=== PATIENT | male | born 1965 | race Caucasian/White ===

== ENCOUNTER 2016-09-08 16:28 | Emergency (ER) | payer MEDICARE, MEDICAID ==
[2016-09-08] MEDS ORDERED: Ondansetron INJ* 2 MG/ML VIAL IV ONE (17:05)
[2016-09-08] MEDS ORDERED: Ondansetron INJ* 2 MG/ML VIAL ONE (17:05)
[2016-09-08] MEDS ORDERED: NS 0.9% 1000 ML* 1,000 ML IV ONE (17:07)
[2016-09-08 17:33] LABS: Hematocrit 48 % (42-52); Mean Corpuscular HGB Conc 34 g/dl (31-36); Mean Corpuscular Hemoglobin 33 pg (27-31); Mean Corpuscular Volume 100 fL (80-94); Mean Platelet Volume 8 um3 (7.4-10.4); Red Cell Distribution Width 13 % (10.5-15); White Blood Count 9.5 10^3/ul (3.5-10.8)
[2016-09-08 17:44] LABS: Albumin 4.1 g/dL (3.2-5.2); BUN/Creatinine Ratio 10.3 (8-20); Calcium 9.6 mg/dL (8.6-10.3); EGFR African American 78.2 (>60); EGFR Non-African American 60.8 (>60); Globulin 3.6 g/dL (2-4); Potassium 3.9 mmol/L (3.5-5.0); Total Bilirubin 0.4 mg/dL (0.2-1.0); Total Protein 7.7 g/dL (6.4-8.9)
[2016-09-08 17:46] LABS: Troponin I 0.01 ng/mL (<0.04)
--- NOTE | 2016-09-08 17:46 | RAD ---
INDICATION: Headache 4 days after head trauma. COMPARISON: None. TECHNIQUE: Contiguous axial sections of the brain were obtained from the skull base to the vertex without contrast. FINDINGS: The ventricles, cisterns and sulci are within normal limits. The fenton-white matter differentiation is adequately maintained and there is no sulcal effacement. No significant focal abnormality or mass effect is present. There is no evidence for intracranial hemorrhage. Overlying the left frontal and parietal bones there is thickening and hyperattenuation of the subcutaneous tissue measuring 1.3 cm in thickness (image 15 of 40). No significant focal osseous abnormality is present. The visualized portion of the paranasal sinuses and mastoid air cells appear clear. IMPRESSION: Subacute appearing subcutaneous hematoma overlying the left frontal parietal bones as described above without CT evidence of underlying calvarial fracture or acute intracranial hemorrhage.
[2016-09-08] MEDS ORDERED: Metoclopramide IV* 5 MG/ML 2 ML VIAL IV ONE (17:48)
[2016-09-08] MEDS ORDERED: diPHENhydraMINE IV* 50 MG/ML 1 ml VIAL (BENADRYL) IV ONE (17:49)
[2016-09-08] MEDS ORDERED: LORazepam INJ* 2 MG/ML 1 ML VIAL IV PUSH ONE (17:49)
[2016-09-08 17:52] LABS: Urine Bilirubin Negative (Negative); Urine Glucose Negative (Negative); Urine Nitrite Negative (Negative)
--- NOTE | 2016-09-08 17:52 | RAD ---
INDICATION: Left shoulder pain for days after a fall COMPARISON: Chest x-ray dated October 31, 2014 TECHNIQUE: 3 views of the left shoulder were obtained. FINDINGS: The adequately corticated bones are in normal alignment. The left acromioclavicular joint appears slightly widened measuring up to 5 mm in width. The glenohumeral joint appears to be appropriately aligned. No fracture, dislocation or focal bony abnormality is seen. IMPRESSION: QUESTIONABLE WIDENING OF THE LEFT ACROMIOCLAVICULAR JOINT. IF THE PATIENT EXHIBITS FOCAL POINT TENDERNESS AT THE LEFT ACROMIOCLAVICULAR JOINT THIS COULD REPRESENT A TYPE I AC SEPARATION. IF CLINICALLY WARRANTED COMPARISON CAN BE MADE TO RIGHT SHOULDER RADIOGRAPH TO DETERMINE THE WIDTH OF THE CONTRALATERAL A CHROMIC CLAVICULAR JOINT.
[2016-09-08 18:05] LABS: TSH (Thyroid Stimulating Horm) 0.8 mcIU/mL (0.34-5.60)
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
[2016-09-08 22:38] VITALS: BP 106/71
== END 2016-09-08 22:31 | disposition home or self-care (01) ==
LOC: ED 16:28
DX: F10.129 Alcohol abuse with intoxication, unspecified (principal); S43.005A Unspecified dislocation of left shoulder joint, initial encounter; X58.XXXA Exposure to other specified factors, initial encounter; I10 Essential (primary) hypertension; J44.9 Chronic obstructive pulmonary disease, unspecified; R94.31 Abnormal electrocardiogram [ECG] [EKG]; I49.3 Ventricular premature depolarization; Z86.711 Personal history of pulmonary embolism; F17.210 Nicotine dependence, cigarettes, uncomplicated; Z88.0 Allergy status to penicillin; Z88.8 Allergy status to other drugs, medicaments and biological substances
CPT/HCPCS: 36415; 70450; 80053; 80320; 81003; 82140; 82550; 83605; 83735; 84443; 84484; 85025; 85610; 93005; 96361; 96374; 96375; 99284; G0480; J1200; J2060; J2405

== ENCOUNTER 2016-09-10 11:29 | Emergency (ER) | payer MEDICARE, MEDICAID ==
[2016-09-10] MEDS ORDERED: NS 0.9% 1000 ML* 2,000 ML IV ONE (11:46)
[2016-09-10] MEDS ORDERED: HYDROmorphone* 1 MG/ML 1 ML SYR IV ONE (11:46)
[2016-09-10] MEDS ORDERED: Diazepam SYRINGE* 5 MG/ML SYRINGE IV ONE (12:34)
[2016-09-10] MEDS ORDERED: Diazepam TAB(*) 5 MG PO ONE (12:38)
--- NOTE | 2016-09-10 13:18 | RAD ---
HISTORY: Head trauma COMPARISONS: None TECHNIQUE: Multiple contiguous axial CT scans were obtained of the head without intravenous contrast. FINDINGS: HEMORRHAGE/INFARCT: There is no hemorrhage or acute infarct. MASSES/SHIFT: There is no mass or shift. EXTRA-AXIAL SPACES: There are no extra-axial fluid collections. SULCI AND VENTRICLES: The sulci and ventricles are normal in size and position for the patient's stated age. CEREBRUM: There are no focal parenchymal abnormalities. BRAINSTEM: There are no focal parenchymal abnormalities. CEREBELLUM: There are no focal parenchymal abnormalities. VESSELS: The vessels are grossly normal. PARANASAL SINUSES: The paranasal sinuses are clear. ORBITS: The orbits are unremarkable. BONES AND SOFT TISSUE: There is soft tissue swelling of the left temporal scalp OTHER: None IMPRESSION: NO ACUTE INTRACRANIAL PATHOLOGY.
[2016-09-10] MEDS ORDERED: Acetaminophen TAB* 325 MG PO ONE (14:17)
[2016-09-10 15:58] VITALS: BP 140/100
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
== END 2016-09-10 15:58 | disposition home or self-care (01) ==
LOC: ED 11:29
DX: F07.81 Postconcussional syndrome (principal); G44.209 Tension-type headache, unspecified, not intractable
CPT/HCPCS: 70450; 96374; 99282; A9270-GY

== ENCOUNTER → 2016-10-03 09:24 | Emergency (ER) | payer MEDICARE, MEDICAID ==
[~2016-10-03 09:24] MED LIST: LORazepam INJ* 2 MG/ML 1 ML VIAL ONE; Metoclopramide IV* 5 MG/ML 2 ML VIAL IV ONE; diPHENhydraMINE IV* 50 MG in NS 0.9% 50 ML* 50 ML IVPB ONE; methylPREDNISolone 125 MG* 2 ML VIAL IV ONE
[2016-10-03] MEDS: Albuterol/Ipratropium NEB.SOL* Albuterol 2.5 MG/Ipratropium 0.5 MG 3 ML INH SCH (11:05)
--- NOTE | 2016-10-03 11:51 | RAD ---
HISTORY: Headache, anticoagulation COMPARISONS: September 12, 2016 TECHNIQUE: Multiple contiguous axial CT scans were obtained of the head without intravenous contrast. FINDINGS: HEMORRHAGE/INFARCT: There is no hemorrhage or acute infarct. MASSES/SHIFT: There is no mass or shift. EXTRA-AXIAL SPACES: There are no extra-axial fluid collections. SULCI AND VENTRICLES: The sulci and ventricles are normal in size and position for the patient's stated age. CEREBRUM: There are no focal parenchymal abnormalities. BRAINSTEM: There are no focal parenchymal abnormalities. CEREBELLUM: There are no focal parenchymal abnormalities. VESSELS: The vessels are grossly normal. PARANASAL SINUSES: There is mucosal thickening of the left maxillary sinus, with an air-fluid level. There is mucosal thickening of the ethmoid air cells. ORBITS: The orbits are unremarkable. BONES AND SOFT TISSUE: No bone or soft tissue abnormalities are noted. OTHER: None IMPRESSION: 1. NO ACUTE INTRACRANIAL PATHOLOGY. 2. SINUS MUCOSAL INFLAMMATORY DISEASE, WITH AN AIR-FLUID LEVEL IN THE LEFT MAXILLARY. IN THE CORRECT CLINICAL SETTING, THIS MAY REPRESENT ACUTE SINUSITIS
--- NOTE | 2016-10-03 11:52 | RAD ---
INDICATION: Chest pain. COMPARISON: Comparison is made with a prior chest x-ray study from October 31, 2014. TECHNIQUE: Dual-energy PA and lateral views of the chest were obtained. FINDINGS: The heart is within normal limits in size. Mediastinal and hilar contours appear within normal limits. The lungs are hyperinflated and clear. No pleural effusion or pneumothorax is seen. IMPRESSION: NO EVIDENCE FOR ACTIVE CARDIOPULMONARY DISEASE.
[2016-10-03 12:22] LABS: Hematocrit 50 % (42-52); Mean Corpuscular HGB Conc 34 g/dl (31-36); Mean Corpuscular Hemoglobin 34 pg (27-31); Mean Corpuscular Volume 100 fL (80-94); Mean Platelet Volume 8 um3 (7.4-10.4); Red Cell Distribution Width 14 % (10.5-15)
[2016-10-03 12:33] LABS: Albumin 3.9 g/dL (3.2-5.2); BUN/Creatinine Ratio 10.4 (8-20); Calcium 9.3 mg/dL (8.6-10.3); EGFR African American 95.5 (>60); EGFR Non-African American 74.3 (>60); Globulin 3.7 g/dL (2-4); Potassium 4.5 mmol/L (3.5-5.0); Total Bilirubin 0.8 mg/dL (0.2-1.0); Total Protein 7.6 g/dL (6.4-8.9)
[2016-10-03 13:32] VITALS: BP 120/72
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
== END | disposition home or self-care (01) ==
LOC: ED 09:24
DX: R51 Headache (principal); R06.2 Wheezing; R07.9 Chest pain, unspecified; J44.9 Chronic obstructive pulmonary disease, unspecified; Z86.718 Personal history of other venous thrombosis and embolism; Z79.01 Long term (current) use of anticoagulants; Z88.0 Allergy status to penicillin; Z88.6 Allergy status to analgesic agent; F32.9 Major depressive disorder, single episode, unspecified; F17.210 Nicotine dependence, cigarettes, uncomplicated; M54.2 Cervicalgia; G89.29 Other chronic pain
CPT/HCPCS: 36415; 70450; 71020; 80053; 82550; 82553; 83605; 84484; 85025; 93005; 94640; 96360; 96374; 96375; 99284; A9270-GY; J1200; J2060; J2930

== ENCOUNTER 2016-12-25 11:07 | Emergency (ER) | payer MEDICARE, MEDICAID ==
[2016-12-25] MEDS ORDERED: NS 0.9% 1000 ML* 1,000 ML IV ONE (11:50)
[2016-12-25 12:05] LABS: Hematocrit 40 % (42-52); Hemoglobin 13.9 g/dl (14.0-18.0); Mean Corpuscular HGB Conc 35 g/dl (31-36); Mean Corpuscular Hemoglobin 35 pg (27-31); Mean Corpuscular Volume 100 fL (80-94); Mean Platelet Volume 8 um3 (7.4-10.4); Red Blood Count 4.02 10^6/ul (4.0-5.4); Red Cell Distribution Width 13 % (10.5-15); White Blood Count 10.2 10^3/ul (3.5-10.8)
[2016-12-25 12:21] LABS: Albumin 3.8 g/dL (3.2-5.2); BUN/Creatinine Ratio 11.7 (8-20); EGFR African American 109.7 (>60); EGFR Non-African American 85.3 (>60); Globulin 3.2 g/dL (2-4); Magnesium 1.9 mg/dL (1.9-2.7); Potassium 3.9 mmol/L (3.5-5.0); Total Bilirubin 0.3 mg/dL (0.2-1.0)
[2016-12-25 12:24] LABS: Troponin I 0.04 ng/mL (<0.04)
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
[2016-12-25 13:25] LABS: Urine Bilirubin Negative (Negative); Urine Glucose Negative (Negative); Urine Nitrite Negative (Negative)
[2016-12-25 14:12] LABS: Benzodiazepine Urine Screen None Detected (None Detect)
[2016-12-25 14:50] VITALS: BP 161/99
== END 2016-12-25 14:35 | disposition home or self-care (01) ==
LOC: ED 11:07
DX: R53.83 Other fatigue (principal); R05 Cough; R11.2 Nausea with vomiting, unspecified; Z87.891 Personal history of nicotine dependence
CPT/HCPCS: 36415; 80053; 80307; 81003; 82550; 83735; 84484; 85025; 93005; 99282

== ENCOUNTER 2017-01-10 00:14 | Emergency (ER) | payer MEDICARE, MEDICAID ==
[2017-01-10] MEDS ORDERED: NS 0.9% 1000 ML* 1,000 ML IV ONE (01:08)
[2017-01-10] MEDS ORDERED: methylPREDNISolone 125 MG* 2 ML VIAL IV ONE (01:17)
[2017-01-10] MEDS ORDERED: Albuterol/Ipratropium NEB.SOL* Albuterol 2.5 MG/Ipratropium 0.5 MG 3 ML INH ONE (01:17)
[2017-01-10 01:38] LABS: Hematocrit 44 % (42-52); Hemoglobin 15.3 g/dl (14.0-18.0); Mean Corpuscular HGB Conc 35 g/dl (31-36); Mean Corpuscular Hemoglobin 34 pg (27-31); Mean Corpuscular Volume 98 fL (80-94); Mean Platelet Volume 8 um3 (7.4-10.4); Red Cell Distribution Width 12 % (10.5-15); White Blood Count 8.4 10^3/ul (3.5-10.8)
[2017-01-10 01:53] LABS: Albumin 3.8 g/dL (3.2-5.2); BUN/Creatinine Ratio 19.8 (8-20); Calcium 9.2 mg/dL (8.6-10.3); EGFR African American 113.9 (>60); EGFR Non-African American 88.6 (>60); Globulin 3.8 g/dL (2-4); Potassium 4.1 mmol/L (3.5-5.0); Total Bilirubin 0.7 mg/dL (0.2-1.0); Total Protein 7.6 g/dL (6.4-8.9)
[2017-01-10] MEDS ORDERED: Iohexol 300* (CONTRAST) 10 ML SDV IV ONE (02:14)
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
[2017-01-10 05:51] VITALS: BP 144/88
--- NOTE | 2017-01-10 08:08 | RAD ---
INDICATION: Chest pain COMPARISON: October 03, 2016 TECHNIQUE: PA and lateral dual-energy views were obtained. FINDINGS: Bones/Soft Tissues: There are no acute bony findings. Cardiomediastinal: The cardiomediastinal silhouette is normal. Lungs: There are no infiltrates. Pleura: There are no pleural effusions. Other: None IMPRESSION: NO ACTIVE DISEASE.
--- NOTE | 2017-01-10 08:13 | RAD ---
INDICATION: Abdominal pain. Diverticulitis. COMPARISON: CT September 22, 2014 TECHNIQUE: Axial source images were obtained from the hemidiaphragms to the symphysis pubis following administration of oral and intravenous contrast. 121 mL Omnipaque 300 was utilized. Coronal and sagittal reconstructed images were acquired. Lung bases: The lung bases are clear. Liver: The liver is normal in size. There are no masses. There is no ductal dilatation. Gallbladder: Cholecystectomy. Spleen: The spleen is normal in size. There are no masses. Pancreas: There is no focal pancreatic mass or ductal dilatation. Adrenal glands: There is no evidence of adrenal mass. Kidneys: The kidneys are normal in size and position. There is scarring of the mid and upper pole left kidney. There is a tiny renal calcification which could be renal parenchymal or reside within the collecting system. There are prompt nephrograms and there is prompt excretion bilaterally. There is a 3 cm left renal cyst. There is no evidence of nephrolithiasis. Adenopathy: There is no evidence of adenopathy by size criteria. Fluid collections: There are no free or localized fluid collections. Vessels:There are no significant atherosclerotic changes involving the aorta. There is no focal aneurysm. The iliac vessels are normal in caliber. The IVC appears normal. GI tract: There are no acute CT bowel findings. There is no obstruction. The stomach and small bowel appear normal. The lower GI tract is normal. The cecum, ileocecal valve, and terminal ileum appear normal. The appendix is visualized and appear normal. Pelvic organs: The prostate and seminal vesicles appear normal Bladder: There are no bladder masses. Abdominal and pelvic soft tissues: There is a fat-containing right inguinal hernia. Osseous structures: There are no acute osseous findings. Other: None IMPRESSION: NO ACUTE CT FINDINGS. NO MASS OR INFLAMMATORY CHANGES
== END 2017-01-10 04:30 | disposition home or self-care (01) ==
LOC: ED 00:14
DX: J45.901 Unspecified asthma with (acute) exacerbation (principal); R07.9 Chest pain, unspecified; R10.9 Unspecified abdominal pain
CPT/HCPCS: 36415; 71020; 74177; 80053; 83690; 84484; 85025; 85610; 85730; 94640; 99283; A9270-GY; J2930; Q9967

== ENCOUNTER 2017-01-18 15:24 | Emergency (ER) | payer MEDICARE, MEDICAID ==
--- NOTE | 2017-01-18 17:45 | RAD ---
INDICATION: Chest pain COMPARISON: January 10, 2017 TECHNIQUE: PA and lateral dual-energy views were obtained. FINDINGS: Bones/Soft Tissues: There are no acute bony findings. Cardiomediastinal: The cardiomediastinal silhouette is normal. Lungs: There are no infiltrates. Pleura: There are no pleural effusions. Other: None IMPRESSION: NO ACTIVE DISEASE.
[2017-01-18 18:12] LABS: Hematocrit 44 % (42-52); Hemoglobin 15.2 g/dl (14.0-18.0); Mean Corpuscular HGB Conc 34 g/dl (31-36); Mean Corpuscular Hemoglobin 34 pg (27-31); Mean Corpuscular Volume 98 fL (80-94); Mean Platelet Volume 7 um3 (7.4-10.4); Red Blood Count 4.53 10^6/ul (4.0-5.4); Red Cell Distribution Width 13 % (10.5-15)
[2017-01-18 18:27] VITALS: BP 132/77
[2017-01-18 18:31] LABS: BUN/Creatinine Ratio 11.9 (8-20); Calcium 9.7 mg/dL (8.6-10.3); EGFR African American 92.5 (>60); EGFR Non-African American 71.9 (>60); Globulin 3.9 g/dL (2-4); Potassium 3.9 mmol/L (3.5-5.0); Total Bilirubin 0.9 mg/dL (0.2-1.0); Total Protein 7.9 g/dL (6.4-8.9)
[2017-01-18 18:56] LABS: TSH (Thyroid Stimulating Horm) 0.58 mcIU/mL (0.34-5.60)
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
== END 2017-01-18 19:09 | disposition home or self-care (01) ==
LOC: ED 15:24
DX: R07.9 Chest pain, unspecified (principal); F17.210 Nicotine dependence, cigarettes, uncomplicated; Z79.01 Long term (current) use of anticoagulants
CPT/HCPCS: 36415; 71020; 80053; 82550; 83605; 84443; 84484; 85025; 85379; 93005; 99282

== ENCOUNTER 2017-08-13 16:42 | Emergency (ER) | payer MEDICARE, MEDICAID ==
--- NOTE | 2017-08-13 17:34 | RAD ---
Indication: LEFT chest pain. New alcohol cessation. History of cardiac disease, tobacco use, pulmonary embolism. Comparison: January 18, 2017 Technique: Upright AP 1722 hours Report: Clear lungs and pleural spaces. Negative for pneumothorax. The heart, pulmonary vasculature, and mediastinal contours are unremarkable. Unremarkable osseous structures and soft tissue contours. IMPRESSION: No evidence for acute intrathoracic disease.
[2017-08-13] MEDS ORDERED: Ketorolac INJ* 30 MG/ML 1 ML VIAL IV PUSH ONE (17:56)
[2017-08-13 18:01] LABS: ABS Basophils 0.1 10^3/ul (0-0.2); ABS Eosinophils 0.6 10^3/ul (0-0.6); ABS Monocytes 0.9 10^3/ul (0-0.8); ABS Neutrophils 5.9 10^3/ul (1.5-7.7); ABS Nucleated RBC 0 10^3/ul; Hematocrit 48 % (42-52); Hemoglobin 16.4 g/dl (14.0-18.0); Lymphocyte % 20.9 % (25-47); Mean Corpuscular HGB Conc 34 g/dl (31-36); Mean Corpuscular Hemoglobin 35 pg (27-31); Mean Corpuscular Volume 101 fL (80-94); Mean Platelet Volume 7.4 um3 (7.4-10.4); Nucleated Red Blood Cells % 0; Platelet Count 230 10^3/ul (150-450); Red Blood Count 4.76 10^6/ul (4.0-5.4); Red Cell Distribution Width 14 % (10.5-15); White Blood Count 9.4 10^3/ul (3.5-10.8)
[2017-08-13] MEDS ORDERED: NS 0.9% 1000 ML* 1,000 ML IV ONE (18:33)
[2017-08-13 18:51] LABS: Urine Appearance Clear; Urine Blood 2+ (Negative); Urine Color Yellow; Urine Ketones Negative (Negative); Urine Protein Negative (Negative); Urine Specific Gravity 1.015 (1.010-1.030); Urine Urobilinogen Negative (Negative)
[2017-08-13] MEDS ORDERED: oxyCODONE/Acetamin 5/325 MG* TAB PO ONE (19:32)
[2017-08-13 21:16] VITALS: BP 177/100
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
== END 2017-08-13 21:18 | disposition home or self-care (01) ==
LOC: ED 16:42
DX: R07.9 Chest pain, unspecified (principal); R42 Dizziness and giddiness; Z79.01 Long term (current) use of anticoagulants; F17.210 Nicotine dependence, cigarettes, uncomplicated; Z04.1 Encounter for examination and observation following transport accident
CPT/HCPCS: 36415; 71045; 80053; 81003; 81015; 82550; 82553; 83605; 83880; 84443; 84484; 85025; 85730; 93005; 96374; 99284; A9270-GY; J1885

== ENCOUNTER 2017-08-14 06:31 | Emergency (ER) | payer MEDICARE, MEDICAID ==
[2017-08-14] MEDS ORDERED: NS 0.9% 1000 ML* 1,000 ML IV ONE (07:19)
[2017-08-14] MEDS ORDERED: HYDROcodone/ACETAMIN 5-325 MG* 1 TAB PO ONE (07:51)
[2017-08-14 08:22] LABS: ABS Basophils 0.1 10^3/ul (0-0.2); ABS Eosinophils 0.7 10^3/ul (0-0.6); ABS Lymphocytes 1.5 10^3/ul (1.0-4.8); ABS Monocytes 0.8 10^3/ul (0-0.8); ABS Neutrophils 5.8 10^3/ul (1.5-7.7); ABS Nucleated RBC 0 10^3/ul; Eosinophil % 7.7 % (0-6); Hematocrit 52 % (42-52); Hemoglobin 18.3 g/dl (14.0-18.0); Lymphocyte % 17.1 % (25-47); Mean Corpuscular HGB Conc 35 g/dl (31-36); Mean Corpuscular Hemoglobin 35 pg (27-31); Mean Corpuscular Volume 99 fL (80-94); Mean Platelet Volume 7.5 um3 (7.4-10.4); Nucleated Red Blood Cells % 0.1; Platelet Count 258 10^3/ul (150-450); Red Blood Count 5.22 10^6/ul (4.0-5.4); Red Cell Distribution Width 14 % (10.5-15); Urine Appearance Clear; Urine Blood 2+ (Negative); Urine Color Amber; Urine Ketones Negative (Negative); Urine Protein 2+(100 mg/dL) (Negative); Urine Specific Gravity 1.027 (1.010-1.030); Urine Urobilinogen Negative (Negative); White Blood Count 8.9 10^3/ul (3.5-10.8)
[2017-08-14 08:41] LABS: EGFR Non-African American 77.3 (>60)
[2017-08-14] MEDS ORDERED: Iohexol 300* (CONTRAST) 10 ML SDV IV ONE (08:48)
--- NOTE | 2017-08-14 09:20 | RAD ---
HISTORY: Chest and abdominal pain, hematuria COMPARISONS: January 10, 2017 TECHNIQUE: Multiple contiguous axial CT scans were obtained of the chest, abdomen, and pelvis after the administration of intravenous contrast. Coronal and sagittal multiplanar reformations are submitted for review.. Oral contrast was administered. Delayed images were obtained through the abdomen and pelvis. FINDINGS: CHEST NECK AND THYROID: The lower neck and thyroid are unremarkable. CHEST WALL: There is no lower cervical, axillary, or supraclavicular lymphadenopathy by size criteria. HEART AND PERICARDIUM: The heart is unremarkable. AORTA AND PULMONARY VASCULATURE: The aorta and pulmonary vasculature are normal. MEDIASTINUM: There is no mediastinal lymphadenopathy by size criteria. SONU: There is no hilar lymphadenopathy by size criteria. AIRWAY AND ESOPHAGUS: The airway is unremarkable, without endobronchial filling defect. The esophagus is grossly normal. LUNG PARENCHYMA: There is a 0.5 cm nodular density along the fissure of the left lower lobe on axial image 45. There is a 0.3 cm nodular density along the fissure in the right middle lobe on axial image 48. PLEURA: No pleural abnormalities are noted. BONES AND SOFT TISSUES: Mild degenerative changes are noted. ABDOMEN/PELVIS: LIVER: The liver is diffusely low in attenuation compared to the spleen. There are no focal hepatic parenchymal masses. BILE DUCTS: There is no intrahepatic or extrahepatic biliary dilatation. GALLBLADDER: The gallbladder is not visualized. Surgical clips are noted in the gallbladder fossa. PANCREAS: The pancreas is normal, without mass or ductal dilatation. SPLEEN: Normal in size and appearance. UPPER GI TRACT: Evaluation of the gastrointestinal tract is limited by incomplete gastric distention. The upper GI tract is unremarkable. SMALL BOWEL & MESENTERY: The small bowel is normal in contour, course, and caliber. There is no obstruction or dilatation. COLON: The colon is normal in contour, course, caliber. There is no pericolonic inflammatory change. ADRENALS: Normal bilaterally. KIDNEYS: A simple renal cyst is noted on the left. There is persistent lobulation. Multiple renal cortical defects are noted similar to the previous examination. BLADDER: The bladder is smooth in contour. PELVIC ORGANS: The prostate gland is normal. The seminal vesicles are symmetric. AORTA: There is mild calcific atherosclerotic disease of the abdominal aorta and its branches, without aneurysmal dilatation IVC: Unremarkable LYMPH NODES: There is no lymphadenopathy by size criteria. ABDOMINAL WALL: There is a small fat-containing right inguinal hernia. BONES AND SOFT TISSUES: There are mild diffuse degenerative changes. The patient is status post internal fixation of the right femur. OTHER: None IMPRESSION: 1. SMALL PULMONARY PARENCHYMAL NODULES MEASURING UP TO 0.5 CM BILATERALLY. THE RECOMMENDATIONS FOR FOLLOWUP AND MANAGEMENT OF AN INCIDENTALLY DETECTED PULMONARY NODULE LESS THAN 6 MM IN SIZE, IN A PATIENT WITHOUT A HISTORY OF MALIGNANCY, INCLUDE NO FOLLOWUP FOR A LOW-RISK PATIENT OR OPTIONAL FOLLOWUP CT IN 12 MONTHS FOR A HIGH RISK PATIENT. 2. FATTY INFILTRATION OF LIVER. 3. STABLE LEFT RENAL CYST. THERE IS MULTIFOCAL RENAL CORTICAL PARENCHYMAL SCARRING SUGGESTIVE OF PREVIOUS INFECTION OR INJURY. 4. SMALL FAT-CONTAINING RIGHT HERNIA. 5. ATHEROSCLEROSIS NOTES: SIZE = AVERAGE LENGTH AND WIDTH; HIGH RISK IS DEFINED A HISTORY OF SMOKING OR OTHER KNOW RISK FACTORS FOR LUNG CANCER; LOW RISK IS DEFINED MINIMAL OR ABSENT HISTORY OF SMOKING OR OTHER KNOWN RISK FACTORS. Shira, H, HALIE Tovar, ANUJ Garcia, et al (2017) "Guidelines for Management of Incidental Pulmonary Nodules Detected on CT Images: From the Fleischner Society 2017." Radiology; 284(1): 228-243. doi:10.1148/[id number]
[2017-08-14 09:23] VITALS: BP 00/00
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
== END 2017-08-14 09:25 | disposition left against medical advice (07) ==
LOC: ED 06:31
DX: R07.89 Other chest pain (principal); R31.9 Hematuria, unspecified; R91.1 Solitary pulmonary nodule; N28.1 Cyst of kidney, acquired; K40.90 Unilateral inguinal hernia, without obstruction or gangrene, not specified as recurrent; I70.0 Atherosclerosis of aorta; I10 Essential (primary) hypertension; Z86.711 Personal history of pulmonary embolism; Z79.01 Long term (current) use of anticoagulants; J44.9 Chronic obstructive pulmonary disease, unspecified; F32.9 Major depressive disorder, single episode, unspecified; Z88.6 Allergy status to analgesic agent; Z88.0 Allergy status to penicillin; Z88.8 Allergy status to other drugs, medicaments and biological substances; F17.210 Nicotine dependence, cigarettes, uncomplicated
CPT/HCPCS: 36415; 71260; 74177; 80053; 80307; 81003; 82550; 84484; 85025; 87086; 93005; 96360; 99283; Q9967

== ENCOUNTER 2017-09-02 17:00 | Emergency (ER) | payer MEDICARE, MEDICAID ==
[2017-09-02 17:56] LABS: Urine Appearance Clear; Urine Blood 1+ (Negative); Urine Color Yellow; Urine Ketones Negative (Negative); Urine Protein Negative (Negative); Urine Specific Gravity 1.016 (1.010-1.030); Urine Urobilinogen Negative (Negative)
[2017-09-02 18:13] LABS: ABS Basophils 0.1 10^3/ul (0-0.2); ABS Eosinophils 0.9 10^3/ul (0-0.6); ABS Lymphocytes 2.6 10^3/ul (1.0-4.8); ABS Monocytes 0.7 10^3/ul (0-0.8); ABS Neutrophils 5.1 10^3/ul (1.5-7.7); ABS Nucleated RBC 0 10^3/ul; Eosinophil % 9.3 % (0-6); Hematocrit 48 % (42-52); Hemoglobin 16.4 g/dl (14.0-18.0); Lymphocyte % 27.8 % (25-47); Mean Corpuscular HGB Conc 35 g/dl (31-36); Mean Corpuscular Hemoglobin 35 pg (27-31); Mean Corpuscular Volume 101 fL (80-94); Mean Platelet Volume 7.6 um3 (7.4-10.4); Nucleated Red Blood Cells % 0.1; Platelet Count 329 10^3/ul (150-450); Red Blood Count 4.73 10^6/ul (4.0-5.4); Red Cell Distribution Width 13 % (10.5-15); White Blood Count 9.4 10^3/ul (3.5-10.8)
[2017-09-02 18:31] LABS: EGFR Non-African American 47.7 (>60)
[2017-09-02] MEDS ORDERED: Albuterol/Ipratropium NEB.SOL* Albuterol 2.5 MG/Ipratropium 0.5 MG 3 ML INH ONE (20:10)
[2017-09-02] MEDS ORDERED: methylPREDNISolone 125 MG* 2 ML VIAL IV ONE (20:11)
--- NOTE | 2017-09-02 20:31 | RAD ---
HISTORY: Dizziness COMPARISONS: October 03, 2016 TECHNIQUE: Multiple contiguous axial CT scans were obtained of the head without intravenous contrast. FINDINGS: HEMORRHAGE/INFARCT: There is no hemorrhage or acute infarct. MASSES/SHIFT: There is no mass or shift. EXTRA-AXIAL SPACES: There are no extra-axial fluid collections. SULCI AND VENTRICLES: The sulci and ventricles are normal in size and position for the patient's stated age. CEREBRUM: There are no focal parenchymal abnormalities. BRAINSTEM: There are no focal parenchymal abnormalities. CEREBELLUM: There are no focal parenchymal abnormalities. VESSELS: The vessels are grossly normal. PARANASAL SINUSES: The paranasal sinuses are clear. ORBITS: The orbits are unremarkable. BONES AND SOFT TISSUE: No bone or soft tissue abnormalities are noted. OTHER: None IMPRESSION: NO ACUTE INTRACRANIAL PATHOLOGY.
[2017-09-02] MEDS: NS 0.9% 1000 ML* 2,000 ML IV ONE (20:33)
--- NOTE | 2017-09-02 20:33 | RAD ---
HISTORY: Shortness of breath COMPARISONS: August 13, 2017 VIEWS: 1: frontal portable view of the chest at 8:20 PM FINDINGS: LINES AND TUBES: None. CARDIOMEDIASTINAL SILHOUETTE: The cardiomediastinal silhouette is normal for portable technique. PLEURA: The costophrenic angles are sharp. No pleural abnormalities are noted. LUNG PARENCHYMA: The lungs are clear. ABDOMEN: The upper abdomen is clear. There is no subphrenic gas. BONES AND SOFT TISSUES: No bone or soft tissue abnormalities are noted. IMPRESSION: NO ACTIVE CARDIOPULMONARY DISEASE.
[2017-09-02 23:49] VITALS: BP 118/72
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
== END 2017-09-02 23:48 | disposition home or self-care (01) ==
LOC: ED 17:00
DX: J44.9 Chronic obstructive pulmonary disease, unspecified (principal); J98.01 Acute bronchospasm; R42 Dizziness and giddiness; J45.901 Unspecified asthma with (acute) exacerbation; Z86.711 Personal history of pulmonary embolism; Z79.01 Long term (current) use of anticoagulants; F17.210 Nicotine dependence, cigarettes, uncomplicated; I10 Essential (primary) hypertension
CPT/HCPCS: 36415; 70450; 71045; 80053; 81003; 81015; 83605; 83735; 84443; 84484; 85025; 87086; 93005; 94640; 96360; 96374; 99284; A9270-GY; J2930

== ENCOUNTER 2018-02-07 18:57 | Emergency (ER) | payer MEDICARE, MEDICAID ==
--- OUTSIDE RECORDS SUMMARY | 2018-02-07 20:02 | XMS REPORT ---
:1965 External Reference #:[id number] Author Organization [facility] Address [address] [place] [address] Phone [phone] Care Team Providers Name Role Phone Herminia Tsai Care Team Information Power Plant Assistant Unavailable Gina Moses MD, PHD Primary Care Physician Unavailable Payers Type Date Identification Numbers Payment Provider Subscriber Medicare Primary Effective: Policy Number: Medicare Talha Fuentes 2001 [id number] Karen Group Name: Medicare [address] PayID: [id number] [place] [address] Medicaid Policy Number: [id number] Medicaid Talha Jones Group Name: 1 1 [address] PayID: [id number] [place] [address] Problems Date Description Provider Status Onset: 06/04/2012 Gallbladder calculus with acute Aguilar Calabrese Active cholecystitis and no obstruction M.D. Onset: 06/04/2012 H/O: coagulation defect Aguilar Calabrese Active M.D. Onset: 06/04/2012 Tobacco user Aguilar Calabrese Active M.D. Onset: 07/14/2012 Benign essential hypertension Bea Ely, ANP Active Onset: 07/14/2012 Precordial pain Bea Ely ANP Active Onset: 07/14/2012 Chronic obstructive lung disease Bea Ely, LUC Active Onset: 07/14/2012 Preoperative cardiovascular Heber Roe MD, PhD Active examination Onset: 07/14/2012 Coronary arteriosclerosis Heber Roe MD, PhD Active Onset: 05/25/2014 Attention deficit hyperactivity Kristen Benjamin M.D. Active disorder Onset: 05/25/2014 Dizziness and giddiness Kristen Benjamin M.D. Active Onset: 05/25/2014 Broken tooth without complication Kristen Benjamin M.D. Active Onset: 05/25/2014 Melena Kristen Benjamin M.D. Active Onset: 06/11/2014 Dyspnea Jamal Arreola MD Active Onset: 06/11/2014 Chest pain Jamal Arreola MD Active Onset: 06/11/2014 Disease of liver Jamal Arreola MD Active Onset: 06/11/2014 Obstructive sleep apnea syndrome Jamal Arreola MD Active Onset: 06/16/2014 Gastrointestinal hemorrhage Kristen Benjamin M.D. Active Onset: 06/16/2014 Liver function tests abnormal Kristen Benjamin M.D. Active Onset: 06/16/2014 Multiple joint pain Kristen Benjamin M.D. Active Onset: 08/24/2014 Low back pain Kristen Benjamin M.D. Active Onset: 08/24/2014 Disc Disorder Other & Unspec Kristen Benjamin M.D. Active Unspec Region Onset: 08/24/2014 Effusion Joint Other Spec Sites Kristen Benjamin M.D. Active Onset: 09/07/2014 Blood chemistry abnormal Kristen Benjamin M.D. Active Onset: 12/09/2017 Lumbosacral stenosis Gina Moses MD, PHD Active Onset: 12/09/2017 Spinal stenosis in cervical Gina Moses MD, PHD Active region Onset: 12/09/2017 C/O - a back symptom Gina Moses MD, PHD Active Onset: 11/12/2017 Chronic hepatitis C Gina Moses MD, PHD Active Onset: 10/29/2017 Other stimulant use, unspecified, Gina Moses MD, PHD Active uncomplicated Onset: 10/29/2017 Antisocial personality disorder Gina Moses MD, PHD Active Onset: 10/29/2017 Unspecified osteoarthritis, Gina Moses MD, PHD Active unspecified site Onset: 10/29/2017 Nondependent alcohol abuse in Gina Moses MD, PHD Active remission Onset: 10/01/2017 Moderate recurrent major Gina Moses MD, PHD Active depression Onset: 10/01/2017 Other seizures Gina Moses MD, PHD Active Onset: 10/01/2017 Attention-deficit hyperactivity Gina Moses MD, PHD Active disorder, other type Onset: 10/01/2017 Essential hypertension Gina Moses MD, PHD Active Onset: 11/23/2014 Syncope and collapse Kristen Benjamin M.D. Active Onset: 11/23/2014 Cementum caries Kristen Benjamin M.D. Active Onset: 11/23/2014 Cough Kristen Benjamin M.D. Active Onset: 11/23/2014 Acute exacerbation of chronic Kristen Benjamin M.D. Active obstructive airways disease Onset: 01/03/2015 Gastroesophageal reflux disease Alfredo Hebert MD Active Onset: 01/04/2008 Pulmonary embolism Alfredo Hebert MD Active Onset: 01/03/2015 Nausea and vomiting Alfredo Hebert MD Active Family History Date Family Member(s) Problem(s) Comments General Unknown Father Stabbed at age 42 First Daughter Gallstones Grandfather Heart Disease Maternal Grandfather Abdominal Aortic Aneurysm Maternal Grandfather Heart Attack Maternal Grandmother Unknown Social History Type Date Description Comments Lives With Diet Patient follows no dietary restrictions Occupation Disabled Work Status Disabled Cigarette Use Pack Years - 37 Cigarette Use Current Cigarette Smoker 1 Pack Daily ETOH Use Has consumed alcohol in the past Smoking Patient is a current smoker, smokes every day Recreational Drug Use Denies Drug Use Daily Caffeine Consumes on average 2 cups of regular coffee per day Allergies, Adverse Reactions, Alerts Date Description Reaction Status Severity Comments 06/04/2012 Penicillin throat swelling active 04/19/2014 Carbamazepine active 05/25/2014 Aspirin active 09/12/2017 Tegretol Anaphylaxis active Medications Medication Date Status Form Strength Qnty SIG Indications Ordering Provider Oxycodone HCL 01/02/20 Active Tablets 10mg 90tabs 1 tab by M54.5 Tresa oMses mouth Gina, three , PHD times a day as needed M19.90 Celecoxib 12/30/2017 Active Capsules 100mg 60caps 1 tab by Josué, mouth twice Gina, a day as , PHD needed Cyclobenzaprine HCL 12/09/2017 Active Tablets 10mg 30tabs 1 tab by M54. Josué, mouth at 5 Gina, bedtime as MD, PHD needed M48.07 M48.02 Nicotrol 10/29/2017 Active Inhaler 10mg 168units 1 inh every F17.210 Josué, 4 hours as Gina, needed for , PHD cravings Metoprolol 10/29/2017 Active Tablets ER 50mg 30tabs 1 tab by I10 Josué , Succinate ER 24HR mouth every Gina, day at MD, PHD bedtime Arnicare 10/01/2017 Active Gel 75g apply to M54.5 [place], affected Gina, area four MD, PHD times a day pain, swelling, bruising Nicotine Step 10/01/2017 Active Patches 21mg/2 30units 1 topically F17.210 Josué, 1 24HR 4HR every day MD Gina, PHD Nicotine 10/01/2017 Active Gum 4mg 110units 1 as needed F17.210 Josué Polacrilex MD Gina, PHD Xarelto 10/01/2017 Active Tablets 15mg 30tabs 1 tab by D68.8 Josué, mouth every Gina, day , PHD Adderall 10/01/2017 Active Tablets 20mg 30tabs 1 tab by F90.8 Josué, mouth every Gina, day , PHD F60.2 F15.90 Golden-3 CF 10/01/2017 Active Capsules 1000mg 60caps 1 cap by F33.1 mack Moses MD, twice a PHD day with meals B12 Fast 10/01/2017 Active Tablets 5000mcg 90tabs 1 tab by F33.1 Josué , Dissolve Dispers mouth MD Gina, every day PHD Nac 600 10/01/2017 Active Capsules 600mg 90caps 1 cap by F33.1 mack Moses MD, every day PHD Losartan 10/01/2017 Active Tablets 100mg 90tabs 1 tab by G25.0 Josué Potassium mouth MD Gina, every day PHD I10 D3-50 10/01/2017 Active Capsules [id number] 14caps 1 cap by M54.5 Gina Moses, mouth every , PHD week E55.9 Gabapentin 10/01/2017 Active Tablets 600mg 120tabs 3 tab by mouth G40.89 Josué, at bedtime and MD Gina, 1 tab in the PHD morning. F10.11 Escitalopram Active Tablets 20mg 30tabs 1 by F33.1 Josué, Oxalate mouth Gina, every day , PHD Xarelto Active Tablets 20mg 30tabs 1 by Josué mouth Gina, every day , PHD Clonidine HCL Active Tablets 0.1mg 60tabs take 1 I10 Josué, tablet by Gina oral , PHD route 2 times every day Levetiracetam Active Tablets 750mg 60tabs take 1 G40.89 Josué, tablet by mack Fuentes MD, PHD twice a day Vitamin B-1 Active Tablets 100mg Take 1 Unknown Tablet Oral Three Times A Day Oxycodone HCL ER 11/14/2017 - Hx Tab ER 12H 30mg 60tabs 1 tab by M48.07 Josué, 12/30/2017 Abuse-Det mouth Gina, twice a , PHD day after meals M48.02 M62.830 Metoprolol 10/29/2017 - Hx Tablets ER 25mg 30tabs 1 tab by I10 Josué, Succinate ER 10/29/2017 24HR mouth every MD Gina, evening PHD G25.0 D3 Maximum 10/01/2017 - Hx Capsules 5000Unit 90caps 1 cap by M5Milvia Msoes, Strength 10/01/2017 mouth MD Gina, every day PHD Oxycodone HCL 10/01/2017 - Hx Capsules 5mg 60caps 1 cap by M5Milvia Moses , 01/01/2018 mouth MD Gina, twice a PHD day as needed M19.90 Ipratropium 03/03/2015 - Hx Solution 0.5-2.5(3)mg/3ML 180ml 2 puffs Cassidy [place]/Albuterol 09/12/2017 four Kristen, Sulfate times a M.D. day Nicotine Step 1 11/23/2014 - Hx Patches 21mg/24HR 1MonthS one daily F Cassidy, 09/12/2017 24HR u patch as 1 Kristen, directed 7 M.D. . 2 0 0 Mucinex 11/23/2014 - Hx Tablets ER 600mg 20tabs one by J Cassidy, 09/12/2017 12HR mouth 4 Kristen, twice a 4 M.D. day. . generic 1 ok. Folic Acid-Vit 10/05/2014 - Hx Tablets 0.4-50-0.1mg 30tabs take one D Cassidy, B6-Vit B12 09/12/2017 tab by 5 Kristen, mouth 3 M.D. daily . 1 D52.0 Lasix 09/07/2014 - Hx Tablets 20mg 5tabs take one tab Mezu, 11/22/2014 by mouth Kristen, every day M.D. Klor-Con 10 09/07/2014 - Hx Tablets ER 10Meq 5tabs Take one tab Mezu, 11/22/2014 PO daily x 5 Kristen, days M.D. Losartan 09/07/2014 - Hx Tablets 50-12.5 30tabs take one I1 Cassidy, Potassium/Hydrochloro 09/12/2017 mg tablet by 0 Kristen, thiazide mouth every M.D. day Cyclobenzaprine HCL 08/24/2014 - Hx Tablets 10mg 30tabs 1 by mouth 40 Mezu, 11/22/2014 three times 1. Kristen, a day as 1 M.D. needed muscle spasms Lisinopril-Hydrochlor 08/24/2014 - Hx Tablets 20-12.5 30tabs 1 by mouth 40 Mezu, othiazide 09/07/2014 mg every day 1. Kristen, 1 M.D. Adderall 05/26/2014 - Hx Tablets 30mg 30tabs one tab by F9 Cassidy, 09/12/2017 mouth daily 0. Kristen, 1 M.D. Adderall 05/25/2014 - Hx Tablets 30mg Take one Tab 31 Mezu, 05/26/2014 po daily 4. Kristen, 01 M.D. Amlodipine Besylate 07/11/2012 - Hx Tablets 5mg 30tabs 1 po qd 40 Roe , 05/24/2014 1. Heber Soler, 1 , PhD Heparin Hx injections Unknown Advair Diskus - Hx Aerosol 2 puff bid Unknown 05/24/2014 Wellbutrin - Hx Tablets 100mg 1 po qd prn Unknown 05/24/2014 Spiriva Handihaler - Hx Capsules 18mcg 30caps 1 po qd Unknown 05/24/2014 Oxycodone HCL Hx Capsules 5mg 24caps 1 tab po bid Unknown prn Ventolin HFA - Hx Aerosol 108(90B prn Unknown 05/24/2014 ase) mcg/ac Coumadin - Hx Tablets 10mg 60tabs as directed Unknown 05/24/2014 by PCP Coreg - Hx Tablets 6.25mg 180tabs 1 po tid Unknown 07/11/2012 Pravastatin Sodium - Hx Tablets 40mg 30tabs 1 by mouth [facility] [place] , 09/12/2017 every day Mirna Peterson Fentanyl - Hx Patches 25mcg/H 5units 1 q72h Unknown 05/24/2014 72HR R Adderall - Hx Tablets 30mg 1 tab qd Unknown 05/25/2014 Lisinopril - Hx Tablets 10mg 30tabs 1 by mouth Unknown 08/24/2014 every day Omeprazole - Hx Capsules DR 20mg 30caps 1 by mouth [facility] [place], 10/01/2017 every day Mirna Peterson Tizanidine HCL Hx Capsules 4mg 60caps 1 by mouth Unknown three times a day as needed spasm Ventolin HFA - Hx Aerosol 108(90B 24gm 2 puff every [facility] [place], 09/12/2017 ase) 4 hours as miki Peterson/Act needed sob/ MMirlandeDMirlande wheezing as needed Flovent Diskus - Hx Aerosol 100mcg/ twice a day Unknown 09/12/2017 Blist as needed Tizanidine HCL - Hx Capsules 4mg 60caps 1 by mouth Unknown 11/22/2014 three times a day as needed spasm Oxycodone HCL - Hx Capsules 5mg 24caps 1 tab po bid Unknown 08/23/2014 prn Flovent HFA - Hx Aerosol 110mcg/ 1units 2 puff twice [facility] [place], 09/12/2017 Act a day Mirna Peterson Combivent - Hx Aerosol 1units 2 puffs four [facility] [place], 03/03/2015 times a day Mirna Peterson Lisinopril - Hx Tablets 5mg 90tabs 1 by mouth Unknown 08/24/2014 every day Oxycodone HCL - Hx Capsules 5mg 1 tab by Rach, 03/03/2015 mouth q6hr Romario as needed reference #: [id number] Ondansetron - Hx Tablets 4mg 1 by mouth Unknown 03/03/2015 Dispers every 4 hour as needed Morphine Sulfate ER - Hx Tablets ER 30mg 1 po tid a Unknown 03/03/2015 day Prednisone - Hx Tablets 20mg 1 po qday Unknown 03/03/2015 Levofloxacin - Hx Tablets 500mg 1 by mouth Unknown 03/03/2015 every day Methylprednisolone - Hx TBPK 4mg take as Unknown 10/01/2017 directed On Package Oxycodone-Acetaminoph - Hx Tablets 5-325mg Take 1 Unknown en 10/01/2017 Tablet Every 6 Hours as Needed For Moderate Pain Quetiapine Fumarate - Hx Tablets 50mg Take 1 Unknown 09/12/2017 Tablet By Oral Route 1 Tablet In Am And 2 Tablets In PM Hydroxyzine Pamoate - Hx Capsules 50mg Take 1 Unknown 10/01/2017 Capsule By Mouth Four Times A Day as Needed Vitamin B-1 - Hx Tablets 100mg Take 1 Unknown 09/12/2017 Tablet Oral Three Times A Day Pantoprazole Sodium - Hx Tablets DR 40mg Take 1 Unknown 09/12/2017 Tablet Oral Twice A Day Before Meals DO Not Crush Tablet Lorazepam - Hx Tablets 1mg Take 1 Unknown 10/01/2017 Tablet By Mouth Three Times A Day as Needed Losartan Potassium - Hx Tablets 50mg take 1 Josué, 10/01/2017 tablet by Gina, oral route , PHD every day Hydroxyzine HCL - Hx Tablets 50mg Take 1 Unknown 10/01/2017 Tablet By Mouth Four Times A Day Pantoprazole Sodium - Hx Tablets DR 40mg Take 1 Unknown 10/01/2017 Tablet Oral Twice A Day Before Meals DO Not Crush Tablet Percocet - Hx Tablets 5-325mg 1 by mouth Unknown 10/01/2017 every 6 hour as needed pain Seroquel - Hx Tablets 50mg take one Unknown 10/01/2017 tablet by mouth every morning and 2tabs at night Medications Administered in Office Medication Date Status Form Strength Qnty SIG Indications Ordering Provider Injection Administered Injection Josué, Ketorolac 018 Gina, Tromethamine 30 , PHD MG/mL (Toradol) Theraputic Or Administered Injection [place], Diagnostic 018 Gina, Injection , PHD Injection Administered Injection Josué, Ketorolac 018 Gina, Tromethamine 30 , PHD MG/mL (Toradol) Theraputic Or Administered Injection [place], Diagnostic 018 Gina, Injection , PHD Vital Signs Date Vital Result Comment 01/01/2018 BP Systolic 140 mmHg BP Diastolic 95 mmHg Body Temperature 98.3 F Heart Rate 113 /min Respiratory Rate 20 /min Height 68 inches 5'8" Weight 184.12 lb BMI (Body Mass Index) 28.0 kg/m2 BSA (Body Surface Area) 1.97 m2 [place] body weight in kilograms 70 O2 % BldC Oximetry 91 % 12/09/2017 BP Systolic 138 mmHg BP Diastolic 87 mmHg Body Temperature 98.0 F Heart Rate 113 /min Respiratory Rate 20 /min Height 68 inches 5'8" Weight 187.00 lb BMI (Body Mass Index) 28.4 kg/m2 BSA (Body Surface Area) 1.99 m2 [place] body weight in kilograms 70 O2 % BldC Oximetry 99 % 11/12/2017 BP Systolic 159 mmHg BP Diastolic 93 mmHg Body Temperature 100.4 F Heart Rate 76 /min Respiratory Rate 22 /min Height 68 inches 5'8" Weight 188.00 lb BMI (Body Mass Index) 28.6 kg/m2 BSA (Body Surface Area) 1.99 m2 [place] body weight in kilograms 70 O2 % BldC Oximetry 97 % 10/29/2017 BP Systolic 145 mmHg BP Diastolic 102 mmHg Body Temperature 98.0 F Heart Rate 83 /min Respiratory Rate 22 /min Height 68 inches 5'8" Weight 186.38 lb BMI (Body Mass Index) 28.3 kg/m2 BSA (Body Surface Area) 1.98 m2 [place] body weight in kilograms 70 O2 % BldC Oximetry 97 % 10/01/2017 BP Systolic 127 mmHg BP Diastolic 82 mmHg Body Temperature 98.4 F Heart Rate 75 /min Height 68 inches 5'8" Weight 192.25 lb BMI (Body Mass Index) 29.2 kg/m2 BSA (Body Surface Area) 2.01 m2 [place] body weight in kilograms 70 O2 % BldC Oximetry 95 % 09/12/2017 BP Systolic Sitting Left Arm 120 mmHg BP Diastolic Sitting Left Arm 82 mmHg Body Temperature 98.2 F Heart Rate 97 /min Respiratory Rate 17 /min Height 68 inches 5'8" Weight 197.00 lb BMI (Body Mass Index) 30.0 kg/m2 BSA (Body Surface Area) 2.03 m2 [place] body weight in kilograms 70 11/23/2014 BP Systolic 124 mmHg BP Diastolic 124 mmHg Heart Rate 64 /min Height 68 inches 5'8" Weight 236.00 lb BMI (Body Mass Index) 35.9 kg/m2 BSA (Body Surface Area) 2.19 m2 O2 % BldC Oximetry 96 % Ra 09/07/2014 Heart Rate 92 /min Weight 245.00 lb Pain Level 10 08/24/2014 Heart Rate 82 /min Height 68 inches 5'8" Weight 248.00 lb BMI (Body Mass Index) 37.7 kg/m2 BSA (Body Surface Area) 2.24 m2 06/16/2014 BP Systolic 138 mmHg BP Diastolic 90 mmHg 06/16/2014 BP Systolic Sitting Right Arm 138 mmHg BP Diastolic Sitting Right Arm 90 mmHg Heart Rate 93 /min Respiratory Rate 16 /min Height 68.5 inches 5'8.50" Weight 250.00 lb BMI (Body Mass Index) 37.5 kg/m2 BSA (Body Surface Area) 2.26 m2 O2 % BldC Oximetry 96 % 06/11/2014 BP Systolic 134 mmHg BP Diastolic 86 mmHg 06/11/2014 BP Systolic Sitting Right Arm 134 mmHg BP Diastolic Sitting Right Arm 86 mmHg Heart Rate 95 /min Respiratory Rate 18 /min Height 68.5 inches 5'8.50" Weight 243.00 lb BMI (Body Mass Index) 36.4 kg/m2 BSA (Body Surface Area) 2.23 m2 05/12/2014 BP Systolic 143 mmHg BP Diastolic 84 mmHg 05/12/2014 BP Systolic Sitting Right Arm 143 mmHg BP Diastolic Sitting Right Arm 84 mmHg Heart Rate 94 /min Respiratory Rate 18 /min Height 68.5 inches 5'8.50" Weight 245.00 lb BMI (Body Mass Index) 36.7 kg/m2 BSA (Body Surface Area) 2.24 m2 O2 % BldC Oximetry 94 % 04/19/2014 BP Systolic 128 mmHg BP Diastolic 82 mmHg Heart Rate 68 /min Height 68 inches 5'8" Weight 242.00 lb 08/20/2012 BP Systolic 140 mmHg BP Diastolic 92 mmHg 08/20/2012 BP Systolic Sitting Right Arm 140 mmHg BP Diastolic Sitting Right Arm 92 mmHg Heart Rate 80 /min Respiratory Rate 16 /min Height 68 inches 5'8" Weight 219.00 lb BMI (Body Mass Index) 33.3 kg/m2 07/11/2012 BP Systolic 184 mmHg BP Diastolic 94 mmHg 07/11/2012 BP Systolic Sitting Right Arm 184 mmHg BP Diastolic Sitting Right Arm 94 mmHg Heart Rate 80 /min Respiratory Rate 16 /min Height 68 inches 5'8" Weight 215.00 lb BMI (Body Mass Index) 32.7 kg/m2 06/12/2012 BP Systolic 140 mmHg BP Diastolic 82 mmHg 06/12/2012 BP Systolic Sitting Right Arm 140 mmHg BP Diastolic Sitting Right Arm 82 mmHg Heart Rate 81 /min Respiratory Rate 20 /min Height 68 inches 5'8" Weight 212.00 lb BMI (Body Mass Index) 32.2 kg/m2 06/04/2012 BP Systolic 119 mmHg BP Diastolic 61 mmHg 06/04/2012 BP Systolic Sitting Left Arm 119 mmHg BP Diastolic Sitting Left Arm 61 mmHg Heart Rate 81 /min Height 68 inches 5'8" Weight 154.00 lb BMI (Body Mass Index) 23.4 kg/m2 Results Test Date Test Result H/L Range Note Vitamin B12 And Folate 01/16/2018 Vitamin B12 277 pg/mL 193-986 1 Folic Acid 17.9 ng/mL High 3.1-17.5 1 Basic Metabolic Panel 01/16/2018 Glucose 100 mg/dL 74-106 1 BUN 11 mg/dL 7-18 1 Creatinine 1.0 mg/dL 0.6-1.3 1 Glom Filtration Rate, Estimate >60 mL/min >60 1 If >60 mL/min >60 1, 2 BUN/Creat 11.0 ratio 1 Sodium 142 mmol/L 136-145 1 Potassium 3.8 mmol/L 3.5-5.1 1 Chloride 107 mmol/L 98-107 1 Carbon Dioxide 29 mmol/L 21-32 1 Anion Gap 6 mEq/L Low 8-16 1 Calcium 8.6 mg/dL 8.5-10.1 1 Laboratory test finding 01/16/2018 Magnesium 1.9 mg/dL 1.8-2.4 1 CK 288 U/L 39-308 1 Laboratory test 01/15/2018 CK 291 U/L 39-308 1 finding Laboratory test 01/14/2018 CK 138 U/L 39-308 3 finding Laboratory test 01/14/2018 Levetiracetam (Keppra) 7.8 ug/mL Low 10.0-40.0 4, 5 finding Ua RFX Micro & Culture 01/13/2018 Urine Color YELLOW Yellow 6 II Urine Clarity CLEAR Clear 6 Urine Glucose - Dipstick NEGATIVE mg/dL Negative 6 Urine Bilirubin - Dipstick NEGATIVE Negative 6 Urine Ketone NEGATIVE mg/dL Negative 6 Urine Specific [place] 1.015 1.010-1.030 6 Urine Blood TRACE Negative 6 Urine PH 5.5 Low 6.5-7.5 6 Urine Protein - Dipstick NEGATIVE mg/dL Negative 6 Urine Urobilinogen - Dipstick 0.2 E.U./dL 0.2-1.0 6 Urine Nitrite - Dipstick NEGATIVE Negative 6 Urine Leuk Esterase NEGATIVE Negative 6 Source: URINE, CLEAN CAT <SEE NOTE> 6, 7 CBC W/Automated Diff 01/13/2018 White Blood Count 8.7 K/uL 3.4-10.5 6 Red Blood Count 4.38 M/uL 4.20-5.80 6 Hemoglobin 15.0 gm/dL 12.8-17.0 6 Hematocrit 43.3 % 38.0-48.0 6 Mean Cell Volume 98.9 fl High 80.0-96.0 6 Mean Corpuscular HGB 34.2 pg High 27.0-33.0 6 Mean Corpuscular HGB Conc 34.6 g/dL 31.7-36.0 6 Platelet Count 213 K/uL 155-360 6 Red Cell Distri Width SD 45.2 fl 36-51 6 Red Cell Distri Width %CV 12.7 % 11.6-15.8 6 Mean Platelet Volume 10.3 fL 6.6-10.6 6 Neut% 60.3 % 33.0-73.0 6 Lymph % 20.7 % 20.0-42.0 6 [place] % 10.2 % High 0.0-10.0 6 Eo% 8.3 % High 0.0-6.6 6 Bas% 0.5 % 0.0-1.1 6 Neut# 5.23 K/uL 1.8-7.0 6 Lymph # 1.79 K/uL 1.0-4.0 6 [place] # 0.88 K/uL High 0.0-0.8 6 Eos # 0.72 K/uL High 0.0-0.5 6 Baso # 0.04 K/uL 0.0-0.1 6 Comprehensive Metabolic Panel 01/13/2018 Glucose 92 mg/dL 74-106 6 BUN 16 mg/dL 7-18 6 Creatinine 1.4 mg/dL High 0.6-1.3 6 Glom Filtration Rate, Estimate 57 mL/min >60 6 If >60 mL/min >60 6, 8 BUN/Creat 11.4 ratio 6 Sodium 143 mmol/L 136-145 6 Potassium 4.0 mmol/L 3.5-5.1 6 Chloride 109 mmol/L High 98-107 6 Carbon Dioxide 28 mmol/L 21-32 6 Anion Gap 6 mEq/L Low 8-16 6 Calcium 8.6 mg/dL 8.5-10.1 6 Total Protein 7.9 g/dL 6.4-8.2 6 Albumin 3.7 g/dL 3.4-5.0 6 Globulin 4.2 g/dL 1.9-4.3 6 Alb/Glob 0.9 ratio 6 Bilirubin,Total 0.6 mg/dL 0.2-1.0 6 Sgot/Ast 24 U/L 15-37 6 SGPT/Alt 33 U/L 12-78 6 Alkaline Phosphatase 91 U/L 45-117 6 Laboratory test finding 01/13/2018 Magnesium 2.2 mg/dL 1.8-2.4 6 Troponin-I < 0.015 ng/mL 6, 9 Drugs Of Abuse-Urine Screen 7 01/13/2018 Amphetamines (Urine) Negative 6 Barbiturates (Urine) Negative 6 Benzodiazepines (Urine) Negative 6 Cannabinoids (Urine) Negative 6 Cocaine Metabolite (Urine) Negative 6 Methadone (Urine) Negative 6 Opiates (Urine) POSITIVE 6 Urine Cutoffs * 6, 10 Laboratory test finding 11/21/2017 Troponin-I < 0.015 ng/mL 11, 12 Comprehensive Metabolic Panel 11/21/2017 Glucose 86 mg/dL 74-106 11 BUN 11 mg/dL 7-18 11 Creatinine 1.2 mg/dL 0.6-1.3 11 Glom Filtration Rate, Estimate >60 mL/min >60 11 If >60 mL/min >60 11, 13 BUN/Creat 9.1 ratio 11 Sodium 140 mmol/L 136-145 11 Potassium 4.6 mmol/L 3.5-5.1 11 Chloride 108 mmol/L High 98-107 11 Carbon Dioxide 25 mmol/L 21-32 11 Anion Gap 7 mEq/L Low 8-16 11 Calcium 8.9 mg/dL 8.5-10.1 11 Total Protein 8.6 g/dL High 6.4-8.2 11 Albumin 3.4 g/dL 3.4-5.0 11 Globulin 5.2 g/dL High 1.9-4.3 11 Alb/Glob 0.7 ratio 11 Bilirubin,Total 0.2 mg/dL 0.2-1.0 11 Sgot/Ast 45 U/L High 15-37 11 SGPT/Alt 63 U/L 12-78 11 Alkaline Phosphatase 76 U/L 45-117 11 CBS W/Automated Diff 11/21/2017 White Blood Count 7.1 K/uL 3.4-10.5 11 Red Blood Count 4.34 M/uL 4.20-5.80 11 Hemoglobin 14.6 gm/dL 12.8-17.0 11 Hematocrit 43.3 % 38.0-48.0 11 Mean Cell Volume 99.8 fl High 80.0-96.0 11 Mean Corpuscular HGB 33.6 pg High 27.0-33.0 11 Mean Corpuscular HGB Conc 33.7 g/dL 31.7-36.0 11 Platelet Count 480 K/uL High 155-360 11 Red Cell Distri Width SD 44.7 fl 36-51 11 Red Cell Distri Width %CV 12.6 % 11.6-15.8 11 Mean Platelet Volume 9.4 fL 6.6-10.6 11 Neut% 66.1 % 33.0-73.0 11 Lymph % 20.8 % 20.0-42.0 11 [place] % 7.9 % 0.0-10.0 11 Eo% 4.8 % 0.0-6.6 11 Bas% 0.4 % 0.0-1.1 11 Neut# 4.68 K/uL 1.8-7.0 11 Lymph # 1.47 K/uL 1.0-4.0 11 [place] # 0.56 K/uL 0.0-0.8 11 Eos # 0.34 K/uL 0.0-0.5 11 Baso # 0.03 K/uL 0.0-0.1 11 Lactic Acid 11/13/2017 Lactic Acid 4.4 mmol/L High 0.4-1.9 14 Lab Reflex >2.0 for Sepsis? Y 14 Blood Culture 11/13/2017 Blood Culture Aerobic NO GROWTH: FINAL <SEE NOTE> 14, 15 Blood Culture Anaerobic NO GROWTH: FINAL <SEE NOTE> 14, 16 Ua RFX Micro & Culture II 11/13/2017 Urine Color YELLOW Yellow 14 Urine Clarity CLEAR Clear 14 Urine Glucose - Dipstick NEGATIVE mg/dL Negative 14 Urine Bilirubin - Dipstick NEGATIVE Negative 14 Urine Ketone NEGATIVE mg/dL Negative 14 Urine Specific [place] 1.020 1.010-1.030 14 Urine Blood SMALL Negative 14 Urine PH 6.0 Low 6.5-7.5 14 Urine Protein - Dipstick TRACE mg/dL Negative 14 Urine Urobilinogen - Dipstick 0.2 E.U./dL 0.2-1.0 14 Urine Nitrite - Dipstick NEGATIVE Negative 14 Urine Leuk Esterase NEGATIVE Negative 14 Urine RBC 0-2 rbc/hpf 0-2 14 Urine WBC 0-2 wbc/hpf 0-7 14 Urine Epithelial Cells VERY FEW /lpf None Seen 14 Urine Bacteria VERY FEW None Seen 14 Source: URINE, CLEAN CAT <SEE NOTE> 14, 17 Drugs Of Abuse-Urine Screen 7 11/13/2017 Amphetamines (Urine) Negative 14 Barbiturates (Urine) Negative 14 Benzodiazepines (Urine) Negative 14 Cannabinoids (Urine) Negative 14 Cocaine Metabolite (Urine) Negative 14 Methadone (Urine) Negative 14 Opiates (Urine) POSITIVE 14 Urine Cutoffs * 14, 18 CBC 11/13/2017 White Blood Count 14.9 K/uL High 3.4-10.5 14 Red Blood Count 3.96 M/uL Low 4.20-5.80 14 Hemoglobin 13.4 gm/dL 12.8-17.0 14 Hematocrit 38.8 % 38.0-48.0 14 Mean Cell Volume 98.0 fl High 80.0-96.0 14 Mean Corpuscular HGB 33.8 pg High 27.0-33.0 14 Mean Corpuscular HGB Conc 34.5 g/dL 31.7-36.0 14 Platelet Count 334 K/uL 155-360 14 Red Cell Distri Width %CV 12.5 % 11.6-15.8 14 Mean Platelet Volume 9.0 fL 6.6-10.6 14 Laboratory test finding 11/13/2017 Ethyl Alcohol 5.0 mg/dL 14 Comprehensive Metabolic Panel 11/13/2017 Glucose 99 mg/dL 74-106 14 BUN 10 mg/dL 7-18 14 Creatinine 1.0 mg/dL 0.6-1.3 14 Glom Filtration Rate, Estimate >60 mL/min >60 14 If >60 mL/min >60 14, 19 BUN/Creat 10.0 ratio 14 Sodium 141 mmol/L 136-145 14 Potassium 3.4 mmol/L Low 3.5-5.1 14 Chloride 105 mmol/L 98-107 14 Carbon Dioxide 29 mmol/L 21-32 14 Anion Gap 7 mEq/L Low 8-16 14 Calcium 8.6 mg/dL 8.5-10.1 14 Total Protein 7.5 g/dL 6.4-8.2 14 Albumin 3.0 g/dL Low 3.4-5.0 14 Globulin 4.5 g/dL High 1.9-4.3 14 Alb/Glob 0.7 ratio 14 Bilirubin,Total 0.6 mg/dL 0.2-1.0 14 Sgot/Ast 40 U/L High 15-37 14 SGPT/Alt 62 U/L 12-78 14 Alkaline Phosphatase 76 U/L 45-117 14 Laboratory test finding 11/13/2017 Lipase 171 U/L 56-289 14 Comprehensive Metabolic Panel 11/12/2017 Glucose 110 mg/dL High 74-106 20 BUN 11 mg/dL 7-18 20 Creatinine 1.0 mg/dL 0.6-1.3 20 Glom Filtration Rate, Estimate >60 mL/min >60 20 If >60 mL/min >60 20, 21 BUN/Creat 11.0 ratio 20 Sodium 145 mmol/L 136-145 20 Potassium 4.1 mmol/L 3.5-5.1 20 Chloride 107 mmol/L 98-107 20 Carbon Dioxide 34 mmol/L High 21-32 20 Anion Gap 4 mEq/L Low 8-16 20 Calcium 9.0 mg/dL 8.5-10.1 20 Total Protein 7.9 g/dL 6.4-8.2 20 Albumin 3.3 g/dL Low 3.4-5.0 20 Globulin 4.6 g/dL High 1.9-4.3 20 Alb/Glob 0.7 ratio 20 Bilirubin,Total 0.3 mg/dL 0.2-1.0 20 Sgot/Ast 45 U/L High 15-37 20 SGPT/Alt 74 U/L 12-78 20 Alkaline Phosphatase 100 U/L 45-117 20 Hepatitis C Virus Genotyping 11/12/2017 Hepatitis C Genotype 3 . 20 Test Comment (SEE NOTE) 20, 22 Hepatitis Evaluation 10/29/2017 Hepatitis A Antibody IgM Negative Negative 23 HBsAg Screen [Ref Lab] Negative Negative 23 Hepatitis B Core IgM Negative Negative 23 HCV Signal/Cutoff ratio > 11.0 s/corat High 0.0-0.9 23, 24 HCV Real-Time PCR Quant RFLX 10/29/2017 Hepatitis C Quantitation [id number] IU/ mL . 23 HCV Log 10 5.749 . 23, 25 Test Information (SEE NOTE) 23, 26 Ua RFX Micro & Culture II 10/29/2017 Urine Color YELLOW Yellow 23 Urine Clarity CLEAR Clear 23 Urine Glucose - Dipstick NEGATIVE mg/dL Negative 23 Urine Bilirubin - Dipstick NEGATIVE Negative 23 Urine Ketone NEGATIVE mg/dL Negative 23 Urine Specific [place] 1.025 1.010-1.030 23 Urine Blood SMALL Negative 23 Urine PH 5.5 Low 6.5-7.5 23 Urine Protein - Dipstick NEGATIVE mg/dL Negative 23 Urine Urobilinogen - Dipstick 0.2 E.U./dL 0.2-1.0 23 Urine Nitrite - Dipstick NEGATIVE Negative 23 Urine Leuk Esterase NEGATIVE Negative 23 Urine RBC 0-2 rbc/hpf 0-2 23 Urine WBC NONE SEEN wbc/hpf 0-7 23 Urine Epithelial Cells NONE SEEN /lpf None Seen 23 Urine Bacteria VERY FEW None Seen 23 Source: URINE, CLEAN CAT <SEE NOTE> 23, 27 Laboratory test 10/29/2017 Treponema Antibody Negative Negative 23, 28 finding [place] [facility] Abuse-Urine 10/29/2017 Amphetamines (Urine) Negative 23 Screen 7 Barbiturates (Urine) Negative 23 Benzodiazepines (Urine) Negative 23 Cannabinoids (Urine) Negative 23 Cocaine Metabolite (Urine) Negative 23 Methadone (Urine) Negative 23 Opiates (Urine) Negative 23 Urine Cutoffs * 23, 29 CBS W/Automated Diff 10/29/2017 White Blood Count 6.3 K/uL 3.4-10.5 23 Red Blood Count 4.83 M/uL 4.20-5.80 23 Hemoglobin 16.2 gm/dL 12.8-17.0 23 Hematocrit 47.9 % 38.0-48.0 23 Mean Cell Volume 99.2 fl High 80.0-96.0 23 Mean Corpuscular HGB 33.5 pg High 27.0-33.0 23 Mean Corpuscular HGB Conc 33.8 g/dL 31.7-36.0 23 Platelet Count 275 K/uL 155-360 23 Red Cell Distri Width SD 44.9 fl 36-51 23 Red Cell Distri Width %CV 12.6 % 11.6-15.8 23 Mean Platelet Volume 9.6 fL 6.6-10.6 23 Neut% 59.3 % 33.0-73.0 23 Lymph % 24.4 % 20.0-42.0 23 [place] % 7.3 % 0.0-10.0 23 Eo% 8.5 % High 0.0-6.6 23 Bas% 0.5 % 0.0-1.1 23 Neut# 3.76 K/uL 1.8-7.0 23 Lymph # 1.55 K/uL 1.0-4.0 23 [place] # 0.46 K/uL 0.0-0.8 23 Eos # 0.54 K/uL High 0.0-0.5 23 Baso # 0.03 K/uL 0.0-0.1 23 Comprehensive Metabolic Panel 10/29/2017 Glucose 93 mg/dL 74-106 23 BUN 14 mg/dL 7-18 23 Creatinine 1.0 mg/dL 0.6-1.3 23 Glom Filtration Rate, Estimate >60 mL/min >60 23 If >60 mL/min >60 23, 30 BUN/Creat 14.0 ratio 23 Sodium 144 mmol/L 136-145 23 Potassium 3.7 mmol/L 3.5-5.1 23 Chloride 107 mmol/L 98-107 23 Carbon Dioxide 27 mmol/L 21-32 23 Anion Gap 10 mEq/L 8-16 23 Calcium 9.2 mg/dL 8.5-10.1 23 Total Protein 8.9 g/dL High 6.4-8.2 23 Albumin 4.2 g/dL 3.4-5.0 23 Globulin 4.7 g/dL High 1.9-4.3 23 Alb/Glob 0.9 ratio 23 Bilirubin,Total 1.0 mg/dL 0.2-1.0 23 Sgot/Ast 113 U/L High 15-37 23 SGPT/Alt 215 U/L High 12-78 23 Alkaline Phosphatase 87 U/L 45-117 23 HCV Rna Janie Qual RFLX 10/29/2017 Hepatitis C Rna-PCR Positive Negative 23, 31 Quant Laboratory test finding 10/29/2017 Sedimentation Rate 6 mm/hr 0-20 23, 32 Hla-B27 Disease Association Negative . 23, 33 Laboratory test 10/29/2017 Vitamin D,25-Hydroxy 26.1 ng/mL Low 30.0-100.0 23, 34 finding Lyme Igm (Reflex 10/29/2017 Lyme Disease < 0.80 index 0.00-0.79 23, 35 Western Blot) Antibody,QT,Igm Basic Metabolic 03/15/2015 Glucose 96 mg/dL 74-106 Panel BUN 10 mg/dL 7-18 Creatinine 1.2 mg/dL 0.6-1.3 Glom Filtration Rate, Estimate >60 mL/min >60 If >60 mL/min >60 36 BUN/Creat 8.3 ratio Sodium 138 mmol/L 136-145 Potassium 2.6 mmol/L Low 3.5-5.1 Chloride 99 mmol/L 98-107 Carbon Dioxide 32 mmol/L 21-32 Anion Gap 7 mEq/L Low 8-16 Calcium 9.4 mg/dL 8.5-10.1 Laboratory test finding 03/15/2015 NT-proBNP 249.0 pg/mL High <125 37 Troponin-I < 0.015 ng/mL 38 CBC 03/10/2015 White Blood Count 10.4 K/uL 3.4-10.5 Red Blood Count 3.71 M/uL Low 4.20-5.80 Hemoglobin 12.6 gm/dL Low 12.8-17.0 Hematocrit 35.8 % Low 38.0-48.0 Mean Cell Volume 96.5 fl High 80.0-96.0 Mean Corpuscular HGB 34.0 pg High 27.0-33.0 Mean Corpuscular HGB Conc 35.2 g/dL 31.7-36.0 Platelet Count 332 K/uL 150-400 Red Cell Distri Width %CV 12.8 % 11.6-15.8 Mean Platelet Volume 9.7 fL 6.6-10.6 Comprehensive Metabolic Panel 03/10/2015 Glucose 104 mg/dL 74-106 BUN 41 mg/dL High 7-18 Creatinine 3.4 mg/dL High 0.6-1.3 Glom Filtration Rate, Estimate 21 mL/min >60 If 25 mL/min >60 39 BUN/Creat 12.0 ratio Sodium 136 mmol/L 136-145 Potassium 3.3 mmol/L Low 3.5-5.1 Chloride 101 mmol/L 98-107 Carbon Dioxide 25 mmol/L 21-32 Anion Gap 10 mEq/L 8-16 Calcium 8.5 mg/dL 8.5-10.1 Total Protein 6.3 g/dL Low 6.4-8.2 Albumin 3.3 g/dL Low 3.4-5.0 Globulin 3.0 g/dL 1.9-4.3 Alb/Glob 1.1 ratio Bilirubin,Total 0.7 mg/dL 0.2-1.0 Sgot/Ast 50 U/L High 15-37 SGPT/Alt 43 U/L 12-78 Alkaline Phosphatase 65 U/L 45-117 Laboratory test finding 03/10/2015 Magnesium 2.6 mg/dL High 1.8-2.4 Drugs Of Abuse-Urine Screen 03/10/2015 Amphetamines (Urine) POSITIVE High 7 Barbiturates (Urine) Negative Benzodiazepines (Urine) Negative Cannabinoids (Urine) Negative Cocaine Metabolite (Urine) Negative Methadone (Urine) Negative Opiates (Urine) POSITIVE High Urine Cutoffs * 40 Comprehensive Metabolic Panel 03/09/2015 Glucose 97 mg/dL 74-106 BUN 45 mg/dL High 7-18 Creatinine 4.4 mg/dL High 0.6-1.3 Glom Filtration Rate, Estimate 15 mL/min >60 If 19 mL/min >60 41 BUN/Creat 10.2 ratio Sodium 136 mmol/L 136-145 Potassium 3.7 mmol/L 3.5-5.1 Chloride 98 mmol/L 98-107 Carbon Dioxide 22 mmol/L 21-32 Anion Gap 16 mEq/L 8-16 Calcium 9.4 mg/dL 8.5-10.1 Total Protein 7.5 g/dL 6.4-8.2 Albumin 4.0 g/dL 3.4-5.0 Globulin 3.5 g/dL 1.9-4.3 Alb/Glob 1.1 ratio Bilirubin,Total 1.2 mg/dL High 0.2-1.0 Sgot/Ast 64 U/L High 15-37 SGPT/Alt 51 U/L 12-78 Alkaline Phosphatase 80 U/L 45-117 CBC 03/09/2015 White Blood Count 15.3 K/uL High 3.4-10.5 Red Blood Count 4.17 M/uL Low 4.20-5.80 Hemoglobin 13.6 gm/dL 12.8-17.0 Hematocrit 39.4 % 38.0-48.0 Mean Cell Volume 94.5 fl 80.0-96.0 Mean Corpuscular HGB 32.6 pg 27.0-33.0 Mean Corpuscular HGB Conc 34.5 g/dL 31.7-36.0 Platelet Count 359 K/uL 150-400 Red Cell Distri Width %CV 13.1 % 11.6-15.8 Mean Platelet Volume 10.1 fL 6.6-10.6 Laboratory test finding 03/09/2015 Ethyl Alcohol < 3.0 mg/dL Basic Metabolic Panel 01/24/2015 Glucose 84 mg/dL 74-106 BUN 14 mg/dL 7-18 Creatinine 1.2 mg/dL 0.6-1.3 Glom Filtration Rate, Estimate >60 mL/min >60 If >60 mL/min >60 42 BUN/Creat 11.6 ratio Sodium 144 mmol/L 136-145 Potassium 3.1 mmol/L Low 3.5-5.1 Chloride 108 mmol/L High 98-107 Carbon Dioxide 30 mmol/L 21-32 Anion Gap 6 mEq/L Low 8-16 Calcium 8.1 mg/dL Low 8.5-10.1 Laboratory test finding 01/24/2015 Troponin-I < 0.015 ng/mL 43 CBC W/Automated Diff 01/24/2015 White Blood Count 9.8 K/uL 3.4-10.5 Red Blood Count 3.77 M/uL Low 4.20-5.80 Hemoglobin 12.6 gm/dL Low 12.8-17.0 Hematocrit 36.3 % Low 38.0-48.0 Mean Cell Volume 96.3 fl High 80.0-96.0 Mean Corpuscular HGB 33.4 pg High 27.0-33.0 Mean Corpuscular HGB Conc 34.7 g/dL 31.7-36.0 Platelet Count 281 K/uL 150-400 Red Cell Distri Width SD 40.5 fl 36-51 Red Cell Distri Width %CV 12.0 % 11.6-15.8 Mean Platelet Volume 9.7 fL 6.6-10.6 Neut% 63.2 % 33.0-73.0 Lymph % 26.0 % 17.0-56.0 [place] % 10.2 % High 0.0-10.0 Eo% 0.5 % 0.0-5.0 Bas% 0.1 % 0.1-1.0 Neut# 6.20 K/uL 1.8-7.0 Lymph # 2.55 K/uL 1.8-7.0 [place] # 1.00 K/uL High 0.0-0.8 Eos # 0.05 K/uL 0.0-0.5 Baso # 0.01 K/uL Low 0.1-0.2 Basic Metabolic Panel 01/23/2015 Glucose 83 mg/dL 74-106 BUN 15 mg/dL 7-18 Creatinine 1.1 mg/dL 0.6-1.3 Glom Filtration Rate, Estimate >60 mL/min >60 If >60 mL/min >60 44 BUN/Creat 13.6 ratio Sodium 144 mmol/L 136-145 Potassium 3.6 mmol/L 3.5-5.1 Chloride 110 mmol/L High 98-107 Carbon Dioxide 29 mmol/L 21-32 Anion Gap 5 mEq/L Low 8-16 Calcium 8.1 mg/dL Low 8.5-10.1 Laboratory test finding 01/23/2015 Magnesium 1.8 mg/dL 1.8-2.4 CK 368 U/L High 39-308 Laboratory test finding 01/22/2015 CK 881 U/L High 39-308 Laboratory test finding 01/22/2015 Magnesium 1.7 mg/dL Low 1.8-2.4 Basic Metabolic Panel 01/22/2015 Glucose 139 mg/dL High 74-106 BUN 17 mg/dL 7-18 Creatinine 1.0 mg/dL 0.6-1.3 Glom Filtration Rate, Estimate >60 mL/min >60 If >60 mL/min >60 45 BUN/Creat 17.0 ratio Sodium 141 mmol/L 136-145 Potassium 3.9 mmol/L 3.5-5.1 Chloride 109 mmol/L High 98-107 Carbon Dioxide 26 mmol/L 21-32 Anion Gap 6 mEq/L Low 8-16 Calcium 8.2 mg/dL Low 8.5-10.1 Laboratory test finding 01/21/2015 Drugs Of Abuse-Urine Screen See Note 46 7 Urine Screen 01/21/2015 Urine Color YELLOW Yellow Urine Clarity CLEAR Clear Urine Glucose - Dipstick NEGATIVE mg/dL Negative Urine Bilirubin - Dipstick NEGATIVE Negative Urine Ketone TRACE mg/dL High Negative Urine Specific [place] 1.020 1.010-1.030 Urine Blood NEGATIVE Negative Urine PH 5.5 Low 6.5-7.5 Urine Protein - Dipstick NEGATIVE mg/dL Negative Urine Urobilinogen - Dipstick 0.2 E.U./dL 0.2-1.0 Urine Nitrite - Dipstick NEGATIVE Negative Urine Leuk Esterase NEGATIVE Negative Comprehensive Metabolic Panel 01/21/2015 Glucose 81 mg/dL 74-106 BUN 19 mg/dL High 7-18 Creatinine 1.2 mg/dL 0.6-1.3 Glom Filtration Rate, Estimate >60 mL/min >60 If >60 mL/min >60 47 BUN/Creat 15.8 ratio Sodium 140 mmol/L 136-145 Potassium 4.5 mmol/L 3.5-5.1 Chloride 108 mmol/L High 98-107 Carbon Dioxide 26 mmol/L 21-32 Anion Gap 6 mEq/L Low 8-16 Calcium 8.6 mg/dL 8.5-10.1 Total Protein 6.4 g/dL 6.4-8.2 Albumin 3.2 g/dL Low 3.4-5.0 Globulin 3.2 g/dL 1.9-4.3 Alb/Glob 1.0 ratio Bilirubin,Total 0.7 mg/dL 0.2-1.0 Sgot/Ast 49 U/L High 15-37 SGPT/Alt 45 U/L 12-78 Alkaline Phosphatase 76 U/L 45-117 Laboratory test finding 01/21/2015 CK 1083 U/L High 39-308 CBC W/Automated Diff 01/21/2015 White Blood Count 7.6 K/uL 3.4-10.5 Red Blood Count 4.05 M/uL Low 4.20-5.80 Hemoglobin 13.1 gm/dL 12.8-17.0 Hematocrit 39.4 % 38.0-48.0 Mean Cell Volume 97.3 fl High 80.0-96.0 Mean Corpuscular HGB 32.3 pg 27.0-33.0 Mean Corpuscular HGB Conc 33.2 g/dL 31.7-36.0 Platelet Count 266 K/uL 150-400 Red Cell Distri Width SD 43.0 fl 36-51 Red Cell Distri Width %CV 12.4 % 11.6-15.8 Mean Platelet Volume 10.1 fL 6.6-10.6 Neut% 80.0 % High 33.0-73.0 Lymph % 12.1 % Low 17.0-56.0 [place] % 6.1 % 0.0-10.0 Eo% 1.7 % 0.0-5.0 Bas% 0.1 % 0.1-1.0 Neut# 6.07 K/uL 1.8-7.0 Lymph # 0.92 K/uL Low 1.8-7.0 [place] # 0.46 K/uL 0.0-0.8 Eos # 0.13 K/uL 0.0-0.5 Baso # 0.01 K/uL Low 0.1-0.2 Blood Culture 01/20/2015 Blood Culture Aerobic See Note 48 Blood Culture Anaerobic See Note 49 Laboratory test finding 01/20/2015 Lactic Acid 0.9 mmol/L 0.4-2.0 Blood Culture 01/20/2015 Blood Culture Aerobic See Note 50 Blood Culture Anaerobic See Note 51 Comprehensive Metabolic Panel 01/20/2015 Glucose 75 mg/dL 74-106 BUN 22 mg/dL High 7-18 Creatinine 1.8 mg/dL High 0.6-1.3 Glom Filtration Rate, Estimate 43 mL/min >60 If 52 mL/min >60 52 BUN/Creat 12.2 ratio Sodium 141 mmol/L 136-145 Potassium 4.0 mmol/L 3.5-5.1 Chloride 104 mmol/L 98-107 Carbon Dioxide 32 mmol/L 21-32 Anion Gap 5 mEq/L Low 8-16 Calcium 10.1 mg/dL 8.5-10.1 Total Protein 7.7 g/dL 6.4-8.2 Albumin 4.1 g/dL 3.4-5.0 Globulin 3.6 g/dL 1.9-4.3 Alb/Glob 1.1 ratio Bilirubin,Total 1.1 mg/dL High 0.2-1.0 Sgot/Ast 51 U/L High 15-37 SGPT/Alt 59 U/L 12-78 Alkaline Phosphatase 95 U/L 45-117 Laboratory test finding 01/20/2015 CK 1178 U/L High 39-308 Troponin-I < 0.015 ng/mL 53 CBC 01/20/2015 White Blood Count 12.2 K/uL High 3.4-10.5 Red Blood Count 4.33 M/uL 4.20-5.80 Hemoglobin 14.4 gm/dL 12.8-17.0 Hematocrit 41.9 % 38.0-48.0 Mean Cell Volume 96.8 fl High 80.0-96.0 Mean Corpuscular HGB 33.3 pg High 27.0-33.0 Mean Corpuscular HGB Conc 34.4 g/dL 31.7-36.0 Platelet Count 304 K/uL 150-400 Red Cell Distri Width %CV 12.3 % 11.6-15.8 Mean Platelet Volume 9.8 fL 6.6-10.6 Laboratory test finding 01/20/2015 Drugs Of Abuse-Urine Screen See Note 54 7 Basic Metabolic Panel 11/22/2014 Glucose 105 mg/dL 74-106 BUN 13 mg/dL 7-18 Creatinine 1.2 mg/dL 0.6-1.3 Glom Filtration Rate, Estimate >60 mL/min >60 If >60 mL/min >60 55 BUN/Creat 10.8 ratio Sodium 142 mmol/L 136-145 Potassium 3.2 mmol/L Low 3.5-5.1 Chloride 105 mmol/L 98-107 Carbon Dioxide 29 mmol/L 21-32 Anion Gap 8 mEq/L 8-16 Calcium 8.8 mg/dL 8.5-10.1 CBC W/Automated Diff 11/22/2014 White Blood Count 10.9 K/uL High 3.4-10.5 Red Blood Count 3.93 M/uL Low 4.20-5.80 Hemoglobin 13.4 gm/dL 12.8-17.0 Hematocrit 40.3 % 38.0-48.0 Mean Cell Volume 102.5 fl High 80.0-96.0 Mean Corpuscular HGB 34.1 pg High 27.0-33.0 Mean Corpuscular HGB Conc 33.3 g/dL 31.7-36.0 Platelet Count 343 K/uL 150-400 Red Cell Distri Width SD 46.1 fl 36-51 Red Cell Distri Width %CV 12.5 % 11.6-15.8 Mean Platelet Volume 9.8 fL 6.6-10.6 Neut% 71.7 % 33.0-73.0 Lymph % 18.9 % 17.0-56.0 [place] % 8.1 % 0.0-10.0 Eo% 1.1 % 0.0-5.0 Bas% 0.2 % 0.1-1.0 Neut# 7.84 K/uL High 1.8-7.0 Lymph # 2.06 K/uL 1.8-7.0 [place] # 0.88 K/uL High 0.0-0.8 Eos # 0.12 K/uL 0.0-0.5 Baso # 0.02 K/uL Low 0.1-0.2 Laboratory test finding 11/21/2014 Troponin-I < 0.015 ng/mL 56 Basic Metabolic Panel 11/21/2014 Glucose 126 mg/dL High 74-106 BUN 16 mg/dL 7-18 Creatinine 1.2 mg/dL 0.6-1.3 Glom Filtration Rate, Estimate >60 mL/min >60 If >60 mL/min >60 57 BUN/Creat 13.3 ratio Sodium 143 mmol/L 136-145 Potassium 4.5 mmol/L 3.5-5.1 Chloride 107 mmol/L 98-107 Carbon Dioxide 30 mmol/L 21-32 Anion Gap 6 mEq/L Low 8-16 Calcium 9.2 mg/dL 8.5-10.1 Laboratory test finding 11/21/2014 Magnesium 1.9 mg/dL 1.8-2.4 CBC 11/21/2014 White Blood Count 8.4 K/uL 3.4-10.5 Red Blood Count 4.02 M/uL Low 4.20-5.80 Hemoglobin 13.8 gm/dL 12.8-17.0 Hematocrit 41.0 % 38.0-48.0 Mean Cell Volume 102.0 fl High 80.0-96.0 Mean Corpuscular HGB 34.3 pg High 27.0-33.0 Mean Corpuscular HGB Conc 33.7 g/dL 31.7-36.0 Platelet Count 337 K/uL 150-400 Red Cell Distri Width %CV 12.6 % 11.6-15.8 Mean Platelet Volume 10.3 fL 6.6-10.6 Laboratory test finding 11/20/2014 Troponin-I < 0.015 ng/mL 58 Comprehensive Metabolic Panel 11/20/2014 Glucose 106 mg/dL 74-106 BUN 15 mg/dL 7-18 Creatinine 1.3 mg/dL 0.6-1.3 Glom Filtration Rate, Estimate >60 mL/min >60 If >60 mL/min >60 59 BUN/Creat 11.5 ratio Sodium 146 mmol/L High 136-145 Potassium 3.2 mmol/L Low 3.5-5.1 Chloride 107 mmol/L 98-107 Carbon Dioxide 31 mmol/L 21-32 Anion Gap 8 mEq/L 8-16 Calcium 9.1 mg/dL 8.5-10.1 Total Protein 6.6 g/dL 6.4-8.2 Albumin 3.4 g/dL 3.4-5.0 Globulin 3.2 g/dL 1.9-4.3 Alb/Glob 1.1 ratio Bilirubin,Total 0.2 mg/dL 0.2-1.0 Sgot/Ast 31 U/L 15-37 SGPT/Alt 46 U/L 12-78 Alkaline Phosphatase 82 U/L 45-117 Laboratory test finding 11/20/2014 CK-MB (Mass) 6.3 ng/ml High 0.5-3.6 Relative % Index 1.6 % <5 60 Troponin-I < 0.015 ng/mL 61 CBC W/Automated Diff 11/20/2014 White Blood Count 7.0 K/uL 3.4-10.5 Red Blood Count 3.88 M/uL Low 4.20-5.80 Hemoglobin 13.2 gm/dL 12.8-17.0 Hematocrit 39.0 % 38.0-48.0 Mean Cell Volume 100.5 fl High 80.0-96.0 Mean Corpuscular HGB 34.0 pg High 27.0-33.0 Mean Corpuscular HGB Conc 33.8 g/dL 31.7-36.0 Platelet Count 323 K/uL 150-400 Red Cell Distri Width SD 45.5 fl 36-51 Red Cell Distri Width %CV 12.6 % 11.6-15.8 Mean Platelet Volume 9.7 fL 6.6-10.6 Neut% 58.2 % 33.0-73.0 Lymph % 29.1 % 17.0-56.0 [place] % 7.9 % 0.0-10.0 Eo% 4.7 % 0.0-5.0 Bas% 0.1 % 0.1-1.0 Neut# 4.05 K/uL 1.8-7.0 Lymph # 2.03 K/uL 1.8-7.0 [place] # 0.55 K/uL 0.0-0.8 Eos # 0.33 K/uL 0.0-0.5 Baso # 0.01 K/uL Low 0.1-0.2 Laboratory test finding 11/20/2014 D-Dimer, Quantitative 0.41 ug/mL 62 Comprehensive Metabolic Panel 09/06/2014 Glucose 103 mg/dL 74-106 BUN 16 mg/dL 7-18 Creatinine 1.3 mg/dL 0.6-1.3 Glom Filtration Rate, Estimate >60 mL/min >60 If >60 mL/min >60 63 BUN/Creat 12.3 ratio Sodium 141 mmol/L 136-145 Potassium 4.1 mmol/L 3.5-5.1 Chloride 111 mmol/L High 98-107 Carbon Dioxide 24 mmol/L 21-32 Anion Gap 6 mEq/L Low 8-16 Calcium 8.4 mg/dL Low 8.5-10.1 Total Protein 7.0 g/dL 6.4-8.2 Albumin 3.6 g/dL 3.4-5.0 Globulin 3.4 g/dL 1.9-4.3 Alb/Glob 1.1 ratio Bilirubin,Total 0.2 mg/dL 0.2-1.0 Sgot/Ast 26 U/L 15-37 SGPT/Alt 40 U/L 12-78 Alkaline Phosphatase 92 U/L 45-117 Laboratory test finding 09/06/2014 Troponin-I < 0.015 ng/mL 64 CBC 09/06/2014 White Blood Count 7.3 K/uL 3.4-10.5 Red Blood Count 4.42 M/uL 4.20-5.80 Hemoglobin 14.9 gm/dL 12.8-17.0 Hematocrit 43.6 % 38.0-48.0 Mean Cell Volume 98.6 fl High 80.0-96.0 Mean Corpuscular HGB 33.7 pg High 27.0-33.0 Mean Corpuscular HGB Conc 34.2 g/dL 31.7-36.0 Platelet Count 369 K/uL 150-400 Red Cell Distri Width %CV 12.6 % 11.6-15.8 Mean Platelet Volume 9.7 fL 6.6-10.6 Laboratory test finding 09/02/2014 Uric Acid 7.4 mg/dL High 3.5-7.2 Sedimentation Rate 4 mm/hr 0-15 Rheumatoid Factor Screen < 10.0 IU/mL 0.0-15.0 Urine Screen 08/29/2014 Urine Color YELLOW Yellow Urine Clarity CLEAR Clear Urine Glucose - Dipstick NEGATIVE mg/dL Negative Urine Bilirubin - Dipstick NEGATIVE Negative Urine Ketone NEGATIVE mg/dL Negative Urine Specific [place] 1.020 1.010-1.030 Urine Blood NEGATIVE Negative Urine PH 5.0 Low 6.5-7.5 Urine Protein - Dipstick TRACE mg/dL Negative Urine Urobilinogen - Dipstick 0.2 E.U./dL 0.2-1.0 Urine Nitrite - Dipstick NEGATIVE Negative Urine Leuk Esterase NEGATIVE Negative Drugs Of Abuse-Urine Screen 7 08/29/2014 Amphetamines (Urine) POSITIVE High Barbiturates (Urine) Negative Benzodiazepines (Urine) Negative Cannabinoids (Urine) Negative Cocaine Metabolite (Urine) Negative Methadone (Urine) Negative Opiates (Urine) POSITIVE High Urine Cutoffs * 65 Please Note # 66 Comprehensive Metabolic Panel 08/29/2014 Glucose 98 mg/dL 74-106 BUN 27 mg/dL High 7-18 Creatinine 3.2 mg/dL High 0.6-1.3 Glom Filtration Rate, Estimate 22 mL/min >60 If 27 mL/min >60 67 BUN/Creat 8.4 ratio Sodium 139 mmol/L 136-145 Potassium 4.0 mmol/L 3.5-5.1 Chloride 105 mmol/L 98-107 Carbon Dioxide 25 mmol/L 21-32 Anion Gap 9 mEq/L 8-16 Calcium 9.0 mg/dL 8.5-10.1 Total Protein 7.6 g/dL 6.4-8.2 Albumin 4.2 g/dL 3.4-5.0 Globulin 3.4 g/dL 1.9-4.3 Alb/Glob 1.2 ratio Bilirubin,Total 0.5 mg/dL 0.2-1.0 Sgot/Ast 36 U/L 15-37 SGPT/Alt 51 U/L 12-78 Alkaline Phosphatase 93 U/L 45-117 Laboratory test finding 08/29/2014 Lipase 159 U/L 73-393 68 CBS W/Automated Diff 08/29/2014 White Blood Count 12.1 K/uL High 3.4-10.5 Red Blood Count 4.63 M/uL 4.20-5.80 Hemoglobin 15.6 gm/dL 12.8-17.0 Hematocrit 46.4 % 38.0-48.0 Mean Cell Volume 100.2 fl High 80.0-96.0 Mean Corpuscular HGB 33.7 pg High 27.0-33.0 Mean Corpuscular HGB Conc 33.6 g/dL 31.7-36.0 Platelet Count 303 K/uL 150-400 Red Cell Distri Width SD 47.6 fl 36-51 Red Cell Distri Width %CV 13.2 % 11.6-15.8 Mean Platelet Volume 10.2 fL 6.6-10.6 Neut% 62.8 % 33.0-73.0 Lymph % 22.8 % 17.0-56.0 [place] % 11.1 % High 0.0-10.0 Eo% 3.1 % 0.0-5.0 Bas% 0.2 % 0.1-1.0 Neut# 7.61 K/uL High 1.8-7.0 Lymph # 2.76 K/uL 1.8-7.0 [place] # 1.34 K/uL High 0.0-0.8 Eos # 0.38 K/uL 0.0-0.5 Baso # 0.03 K/uL Low 0.1-0.2 Comprehensive Metabolic Panel 08/23/2014 Glucose 136 mg/dL High 74-106 BUN 12 mg/dL 7-18 Creatinine 1.2 mg/dL 0.6-1.3 Glom Filtration Rate, Estimate >60 mL/min >60 If >60 mL/min >60 69 BUN/Creat 10.0 ratio Sodium 142 mmol/L 136-145 Potassium 3.3 mmol/L Low 3.5-5.1 Chloride 107 mmol/L 98-107 Carbon Dioxide 23 mmol/L 21-32 Anion Gap 12 mEq/L 8-16 Calcium 8.6 mg/dL 8.5-10.1 Total Protein 6.7 g/dL 6.4-8.2 Albumin 3.8 g/dL 3.4-5.0 Globulin 2.9 g/dL 1.9-4.3 Alb/Glob 1.3 ratio Bilirubin,Total 0.3 mg/dL 0.2-1.0 Sgot/Ast 36 U/L 15-37 SGPT/Alt 54 U/L 12-78 Alkaline Phosphatase 83 U/L 45-117 Laboratory test finding 08/23/2014 CK-MB (Mass) 4.9 ng/ml High 0.5-3.6 Relative % Index 1.3 % <5 70 NT-proBNP 119.0 pg/mL <125 Troponin-I < 0.015 ng/mL 71 CBC W/Automated Diff 08/23/2014 White Blood Count 10.3 K/uL 3.4-10.5 Red Blood Count 4.20 M/uL 4.20-5.80 Hemoglobin 14.1 gm/dL 12.8-17.0 Hematocrit 41.1 % 38.0-48.0 Mean Cell Volume 97.9 fl High 80.0-96.0 Mean Corpuscular HGB 33.6 pg High 27.0-33.0 Mean Corpuscular HGB Conc 34.3 g/dL 31.7-36.0 Platelet Count 326 K/uL 150-400 Red Cell Distri Width SD 45.1 fl 36-51 Red Cell Distri Width %CV 12.8 % 11.6-15.8 Mean Platelet Volume 10.3 fL 6.6-10.6 Neut% 54.8 % 33.0-73.0 Lymph % 31.9 % 17.0-56.0 [place] % 10.0 % 0.0-10.0 Eo% 3.0 % 0.0-5.0 Bas% 0.3 % 0.1-1.0 Neut# 5.63 K/uL 1.8-7.0 Lymph # 3.28 K/uL 1.8-7.0 [place] # 1.03 K/uL High 0.0-0.8 Eos # 0.31 K/uL 0.0-0.5 Baso # 0.03 K/uL Low 0.1-0.2 Liver Function Tests 06/21/2014 Total Protein 7.7 g/dL 6.4-8.2 Albumin 3.9 g/dL 3.4-5.0 Globulin 3.8 g/dL 1.9-4.3 Alb/Glob 1.0 ratio Bilirubin,Total 0.4 mg/dL 0.2-1.0 Bilirubin,Direct < 0.1 mg/dL 0.0-0.2 Bilirubin,Indirect 0.3 mg/dL 0.0-0.9 Sgot/Ast 38 U/L High 15-37 SGPT/Alt 69 U/L 12-78 Alkaline Phosphatase 67 U/L 45-117 Basic Metabolic Panel 06/21/2014 Glucose 93 mg/dL 74-106 BUN 11 mg/dL 7-18 Creatinine 1.3 mg/dL 0.6-1.3 Glom Filtration Rate, Estimate >60 mL/min >60 If >60 mL/min >60 72 BUN/Creat 8.4 ratio Sodium 141 mmol/L 136-145 Potassium 3.5 mmol/L 3.5-5.1 Chloride 104 mmol/L 98-107 Carbon Dioxide 29 mmol/L 21-32 Anion Gap 12 mEq/L 8-16 Calcium 9.4 mg/dL 8.5-10.1 Laboratory test finding 11/17/2013 Gallbladder See Note 73 Protime 07/19/2012 Protime 16.0 seconds High 12.1-14.9 Inr 1.3 High 0.9-1.1 74 CBC 07/19/2012 White Blood Count 10.3 K/uL 3.4-10.5 Red Blood Count 4.64 M/uL 4.20-5.80 Hemoglobin 14.9 gm/dL 12.8-17.0 Hematocrit 44.5 % 38.0-48.0 Mean Cell Volume 95.9 fl 80.0-96.0 Mean Corpuscular HGB 32.1 pg 27.0-33.0 Mean Corpuscular HGB Conc 33.5 g/dL 31.7-36.0 Platelet Count 361 K/uL 150-400 Red Cell Distri Width %CV 12.3 % 11.6-15.8 Mean Platelet Volume 9.5 fL 6.6-10.6 Differential-WBC 07/19/2012 Total Cells Counted 100 #CELLS Metamyelocyte% 1 % High -0 Band% 2 % 0-8 Neutrophils% 60 % 33-73 Lymph% 26 % 17-56 Atypical Lymph% 2 % 0-7 Monocyte% 6 % 0-10 Eosinophil% 1 % 0-5 Basophil% 2 % 0-2 Platelet Estimate NORMAL RBC Morphology NORMAL Liver Function Tests 07/18/2012 Total Protein 6.7 g/dL 6.3-8.0 Albumin 3.5 g/dL 3.5-5.0 Globulin 3.2 g/dL 1.9-4.3 Alb/Glob 1.1 ratio Bilirubin,Total 0.4 mg/dL 0.2-1.2 Bilirubin,Direct 0.1 mg/dL 0.1-0.4 Bilirubin,Indirect 0.3 mg/dL 0.0-0.9 Sgot/Ast 85 U/L High 16-40 SGPT/Alt 107 U/L High 30-65 Alkaline Phosphatase 76 U/L 50-136 Basic Metabolic Panel 07/18/2012 Glucose 109 mg/dL 76-115 BUN 13 mg/dL 5-23 Creatinine 1.1 mg/dL 0.5-1.4 Glom Filtration Rate, Estimate >60 mL/min >60 If >60 mL/min >60 75 BUN/Creat 11.8 ratio Sodium 145 mmol/L 136-145 Potassium 3.7 mmol/L 3.5-5.1 Chloride 110 mmol/L High 98-107 Carbon Dioxide 26 mEq/L 18-29 Anion Gap 13 mEq/L 8-16 Calcium 8.7 mg/dL 8.5-10.1 Laboratory test finding 07/18/2012 Lipase 154 U/L 28-380 CBC W/Automated Diff 07/18/2012 White Blood Count 12.8 K/uL High 3.4-10.5 Red Blood Count 4.91 M/uL 4.20-5.80 Hemoglobin 15.9 gm/dL 12.8-17.0 Hematocrit 46.3 % 38.0-48.0 Mean Cell Volume 94.3 fl 80.0-96.0 Mean Corpuscular HGB 32.4 pg 27.0-33.0 Mean Corpuscular HGB Conc 34.3 g/dL 31.7-36.0 Platelet Count 403 K/uL High 150-400 Red Cell Distri Width SD 41.9 fl 36-51 Red Cell Distri Width %CV 12.3 % 11.6-15.8 Mean Platelet Volume 9.1 fL 6.6-10.6 Differential-WBC Confirm 07/18/2012 Total Cells Counted 100 #CELLS Band% 4 % 0-8 Neutrophils% 71 % 33-73 Lymph% 17 % 17-56 Atypical Lymph% 4 % 0-7 Monocyte% 2 % 0-10 Eosinophil% 1 % 0-5 Basophil% 1 % 0-2 Platelet Estimate SLIGHT INCREASE Anisocytosis 0-1+ Urinalysis With Microscopic 07/18/2012 Urine Color YELLOW Yellow Urine Clarity CLEAR Clear Urine Glucose - Dipstick NEGATIVE mg/dL Negative Urine Bilirubin - Dipstick NEGATIVE Negative Urine Ketone NEGATIVE mg/dL Negative Urine Specific [place] 1.020 1.010-1.030 Urine Blood SMALL High Negative Urine PH 6.0 Low 6.5-7.5 Urine Protein - Dipstick TRACE mg/dL Negative Urine Urobilinogen - Dipstick 0.2 E.U./dL 0.2-1.0 Urine Nitrite - Dipstick POSITIVE High Negative Urine Leuk Esterase TRACE High Negative Urine RBC 0-2 rbc/hpf 0-7 Urine WBC 10-20 wbc/hpf High 0-7 Urine Epithelial Cells FEW NONESEEN/lpf Urine Bacteria MANY NONESEEN High Urine Mucus SMALL NONESEEN Urine Amorph Sediment SMALL Negative Urine Yeast FEW NONESEEN Laboratory test finding 07/18/2012 Culture If Indicated Comment See Note 76 Urine Screen See Note 77 Urine Culture See Note 78 Laboratory test finding 06/05/2012 Act Partial Thrombo 31.6 seconds 23.9- 34.3 79 Time Protime 06/05/2012 Protime 12.7 seconds 12.1-14.9 Inr 0.9 0.9-1.1 80 CBC 06/05/2012 White Blood Count 10.7 K/uL High 3.4-10.5 Red Blood Count 5.18 M/uL 4.20-5.80 Hemoglobin 16.7 gm/dL 12.8-17.0 Hematocrit 49.9 % High 38.0-48.0 Mean Cell Volume 96.3 fl High 80.0-96.0 Mean Corpuscular HGB 32.2 pg 27.0-33.0 Mean Corpuscular HGB Conc 33.5 g/dL 31.7-36.0 Platelet Count 337 K/uL 150-400 Red Cell Distri Width %CV 12.8 % 11.6-15.8 Mean Platelet Volume 10.2 fL 6.6-10.6 Basic Metabolic Panel 06/05/2012 Glucose 74 mg/dL Low 76-115 BUN 23 mg/dL 5-23 Creatinine 1.2 mg/dL 0.5-1.4 Glom Filtration Rate, Estimate >60 mL/min >60 If >60 mL/min >60 81 BUN/Creat 19.1 ratio Sodium 140 mmol/L 136-145 Potassium 4.2 mmol/L 3.5-5.1 Chloride 105 mmol/L 98-107 Carbon Dioxide 28 mEq/L 18-29 Anion Gap 11 mEq/L 8-16 Calcium 9.7 mg/dL 8.5-10.1 Liver Function Tests 06/05/2012 Total Protein 7.8 g/dL 6.3-8.0 Albumin 4.2 g/dL 3.5-5.0 Globulin 3.6 g/dL 1.9-4.3 Alb/Glob 1.2 ratio Bilirubin,Total 0.6 mg/dL 0.2-1.2 Bilirubin,Direct < 0.1 mg/dL Low 0.1-0.4 Bilirubin,Indirect 0.5 mg/dL 0.0-0.9 Sgot/Ast 17 U/L 16-40 SGPT/Alt 54 U/L 30-65 Alkaline Phosphatase 74 U/L 50-136 Liver Function Tests 06/01/2012 Total Protein 6.6 g/dL 6.3-8.0 82 Albumin 3.6 g/dL 3.5-5.0 Globulin 3.0 g/dL 1.9-4.3 Alb/Glob 1.2 ratio Bilirubin,Total 0.3 mg/dL 0.2-1.2 Bilirubin,Direct < 0.1 mg/dL Low 0.1-0.4 Bilirubin,Indirect 0.2 mg/dL 0.0-0.9 Sgot/Ast 23 U/L 16-40 SGPT/Alt 68 U/L High 30-65 Alkaline Phosphatase 54 U/L 50-136 Basic Metabolic Panel 06/01/2012 Glucose 91 mg/dL 76-115 BUN 23 mg/dL 5-23 Creatinine 1.1 mg/dL 0.5-1.4 Glom Filtration Rate, Estimate >60 mL/min >60 If >60 mL/min >60 83 BUN/Creat 20.9 ratio Sodium 141 mmol/L 136-145 Potassium 4.0 mmol/L 3.5-5.1 Chloride 107 mmol/L 98-107 Carbon Dioxide 27 mEq/L 18-29 Anion Gap 11 mEq/L 8-16 Calcium 8.8 mg/dL 8.5-10.1 CBC 06/01/2012 White Blood Count 11.8 K/uL High 3.4-10.5 Red Blood Count 4.67 M/uL 4.20-5.80 Hemoglobin 15.3 gm/dL 12.8-17.0 Hematocrit 45.4 % 38.0-48.0 Mean Cell Volume 97.2 fl High 80.0-96.0 Mean Corpuscular HGB 32.8 pg 27.0-33.0 Mean Corpuscular HGB Conc 33.7 g/dL 31.7-36.0 Platelet Count 328 K/uL 150-400 Red Cell Distri Width %CV 13.2 % 11.6-15.8 Mean Platelet Volume 10.2 fL 6.6-10.6 Protime 06/01/2012 Protime 35.3 seconds High 12.1-14.9 Inr 3.5 High 0.9-1.1 84 CBC 05/31/2012 White Blood Count 14.7 K/uL High 3.4-10.5 Red Blood Count 4.92 M/uL 4.20-5.80 Hemoglobin 16.2 gm/dL 12.8-17.0 Hematocrit 47.9 % 38.0-48.0 Mean Cell Volume 97.4 fl High 80.0-96.0 Mean Corpuscular HGB 32.9 pg 27.0-33.0 Mean Corpuscular HGB Conc 33.8 g/dL 31.7-36.0 Platelet Count 351 K/uL 150-400 Red Cell Distri Width %CV 13.2 % 11.6-15.8 Mean Platelet Volume 9.9 fL 6.6-10.6 Laboratory test finding 05/31/2012 Act Partial Thrombo See Note 85 Time Protime 05/31/2012 Protime 40.9 seconds High 12.1-14.9 Inr 4.2 High 0.9-1.1 86 Laboratory test finding 05/31/2012 Act Partial 71.0 seconds High 23.9- 34.3 87 Thrombo Time Comprehensive Metabolic 05/31/2012 Glucose 116 mg/dL High 76-115 Panel BUN 26 mg/dL High 5-23 Creatinine 1.0 mg/dL 0.5-1.4 Glom Filtration Rate, Estimate >60 mL/min >60 If >60 mL/min >60 88 BUN/Creat 26.0 ratio Sodium 143 mmol/L 136-145 Potassium 4.1 mmol/L 3.5-5.1 Chloride 107 mmol/L 98-107 Carbon Dioxide 30 mEq/L High 18-29 Anion Gap 10 mEq/L 8-16 Calcium 9.3 mg/dL 8.5-10.1 Total Protein 7.3 g/dL 6.3-8.0 Albumin 3.8 g/dL 3.5-5.0 Globulin 3.5 g/dL 1.9-4.3 Alb/Glob 1.1 ratio Bilirubin,Total 0.3 mg/dL 0.2-1.2 Sgot/Ast 35 U/L 16-40 SGPT/Alt 77 U/L High 30-65 Alkaline Phosphatase 66 U/L 50-136 Laboratory test finding 05/31/2012 Lipase 165 U/L 28-380 CBC W/Automated Diff 05/31/2012 White Blood Count 13.7 K/uL High 3.4-10.5 Red Blood Count 5.00 M/uL 4.20-5.80 Hemoglobin 16.3 gm/dL 12.8-17.0 Hematocrit 48.3 % High 38.0-48.0 Mean Cell Volume 96.6 fl High 80.0-96.0 Mean Corpuscular HGB 32.6 pg 27.0-33.0 Mean Corpuscular HGB Conc 33.7 g/dL 31.7-36.0 Platelet Count 366 K/uL 150-400 Red Cell Distri Width SD 46.1 fl 36-51 Red Cell Distri Width %CV 13.1 % 11.6-15.8 Mean Platelet Volume 9.7 fL 6.6-10.6 Differential-WBC Confirm 05/31/2012 Total Cells Counted 100 #CELLS Band% 5 % 0-8 Neutrophils% 65 % 33-73 Lymph% 25 % 17-56 Monocyte% 3 % 0-10 Eosinophil% 2 % 0-5 Platelet Estimate NORMAL Anisocytosis 0-1+ Macrocytosis 0-1+ Laboratory test finding 05/31/2012 Culture If Indicated Comment See Note 89 Urine Screen See Note 90 Urinalysis With Microscopic 05/31/2012 Urine Color YELLOW Yellow Urine Clarity CLEAR Clear Urine Glucose - Dipstick NEGATIVE mg/dL Negative Urine Bilirubin - Dipstick NEGATIVE Negative Urine Ketone NEGATIVE mg/dL Negative Urine Specific [place] 1.020 1.010-1.030 Urine Blood LARGE High Negative Urine PH 5.5 Low 6.5-7.5 Urine Protein - Dipstick NEGATIVE mg/dL Negative Urine Urobilinogen - Dipstick 0.2 E.U./dL 0.2-1.0 Urine Nitrite - Dipstick POSITIVE High Negative Urine Leuk Esterase TRACE High Negative Urine RBC >50 rbc/hpf High 0-7 Urine WBC 20-30 wbc/hpf High 0-7 Urine Epithelial Cells FEW NONESEEN/lpf Urine Bacteria MODERATE NONESEEN High Laboratory test finding 05/31/2012 Urine Culture See Note 91 1 SEIZURE, ENCEPHALOPATHY 2 Note: Persistent reduction for 3 months or more in an eGFR <60 mL/min/1.73 m2 defines CKD. Patients with eGFR values >/=60 mL/min/1.73 m2 may also have CKD if evidence of persistent proteinuria is present. The original MDRD equation for estimated GFR is not valid for patients less than 18 years of age. Additional information may be found at [email or web address]. 3 SEIZURE,ENCEPHALOPATHY 4 SEIZURE, ENCEPHALOPATHY 5 Performed at: [facility] [id number] Director Non Profit: Scott Jimenez MD, Phone: [phone] SEIZURE 7 URINE, CLEAN CATCH 8 Note: Persistent reduction for 3 months or more in an eGFR <60 mL/min/1.73 m2 defines CKD. Patients with eGFR values >/=60 mL/min/1.73 m2 may also have CKD if evidence of persistent proteinuria is present. The original MDRD equation for estimated GFR is not valid for patients less than 18 years of age. Additional information may be found at [email or web address]. 9 0.0 - 0.045 ng/mL: Normal 0.046 - 0.5 ng/mL: Suggestive 0.6 - 1.5 ng/mL: Consistent 10 URINE SPECIMENS ARE SCREENED AT THE LISTED CUTOFFS DRUG CLASS INITIAL TEST LEVEL Amphetamines 1000 ng/mL Barbiturates 200 ng/mL Benzodiazepines 200 ng/mL Cannabinoids 50 ng/mL Cocaine Metabolite 300 ng/mL Methadone 300 ng/mL Opiates 300 ng/mL Any PRESUMPTIVE POSITIVE findings are UNCONFIRMED. Confirmatory testing is suggested if findings are unexpected. Please contact laboratory if confirmatory testing is desired. SPECIMENS ARE HELD FOR 72 HOURS. 11 SENT BY FOR THROWING UP 12 0.0 - 0.045 ng/mL: Normal 0.046 - 0.5 ng/mL: Suggestive 0.6 - 1.5 ng/mL: Consistent 13 Note: Persistent reduction for 3 months or more in an eGFR <60 mL/min/1.73 m2 defines CKD. Patients with eGFR values >/=60 mL/min/1.73 m2 may also have CKD if evidence of persistent proteinuria is present. The original MDRD equation for estimated GFR is not valid for patients less than 18 years of age. Additional information may be found at [email or web address]. 14 PAIN LOWER BACK, VOMITING, MISSED CT SCAN Y-DAY 15 NO GROWTH: FINAL REPORT 16 NO GROWTH: FINAL REPORT 17 URINE, CLEAN CATCH 18 URINE SPECIMENS ARE SCREENED AT THE LISTED CUTOFFS DRUG CLASS INITIAL TEST LEVEL Amphetamines 1000 ng/mL Barbiturates 200 ng/mL Benzodiazepines 200 ng/mL Cannabinoids 50 ng/mL Cocaine Metabolite 300 ng/mL Methadone 300 ng/mL Opiates 300 ng/mL Any PRESUMPTIVE POSITIVE findings are UNCONFIRMED. Confirmatory testing is suggested if findings are unexpected. Please contact laboratory if confirmatory testing is desired. SPECIMENS ARE HELD FOR 72 HOURS. 19 Note: Persistent reduction for 3 months or more in an eGFR <60 mL/min/1.73 m2 defines CKD. Patients with eGFR values >/=60 mL/min/1.73 m2 may also have CKD if evidence of persistent proteinuria is present. The original MDRD equation for estimated GFR is not valid for patients less than 18 years of age. Additional information may be found at [email or web address]. 20 R94.5,B18.2,F1O.11 21 Note: Persistent reduction for 3 months or more in an eGFR <60 mL/min/1.73 m2 defines CKD. Patients with eGFR values >/=60 mL/min/1.73 m2 may also have CKD if evidence of persistent proteinuria is present. The original MDRD equation for estimated GFR is not valid for patients less than 18 years of age. Additional information may be found at [email or web address]. 22 This test was developed and its performance characteristics determined by [facility]. It has not been cleared or approved by the U.S. Food and Drug Administration. The FDA has determined that such clearance or approval is not necessary. This test is used for clinical purposes. It should not be regarded as investigational or for research. Performed at: [address] [id number] Director Non Profit: Scott Jimenez MD, Phone: [phone] 23 R94.5, M54.5, M19.90, G40.89 24 INFCE Result Units: s/co ratio Negative: < 0.8 Indeterminate: 0.8 - 0.9 Positive: > 0.9 The CDC recommends that a positive HCV antibody result be followed up with a HCV Nucleic Acid Amplification test (223957). 25 INFCE Result Units: log10 IU/mL 26 The quantitative range of this assay is 15 IU/mL to 100 million IU/mL. Performed at: [address] [place] [id number] Director Non Profit: Riaz Perez PhD, Phone: [phone] Performed at: [address] [id number] Director Non Profit: Tierney Lewis MD, Phone: [phone] Performed at: [address] [id number] Director Non Profit: Scott Jimenez MD, Phone: [phone] 27 URINE, CLEAN CATCH 28 Performed at: [address] [id number] Director Non Profit: Tierney Lewis MD, Phone: [phone] Performed at: [facility] [id number] Director Non Profit: Scott Jimenez MD, Phone: [phone] 29 URINE SPECIMENS ARE SCREENED AT THE LISTED CUTOFFS DRUG CLASS INITIAL TEST LEVEL Amphetamines 1000 ng/mL Barbiturates 200 ng/mL Benzodiazepines 200 ng/mL Cannabinoids 50 ng/mL Cocaine Metabolite 300 ng/mL Methadone 300 ng/mL Opiates 300 ng/mL Any PRESUMPTIVE POSITIVE findings are UNCONFIRMED. Confirmatory testing is suggested if findings are unexpected. Please contact laboratory if confirmatory testing is desired. SPECIMENS ARE HELD FOR 72 HOURS. 30 Note: Persistent reduction for 3 months or more in an eGFR <60 mL/min/1.73 m2 defines CKD. Patients with eGFR values >/=60 mL/min/1.73 m2 may also have CKD if evidence of persistent proteinuria is present. The original MDRD equation for estimated GFR is not valid for patients less than 18 years of age. Additional information may be found at [email or web address]. 31 Positive: HCV RNA Detected 32 Method: Sediplast Modified Westergren 33 HLA-B*27 Negative B27 allele interpretation for all loci based on IMGT/HLA database version 3.27 This test was developed and its performance characteristics determined by [facility]. It has not been cleared or approved by the Food and Drug Administration. [facility] CLIA ID Number [id number] This test was performed using PCR (Polymerase Chain Reaction)/SSOP (Sequence Specific Oligonucleotide Probes) technique. SBT (Sequence Based Typing) and/or SSP (Sequence Specific Primers) may be used as supplemental methods when necessary. Please contact [facility] Customer Service at if you have any questions. Director of [facility] Dr Riaz Perez, PhD 34 Vitamin D deficiency has been defined by the [place] of [employer] and an Endocrine Society practice guideline as a level of serum 25-OH vitamin D less than 20 ng/mL (1,2). The Endocrine Society went on to further define vitamin D insufficiency as a level between 21 and 29 ng/mL (2). 1. IOM ([place] of [employer]). 2010. Dietary reference intakes for calcium and D. [place]: The National Academies Press. 2. Sultana MF, Nitish GONZÁLES, Lis CHAPA, et al. Evaluation, treatment, and prevention of vitamin D deficiency: an Endocrine Society clinical practice guideline. JCEM. 2010; 96(7):1911-30. Performed at: RN - [facility] [address] [id number] Director Non Profit: Tierney Lewis MD, Phone: [phone] 35 Negative <0.80 Equivocal 0.80 - 1.19 Positive >1.19 IgM levels may peak at 3-6 weeks post infection, then gradually decline. 36 Note: Persistent reduction for 3 months or more in an eGFR <60 mL/min/1.73 m2 defines CKD. Patients with eGFR values >/=60 mL/min/1.73 m2 may also have CKD if evidence of persistent proteinuria is present. The original MDRD equation for estimated GFR is not valid for patients less than 18 years of age. Additional information may be found at [email or web address]. 37 CHECKED + CALLED K TO DR MCKINNEY AT 5915 03/15/15 38 0.0 - 0.045 ng/mL: Normal 0.046 - 0.5 ng/mL: Suggestive 0.6 - 1.5 ng/mL: Consistent 39 Note: Persistent reduction for 3 months or more in an eGFR <60 mL/min/1.73 m2 defines CKD. Patients with eGFR values >/=60 mL/min/1.73 m2 may also have CKD if evidence of persistent proteinuria is present. The original MDRD equation for estimated GFR is not valid for patients less than 18 years of age. Additional information may be found at [email or web address]. 40 URINE SPECIMENS ARE SCREENED AT THE LISTED CUTOFFS DRUG CLASS INITIAL TEST LEVEL Amphetamines 1000 ng/mL Barbiturates 200 ng/mL Benzodiazepines 200 ng/mL Cannabinoids 50 ng/mL Cocaine Metabolite 300 ng/mL Methadone 300 ng/mL Opiates 300 ng/mL Any POSITIVE findings are UNCONFIRMED. Confirmatory testing is suggested if findings are unexpected. Please contact laboratory if confirmatory testing is desired. SPECIMENS ARE HELD FOR 72 HOURS. 41 Note: Persistent reduction for 3 months or more in an eGFR <60 mL/min/1.73 m2 defines CKD. Patients with eGFR values >/=60 mL/min/1.73 m2 may also have CKD if evidence of persistent proteinuria is present. The original MDRD equation for estimated GFR is not valid for patients less than 18 years of age. Additional information may be found at [email or web address]. 42 Note: Persistent reduction for 3 months or more in an eGFR <60 mL/min/1.73 m2 defines CKD. Patients with eGFR values >/=60 mL/min/1.73 m2 may also have CKD if evidence of persistent proteinuria is present. The original MDRD equation for estimated GFR is not valid for patients less than 18 years of age. Additional information may be found at [email or web address]. 43 0.0 - 0.045 ng/mL: Normal 0.046 - 0.5 ng/mL: Suggestive 0.6 - 1.5 ng/mL: Consistent 44 Note: Persistent reduction for 3 months or more in an eGFR <60 mL/min/1.73 m2 defines CKD. Patients with eGFR values >/=60 mL/min/1.73 m2 may also have CKD if evidence of persistent proteinuria is present. The original MDRD equation for estimated GFR is not valid for patients less than 18 years of age. Additional information may be found at [email or web address]. 45 Note: Persistent reduction for 3 months or more in an eGFR <60 mL/min/1.73 m2 defines CKD. Patients with eGFR values >/=60 mL/min/1.73 m2 may also have CKD if evidence of persistent proteinuria is present. The original MDRD equation for estimated GFR is not valid for patients less than 18 years of age. Additional information may be found at [email or web address]. 46 REPLACED BY -19;U12 FOR UA REPLACED BY 20;C33 FOR UDOA 47 Note: Persistent reduction for 3 months or more in an eGFR <60 mL/min/1.73 m2 defines CKD. Patients with eGFR values >/=60 mL/min/1.73 m2 may also have CKD if evidence of persistent proteinuria is present. The original MDRD equation for estimated GFR is not valid for patients less than 18 years of age. Additional information may be found at [email or web address]. 48 NO GROWTH: FINAL REPORT 49 NO GROWTH: FINAL REPORT 50 NO GROWTH: FINAL REPORT 51 NO GROWTH: FINAL REPORT 52 Note: Persistent reduction for 3 months or more in an eGFR <60 mL/min/1.73 m2 defines CKD. Patients with eGFR values >/=60 mL/min/1.73 m2 may also have CKD if evidence of persistent proteinuria is present. The original MDRD equation for estimated GFR is not valid for patients less than 18 years of age. Additional information may be found at [email or web address]. 53 0.0 - 0.045 ng/mL: Normal 0.046 - 0.5 ng/mL: Suggestive 0.6 - 1.5 ng/mL: Consistent 54 Duplicate order 55 Note: Persistent reduction for 3 months or more in an eGFR <60 mL/min/1.73 m2 defines CKD. Patients with eGFR values >/=60 mL/min/1.73 m2 may also have CKD if evidence of persistent proteinuria is present. The original MDRD equation for estimated GFR is not valid for patients less than 18 years of age. Additional information may be found at [email or web address]. 56 0.0 - 0.045 ng/mL: Normal 0.046 - 0.5 ng/mL: Suggestive 0.6 - 1.5 ng/mL: Consistent 57 Note: Persistent reduction for 3 months or more in an eGFR <60 mL/min/1.73 m2 defines CKD. Patients with eGFR values >/=60 mL/min/1.73 m2 may also have CKD if evidence of persistent proteinuria is present. The original MDRD equation for estimated GFR is not valid for patients less than 18 years of age. Additional information may be found at [email or web address]. 58 0.0 - 0.045 ng/mL: Normal 0.046 - 0.5 ng/mL: Suggestive 0.6 - 1.5 ng/mL: Consistent 59 Note: Persistent reduction for 3 months or more in an eGFR <60 mL/min/1.73 m2 defines CKD. Patients with eGFR values >/=60 mL/min/1.73 m2 may also have CKD if evidence of persistent proteinuria is present. The original MDRD equation for estimated GFR is not valid for patients less than 18 years of age. Additional information may be found at [email or web address]. 60 < 5%=non AMI 5 - 10%=borderline for AMI > 10%=positive for AMI FOR DIAGNOSTIC PURPOSES, THE CK-MB RESULT (MASS AND RELATIVE PERCENT INDEX) SHOULD BE USED IN CONJUNCTION WITH OTHER PERTINENT CLINICAL DATA. 61 0.0 - 0.045 ng/mL: Normal 0.046 - 0.5 ng/mL: Suggestive 0.6 - 1.5 ng/mL: Consistent 62 <=0.49 ug/mL - Low likelihood of DIC, DVT or Pulmonary Embolism >0.49 ug/mL - Additional testing should be done to rule out DIC, DVT, or Pulmonary embolism as clinically indicated. ([facility] has established a 97.89% negative predictive value for thrombotic disease when a cutoff value of 0.5 ug/mL is used.) 63 Note: Persistent reduction for 3 months or more in an eGFR <60 mL/min/1.73 m2 defines CKD. Patients with eGFR values >/=60 mL/min/1.73 m2 may also have CKD if evidence of persistent proteinuria is present. The original MDRD equation for estimated GFR is not valid for patients less than 18 years of age. Additional information may be found at [email or web address]. 64 0.0 - 0.045 ng/mL: Normal 0.046 - 0.5 ng/mL: Suggestive 0.6 - 1.5 ng/mL: Consistent 65 *THE SUBMITTED URINE SPECIMEN WAS SCREENED AT THE LISTED CUTOFFS DRUG CLASS INITIAL TEST LEVEL Amphetamines 1000 ng/mL Barbiturates 200 ng/mL Benzodiazepines 200 ng/mL Cannabinoids 50 ng/mL Cocaine Metabolite 300 ng/mL Methadone 300 ng/mL Opiates 300 ng/mL 66 #THIS URINE SPECIMEN SCREENED POSITIVE FOR ONE OF MORE DRUG CLASSES. POSITIVE FINDINGS ARE UNCONFIRMED. CONFIRMATORY TESTING IS SUGGESTED IF FINDINGS ARE UNEXPECTED. PLEASE CONTACT THE LABORATORY IF CONFIRMATORY TESTING IS DESIRED. 67 Note: Persistent reduction for 3 months or more in an eGFR <60 mL/min/1.73 m2 defines CKD. Patients with eGFR values >/=60 mL/min/1.73 m2 may also have CKD if evidence of persistent proteinuria is present. The original MDRD equation for estimated GFR is not valid for patients less than 18 years of age. Additional information may be found at [email or web address]. 68 CALLED BUN/CREAT TO ANNABELLE Renae AT 0832 08/29/14 by LAB.[facility] 69 Note: Persistent reduction for 3 months or more in an eGFR <60 mL/min/1.73 m2 defines CKD. Patients with eGFR values >/=60 mL/min/1.73 m2 may also have CKD if evidence of persistent proteinuria is present. The original MDRD equation for estimated GFR is not valid for patients less than 18 years of age. Additional information may be found at [email or web address]. 70 < 5%=non AMI 5 - 10%=borderline for AMI > 10%=positive for AMI FOR DIAGNOSTIC PURPOSES, THE CK-MB RESULT (MASS AND RELATIVE PERCENT INDEX) SHOULD BE USED IN CONJUNCTION WITH OTHER PERTINENT CLINICAL DATA. 71 0.0 - 0.045 ng/mL: Normal 0.046 - 0.5 ng/mL: Suggestive 0.6 - 1.5 ng/mL: Consistent 72 Note: Persistent reduction for 3 months or more in an eGFR <60 mL/min/1.73 m2 defines CKD. Patients with eGFR values >/=60 mL/min/1.73 m2 may also have CKD if evidence of persistent proteinuria is present. The original MDRD equation for estimated GFR is not valid for patients less than 18 years of age. Additional information may be found at [email or web address]. 73 OPERATION/PROCEDURE Lap. mariel. DIAGNOSIS: "GALLBLADDER, CHOLECYSTECTOMY": ACUTE SUPERIMPOSED UPON CHRONIC CHOLECYSTITIS, AND CHOLELITHIASIS. NO EVIDENCE OF DYSPLASIA NOR NEOPLASIA APPRECIATED. Gal GROSS The specimen is received in a single container additionally labeled "GALLBLADDER". This contains a grossly recognizable unopened gallbladder. This has a mccoy-purple shiny smooth surface and overall measures 8.0 x 5.0 x 3.0 cm. in overall dimensions. There is no visible wall defect. The wall has a uniform thickness of 0.9 cm. The mucosal surface is red, velvety smooth and unremarkable. Trabeculations are noted. No garcia reticular discoloration of cholesterolosis is noted. One stone is noted with a diameter up to 3.0 cm. it does not obstruct the neck. Lumber Stacker sections are submitted within a single cassette. MAURICE/elizabeth MICROSCOPIC Sections show denuded gallbladder mucosa. The submucosa has an intense and transmural infiltrate of neutrophils, lymphocytes and plasma cells. The muscular wall is partially necrotic and hypertrophied. PRE OPERATIVE DIAGNOSIS Chronic cholecystitis REVIEW CODE CODE: I Signed Electronically signed MAY LE MD 11/19/13 [id number] 74 THERAPEUTIC INR RANGE: 2.0 - 3.0 DVT, Pulmonary embolus, prophylaxis against venous thrombosis or systemic embolization in high risk patients. 2.5 - 3.5 Mechanical heart valves 75 Note: Persistent reduction for 3 months or more in an eGFR <60 mL/min/1.73 m2 defines CKD. Patients with eGFR values >/=60 mL/min/1.73 m2 may also have CKD if evidence of persistent proteinuria is present. The original MDRD equation for estimated GFR is not valid for patients less than 18 years of age. Additional information may be found at [email or web address]. 76 CULTURE TO FOLLOW 77 07/18/12 [email or web address] Deleted by [facility] [place] COLONY COUNT ! >100,000 CFU/ml Organism 1 ! ESCHERICHIA COLI QUANTITY ! MANY ESCHERICHIA COLI Target Route Dose M.I.C. RX AB COST ------ ----- -------- ------ -- ------ NITROFURANTOIN 32 S TRIMETHOPRIM/SULFAMETHOXAZOLE >=320 R AMPICILLIN >=32 R CEFAZOLIN >=64 R AMPICILLIN/SULBACTAM >=32 R CIPROFLOXACIN >=4 R CEFTAZIDIME <=1 S CEFTRIAXONE <=1 S CEFEPIME <=1 S LEVOFLOXACIN >=8 R IMIPENEM <=1 S GENTAMICIN <=1 S CEFOXITIN 16 I PIPERACILLIN >=128 R 79 Is patient on heparin protocol? N Is patient on anticoagulants? Unknown QUERY: Anticoagulant Therapy? QUERY: Date of Last Dose: QUERY: Time of Last Dose: 80 THERAPEUTIC INR RANGE: 2.0 - 3.0 DVT, Pulmonary embolus, prophylaxis against venous thrombosis or systemic embolization in high risk patients. 2.5 - 3.5 Mechanical heart valves 81 Note: Persistent reduction for 3 months or more in an eGFR <60 mL/min/1.73 m2 defines CKD. Patients with eGFR values >/=60 mL/min/1.73 m2 may also have CKD if evidence of persistent proteinuria is present. The original MDRD equation for estimated GFR is not valid for patients less than 18 years of age. Additional information may be found at www.kdoqi.org. 82 Result confirmed by repeat analysis. 83 Note: Persistent reduction for 3 months or more in an eGFR <60 mL/min/1.73 m2 defines CKD. Patients with eGFR values >/=60 mL/min/1.73 m2 may also have CKD if evidence of persistent proteinuria is present. The original MDRD equation for estimated GFR is not valid for patients less than 18 years of age. Additional information may be found at www.kdoqi.org. 84 THERAPEUTIC INR RANGE: 2.0 - 3.0 DVT, Pulmonary embolus, prophylaxis against venous thrombosis or systemic embolization in high risk patients. 2.5 - 3.5 Mechanical heart valves 85 05/31/12 LAB.DWM MERGED 86 THERAPEUTIC INR RANGE: 2.0 - 3.0 DVT, Pulmonary embolus, prophylaxis against venous thrombosis or systemic embolization in high risk patients. 2.5 - 3.5 Mechanical heart valves 87 Is patient on anticoagulants? Coumadin CHECKED + CALLED PRT TO ANNABELLE Zarate AT 203005/31/12 CHECKED + CALLED PTT TO MARIO S AT 233305/31/12 QUERY: Anticoagulant Therapy? QUERY: Date of Last Dose: QUERY: Time of Last Dose: 88 Note: Persistent reduction for 3 months or more in an eGFR <60 mL/min/1.73 m2 defines CKD. Patients with eGFR values >/=60 mL/min/1.73 m2 may also have CKD if evidence of persistent proteinuria is present. The original MDRD equation for estimated GFR is not valid for patients less than 18 years of age. Additional information may be found at www.kdoqi.org. 89 CULTURE TO FOLLOW 90 05/31/12 LAB.DWM Deleted by [facility] Group [facility] COLONY COUNT ! 80,000-100,000 CFU/ml Organism 1 ! ESCHERICHIA COLI QUANTITY ! MANY ESCHERICHIA COLI Target Route Dose M.I.C. RX AB COST ------ ----- -------- ------ -- ------ NITROFURANTOIN 64 I TRIMETHOPRIM/SULFAMETHOXAZOLE >=320 R AMPICILLIN >=32 R CEFAZOLIN >=64 R AMPICILLIN/SULBACTAM >=32 R CIPROFLOXACIN >=4 R CEFTAZIDIME <=1 S CEFTRIAXONE <=1 S CEFEPIME <=1 S LEVOFLOXACIN >=8 R IMIPENEM <=1 S GENTAMICIN <=1 S CEFOXITIN 16 I PIPERACILLIN >=128 R Procedures Date CPT Code Description Status 12/13/2017 01092 Theraputic Or Diagnostic Injection Completed 11/12/2017 20926 Theraputic Or Diagnostic Injection Completed 03/10/2015 62088 Psychiatric Diag Eval W/Medical Service Completed 06/21/2014 04721 ECHO Transthoracic Inc Performance Continuous Completed Electrocardio 06/21/2014 18659 Event Monitor Inter/Review Only Completed 06/11/2014 59224 EKG-Tracing And Report Completed 11/17/2013 99384 Laparoscopy; cholecystectomy Completed 11/17/2013 31435 Anesthesia, Upper Abdomen Surgery Not Otherwise Spec Completed 03/13/2013 16406 Echocardiogram Complete Completed 12/26/2012 61430 Echocardiogram Complete Completed 06/12/2012 16889 EKG-Tracing And Report Completed 04/23/2012 57005 Stress Test Interpre And Report Only Completed 04/23/2012 09247 Stress Test Physician Super Only Completed 04/23/2012 69409 Stress Test Physician Super Only Completed 04/23/2012 84614 Myocardial Imaging Tomographic Multiple Study AT Rest Completed Or Stress 02/21/1995 00995 EKG Interpretation And Report Only Completed Encounters Type Date Location Provider CPT E/M Dx Office Visit 01/01/2018 1:15[place], [address] M48.02 [facility] PHD M48.07 D68.8 M62.830 M19.90 I10 F10.11 B18.2 F17.210 F60.2 F33.1 Office Visit 12/13/2017 9:30[place], [address] M54.5 [facility] PHD M19.90 M62.830 M48.02 M48.07 D68.8 F10.11 I10 M54.5 Office Visit 12/09/2017 12:30[place], [address] M54.5 [facility] PHD M19.90 M62.830 M48.02 M48.07 D68.8 Office Visit 11/12/2017 9:30[place], [address] R94.5 [facility] PHD R94.5 B18.2 B18.2 F10.11 F17.210 I10 M54.5 Office Visit 10/29/2017 10:30[place], [address] R94.5 [facility] PHD I10 F10.11 F17.210 M54.5 M19.90 G40.89 F90.8 F60.2 F15.90 Office Visit 10/01/2017 10:30[place], [address] J44.1 Women's Health PHD M54.5 D68.8 G40.89 R94.5 F17.210 I10 F90.8 F33.1 Office Visit 09/12/2017 1:30p [place] [address] S93.402A Office Visit 03/10/2015 3:18p [facility] Javy Fallon, [address] T40.2x2A [facility] [place] Office Visit 01/20/2015 1:51p [facility] [place] [address] J44.1 Medical Center Office Visit 11/23/2014 11:15a Primary Care Office Kristen Benjamin M.D. 35839 401.1 491.21 305.1 786.2 521.08 780.2 Office Visit 09/07/2014 10:30a Primary Care Office Kristen Benjamin M.D. 05307 401.1 719.08 790.6 305.1 Office Visit 08/24/2014 9:45a Primary Care Office Kristen Benjamin M.D. 54688 722.90 724.2 401.1 305.1 719.08 Office Visit 06/18/2014 2:15p [place] [address] 786.50 Office Visit 06/16/2014 11:10a Primary Care Office Kristen Benjamin M.D. 88482 496 578.9 794.8 719.48 Office Visit 06/11/2014 11:00a [place] [address] 786.05 786.59 780.4 305.1 401.1 573.9 327.23 Office Visit 05/25/2014 10:05a Primary Care Office Kristen Benjamin M.D. 92909 496 401.1 314.01 780.4 305.1 873.63 578.1 Office Visit 05/16/2014 4:09p [facility] [place] [address] 386.10 [facility] 786.59 Office Visit 11/17/2013 8:49a Surgical Office Aguilar Calabrese 67532 575.0 Mirna Yung Office Visit 11/12/2013 2:02p [facility] Larisa Davison M.D. 48465 575.0 [facility] 496 305.1 Office Visit 11/10/2013 10:14a [facility] Larisa Davison M.D. 67286 575.0 [facility] Office Visit 10/18/2013 8:27a [facility] Oscar Buchanan M.D. 10302 780.4 [facility] 388.70 Office Visit 06/03/2013 3:13p [facility] Javy Fallon, 99882 491.21 [facility] Office Visit 03/13/2013 3:02p [facility] Larisa Davison M.D. 98280 780.2 [facility] 338.4 Office Visit 08/20/2012 11:00a [place] [address]87 401.1 786.05 780.2 Office Visit 07/18/2012 11:28a [place] [address] 574.00 Office Visit 07/11/2012 2:40p Cardiology [place] 85[address] 401.1 786.51 496 305.1 286.9 Office Visit 06/12/2012 10:00a [place] [address] V72.81 414.01 786.51 401.1 Office Visit 06/04/2012 9:45a Surgical Office Aguilar Calabrese 82135 574.00 Mirna Yung 286.9 305.1 Office Visit 05/31/2012 10:47a Surgical Office Aguilar Calabrese 11037 789.01 Mirna Yung 574.00 Office Visit 04/23/2012 4:14p [place]iology [place] [address] 786.50 Plan of Care Future Appointment(s):02/03/2018 9:00 am - Gina Moses MD, PHD at [facility]01/01/2018 - Gina Moses MD, PHDM48.02 Spinal stenosis, cervical wmihrbS24.07 Spinal stenosis, lumbosacral bhyebrU29.8 Other specified coagulation howdybtH24.830 Muscle spasm of backM19.90 Unspecified osteoarthritis, unspecified siteNew Medication:Oxycodone HCL 10 mgI10 Essential (primary) ilvdgepuwaprU60.11 Alcohol abuse, in ukanjkbklI39.2 Chronic viral hepatitis CF17.210 Nicotine dependence, cigarettes, lsiuptrcvekgdR33.2 Antisocial personality uiqzyeafB10.1 Major depressive disorder, recurrent, moderate
--- OUTSIDE RECORDS SUMMARY | 2018-02-07 20:04 | XMS REPORT ---
:1965 External Reference #:[id number] Author Organization Formerly [facility] Address [address], [address] [place] [address] Phone [phone] Care Team Providers Name Role Phone Herminia Tsai Care Team Information Boiling Off Winder Unavailable Gina Moses MD, PHD Primary Care Physician Unavailable Payers Type Date Identification Numbers Payment Provider Subscriber Medicare Primary Effective: Policy Number: Medicare Talha Fuentes 2003 [id number] Karen Group Name: Medicare [address] PayID: [id number] [place] [address] Medicaid Policy Number: [id number] Medicaid Talha Jones Group Name: 1 1 [address] PayID: [id number] [place] [address] Problems Date Description Provider Status Onset: 06/04/2012 [...] Active Onset: 06/11/2014 Obstructive sleep apnea syndrome Jamla Arreola MD Active Onset: 06/16/2014 Gastrointestinal hemorrhage [...] 10mg 90tabs 1 tab by M54.5 Tresa Moses mouth Gina, three , PHD times a [...] 10/01/2017 Active Gel 75g apply to M54.5 [place], affected Gina, area four MD, PHD times a day pain, swelling, bruising Nicotine Step 10/01/2017 Active Patches 21mg/2 30units 1 topically F17.210 Josué, 1 24HR 4HR every day MD iGna, PHD Nicotine 10/01/2017 Active Gum 4mg 110units 1 as needed F17.210 Josué Polacrilex MD Gina, PHD Xarelto 10/01/2017 Active Tablets 15mg 30tabs 1 tab by D68.8 Josué, mouth every Gina, day , PHD Adderall 10/01/2017 Active Tablets 20mg 30tabs 1 tab by F90.8 Josué, mouth every Gina, day , PHD F60.2 F15.90 Barnwell-3 CF 10/01/2017 Active Capsules 1000mg 60caps 1 [...] day PHD I10 D3-50 10/01/2017 Active Capsules 62911Eoqt 14caps 1 cap by M54.5 Gina Moses, [...] Capsules 5000Unit 90caps 1 cap by M5Milvia Moses, Strength 10/01/2017 mouth MD Gina, every day PHD Oxycodone HCL 10/01/2017 - Hx Capsules 5mg 60caps 1 cap by M5Milvia Moses , 01/01/2018 mouth MD Gina, twice a PHD day as needed M19.90 Ipratropium 03/03/2015 - Hx Solution 0.5-2.5(3)mg/3ML 180ml 2 puffs Cassidy Branscomb/Albuterol 09/12/2017 four Kristen, Sulfate times a M.D. [...] Hx Tablets 0.4-50-0.1mg 30tabs take one D Csasidy, B6-Vit B12 09/12/2017 tab by 5 Kristen, [...] Hx Tablets 40mg 30tabs 1 by mouth [facility] , 09/12/2017 every day Mirna Peterson Fentanyl - Hx Patches 25mcg/H 5units 1 q72h Unknown 05/24/2014 72HR R Adderall - Hx Tablets 30mg 1 tab qd Unknown 05/25/2014 Lisinopril - Hx Tablets 10mg 30tabs 1 by mouth Unknown 08/24/2014 every day Omeprazole - Hx Capsules DR 20mg 30caps 1 by mouth [facility], 10/01/2017 every day Mirna Peterson Tizanidine HCL Hx Capsules 4mg 60caps 1 by mouth Unknown three times a day as needed spasm Ventolin HFA - Hx Aerosol 108(90B 24gm 2 puff every [facility], 09/12/2017 ase) 4 hours as miki Peterson/Act [...] Hx Aerosol 110mcg/ 1units 2 puff twice [facility], 09/12/2017 Act a day Mirna Peterson Combivent - Hx Aerosol 1units 2 puffs four [facility], 03/03/2015 times a day Mrina Peterson Lisinopril - Hx Tablets 5mg 90tabs 1 by mouth Unknown 08/24/2014 every day Oxycodone HCL - Hx Capsules 5mg 1 tab by Rach, 03/03/2015 mouth q6hr Romario as needed reference #: [id number] Ondansetron - Hx Tablets 4mg 1 by [...] PHD MG/mL (Toradol) Theraputic Or Administered Injection [place], Diagnostic 018 Gina, Injection , PHD Injection Administered Injection Josué, Ketorolac 018 Gina, Tromethamine 30 , PHD MG/mL (Toradol) Theraputic Or Administered Injection [place], Diagnostic 018 Gina, Injection , PHD Vital [...] Ketone NEGATIVE mg/dL Negative 6 Urine Specific Wolverine 1.015 1.010-1.030 6 Urine Blood TRACE Negative [...] 6 Lymph % 20.7 % 20.0-42.0 6 Polk % 10.2 % High 0.0-10.0 6 Eo% 8.3 % High 0.0-6.6 6 Bas% 0.5 % 0.0-1.1 6 Neut# 5.23 K/uL 1.8-7.0 6 Lymph # 1.79 K/uL 1.0-4.0 6 Polk # 0.88 K/uL High 0.0-0.8 6 Eos [...] 11 Lymph % 20.8 % 20.0-42.0 11 Polk % 7.9 % 0.0-10.0 11 Eo% 4.8 % 0.0-6.6 11 Bas% 0.4 % 0.0-1.1 11 Neut# 4.68 K/uL 1.8-7.0 11 Lymph # 1.47 K/uL 1.0-4.0 11 Polk # 0.56 K/uL 0.0-0.8 11 Eos # [...] Ketone NEGATIVE mg/dL Negative 14 Urine Specific Wolverine 1.020 1.010-1.030 14 Urine Blood SMALL Negative [...] PCR Quant RFLX 10/29/2017 Hepatitis C Quantitation 264815 IU/ mL . 23 HCV Log 10 5.749 . 23, 25 Test Information (SEE NOTE) 23, 26 Ua RFX Micro & Culture II 10/29/2017 Urine Color YELLOW Yellow 23 Urine Clarity CLEAR Clear 23 Urine Glucose - Dipstick NEGATIVE mg/dL Negative 23 Urine Bilirubin - Dipstick NEGATIVE Negative 23 Urine Ketone NEGATIVE mg/dL Negative 23 Urine Specific Wolverine 1.025 1.010-1.030 23 Urine Blood SMALL Negative [...] Treponema Antibody Negative Negative 23, 28 finding [facility]-Urine 10/29/2017 Amphetamines (Urine) Negative [...] 23 Lymph % 24.4 % 20.0-42.0 23 Polk % 7.3 % 0.0-10.0 23 Eo% 8.5 % High 0.0-6.6 23 Bas% 0.5 % 0.0-1.1 23 Neut# 3.76 K/uL 1.8-7.0 23 Lymph # 1.55 K/uL 1.0-4.0 23 Polk # 0.46 K/uL 0.0-0.8 23 Eos # [...] % 33.0-73.0 Lymph % 26.0 % 17.0-56.0 Polk % 10.2 % High 0.0-10.0 Eo% 0.5 % 0.0-5.0 Bas% 0.1 % 0.1-1.0 Neut# 6.20 K/uL 1.8-7.0 Lymph # 2.55 K/uL 1.8-7.0 Polk # 1.00 K/uL High 0.0-0.8 Eos # [...] Ketone TRACE mg/dL High Negative Urine Specific Wolverine 1.020 1.010-1.030 Urine Blood NEGATIVE Negative Urine [...] 33.0-73.0 Lymph % 12.1 % Low 17.0-56.0 Polk % 6.1 % 0.0-10.0 Eo% 1.7 % 0.0-5.0 Bas% 0.1 % 0.1-1.0 Neut# 6.07 K/uL 1.8-7.0 Lymph # 0.92 K/uL Low 1.8-7.0 Polk # 0.46 K/uL 0.0-0.8 Eos # 0.13 [...] % 33.0-73.0 Lymph % 18.9 % 17.0-56.0 Polk % 8.1 % 0.0-10.0 Eo% 1.1 % 0.0-5.0 Bas% 0.2 % 0.1-1.0 Neut# 7.84 K/uL High 1.8-7.0 Lymph # 2.06 K/uL 1.8-7.0 Polk # 0.88 K/uL High 0.0-0.8 Eos # [...] % 33.0-73.0 Lymph % 29.1 % 17.0-56.0 Polk % 7.9 % 0.0-10.0 Eo% 4.7 % 0.0-5.0 Bas% 0.1 % 0.1-1.0 Neut# 4.05 K/uL 1.8-7.0 Lymph # 2.03 K/uL 1.8-7.0 Polk # 0.55 K/uL 0.0-0.8 Eos # 0.33 [...] Urine Ketone NEGATIVE mg/dL Negative Urine Specific Wolverine 1.020 1.010-1.030 Urine Blood NEGATIVE Negative Urine [...] % 33.0-73.0 Lymph % 22.8 % 17.0-56.0 Polk % 11.1 % High 0.0-10.0 Eo% 3.1 % 0.0-5.0 Bas% 0.2 % 0.1-1.0 Neut# 7.61 K/uL High 1.8-7.0 Lymph # 2.76 K/uL 1.8-7.0 Polk # 1.34 K/uL High 0.0-0.8 Eos # [...] % 33.0-73.0 Lymph % 31.9 % 17.0-56.0 Polk % 10.0 % 0.0-10.0 Eo% 3.0 % 0.0-5.0 Bas% 0.3 % 0.1-1.0 Neut# 5.63 K/uL 1.8-7.0 Lymph # 3.28 K/uL 1.8-7.0 Polk # 1.03 K/uL High 0.0-0.8 Eos # [...] Urine Ketone NEGATIVE mg/dL Negative Urine Specific Wolverine 1.020 1.010-1.030 Urine Blood SMALL High Negative [...] Urine Ketone NEGATIVE mg/dL Negative Urine Specific Wolverine 1.020 1.010-1.030 Urine Blood LARGE High Negative [...] SEIZURE,ENCEPHALOPATHY 4 SEIZURE, ENCEPHALOPATHY 5 Performed at: [facility] [id number] Miter Grinder Operator: Scott Jimenez MD, Phone: [phone] SEIZURE 7 URINE, CLEAN CATCH 8 [...] developed and its performance characteristics determined by [facility]. It has not been cleared or approved by the U.S. Food and Drug Administration. The FDA has determined that such clearance or approval is not necessary. This test is used for clinical purposes. It should not be regarded as investigational or for research. Performed at: [address] [id number] Miter Grinder Operator: Scott iJmenez MD, Phone: [phone] R94.5, M54.5, M19.90, G40.89 24 INFCE Result Units: s/co ratio Negative: < 0.8 Indeterminate: 0.8 - 0.9 Positive: > 0.9 The CDC recommends that a positive HCV antibody result be followed up with a HCV Nucleic Acid Amplification test (148772). 25 INFCE Result Units: log10 IU/mL 26 The quantitative range of this assay is 15 IU/mL to 100 million IU/mL. Performed at: [address] [place] [id number] Miter Grinder Operator: Riaz Perez PhD, Phone: [phone] Performed at: [address] [id number] Miter Grinder Operator: Tierney Lewis MD, Phone: [phone] Performed at: [address] [id number] Miter Grinder Operator: Scott Jimenez MD, Phone: [phone] URINE, CLEAN CATCH 28 Performed at: [address] [id number] Miter Grinder Operator: Tierney Lewis MD, Phone: [phone] Performed at: [facility] [address] [id number] Miter Grinder Operator: Scott Jimenez MD, Phone: [phone] 29 URINE SPECIMENS ARE SCREENED AT THE [...] developed and its performance characteristics determined by [facility]. It has not been cleared or approved by the Food and Drug Administration. [facility] CLIA ID Number [id number] This test was performed using PCR (Polymerase Chain Reaction)/SSOP (Sequence Specific Oligonucleotide Probes) technique. SBT (Sequence Based Typing) and/or SSP (Sequence Specific Primers) may be used as supplemental methods when necessary. Please contact [facility] Customer Service at if you have any questions. Director of [facility] Dr Riaz Perez, PhD 34 Vitamin D deficiency has been defined by the [place] [employer] and an Endocrine Society practice guideline as a level of serum 25-OH vitamin D less than 20 ng/mL (1,2). The Endocrine Society went on to further define vitamin D insufficiency as a level between 21 and 29 ng/mL (2). 1. IOM ([place] [employer]). 2010. Dietary reference intakes for calcium and D. [place]: The National Academies Press. 2. Sultana MF, Nitish GONZÁLES, Lis CHAPA, et al. Evaluation, treatment, and prevention of vitamin D deficiency: an Endocrine Society clinical practice guideline. JCEM. 2010; 96(7):1911-30. Performed at: RN - [facility] [address] [id number] Miter Grinder Operator: Tierney Lewis MD, Phone: [phone] Negative <0.80 Equivocal 0.80 - 1.19 [...] + CALLED K TO DR MCKINNEY AT 9803 03/15/15 38 0.0 - 0.045 ng/mL: Normal [...] DVT, or Pulmonary embolism as clinically indicated. ([facility] has established a 97.89% negative predictive value [...] cm. it does not obstruct the neck. Foundry Patternmaker sections are submitted within a single cassette. MAURICE/elizabeth MICROSCOPIC Sections show denuded gallbladder mucosa. The submucosa has an intense and transmural infiltrate of neutrophils, lymphocytes and plasma cells. The muscular wall is partially necrotic and hypertrophied. PRE OPERATIVE DIAGNOSIS Chronic cholecystitis REVIEW CODE CODE: I Signed Electronically signed MAY LE MD 11/19/13 7997 74 THERAPEUTIC INR RANGE: 2.0 - 3.0 [...] 77 07/18/12 LAB.EMM1 Deleted by [facility] 78 COLONY COUNT ! >100,000 CFU/ml Organism [...] 90 05/31/12 LAB.DWM Deleted by [facility] 91 COLONY COUNT ! 80,000-100,000 CFU/ml Organism [...] Procedures Date CPT Code Description Status 12/13/2017 13427 Theraputic Or Diagnostic Injection Completed 11/12/2017 45994 Theraputic Or Diagnostic Injection Completed 03/10/2015 97349 Psychiatric Diag Eval W/Medical Service Completed 06/21/2014 57569 ECHO [employer] Performance Continuous Completed Electrocardio 06/21/2014 02059 Event Monitor Inter/Review Only Completed 06/11/2014 58622 EKG-Tracing And Report Completed 11/17/2013 73323 Laparoscopy; cholecystectomy Completed 11/17/2013 11104 Anesthesia, Upper Abdomen Surgery Not Otherwise Spec Completed 03/13/2013 53806 Echocardiogram Complete Completed 12/26/2012 31697 Echocardiogram Complete Completed 06/12/2012 76030 EKG-Tracing And Report Completed 04/23/2012 98444 Stress Test Interpre And Report Only Completed 04/23/2012 14874 Stress Test Physician Super Only Completed 04/23/2012 94711 Stress Test Physician Super Only Completed 04/23/2012 91576 Myocardial Imaging Tomographic Multiple Study AT Rest Completed Or Stress 02/21/1995 25377 EKG Interpretation And Report Only Completed Encounters Type Date Location Provider CPT E/M Dx Office Visit 01/01/2018 1:15[place], [address] M48.02 [facility] PHD M48.07 D68.8 M62.830 M19.90 I10 F10.11 B18.2 F17.210 F60.2 F33.1 Office Visit 12/13/2017 9:30[place], [address] M54.5 Women's [facility] PHD M19.90 M62.830 M48.02 M48.07 D68.8 F10.11 I10 M54.5 Office Visit 12/09/2017 12:30[place], [address] M54.5 Women's Health PHD M19.90 M62.830 M48.02 M48.07 D68.8 Office Visit 11/12/2017 9:30[place], [address] R94.5 Women's Health PHD R94.5 B18.2 B18.2 F10.11 F17.210 I10 M54.5 Office Visit 10/29/2017 10:30[place], [address] R94.5 Women's Health PHD I10 F10.11 F17.210 M54.5 M19.90 G40.89 F90.8 F60.2 F15.90 Office Visit 10/01/2017 10:30[place], [address] J44.1 Women's Health PHD M54.5 D68.8 G40.89 R94.5 F17.210 I10 F90.8 F33.1 Office Visit 09/12/2017 1:30p [place] [address] S93.402A Office Visit 03/10/2015 3:18p [facility] Javy Fallon, 7[address] T40.2x2A Medical [place]oc Office Visit 01/20/2015 1:51p [facility] [place] [address] J44.1 Medical Center Office Visit 11/23/2014 11:15a Primary Care Office Kristen Benjamin M.D. 20467 401.1 491.21 305.1 786.2 521.08 780.2 Office Visit 09/07/2014 10:30a Primary Care Office Kristen Benjamin M.D. 54760 401.1 719.08 790.6 305.1 Office Visit 08/24/2014 9:45a Primary Care Office Kristen Benjamin M.D. 19821 722.90 724.2 401.1 305.1 719.08 Office Visit 06/18/2014 2:15p [place] [address] 786.50 Office Visit 06/16/2014 11:10a Primary Care Office Kristen Benjamin M.D. 32678 496 578.9 794.8 719.48 Office Visit 06/11/2014 11:00a [place] [address] 786.05 786.59 780.4 305.1 401.1 573.9 327.23 Office Visit 05/25/2014 10:05a Primary Care Office Kristen Benjamin M.D. 90813 496 401.1 314.01 780.4 305.1 873.63 578.1 Office Visit 05/16/2014 4:09p [facility] [place] [place] [address] 386.10 [facility] 786.59 Office Visit 11/17/2013 8:49a Surgical Office Aguilar Calabrese 22438 575.0 Mirna Yung Office Visit 11/12/2013 2:02p [facility] Larisa Davison M.D. 87037 575.0 [facility] 496 305.1 Office Visit 11/10/2013 10:14a [facility] Larisa Davison M.D. 59493 575.0 [facility] Office Visit 10/18/2013 8:27a [facility] Oscar Buchanan M.D. 25042 780.4 [facility] 388.70 Office Visit 06/03/2013 3:13p [facility] Javy Fallon, 41617 491.21 [facility] Office Visit 03/13/2013 3:02p [facility] Larisa Davison M.D. 99496 780.2 [facility] 338.4 Office Visit 08/20/2012 11:00a [place] [address] 401.1 786.05 780.2 Office Visit 07/18/2012 11:28a [place] [address] 574.00 Office Visit 07/11/2012 2:40p [place]iology [place] [address] 401.1 786.51 496 305.1 286.9 Office Visit 06/12/2012 10:00a Cardiology [place] [address] V72.81 414.01 786.51 401.1 Office Visit 06/04/2012 9:45a Surgical Office Aguilar Calabrese 38049 574.00 Mirna Yung 286.9 305.1 Office Visit 05/31/2012 10:47a Surgical Office Aguilar Calabrese 80315 789.01 Mirna Yung 574.00 Office Visit 04/23/2012 4:14p Cardiology [place] 7[address]93 786.50 Plan of Care Future Appointment(s):02/03/2018 9:00 am - Gina Moses MD, PHD at [facility]ydu9701/01/2018 - Gina Moses MD, PHDM48.02 Spinal stenosis, cervical ubummqN57.07 Spinal stenosis, lumbosacral kgjovhQ53.8 Other specified coagulation amdzzizP50.830 Muscle spasm of backM19.90 Unspecified osteoarthritis, unspecified siteNew Medication:Oxycodone HCL 10 mgI10 Essential (primary) ushxadhjtziyZ89.11 Alcohol abuse, in kzuewveirS14.2 Chronic viral hepatitis CF17.210 Nicotine dependence, cigarettes, efsoydcxnqzcxR46.2 Antisocial personality ktepybszN17.1 Major depressive disorder, recurrent, moderate
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
[2018-02-08] MEDS ORDERED: HYDROcodone/ACETAMIN 5-325 MG* 1 TAB PO ONE (00:40)
[2018-02-08 01:01] VITALS: BP 171/112
== END 2018-02-08 01:19 | disposition home or self-care (01) ==
LOC: ED 18:57
DX: M54.9 Dorsalgia, unspecified (principal); G89.29 Other chronic pain; R53.1 Weakness; Z79.01 Long term (current) use of anticoagulants; F17.210 Nicotine dependence, cigarettes, uncomplicated; Z88.0 Allergy status to penicillin
CPT/HCPCS: 99282

== ENCOUNTER 2018-03-22 19:05 | Emergency (ER) | payer MEDICARE, MEDICAID ==
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
[2018-03-22] MEDS ORDERED: Nicotine Inhaler* 10 MG AMP INH PRN (19:19)
[2018-03-22] MEDS ORDERED: LORazepam TAB(*) 1 MG PO PRN (19:19)
[2018-03-22 19:44] LABS: ABS Basophils 0 10^3/ul (0-0.2); ABS Eosinophils 0 10^3/ul (0-0.6); ABS Lymphocytes 1.2 10^3/ul (1.0-4.8); ABS Monocytes 0.8 10^3/ul (0-0.8); ABS Neutrophils 9.1 10^3/ul (1.5-7.7); ABS Nucleated RBC 0 10^3/ul; Eosinophil % 0.2 % (0-6); Hematocrit 43 % (42-52); Lymphocyte % 10.8 % (25-47); Mean Corpuscular HGB Conc 35 g/dl (31-36); Mean Corpuscular Hemoglobin 34 pg (27-31); Mean Corpuscular Volume 98 fL (80-94); Nucleated Red Blood Cells % 0; Platelet Count 346 10^3/ul (150-450); Red Blood Count 4.41 10^6/ul (4.00-5.40); Red Cell Distribution Width 13 % (10.5-15); White Blood Count 11.2 10^3/ul (3.5-10.8)
[2018-03-22] MEDS ORDERED: Mouth Piece, Nicotine* 1 EACH CARTRIDGE ONE (19:48)
[2018-03-22] MEDS ORDERED: Ibuprofen TAB* 400 MG PO ONE (22:13)
[2018-03-23 00:41] VITALS: BP 0/0
== END 2018-03-23 00:40 | disposition home or self-care (01) ==
LOC: ED 19:05
DX: R68.89 Other general symptoms and signs (principal); Z79.01 Long term (current) use of anticoagulants; I10 Essential (primary) hypertension; J44.9 Chronic obstructive pulmonary disease, unspecified; F32.9 Major depressive disorder, single episode, unspecified; F17.210 Nicotine dependence, cigarettes, uncomplicated; Z88.0 Allergy status to penicillin
CPT/HCPCS: 36415; 80053; 80307; 80320; 85025; 93005; 99282; A9270-GY; G0480

== ENCOUNTER 2018-03-23 16:26 | Emergency (ER) | payer MEDICARE, MEDICAID ==
[2018-03-23 17:05] LABS: ABS Basophils 0.1 10^3/ul (0-0.2); ABS Eosinophils 0.2 10^3/ul (0-0.6); ABS Lymphocytes 3.2 10^3/ul (1.0-4.8); ABS Monocytes 0.9 10^3/ul (0-0.8); ABS Neutrophils 6.1 10^3/ul (1.5-7.7); ABS Nucleated RBC 0 10^3/ul; Hematocrit 44 % (42-52); Hemoglobin 15.4 g/dl (14.0-18.0); Lymphocyte % 30.6 % (25-47); Mean Corpuscular HGB Conc 35 g/dl (31-36); Mean Corpuscular Hemoglobin 34 pg (27-31); Mean Corpuscular Volume 98 fL (80-94); Nucleated Red Blood Cells % 0.3; Platelet Count 339 10^3/ul (150-450); Red Cell Distribution Width 13 % (10.5-15); White Blood Count 10.5 10^3/ul (3.5-10.8)
[2018-03-23 17:18] LABS: INR 0.95 (0.77-1.02)
[2018-03-23 17:22] LABS: EGFR Non-African American 43.5 (>60)
[2018-03-23] MEDS ORDERED: predniSONE TAB* 20 MG PO ONE (18:51)
[2018-03-23 18:52] VITALS: BP 130/73
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
== END 2018-03-23 18:56 | disposition home or self-care (01) ==
LOC: ED 16:26
DX: J44.1 Chronic obstructive pulmonary disease with (acute) exacerbation (principal); Z79.01 Long term (current) use of anticoagulants; I10 Essential (primary) hypertension; Z86.711 Personal history of pulmonary embolism; F32.9 Major depressive disorder, single episode, unspecified; F17.210 Nicotine dependence, cigarettes, uncomplicated; Z82.49 Family history of ischemic heart disease and other diseases of the circulatory system; R00.0 Tachycardia, unspecified
CPT/HCPCS: 36415; 71046; 80053; 80307; 80320; 83605; 84484; 85025; 85610; 86140; 93005; 99282; G0480; J7512

== ENCOUNTER → 2018-05-07 16:37 | Emergency (ER) | payer MEDICARE, MEDICAID ==
--- OUTSIDE RECORDS SUMMARY | 2018-05-07 17:19 | XMS REPORT | Continuity of Care Document ---
:1965 External Reference #:[id number] Author Name Toma Zhao Care Team Providers Name Role Phone [facility] Primary Care Physician Unavailable Payers Type Date Identification Numbers Payment Provider Subscriber Effective: Policy Number: [id number] Medicare Talha Jones 2003 PayID: [id number] [address] [place] [address] Policy Number: [id number] Medicaid Talha Jones Group Name: [id number] [address] PayID: [id number] [place] [address] Expires: 2012 Policy Number: [id number] Medicaid Talha Jones Group Name: 1 1 [address] PayID: [id number] [place] [address] Advance Directives Description No Information Available Problems Date Description Provider Status Onset: 07/07/2014 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 Onset: 09/20/2014 Hyperlipidemia Filiberto Woodard M.D., [facility], Active [facility] Onset: 09/20/2014 Benign essential hypertension Filiberto Woodard M.D., [facility], Active [facility] Onset: 09/26/2016 H/O: pulmonary embolus Servando Colon M.D.,FACP Note: 2010 Onset: 09/26/2016 Chronic obstructive lung Magdi Butler M.D.,FACP Active disease Onset: 04/09/2018 Recurrent major depressive Best Ordaz MD Active episodes Onset: 04/09/2018 Alcohol abuse with Best Ordaz MD Active alcohol-induced mood disorder Onset: 04/09/2018 Neck pain Best Ordaz MD Active Onset: 04/09/2018 Tobacco user Best Ordaz MD Active Onset: 09/20/2014 Chest pain Filiberto Woodard M.D., [facility], Inactive [facility] Inactive: 09/26/2016 Onset: 03/25/2014 Syncope Stew Wells M.D. Resolved Resolved: 09/26/2016 Family History Date Family Member(s) Problem(s) Comments Father Stroke Father due to Unknown Causes () Father Cancer Father Seizure Disorder Father Hypertension Father Diabetes Father Heart Disease Mother due to Murdered () First Son 15 as of 12/09/2008 First Daughter 20 as of 12/09/2008 Second Daughter 17 as of 12/09/2008 Third Daughter 16 as of 12/09/2008 First Brother due to [place] () Social History Type Date Description Comments Sex Unknown Marital Status Lives With Spouse Occupation Unemployed Tobacco Use Reviewed: 09/26/16 currently smokes 1/2 Pack Daily Smoking Status Reviewed: 04/30/18 currently smokes 1/2 Pack Daily ETOH Use Occasionally consumes 1-2 drinks once a alcohol month or less Tobacco Use Start: Unknown Patient is a current smoker, smokes every day Recreational Drug Use 09/26/2016 Denies Drug Use Exercise Type/Frequency Does not exercise Allergies, Adverse Reactions, Alerts Date Description Reaction Status Severity Comments 12/08/2008 Penicillins Anaphylaxis Active Severe 12/08/2008 Asa/Caff/Butal/Cod GI irritation Active 09/26/2016 Tegretol Anaphylaxis Active Severe Medications Medication Date Status Form Strength Qnty SIG Indications Ordering Provider Xarelto 04/09 Active Tablets 15mg 1 by mouth Magdi every day Praveena Butler M.D.,FAC Medrol 04/09 Active Tablets 4mg 21tab take as Best zach Ordaz MD per dosepak instructio ns Levetiracetam Active Tablets 750mg 1 twice a Unknown /0000 day by mouth Clonidine HCL Active Tablets 0.1mg 1 by mouth Unknown / twice a day Metoprolol Active Tablets ER 50mg 1 by mouth Unknown Succinate ER /0000 24HR every day Escitalopram Active Tablets 20mg 1 by mouth Unknown Oxalate every day Vitamin B-12 Active Tablets Sub 5000mcg daily Unknown / Adderall Active Tablets 20mg 1 by mouth Unknown /0000 every day Vitamin B-1 0000 Active Tablets 50mg 1 by mouth Unknown /0000 every day Gabapentin 0000 Active Tablets 600mg 1 by mouth Unknown /0000 twice a day and 3 tabs by mouth at Doxycycline 10/03 Hx Capsules 100mg 20cap twice a [facility] s day by Praveena Butler, - mouth M.D.,[facility] 10/03 Cefuroxime Axetil 10/03 Hx Tablets 500mg 20tab 1 by mouth s twice a Praveena Butler, - day for 10 M.D.,[facility] Chantix Starting 10/03 Hx Tablets 0.5mg X 55tab as Magdi 11 & 1 mg s directed Praveena Butler, - X 42 M.D.,[facility] 04/08 Losartan 09/26 Hx Tablets 50mg 30tab 1 by mouth Magdi s every day Praveena Butler, - M.DMirlande,[facility] 04/09 Doxycycline 09/26 Hx Capsules 100mg 14cap twice a [facility] s day by Praveena Butler, - mouth M.D.,[facility] 10/03 Valium 09/20 Hx Tablets 5mg 2tabs take 1-2 tabs prior F - to mri Seina, 04/08 imaging test Medrol 16 Hx Tablets 4mg 21tab take as S43.52xA s directed F - per Senia, 09/26 dosehek instructio ns Percocet 16 Hx Tablets 5-325mg 30tab 1 tab by s mouth F - every 6 Senia, 09/26 hours as needed Medrol 16 Hx Tablets 4mg 21tab take as S43.52xA s directed F - per Senia, 09/26 doseleslie DIAZ instructio ns Percocet 16 Hx Tablets 5-325mg 60tab 1 tab by S43.52xA s mouth Pachikara - every 6 , M.D. 04/08 hours needed Pepto-Bismol 10 Hx Suspension 524mg/30M 3unit 1 table 565.0 L s spoon po c, - tid Radomir, 03/22 Percocet 01/11 Hx Tablets 5-325mg 120ta 1 po q 6 724.2 bs hours as c, - needed for Radomir, 03/22 pain Fentanyltransderm 12/08 Hx Patches 72 25mcg/HR 1unit 1 patch q s 3 days c, - Radomir, 03/22 Adderall 12/08 Hx Tablets 20mg 120ta 1 qd Magdi bs Praveena Butler - Patricia.Praveena,FACP 07/07 Code b Naproxen Sodium 12/08 Hx Tablets 550mg 180ta 1 po bid bs prn c, - Radomir, 03/22 Spiriva 12/08 Hx Capsules 18mcg 1mon [facility], - qam Radomir, 03/22 Advair Diskus 12/08 Hx Misc 250/50 2unit 1 puff bid s c, - Radomir, 03/22 Soma 12/08 Hx Tablets 250mg 90tab 1 po tid 493.00 s c, - Radomir, 03/22 Hydrocodone/Apap Hx Tablets 5-500mg 50tab 1 q 4 Unknown /0000 s hours prn - pain 03/22 Zofran Hx Tablets 4mg 60tab 1 every 6 Unknown /0000 s hours as - needed 03/24 nausea Escitalopram Hx Tablets 20mg 30tab 1 by mouth Unknown Oxalate /0000 s every day - 04/14 Pravachol Hx Tablets 40mg 90tab 1 tablet Unknown /0000 s by mouth - every 04/14 night at bedtime Lisinopril Hx Tablets 10mg 30tab 1 by mouth Unknown /0000 s every day - 09/[address] 40mg 1 by mouth Unknown /0000 every day - 04/09 Prochlorperazine Hx Tablets 5mg 20tab 1 by mouth Unknown Maleate /0000 s every 6 - hours as 03/24 nausea Combivent 00 Hx Aerosol 20-100mcg 1unit 1 puffs Unknown Respimat /0000 /Act s 4-6 times - daily as 03/24 Flovent HFA Hx Aerosol 110mcg/Ac 12gm 2 puffs Unknown /0000 t twice - daily 03/24 Xarelto Hx Tablets 20mg 90tab 1 by mouth Magdi /0000 s every day Libby Dhaliwal M.D.,FACP 04/09 Carbamazepine ER Hx Caps ER 100mg 45cap 1 by mouth Unknown /0000 12HR s two times - a day 03/24 Meclizine HCL Hx Tablets 25mg 60tab 1 po q 6 Unknown /0000 s hours as - needed for 03/24 dizziness. . Tizanidine HCL Hx Tablets 4mg 1 to 2 po Unknown /0000 q 6 hours - as needed 07/07 Horizant Hx Tablets ER 600mg 30tab 1 by mouth Unknown /0000 s bid - 07/07 Adderall Hx Tablets 30mg 1 tab by Unknown /0000 mouth once - a day 04/14 Flovent HFA Hx Aerosol 2 puffs Unknown /0000 twice - daily for 04/08 Oxycodone HCL Hx Tablets 5mg 1 by mouth Unknown /0000 six times - a day 04/14 Losartan Hx Tablets 50-12.5mg 1 by mouth Unknown Potassium/Hydroch /0000 every day lorothiazide - 04/14 Capsaicin Hx Cream 0.1% apply Unknown /0000 topically - as needed 09/26 Lidocaine Hx Patches 5% apply Unknown /0000 patch up - to 12 09/26 hours a day. Anaspaz 00 Hx Tablets 0.125mg Unknown /0000 Dispers - 09/26 Folic Acid Hx Tablets 1mg take one Unknown /0000 capsule/ta - blet daily 09/26 by mouth Combivent 00 Hx Aerosol 20-100mcg 4gm 1 puffs 4 Magdi Respimat /0000 /Act elidia Butler, - daily as Mirna,FACGene 04/08 Prednisone Hx Tablets 20mg 1 tab Unknown /0000 daily - 04/29 Medications Administered in Office Medication Date Status Form Strength Qnty SIG Indications Ordering Provider Depomedrol Administered Injection Taiwo F 40MG 017 MD Senia Immunizations Description No Information Available Vital Signs Date Vital Result Comment 04/30/2018 2:28pm Weight 192.00 lb Heart Rate 64 /min BP Systolic 154 mmHg BP Diastolic 98 mmHg Respiratory Rate 18 /min Body Temperature 98.8 F 04/09/2018 9:21am Weight 193.00 lb Heart Rate 84 /min BP Systolic 148 mmHg BP Diastolic 84 mmHg BP Systolic Sitting 148 mmHg BP Diastolic Sitting 86 mmHg Respiratory Rate 18 /min Body Temperature 98.4 F Pain Level 7 head, neck, back O2 % BldC Oximetry 98 % 10/03/2016 1:56pm Weight 185.38 lb Heart Rate 84 /min BP Systolic Sitting 138 mmHg BP Diastolic Sitting 76 mmHg Body Temperature 97.8 F O2 % BldC Oximetry 98 % 09/28/2016 9:37am Weight 186.00 lb Heart Rate 60 /min BP Systolic Sitting 142 mmHg BP Diastolic Sitting 110 mmHg Pain Level 10 neck 09/26/2016 1:41pm Height 67.25 inches 5'7.25" Weight 188.25 lb Heart Rate 75 /min BP Systolic Sitting 144 mmHg BP Diastolic Sitting 90 mmHg BP Systolic Recheck 148 mmHg BP Diastolic Recheck 88 mmHg Body Temperature 98.0 F O2 % BldC Oximetry 97 % BMI (Body Mass Index) 29.3 kg/m2 09/18/2016 12:55pm Height 68 inches 5'8" Weight 181.00 lb Respiratory Rate 18 /min Body Temperature 96.6 F Pain Level 10 BMI (Body Mass Index) 27.5 kg/m2 09/12/2016 1:04pm Height 68 inches 5'8" Weight 181.00 lb BP Systolic 147 mmHg BP Diastolic 89 mmHg Respiratory Rate 18 /min Body Temperature 97.5 F Pain Level 10 BMI (Body Mass Index) 27.5 kg/m2 09/20/2014 1:12pm Height 68 inches 5'8" Weight 246.00 lb Heart Rate 82 /min 84 BP Systolic 126 mmHg right arm, large cuff BP Diastolic 82 mmHg right arm, large cuff BP Systolic Sitting 130 mmHg left arm, large cuff BP Diastolic Sitting 88 mmHg left arm, large cuff BP Systolic Standing 128 mmHg left arm, large cuff BP Diastolic Standing 88 mmHg left arm, large cuff Respiratory Rate 20 /min BMI (Body Mass Index) 37.4 kg/m2 07/07/2014 10:54am Height 68 inches 5'8" Weight 250.00 lb Heart Rate 66 /min BP Systolic Sitting 126 mmHg BP Diastolic Sitting 84 mmHg BMI (Body Mass Index) 38.0 kg/m2 03/25/2014 9:11am Height 68 inches 5'8" Weight 243.00 lb Heart Rate 73 /min BP Systolic Sitting 130 mmHg BP Diastolic Sitting 78 mmHg BMI (Body Mass Index) 36.9 kg/m2 02/22/2009 11:26am Weight 192.00 lb Heart Rate 84 /min BP Systolic Sitting 142 mmHg BP Diastolic Sitting 80 mmHg 01/11/2009 1:01pm Height 69 inches 5'9" Weight 210.00 lb Heart Rate 70 /min BP Systolic Sitting 139 mmHg BP Diastolic Sitting 82 mmHg BMI (Body Mass Index) 31.0 kg/m2 12/08/2008 9:08am Height 69 inches 5'9" Weight 212.00 lb Heart Rate 80 /min BP Systolic Sitting 136 mmHg BP Diastolic Sitting 80 mmHg BMI (Body Mass Index) 31.3 kg/m2 Results Test Date Facility Test Result H/L Range Note Inr/Protime 01/10/2017 [facility] Inr 1.01 N 0.89-1.[address] [place] [address] [phone] Laboratory test 01/10/2017 [facility] Partial 38.5 seconds High 26.0-36.[address] [place] [address] PTT [phone] CBC Auto Diff 01/10/2017 [facility] White Blood 8.4 10^3/uL N 3.5-10.[address] [place] [address] [phone] Red Blood Count 4.50 10^6/uL N 4.0-5.4 Hemoglobin 15.3 g/dL N 14.0-18.0 Hematocrit 44 % N 42-52 Mean Corpuscular Volume 98 fL High 80-94 Mean Corpuscular Hemoglobin 34 pg High 27-31 Mean Corpuscular HGB Conc 35 g/dL N 31-36 Red Cell Distribution Width 12 % N 10.5-15 Platelet Count 240 10^3/uL N 150-450 Mean Platelet Volume 8 um3 N 7.4-10.4 Abs Neutrophils 5.5 10^3/uL N 1.5-7.7 Abs Lymphocytes 1.7 10^3/uL N 1.0-4.8 Abs Monocytes 0.9 10^3/uL High 0-0.8 Abs Eosinophils 0.2 10^3/uL N 0-0.6 Abs Basophils 0.1 10^3/uL N 0-0.2 Abs Nucleated RBC 0.01 10^3/uL N Granulocyte % 64.6 % N 38-83 Lymphocyte % 20.7 % Low 25-47 Monocyte % 11.2 % High 1-9 Eosinophil % 2.6 % N 0-6 Basophil % 0.9 % N 0-2 Nucleated Red Blood Cells % 0.1 N Comp Metabolic Panel 01/10/2017 [facility] Sodium 137 mmol/L N 133-145 [address] [place] [address] [phone] Potassium 4.1 mmol/L N 3.5-5.0 Chloride 107 mmol/L N 101-111 Co2 Carbon Dioxide 25 mmol/L N 22-32 Anion Gap 5 mmol/L N 2-11 Glucose 123 mg/dL High 70-100 Blood Urea Nitrogen 18 mg/dL N 6-24 Creatinine 0.91 mg/dL N 0.67-1.17 BUN/Creatinine Ratio 19.8 N 8-20 Calcium 9.2 mg/dL N 8.6-10.3 Total Protein 7.6 g/dL N 6.4-8.9 Albumin 3.8 g/dL N 3.2-5.2 Globulin 3.8 g/dL N 2-4 Albumin/Globulin Ratio 1.0 N 1-3 Total Bilirubin 0.70 mg/dL N 0.2-1.0 Alkaline Phosphatase 72 U/L N 34-104 Alt 155 U/L High 7-52 Ast 93 U/L High 13-39 Egfr Non- 88.6 N >60 Egfr 113.9 N >60 1 Laboratory test finding 01/10/2017 [facility] Lipase 11 U/L N 11.0-82.[address] [place] [address] [phone] Troponin-I (TnI) 0.00 ng/mL N <0.04 Urine Drug 12/25/2016 [facility] Amphetamine Ur None Detected N None Detect SCR ED & [address] [place] [address] [phone] Barbiturates Urine Screen Presumptive Posi <SEE NOTE> Abnormal None Detect 2 Benzodiazepine Urine Screen None Detected N None Detect Urine Cannabinoids Screen None Detected N None Detect Urine Cocaine Screen None Detected N None Detect Urine Opiates Screen None Detected N None Detect Urine Phencyclidine Screen None Detected N None Detect 3 Laboratory test 12/25/2016 [facility] Troponin-I 0.00 ng/mL N <0.04 [address] (TnI) [place] [address] [phone] CBC Auto Diff 10/03/2016 [facility] White Blood 7.3 N 3.5- 10.[address] Count 10^3/[place] [address] [phone] Red Blood Count 5.25 10^6/uL N 4.0-5.4 Hemoglobin 17.5 g/dL N 14.0-18.0 Hematocrit 52 % N 42-52 Mean Corpuscular Volume 100 fL High 80-94 Mean Corpuscular Hemoglobin 33 pg High 27-31 Mean Corpuscular HGB Conc 33 g/dL N 31-36 Red Cell Distribution Width 13 % N 10.5-15 Platelet Count 238 10^3/uL N 150-450 Mean Platelet Volume 8 um3 N 7.4-10.4 Abs Neutrophils 4.2 10^3/uL N 1.5-7.7 Abs Lymphocytes 2.2 10^3/uL N 1.0-4.8 Abs Monocytes 0.6 10^3/uL N 0-0.8 Abs Eosinophils 0.2 10^3/uL N 0-0.6 Abs Basophils 0.1 10^3/uL N 0-0.2 Abs Nucleated RBC 0.02 10^3/uL N Granulocyte % 57.2 % N 38-83 Lymphocyte % 30.7 % N 25-47 Monocyte % 8.6 % N 1-9 Eosinophil % 2.5 % N 0-6 Basophil % 1.0 % N 0-2 Nucleated Red Blood Cells % 0.3 N Basic Metabolic Panel 10/03/2016 [facility] Sodium 138 mmol/L N 133-145 [address] [place] [address] [phone] Potassium 4.7 mmol/L N 3.5-5.0 Chloride 104 mmol/L N 101-111 Co2 Carbon Dioxide 32 mmol/L N 22-32 Anion Gap 2 mmol/L N 2-11 Glucose 82 mg/dL N 70-100 Blood Urea Nitrogen 9 mg/dL N 6-24 Creatinine 1.13 mg/dL N 0.67-1.17 BUN/Creatinine Ratio 8.0 N 8-20 Calcium 9.6 mg/dL N 8.6-10.3 Egfr Non- 69.0 N >60 Egfr 88.7 N >60 5 CKMB 10/03/2016 [facility] CKMB ng/mL 2.8 ng/mL N 0.6-6.3 [address] [place] [address] [phone] Laboratory test 10/03/2016 [facility] Creatine 107 U/L N 10- 223 finding [facility] Kinase(CK) [place] [address] [phone] Troponin-I (TnI) 0.00 ng/mL N <0.04 6 Comp Metabolic Panel 10/03/2016 [facility] Sodium 138 mmol/L N 133-145 [address] [place] [address] [phone] Potassium 4.5 mmol/L N 3.5-5.0 Chloride 106 mmol/L N 101-111 Co2 Carbon Dioxide 28 mmol/L N 22-32 Anion Gap 4 mmol/L N 2-11 Glucose 84 mg/dL N 70-100 Blood Urea Nitrogen 11 mg/dL N 6-24 Creatinine 1.06 mg/dL N 0.67-1.17 BUN/Creatinine Ratio 10.4 N 8-20 Calcium 9.3 mg/dL N 8.6-10.3 Total Protein 7.6 g/dL N 6.4-8.9 Albumin 3.9 g/dL N 3.2-5.2 Globulin 3.7 g/dL N 2-4 Albumin/Globulin Ratio 1.1 N 1-3 Total Bilirubin 0.80 mg/dL N 0.2-1.0 Alkaline Phosphatase 63 U/L N 34-104 Alt 48 U/L N 7-52 Ast 36 U/L N 13-39 Egfr Non- 74.3 N >60 Egfr 95.5 N >60 7 Laboratory test 10/03/2016 [facility] Lactic Acid 1.2 mmol/L N 0.5-2.0 [address] [place] [address] [phone] CBC Auto Diff 10/03/2016 [facility] White Blood 8.0 10^3/uL N 3.5-10.[address] [place] [address] [phone] Red Blood Count 5.00 10^6/uL N 4.0-5.4 Hemoglobin 17.0 g/dL N 14.0-18.0 Hematocrit 50 % N 42-52 Mean Corpuscular Volume 100 fL High 80-94 Mean Corpuscular Hemoglobin 34 pg High 27-31 Mean Corpuscular HGB Conc 34 g/dL N 31-36 Red Cell Distribution Width 14 % N 10.5-15 Platelet Count 220 10^3/uL N 150-450 Mean Platelet Volume 8 um3 N 7.4-10.4 Abs Neutrophils 5.1 10^3/uL N 1.5-7.7 Abs Lymphocytes 1.8 10^3/uL N 1.0-4.8 Abs Monocytes 0.8 10^3/uL N 0-0.8 Abs Eosinophils 0.2 10^3/uL N 0-0.6 Abs Basophils 0.1 10^3/uL N 0-0.2 Abs Nucleated RBC 0.01 10^3/uL N Granulocyte % 64.1 % N 38-83 Lymphocyte % 23.1 % Low 25-47 Monocyte % 9.5 % High 1-9 Eosinophil % 2.2 % N 0-6 Basophil % 1.1 % N 0-2 Nucleated Red Blood Cells % 0.2 N 1 Because ethnic data is not always readily available, this report includes an eGFR for both -Americans and non- Americans. The National Kidney Disease Education Program (NKDEP) does not endorse the use of the MDRD equation for patients that are not between the ages of 18 and 70, are , have extremes of body size, muscle mass, or nutritional status, or are non- or non-. According to the National Kidney Foundation, irrespective of diagnosis, the stage of the disease is based on the level of kidney function: Stage Description GFR(mL/min/1.73 m(2)) 1 Kidney damage with normal or decreased GFR 90 2 Kidney damage with mild decrease in GFR 60-89 3 Moderate decrease in GFR 30-59 4 Severe decrease in GFR 15-29 5 Kidney failure <15 (or dialysis) 2 Presumptive Positive Presumptive positive results are unconfirmed. 3 The urine specimen was tested at the listed cutoffs: Drug class test level (ng/mL) Amphetamines 500 Barbiturates 200 Benzodiazepine metabolites 200 Cocaine metabolites 150 Cannabinoids 50 Opiates 300 Pcp 25 Specimen was received without chain of custody. Results should be used for medical purposes only. 4 Comment: please draw at 1400 5 Because ethnic data is not always readily available, this report includes an eGFR for both -Americans and non- Americans. The National Kidney Disease Education Program (NKDEP) does not endorse the use of the MDRD equation for patients that are not between the ages of 18 and 70, are , have extremes of body size, muscle mass, or nutritional status, or are non- or non-. According to the National Kidney Foundation, irrespective of diagnosis, the stage of the disease is based on the level of kidney function: Stage Description GFR(mL/min/1.73 m(2)) 1 Kidney damage with normal or decreased GFR 90 2 Kidney damage with mild decrease in GFR 60-89 3 Moderate decrease in GFR 30-59 4 Severe decrease in GFR 15-29 5 Kidney failure <15 (or dialysis) 6 99th percentile=0.04 ng/mL Troponin results at [facility] and [facility] are not interchangeable. 7 Because ethnic data is not always readily available, this report includes an eGFR for both -Americans and non- Americans. The National Kidney Disease Education Program (NKDEP) does not endorse the use of the MDRD equation for patients that are not between the ages of 18 and 70, are , have extremes of body size, muscle mass, or nutritional status, or are non- or non-. According to the National Kidney Foundation, irrespective of diagnosis, the stage of the disease is based on the level of kidney function: Stage Description GFR(mL/min/1.73 m(2)) 1 Kidney damage with normal or decreased GFR 90 2 Kidney damage with mild decrease in GFR 60-89 3 Moderate decrease in GFR 30-59 4 Severe decrease in GFR 15-29 5 Kidney failure <15 (or dialysis) 8 [facility] Severe Sepsis and Septic Shock Management Bundle Measure requires all lactic acids initially measuring >2.0 mmol/L be repeated. Procedures Date Code Description Status 04/30/2018 20393 EKG Tracing & Interpretation Completed 09/12/2016 32041 Inject/Drain Joint/Bursa Intermediate W/O US Completed 09/20/2014 69265 EKG Tracing & Interpretation Completed Encounters Type Date Location Provider Dx Diagnosis Office Visit 04/09/2018 [facility] Bset Ordaz MD F10.14 Alcohol abuse with 9:20a [facility] alcohol-induced mood disorder I10 Essential (primary) hypertension F17.210 Nicotine dependence, cigarettes, uncomplicated J44.9 Chronic obstructive pulmonary disease, unspecified M54.2 Cervicalgia Z86.711 Personal history of pulmonary embolism F33.9 Major depressive disorder, recurrent, unspecified Office Visit 03/22/2018 12:16p [facility] Best Ordaz, F10.239 Alcohol Assoc,pc dependence with Hospitalists withdrawal, unspecified W19.xxxD Unspecified fall, subsequent encounter F10.231 Alcohol dependence with withdrawal delirium Office Visit 03/21/2018 12:15p [facility] Alfredo Acevedo, F10.231 Alcohol DO dependence with withdrawal delirium G40.909 Epilepsy, unsp, not intractable, without status epilepticus I10 Essential (primary) hypertension F17.210 Nicotine dependence, cigarettes, uncomplicated J44.9 Chronic obstructive pulmonary disease, unspecified Office Visit 03/20/2018 12:15p [facility] Alfredo Acevedo, F10.231 Alcohol DO dependence with withdrawal delirium J69.0 Pneumonitis due to inhalation of food and vomit I10 Essential (primary) hypertension J44.9 Chronic obstructive pulmonary disease, unspecified F17.210 Nicotine dependence, cigarettes, uncomplicated Office Visit 03/19/2018 12:15p [facility] Alfredo Acevedo, F10.231 Alcohol DO dependence with withdrawal delirium J69.0 Pneumonitis due to inhalation of food and vomit I10 Essential (primary) hypertension Office Visit 03/18/2018 1:51p [facility] Kayley White, R41.82 Altered mental MD status, unspecified F10.231 Alcohol dependence with withdrawal delirium J44.9 Chronic obstructive pulmonary disease, unspecified E87.6 Hypokalemia J69.0 Pneumonitis due to inhalation of food and vomit F17.210 Nicotine dependence, cigarettes, uncomplicated Office Visit 03/17/2018 12:07p [facility] Kayley White, F10.239 Alcohol dependence MD with withdrawal, unspecified J18.9 Pneumonia, unspecified organism J96.90 Respiratory failure, unsp, unsp w hypoxia or hypercapnia R50.9 Fever, unspecified Office Visit 03/16/2018 12:06p [facility] Kayley White, F10.239 Alcohol dependence MD with withdrawal, unspecified J18.9 Pneumonia, unspecified organism J96.90 Respiratory failure, unsp, unsp w hypoxia or hypercapnia Office Visit 03/15/2018 12:04p [facility] Kayley White, F10.239 Alcohol dependence MD with withdrawal, unspecified J18.9 Pneumonia, unspecified organism J96.90 Respiratory failure, unsp, unsp w hypoxia or hypercapnia Office Visit 03/14/2018 12:14p [facility] Henry Diamond, F10.239 Alcohol dependence MD with withdrawal, unspecified J69.0 Pneumonitis due to inhalation of food and vomit J96.90 Respiratory failure, unsp, unsp w hypoxia or hypercapnia Office Visit 03/13/2018 [facility] Nithin Dorantes J69.0 Pneumonitis due 12:14p Assoc,leidy Winkler MD to inhalation of Hospitalists food and vomit J44.9 Chronic obstructive pulmonary disease, unspecified F10.10 Alcohol abuse, uncomplicated M54.5 Low back pain I10 Essential (primary) hypertension Z86.711 Personal history of pulmonary embolism Office Visit 03/12/2018 [facility] Lottie F10.10 Alcohol abuse, 12:14p Assoc,leidy Munguia NP uncomplicated Hospitalists G40.509 Epileptic seiz rel to extrn causes, not ntrct, w/o stat epi R51 Headache I10 Essential (primary) hypertension Z87.09 Personal history of other diseases of the respiratory system Office Visit 10/03/2016 [facility] Internal Magdi Grissom M47.22 Other spondylosis 2:20p Violet Butler M.D.,FAC with radiculopathy, [address] cervical region J01.00 Acute maxillary sinusitis, unspecified G89.4 Chronic pain syndrome F17.210 Nicotine dependence, cigarettes, uncomplicated Office Visit 09/28/2016 Neurosurgery Stew M47.22 Other spondylosis 10:00a [facility] Maru Odell M.D. with radiculopathy, cervical region Office Visit 09/26/2016 [facility] Internal Magdi Grissom M47.22 Other spondylosis 2:00p Violet Butler, with radiculopathy, Dioni Bradley,FACP cervical region I26.99 Other pulmonary embolism without acute cor pulmonale I10 Essential (primary) hypertension Office 09/18/2016 Orthopedic Taiwo Cunningham S43.52xA Sprain of left Visit 1:00p Services Of MD Senia acromioclavicular C.M.A. joint, initial encounter M54.2 Cervicalgia M47.22 Other spondylosis with radiculopathy, cervical region S43.52xD Sprain of left acromioclavicular joint, subsequent encounter Office 09/12/2016 Orthopedic Taiwo Cunningham S43.52xA Sprain of left Visit 1:15p Services Of MD Senia acromioclavicular C.M.A. 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 Cervical W/ Rock Myelopathy Office Visit 03/25/2014 9:00a Cody/Yordy Matthews 780.2 Syncope & Neurologic Serv Of Mirna Wells Collapse Sales Trainee Office Visit 02/22/2009 11:20a DO Not Use Sales Trainee AT [facility], 565.0 Anal Fissure Kuldip Jaramillo M.D. 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.0 Stenosis Spinal [facility] Mirna Fernández Cervical Region 721.0 Spondylosis Cervical W/O Myelopathy 723.1 Cervicalgia 782.0 Skin Sensation Disturbance Office Visit 01/11/2009 1:00p DO Not Use Sales Trainee AT Ella Buchanan 724.2 Lumbago Kuldip Bradley 723.9 Cervical Region Musculoskeletal Disorders & Symptoms Unspec Office Visit 12/08/2008 9:00a DO Not Use Sales Trainee [place], 493.00 Asthma Extrinsic AT Kuldip Jaramillo M.D. Unspecified 314.01 Attention Deficit Disorder W/ Hyperactivity 723.9 Cervical Region Musculoskeletal Disorders & Symptoms Unspec 724.2 Lumbago Plan of Treatment Future Appointment(s):07/01/2018 10:30 am - Stew Wells M.D. at [place] [facility]04/30/2018 - JULY Duran07.9 Chest pain, unspecifiedRecommendations:GO TO THE ER IF PAIN COMES BACKF10.14 Alcohol abuse with alcohol-induced mood disorderRecommendations:Call [phone] tomorrow to see if they have a detox hcnrvxkztqxhI34.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, unspecified pvbfbkgyF00.2 Chronic viral hepatitis CReferral:Talha Covarrubias MD, Infectious Diseases
--- OUTSIDE RECORDS SUMMARY | 2018-05-07 17:19 | XMS REPORT | Continuity of Care Document ---
:1965 External Reference #:[id number] Author Name Toma Zhao Care Team Providers Name Role Phone Care Connections Primary Care Physician Unavailable Payers Type Date Identification Numbers Payment Provider Subscriber Effective: Policy Number: [id number] Medicare Talha Jones 2003 PayID: [id number] [address] [place] [address] Policy Number: [id number] Medicaid Talha Jones Group Name: [id number] [address] PayID: [id number] [place] [address] Expires: 2012 Policy Number: [id number] Medicaid Talha Jones Group Name: 1 1 [address] PayID: [id number] [place] [address] Advance Directives Description No Information Available Problems Date Description Provider Status Onset: 07/07/2014 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 Onset: 09/20/2014 Hyperlipidemia Filiberto Woodard M.D., [facility], Active [facility] Onset: 09/20/2014 Benign essential hypertension Filiberto Woodard M.D., [facility], Active [facility] Onset: 09/26/2016 H/O: [...] Onset: 09/20/2014 Chest pain Filiberto Woodard M.D., [facility], Inactive [facility] Inactive: 09/26/2016 Onset: [...] as of 12/09/2008 First Brother due to [place] () Social History Type Date Description Comments Sex Unknown Marital Status Lives With Spouse Occupation Unemployed Tobacco Use Reviewed: 09/26/16 currently smokes 1/2 Pack Daily Smoking Status Reviewed: 05/02/18 currently smokes 1/2 Pack Daily ETOH Use [...] 10/03 Hx Capsules 100mg 20cap twice a [facility] s day by Praveena Butler, - mouth M.D.,[facility] 10/03 Cefuroxime Axetil 10/03 Hx Tablets 500mg 20tab 1 by mouth s twice a Praveena Butler, - day for 10 M.D.,[facility] Chantix Starting 10/03 Hx Tablets 0.5mg X 55tab as Magdi 11 & 1 mg s directed Praveena Butler, - X 42 M.D.,[facility] 04/08 Losartan 09/26 Hx Tablets 50mg 30tab 1 by mouth Magdi s every day Praveena Butler, - M.DMirlande,[facility] 04/09 Doxycycline 09/26 Hx Capsules 100mg 14cap twice a [facility] s day by Praveena Butler, - mouth M.D.,[facility] 10/03 Valium 09/20 Hx Tablets 5mg 2tabs take 1-2 tabs prior F - to mri Senia, 04/08 imaging test Medrol 16 Hx Tablets 4mg 21tab take as S43.52xA s directed F - per Senia, 09/26 doseehk instructio ns Percocet 16 Hx Tablets 5-325mg [...] 12/08 [facility]aps[facility] 1[facility] - qam Radomir, 03/22 Advair [...] Available Vital Signs Date Vital Result Comment 05/02/2018 11:45am Weight 194.00 lb Heart Rate 72 /min BP Systolic 156 mmHg BP Diastolic 90 mmHg Respiratory Rate 16 /min Body Temperature 98.8 F Pain Level 8 O2 % BldC Oximetry 97 % 04/30/2018 2:28pm Weight 192.00 lb Heart Rate [...] Date Facility Test Result H/L Range Note Xray 05/02/2018 [facility] VL Upper Ext <pending> [address] [place] [address] Left [phone] Inr/Protime 01/10/2017 [facility] Inr 1.01 N 0.89-1.[address] [place] [address] [phone] Laboratory test 01/10/2017 [facility] Partial 38.5 seconds High 26.0-36.[address] [place] [address] PTT [phone] CBC Auto Diff 01/10/2017 [facility] White Blood 8.4 10^3/uL N 3.5-10.[address] [place] [address] [phone] Red Blood Count 4.50 10^6/uL N 4.0-5.4 [...] % 0.1 N Comp Metabolic Panel 01/10/2017 [facility] Sodium 137 mmol/L N 133-[address] [place] [address] [phone] Potassium 4.1 mmol/L N 3.5-5.0 Chloride 107 [...] N >60 1 Laboratory test finding 01/10/2017 [facility] Lipase 11 U/L N 11.0-82.[address] [place] [address] [phone] Troponin-I (TnI) 0.00 ng/mL N <0.04 Urine Drug 12/25/2016 [facility] Amphetamine Ur None Detected N None Detect SCR ED & [address] [place] [address] [phone] Barbiturates Urine Screen Presumptive Posi <SEE NOTE> Abnormal None Detect 2 Benzodiazepine Urine Screen None Detected N None Detect Urine Cannabinoids Screen None Detected N None Detect Urine Cocaine Screen None Detected N None Detect Urine Opiates Screen None Detected N None Detect Urine Phencyclidine Screen None Detected N None Detect 3 Laboratory test 12/25/2016 [facility] Troponin-I 0.00 ng/mL N <0.04 [address] (TnI) [place] [address] [phone] CBC Auto Diff 10/03/2016 [facility] White Blood 7.3 N 3.5- 10.[address] Count 10^3/[place] [address] [phone] Red Blood Count 5.25 10^6/uL N 4.0-5.4 [...] % 0.3 N Basic Metabolic Panel 10/03/2016 [facility] Sodium 138 mmol/L N 133-145 [address] [place] [address] [phone] Potassium 4.7 mmol/L N 3.5-5.0 Chloride 104 mmol/L N 101-111 Co2 Carbon Dioxide 32 mmol/L N 22-32 Anion Gap 2 mmol/L N 2-11 Glucose 82 mg/dL N 70-100 Blood Urea Nitrogen 9 mg/dL N 6-24 Creatinine 1.13 mg/dL N 0.67-1.17 BUN/Creatinine Ratio 8.0 N 8-20 Calcium 9.6 mg/dL N 8.6-10.3 Egfr Non- 69.0 N >60 Egfr 88.7 N >60 5 CKMB 10/03/2016 [facility] CKMB ng/mL 2.8 ng/mL N 0.6-6.3 [address] [place] [address] [phone] Laboratory test 10/03/2016 [facility] Creatine 107 U/L N 10- 223 finding 101 [facility] Kinase(CK) [place] [address] [phone] Troponin-I (TnI) 0.00 ng/mL N <0.04 6 Comp Metabolic Panel 10/03/2016 [facility] Sodium 138 mmol/L N 133-145 [address] [place] [address] [phone] Potassium 4.5 mmol/L N 3.5-5.0 Chloride 106 [...] 95.5 N >60 7 Laboratory test 10/03/2016 [facility] Lactic Acid 1.2 mmol/L N 0.5-2.0 [address] [place] [address] [phone] CBC Auto Diff 10/03/2016 [facility] White Blood 8.0 10^3/uL N 3.5-10.[address] [place] [address] [phone] Red Blood Count 5.00 10^6/uL N 4.0-5.4 [...] 6 99th percentile=0.04 ng/mL Troponin results at [facility] and [facility] are not interchangeable. 7 Because ethnic data [...] 5 Kidney failure <15 (or dialysis) 8 [facility] Severe Sepsis and Septic Shock Management Bundle Measure requires all lactic acids initially measuring >2.0 mmol/L be repeated. Procedures Date Code Description Status 04/30/2018 98837 EKG Tracing & Interpretation Completed 09/12/201640853 Inject/Drain Joint/Bursa Intermediate W/O US Completed 09/20/2014 52508 EKG Tracing & Interpretation Completed Encounters Type Date Location Provider Dx Diagnosis Office Visit 04/09/2018 [facility] Best Ordaz MD F10.14 Alcohol abuse with 9:20a [facility] alcohol-induced mood disorder I10 Essential (primary) hypertension F17.210 Nicotine dependence, cigarettes, uncomplicated J44.9 Chronic obstructive pulmonary disease, unspecified M54.2 Cervicalgia Z86.711 Personal history of pulmonary embolism F33.9 Major depressive disorder, recurrent, unspecified Office Visit 03/22/2018 12:16p [facility] Best Ordaz, F10.239 Alcohol Assoc,pc dependence with [...] hypercapnia Office Visit 03/14/2018 12:14p Intens[facility]ists Henry Diamond F10.239 Alcohol dependence MD with withdrawal, unspecified J69.0 Pneumonitis due to inhalation of food and vomit J96.90 Respiratory failure, unsp, unsp w hypoxia or hypercapnia Office Visit 03/13/2018 [facility] Nithin Dorantes J69.0 Pneumonitis due 12:14p Assoc,leidy Winkler MD to inhalation of Hospitalists food and vomit J44.9 Chronic obstructive pulmonary disease, unspecified F10.10 Alcohol abuse, uncomplicated M54.5 Low back pain I10 Essential (primary) hypertension Z86.711 Personal history of pulmonary embolism Office Visit 03/12/2018 [place] Eyad Tafoya F10.10 Alcohol abuse, 12:14p Assoc,pc Nilda, 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 uncomplicated Hospitalists 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 with radiculopathy, cervical region Office Visit 09/26/2016 [facility] Internal Magdi Grissom M47.22 Other spondylosis 2:00p Violte Butler, with radiculopathy, Dioni Bradley,FACP cervical region [...] Hyperlipidemia Other Cardiology Of Mirna, FACC, Unspec Primer Inspector [place] [facility] 401.1 Hypertension Benign 786.50 Pain Chest Unspec Office Visit 07/07/2014 11:30a Neurosurgery tSew Odell, 721.1 Spondylosis [facility] AT Mirna Cervical W/ [place] Myelopathy Office Visit 03/25/2014 9:00a [place]/Aquillaveda Matthews 780.2 Syncope & Neurologic Serv Of Mirna Wells Collapse [facility] Office Visit 02/22/2009 11:20a DO Not Use Primer Inspector AT [place], 565.0 Anal Fissure Orlandojohan Jaramillo M.D. 558.9 Gastroenteritis & Colitis Noninfectious Other Office Visit 01/11/2009 9:30a [facility] 723.0 Stenosis [facility]inal [facility] Mirna Fernández Cervical Region 721.0 Spondylosis Cervical W/O Myelopathy 723.1 Cervicalgia 782.0 Skin Sensation Disturbance Office Visit 01/11/2009 1:00p DO Not Use Primer Inspector AT Ella Buchanan, 724.2 Lumbago Kuldip Bradley 723.9 Cervical Region Musculoskeletal Disorders & Symptoms Unspec Office Visit 12/08/2008 9:00a DO Not Use Primer Inspector [place], 493.00 Asthma Extrinsic AT Orlandojohan Jaramillo M.D. Unspecified 314.01 Attention Deficit Disorder W/ Hyperactivity 723.9 Cervical Region Musculoskeletal Disorders & Symptoms Unspec 724.2 Lumbago Plan of Treatment Future Appointment(s):06/02/2018 11:00 am - Norma Vasquez DO at [facility]05/16/2018 9:10 am - Talha Covarrubias M.D. at [facility] Zhpfzdmq52/26/2019 10:30 am - Stew Wells M.D. at [facility]05/02/2018 - Norma Vasquez DOB18.2 Chronic viral hepatitis CR22.32 Localized swelling, mass and lump, left upper limb
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
[2018-05-07 18:27] VITALS: BP 158/105
== END | disposition home or self-care (01) ==
LOC: ED 16:37
DX: M70.31 Other bursitis of elbow, right elbow (principal); Y93.E6 Activity, residential relocation; Z86.711 Personal history of pulmonary embolism; Z79.01 Long term (current) use of anticoagulants; F32.9 Major depressive disorder, single episode, unspecified; Z88.6 Allergy status to analgesic agent; Z88.0 Allergy status to penicillin; Z88.8 Allergy status to other drugs, medicaments and biological substances; F17.210 Nicotine dependence, cigarettes, uncomplicated
CPT/HCPCS: 99281

== ENCOUNTER 2018-05-21 19:47 | Emergency (ER) | payer MEDICARE, MEDICAID ==
--- OUTSIDE RECORDS SUMMARY | 2018-05-21 20:12 | XMS REPORT | Continuity of Care Document ---
:1965 External Reference #:[id number] Author Name Gwen Milton Care Team Providers Name Role Phone [facility] Primary Care Physician Unavailable Payers Type Date Identification Numbers Payment Provider Subscriber Effective: Policy Number: [id number] Medicare Talha Jones 2003 PayID: [id number] [address] [place] [address] Policy Number: [id number] Medicaid Talha Jones Group Name: [id number] [address] PayID: [id number] [place] [address] Expires: 2012 Policy Number: [id number] Medicaid Talha Jones Group Name: 1 1 [address] PayID: [id number] [place] [address] Advance Directives Description No Information Available Problems Date Description Provider Status Onset: 07/07/2014 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 Onset: 09/20/2014 Hyperlipidemia Filiberto Woodard M.D., [facility], Active [facility] Onset: 09/20/2014 Benign essential hypertension Filiberto Woodard M.D., [facility], Active [facility] Onset: 09/26/2016 H/O: pulmonary embolus [...] Onset: 09/20/2014 Chest pain Filiberto Woodard M.D., [facility], Inactive [facility] Inactive: 09/26/2016 Onset: 03/25/2014 Syncope [...] as of 12/09/2008 First Brother due to [place] () Social History Type Date Description Comments [...] B-12 Active Tablets Sub 5000mcg daily Unknown Adderall Active Tablets 20mg 1 by mouth Unknown every day Vitamin B-1 00 Active Tablets 50mg 1 by mouth Unknown /0000 every day Gabapentin 00 Active Tablets 600mg 1 by mouth Unknown /0000 twice a day and 3 tabs by mouth at Doxycycline 10/03 Hx Capsules 100mg 20cap twice a [facility] s day by Praveena Butler, - mouth M.D.,[facility] 10/03 Cefuroxime Axetil 10/03 Hx Tablets 500mg 20tab 1 by mouth Magdi s twice a Praveena Butler, - day for 10 M.D.,[facility] Chantix Starting 10/03 Hx Tablets 0.5mg X 55tab as Magdi 11 & 1 mg s directed Praveena Butler, - X 42 M.D.,[facility] 04/08 Losartan 09/26 Hx Tablets 50mg 30tab 1 [facility]ena Butler, - M.DMirlaned,[facility] 04/09 Doxycycline 09/26 Hx Capsules 100mg 14cap twice a [facility] s day by Praveena Butler, - mouth M.D.,[facility] 10/03 Valium 09/20 Hx Tablets 5mg 2tabs take 1-2 tabs prior F - to [facility], 04/08 imaging test Medrol 16 Hx Tablets 4mg 21tab take as S43.52xA s directed F - per [place], 09/26 dosehek instructio ns Percocet 09/18 Hx Tablets 5-325mg 30tab 1 tab by s mouth F - every 6 [place], 09/26 hours as needed Medrol 16 Hx Tablets 4mg 21tab take as S43.52xA s directed F - per [facility] 09/26 doseleslie DIAZ instructio ns Percocet 16 Hx Tablets 5-325mg 60tab 1 tab by S43.52xA s mouth Pachikara - every 6 , M.D. 04/08 hours needed Pepto-Bismol 02/22 Hx Suspension 524mg/30M 3unit 1 table 565.0 Stevanovi /2009 L s spoon po c, - tid Radomir, 03/22 Percocet 01/11 Hx Tablets 5-325mg 120ta 1 po q 6 724.2 bs hours as c, - needed for Radomir, 03/22 pain Fentanyltransderm 12/08 Hx Patches 72 25mcg/HR 1unit 1 patch q s 3 days c, - Radomir, 03/22 Adderall 12/08 Hx Tablets 20mg 120ta 1 qd Magdi bs Praveena Butler - Mirna,FACP 07/07 Code b Naproxen Sodium 12/08 Hx Tablets 550mg 180ta 1 po bid bs prn c, - Radomir, 03/22 Spiriva 12/08 Hx Capsules 18mcg 1mon 1 [facility], - qam Radomir, 03/22 [...] /0000 s every day - 04/14 Pravachol 00 Hx Tablets 40mg 90tab 1 tablet Unknown [...] 6 - hours as 03/24 nausea Combivent 00/ Hx Aerosol 20-100mcg 1unit 1 puffs Unknown Respimat /0000 /Act s 4-6 times - daily as 03/24 Flovent HFA Hx Aerosol 110mcg/Ac 12gm 2 puffs Unknown /0000 t twice - daily 03/24 Xarelto Hx Tablets 20mg 90tab 1 by mouth Magdi /0000 s every day [facility]hal[facility]wal [facility] 04/09 Carbamazepine ER Hx Caps ER 100mg [...] patch up - to 12 09/26 hours once a day. Anaspaz 00 Hx Tablets 0.125mg Unknown /0000 Dispers - 09/26 Folic Acid Hx Tablets 1mg take one Unknown /0000 capsule/ta - blet daily 09/26 by mouth Combivent Hx Aerosol 20-100mcg 4gm 1 puffs 4 Magdi Respimat /0000 /Act elidia Butler, - daily as Mirna,FACP 04/08 Prednisone Hx Tablets 20mg 1 tab [...] Date Facility Test Result H/L Range Note Laboratory test 05/14/2018 [facility] Troponin-I 0.00 ng/mL < 0.04 [address] (TnI) [place] [address] [phone] CBC Auto Diff 05/14/2018 [facility] White Blood 6.6 10^3/uL N 3.5-10.[address] [place] [address] [phone] Red Blood Count 4.83 10^6/uL N 4.00-5.40 Hemoglobin 16.8 g/dL N 14.0-18.0 Hematocrit 49 % N 42-52 Mean Corpuscular Volume 102 fL High 80-94 Mean Corpuscular Hemoglobin 35 pg High 27-31 Mean Corpuscular HGB Conc 34 g/dL N 31-36 Red Cell Distribution Width 14 % N 10.5-15 Platelet Count 229 10^3/uL N 150-450 Mean Platelet Volume 7.3 fL Low 7.4-10.4 Abs Neutrophils 4.2 10^3/uL N 1.5-7.7 Abs Lymphocytes 1.5 10^3/uL N 1.0-4.8 Abs Monocytes 0.7 10^3/uL N 0-0.8 Abs Eosinophils 0.2 10^3/uL N 0-0.6 Abs Basophils 0 10^3/uL N 0-0.2 Abs Nucleated RBC 0 10^3/uL Granulocyte % 62.6 % Lymphocyte % 23.3 % Monocyte % 9.9 % Eosinophil % 3.7 % Basophil % 0.5 % Nucleated Red Blood Cells % 0.1 Inr/Protime 05/14/2018 [facility] Inr 0.89 N 0.77-1.[address] [place] [address] [phone] Laboratory test 05/14/2018 [facility] B-Type 11 pg/mL <=[address] [place] [address] Peptide BNP [phone] Lactic Acid 1.2 mmol/L N 0.5-2.0 2 Comp Metabolic Panel 05/14/2018 [facility] Sodium 139 mmol/L N 135-145 [address] [place] [address] [phone] Potassium 4.2 mmol/L N 3.5-5.0 Chloride 108 mmol/L N 101-111 Co2 Carbon Dioxide 26 mmol/L N 22-32 Anion Gap 5 mmol/L N 2-11 Glucose 105 mg/dL High 70-100 Blood Urea Nitrogen 13 mg/dL N 6-24 Creatinine 0.99 mg/dL N 0.67-1.17 BUN/Creatinine Ratio 13.1 N 8-20 Calcium 9.2 mg/dL N 8.6-10.3 Total Protein 7.7 g/dL N 6.4-8.9 Albumin 3.9 g/dL N 3.2-5.2 Globulin 3.8 g/dL N 2-4 Albumin/Globulin Ratio 1.0 N 1-3 Total Bilirubin 0.40 mg/dL N 0.2-1.0 Alkaline Phosphatase 98 U/L N 34-104 Alt 99 U/L High 7-52 Ast 72 U/L High 13-39 Egfr Non- 80.0 >60 Egfr 96.8 >60 3 Laboratory test 05/14/2018 [facility] Troponin-I (TnI) 0.00 ng/ mL <0.04 4 finding [address] [place] [address] [phone] Alcohol < 10 mg/dL N <10 Amylase 35 U/L N 29-103 Lipase 24 U/L N 11.0-82.0 Hepatitis C Antibody 05/02/2018 [facility] HCV Index > 11.0 Index [address] [place] [address] [phone] Hepatitis C Antibody High Reactive Abnormal Nonreactive 5 Laboratory 05/02/2018 [facility] Hepatitis C [id number] Abnormal Undetected [address] [facility] Rna Quant IU/[place] [address] [phone] Hepatitis C Genotype 3 Abnormal Undetected 7 Liver Function 05/02/2018 [facility] Total Protein 7.2 g/dL N 6.4-8.9 Panel [address] [place] [address] [phone] Albumin 4.1 g/dL N 3.2-5.2 Globulin 3.1 g/dL N 2-4 Albumin/Globulin Ratio 1.3 N 1-3 Total Bilirubin 0.50 mg/dL N 0.2-1.0 Direct Bilirubin 0.10 mg/dL N 0.03-0.18 Indirect Bilirubin 0.4 mg/dL N 0.3-1.0 Alkaline Phosphatase 79 U/L N 34-104 Alt 101 U/L High 7-52 Ast 66 U/L High 13-39 Laboratory test finding 01/10/2017 [facility] Lipase 11 U/L N 11.0-82.0 [address] [place] [address] [phone] Troponin-I (TnI) 0.00 ng/mL N <0.04 Comp Metabolic Panel 01/10/2017 [facility] Sodium 137 mmol/L N 133-145 [address] [place] [address] [phone] Potassium 4.1 mmol/L N 3.5-5.0 Chloride 107 [...] 88.6 N >60 Egfr 113.9 N >60 8 CBC Auto Diff 01/10/2017 [facility] White Blood 8.4 10^3/uL N 3.5-10.[address] [place] [address] [phone] Red Blood Count 4.50 10^6/uL N 4.0-5.4 [...] Nucleated Red Blood Cells % 0.1 N Laboratory 01/10/2017 [facility] Partial 38.5 High 26.0-36.3 test finding [address] [address] PTT [phone] Inr/Protime 01/10/2017 [facility] Inr 1.01 N 0.89-1.[address] [place] [address] [phone] Urine Drug 12/25/2016 [facility] Amphetamine Ur None N None Detect S[facility] ED [facility] Pain [address] [place] [address] [phone] Barbiturates Urine Screen Presumptive Posi <SEE NOTE> Abnormal None Detect 9 Benzodiazepine Urine Screen None Detected N None Detect Urine Cannabinoids Screen None Detected N None Detect Urine Cocaine Screen None Detected N None Detect Urine Opiates Screen None Detected N None Detect Urine Phencyclidine Screen None Detected N None Detect 10 Laboratory test 12/25/2016 [facility] Troponin-I 0.00 ng/mL N <0.04 [address] (TnI) [place] [address] [phone] CBC Auto Diff 10/03/2016 [facility] White Blood 7.3 N 3.5- 10.[address] Count 10^3/[place] [address] [phone] Red Blood Count 5.25 10^6/uL N 4.0-5.4 [...] % 0.3 N Basic Metabolic Panel 10/03/2016 [facility] Sodium 138 mmol/L N 133-145 [address] [place] [address] [phone] Potassium 4.7 mmol/L N 3.5-5.0 Chloride 104 mmol/L N 101-111 Co2 Carbon Dioxide 32 mmol/L N 22-32 Anion Gap 2 mmol/L N 2-11 Glucose 82 mg/dL N 70-100 Blood Urea Nitrogen 9 mg/dL N 6-24 Creatinine 1.13 mg/dL N 0.67-1.17 BUN/Creatinine Ratio 8.0 N 8-20 Calcium 9.6 mg/dL N 8.6-10.3 Egfr Non- 69.0 N >60 Egfr 88.7 N >60 12 CKMB 10/03/2016 [facility] CKMB ng/mL 2.8 ng/mL N 0.6-6.3 [address] [place] [address] [phone] Laboratory test 10/03/2016 [facility] Creatine 107 U/L N 10- [address] [facility] Kinase(CK) [place] [address] [phone] Troponin-I (TnI) 0.00 ng/mL N <0.04 13 Comp Metabolic Panel 10/03/2016 [facility] Sodium 138 mmol/L N 133-145 [address] [place] [address] [phone] Potassium 4.5 mmol/L N 3.5-5.0 Chloride 106 [...] 74.3 N >60 Egfr 95.5 N >60 14 CBC Auto Diff 10/03/2016 [facility] White Blood 8.0 10^3/uL N 3.5-10.[address] [place] [address] [phone] Red Blood Count 5.00 10^6/uL N 4.0-5.4 [...] Nucleated Red Blood Cells % 0.2 N Laboratory test 10/03/2016 [facility] Lactic Acid 1.2 mmol/L N 0.5-2.0 15 finding [address] [place] [address] [phone] 1 Troponin-I testing on Plasma Separator Tubes (PST) has a known false positive rate of 0.20-0.40%. All positive troponins reflex immediate secondary confirmatory testing. 2 [facility] Severe Sepsis and Septic Shock Management Bundle Measure requires all lactic acids initially measuring >2.0 mmol/L be repeated. 3 Because ethnic data is not always readily [...] 15-29 5 Kidney failure <15 (or dialysis) 4 Troponin-I testing on Plasma Separator Tubes (PST) has a known false positive rate of 0.20-0.40%. All positive troponins reflex immediate secondary confirmatory testing. 5 High reactive sample are considered positive for Hepatitis C 6 Result in log IU/mL is 6.75. ADDITIONAL INFORMATION The quantification range of this assay is 15 to 100,000,000 IU/mL (1.18 log to 8.00 log IU/mL). Testing was performed using the le HCV test ([employer] with the le 6800 System. Test Performed by: [facility] [address] [place] [address] 7 ADDITIONAL INFORMATION This test was performed using the Rojas RealTime HCV Genotype II assay ([employer] [place], [place]). Test Performed by: [facility] [address] [facility], [place] [address] 8 Because ethnic data is not always readily [...] 15-29 5 Kidney failure <15 (or dialysis) 9 Presumptive Positive Presumptive positive results are unconfirmed. 10 The urine specimen was tested at the listed cutoffs: Drug class test level (ng/mL) Amphetamines 500 Barbiturates 200 Benzodiazepine metabolites 200 Cocaine metabolites 150 Cannabinoids 50 Opiates 300 Pcp 25 Specimen was received without chain of custody. Results should be used for medical purposes only. 11 Comment: please draw at 1400 12 Because ethnic data is not always readily [...] 15-29 5 Kidney failure <15 (or dialysis) 13 99th percentile=0.04 ng/mL Troponin results at [facility] and [facility] are not interchangeable. 14 Because ethnic data is not always readily [...] 15-29 5 Kidney failure <15 (or dialysis) 15 GAS Severe Sepsis and Septic Shock Management Bundle Measure requires all lactic acids initially measuring >2.0 mmol/L be repeated. Procedures Date Code Description Status 04/30/2018 53267 EKG Tracing & Interpretation Completed 03/18/2018 95758 EKG, Interpretation Only Completed 03/14/2018 29773 EEG Recording In Coma Or Sleep Only Completed 09/12/201649056 Inject/Drain Joint/Bursa Intermediate W/O US Completed 09/20/2014 98634 EKG Tracing & Interpretation Completed Encounters Type Date Location Provider Dx Diagnosis Office Visit 05/02/2018 [facility] Norma Vasquez, B18.2 Chronic viral 11:40a [facility] DO hepatitis C R22.32 Localized swelling, mass and lump, left upper limb Office Visit 04/09/2018 [facility] Best Ordaz, F10.14 Alcohol abuse with 9:20a [facility] DIAZ alcohol-induced mood disorder I10 Essential (primary) hypertension F17.210 Nicotine dependence, cigarettes, uncomplicated J44.9 Chronic obstructive pulmonary disease, unspecified M54.2 Cervicalgia Z86.711 Personal history of pulmonary embolism F33.9 Major depressive disorder, recurrent, unspecified Office Visit 03/22/2018 12:16p [facility] Best Ordaz, F10.239 Alcohol Assoc,pc dependence [...] unspecified Office Visit 03/16/2018 12:06p [facility] Kayley White F10.239 Alcohol dependence MD with withdrawal, unspecified [...] w hypoxia or hypercapnia Office Visit 03/13/2018 [facility] Nithin Dorantes J69.0 Pneumonitis due 12:14p Assoc,leidy Winkler MD to inhalation of Hospitalists food and vomit J44.9 Chronic obstructive pulmonary disease, unspecified F10.10 Alcohol abuse, uncomplicated M54.5 Low back pain I10 Essential (primary) hypertension Z86.711 Personal history of pulmonary embolism Office Visit 03/12/2018 [facility] Lottie F10.10 Alcohol abuse, 12:14p Assoc,leidy Munguia NP uncomplicated Hospitalists 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 Unspecified 314.01 Attention Deficit Disorder W/ Hyperactivity 723.9 Cervical Region Musculoskeletal Disorders & Symptoms Unspec 724.2 Lumbago Plan of Treatment Future Appointment(s):06/02/2018 11:00 am - Norma Vasquez DO at [facility]05/16/2018 9:10 am - Talha Covarrubias M.D. at [facility]xv[facility]flb71/26/2019 10:30 am - Stew Wells M.D. at [facility]04/30/2018 - Norma Vasquez, DOR07.9 Chest pain, unspecifiedRecommendations:GO TO THE ER IF PAIN COMES BACKF10.14 Alcohol abuse with alcohol-induced mood disorderRecommendations:Call tomorrow to see if they have a detox oxduduhyoudhV19.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, unspecified bcnbjgimM75.2 Chronic viral hepatitis CReferral:Talha Covarrubias MD, Infectious Diseases
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
[2018-05-21] MEDS ORDERED: Acetaminophen TAB* 325 MG PO ONE (21:11)
[2018-05-21] MEDS ORDERED: Diazepam TAB(*) 5 MG PO ONE (21:11)
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
[2018-05-21 21:21] LABS: Hematocrit 46 % (42-52); Hemoglobin 16.2 g/dl (14.0-18.0); Mean Corpuscular HGB Conc 35 g/dl (31-36); Mean Corpuscular Hemoglobin 36 pg (27-31); Mean Corpuscular Volume 101 fL (80-94); Mean Platelet Volume 7.3 fL (7.4-10.4); Platelet Count 254 10^3/ul (150-450); Red Blood Count 4.55 10^6/ul (4.00-5.40); Red Cell Distribution Width 14 % (10.5-15); White Blood Count 9.5 10^3/ul (3.5-10.8)
[2018-05-21 21:38] LABS: Albumin 3.8 g/dL (3.2-5.2); Albumin/Globulin Ratio 1.4 (1-3); Calcium 9.1 mg/dL (8.6-10.3); EGFR Non-African American 73.2 (>60); Globulin 2.8 g/dL (2-4); Total Bilirubin 0.3 mg/dL (0.2-1.0); Total Protein 6.6 g/dL (6.4-8.9)
[2018-05-21 21:46] LABS: Lymphocytes % 22 %; Metamyelocytes % 2 % (0-2); Monocytes % 10 %; Neutrophil % 57 %
[2018-05-21 21:47] LABS: Immature Granulocytes 6 % (0-9); Myelocytes % 2 % (0-1)
[2018-05-21 21:50] LABS: ABS Basophils 0.1 10^3/ul (0-0.2); ABS Eosinophils 0.3 10^3/ul (0-0.6); ABS Lymphocytes 2.3 10^3/ul (1.0-4.8); ABS Neutrophils 5.9 10^3/ul (1.5-7.7); ABS Nucleated RBC 0 10^3/ul; Nucleated Red Blood Cells % 0.1
[2018-05-21 21:57] LABS: Potassium 3.8 mmol/L (3.5-5.0)
[2018-05-21 23:00] VITALS: BP 0/0
== END 2018-05-21 22:59 | disposition home or self-care (01) ==
LOC: ED 19:47
DX: M79.662 Pain in left lower leg (principal); M79.661 Pain in right lower leg; Z88.0 Allergy status to penicillin; Z79.01 Long term (current) use of anticoagulants; F17.210 Nicotine dependence, cigarettes, uncomplicated; J44.9 Chronic obstructive pulmonary disease, unspecified
CPT/HCPCS: 36415; 80053; 83735; 85025; 99284; A9270-GY

== ENCOUNTER 2018-05-22 05:58 | Emergency (ER) | payer MEDICARE, MEDICAID ==
[2018-05-22] MEDS ORDERED: predniSONE TAB* 20 MG PO ONE (06:46)
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
[2018-05-22 07:15] VITALS: BP 165/83
[2018-05-22] MEDS ORDERED: Lidocaine PATCH 5%* 1 PATCH TRANSDERM SCH (09:00)
[2018-05-22] MEDS ORDERED: Lidocaine Patch REMOVE* 1 NOTE MISC PATCH OFF SCH (21:00)
== END 2018-05-22 07:16 | disposition home or self-care (01) ==
LOC: ED 05:58
DX: M25.562 Pain in left knee (principal); Z86.711 Personal history of pulmonary embolism; Z79.01 Long term (current) use of anticoagulants; F41.9 Anxiety disorder, unspecified; F32.9 Major depressive disorder, single episode, unspecified; Z88.6 Allergy status to analgesic agent; Z88.0 Allergy status to penicillin; Z88.8 Allergy status to other drugs, medicaments and biological substances; F17.210 Nicotine dependence, cigarettes, uncomplicated
CPT/HCPCS: 99282; A9270-GY; J7512

== ENCOUNTER 2018-07-13 12:43 | Emergency (ER) | payer MEDICARE, MEDICAID ==
[2018-07-13] MEDS ORDERED: NS 0.9% 1000 ML** 1,000 ML IV ONE (13:13)
[2018-07-13 13:32] LABS: Hematocrit 50 % (42-52); Hemoglobin 17.5 g/dl (14.0-18.0); Mean Corpuscular HGB Conc 35 g/dl (31-36); Mean Corpuscular Hemoglobin 35 pg (27-31); Mean Corpuscular Volume 101 fL (80-94); Red Blood Count 4.98 10^6/ul (4.00-5.40); Red Cell Distribution Width 14 % (10.5-15); White Blood Count 8.6 10^3/ul (3.5-10.8)
--- OUTSIDE RECORDS SUMMARY | 2018-07-13 13:44 | XMS REPORT | Continuity of Care Document ---
:1965 External Reference #:[id number] Author Name Justina Reddy Care Team Providers Name Role Phone [facility] Primary Care Physician Unavailable Payers Date Identification Numbers Payment Provider Subscriber Effective: 2003 Policy Number: [id number] Medicare Talha Jones PayID: [id number] [address] [place] [address] Policy Number: [id number] Medicaid Talha Jones Group Name: [id number] [address] PayID: [id number] [place] [address] Expires: 2012 Policy Number: [id number] Medicaid Talha Jones Group Name: 1 1 [address] PayID: [id number] [place] [address] Advance Directives Description No Information Available Problems Date Description Provider Status Onset: 07/07/2014 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 Onset: 09/20/2014 Hyperlipidemia Filiberto Woodard M.D., KANDICE, Active FSCAI Onset: 09/20/2014 Benign essential hypertension Filiberto Woodard M.D., KANDICE, Active [facility]SCAI Onset: 09/26/2016 H/O: pulmonary embolus Servando Colon M.D.,FACP Note: 2010 Onset: 09/26/2016 Chronic obstructive lung Magdi Butler M.D.,FACP Active disease Onset: 06/18/2018 Other idiopathic peripheral Best Ordaz MD Active autonomic neuropathy Onset: 05/22/2018 Chronic hepatitis C Best Ordaz MD Active Onset: 05/22/2018 Chronic pain syndrome Best Ordaz MD Active Onset: 05/22/2018 Chest pain Best Ordaz MD Active Onset: 04/09/2018 Recurrent major depressive Best Ordaz MD Active episodes Onset: 04/09/2018 Alcohol abuse with Best Ordaz MD Active alcohol-induced mood disorder Onset: 04/09/2018 Neck pain Best Ordaz MD Active Onset: 04/09/2018 Tobacco user Best Ordaz MD Active Onset: 09/20/2014 Chest pain Filiberto Woodard M.D., FACC, Inactive FSCAI Inactive: 09/26/2016 Onset: 03/25/2014 Syncope Stew Wells M.D. Resolved Resolved: 09/26/2016 Family History Date Family Member(s) Observation Comments Father Stroke Father due to Unknown Causes () Father Cancer Father Seizure Disorder Father Hypertension Father Diabetes Father Heart Disease Mother due to Murdered () First Son 25 First Daughter 30 Second Daughter 29 Third Daughter 17 First Brother due to MD () Social History Type Date Description Comments Sex Unknown Marital Status Marital Status Lives With lives with a friend Occupation Unemployed Tobacco Use Start: Unknown Current Cigarette Smoker 1 Pack Daily ETOH Use Occasionally consumes alcohol Tobacco Use Start: Unknown Patient is a current smoker, smokes every day Recreational Drug Use 09/26/2016 Denies Drug Use Tobacco Use Start: Unknown Heavy tobacco smoker (more than 10 cigarettes/day) Smoking Status Reviewed: 06/18/18 Heavy tobacco smoker (more than 10 cigarettes/day) Exercise Type/Frequency Does not exercise Allergies, Adverse Reactions, Alerts Date Description Reaction Status Severity Comments 12/08/2008 Penicillins Anaphylaxis Active Severe 12/08/2008 Asa/Caff/Butal/Cod GI irritation Active 09/26/2016 Tegretol Anaphylaxis Active Severe 05/23/2018 Ativan Active He states he blacks out Medications Medication Date Status Form Strength Qnty SIG Indications Ordering Provider Cyclobenzaprine 05/30 Active Tablets 5mg 90tab take 5mg M54.2 Best HCL /2018 s three OrdazMD martha times a day as needed. Oxycodone-Acetami 05/22 Active Tablets 5-325mg 90tab 1 by mouth G89.4 Best nophen /2018 s every MD Orlin three times a day as needed for pain Adderall 05/22 Active Tablets 20mg 30tab 1 by mouth Best /2018 s every day MD Orlin Amlodipine 05/22 Active Tablets 10mg 30tab take 1 tab I10 Best [facility] s each day. MD Orlin Xarelto 04/09 Active Tablets 15mg 1 by mouth Magdi every day Praveena Butler M.D.,[facility] Levetiracetam Active Tablets 750mg 1 twice a Unknown day by mouth Clonidine HCL Active Tablets 0.1mg 1 by mouth Unknown twice a day Metoprolol Active Tablets ER 50mg 1 by mouth Unknown Succinate ER / 24HR every day Escitalopram Active Tablets 20mg 1 by mouth Unknown Oxalate every day Gabapentin Active Tablets 600mg 180ta 600mg Best bs three MD Orlin times a day and 1800 mg at at bedtime Prednisone 05/30 Hx Tablets 20mg 14tab take 2 tab M54.2 s daily for MD Orlin - 7 days 06/18 Medrol 04/09 Hx Tablets 4mg 21tab take as s directed MD Orlin - per 06/18 dosepak instructio ns Doxycycline 10/03 Hx Capsules 100mg 20cap twice a [facility] s day by Praveena Butler, - mouth M.DMirlande,[facility] 10/03 Cefuroxime Axetil 10/03 Hx Tablets 500mg 20tab 1 by mouth Magdi s twice a Praveena Butler, - day for 10 M.D.,[facility] Chantix Starting 10/03 Hx Tablets 0.5mg X 55tab as Magdi 11 & 1 mg s directed Praveena uBtler, - X 42 M.DMirlande,[facility] 04/08 Losartan 09/26 Hx Tablets 50mg 30tab [address] [facility] s every day Libby Dhaliwal M.D.,[facility] 04/09 Doxycycline 09/26 Hx Capsules 100mg 14cap twice a [facility] s day by Praveena Butler, - mouth M.D.,[facility] 10/03 Valium 09/20 Hx Tablets 5mg 2tabs take 1-2 tabs prior F - to mri Senia, 04/08 imaging MD /2018 test Medrol 09/18 Hx Tablets 4mg 21tab take as S43.52xA s directed F - per Senia, 09/26 dosepak instructio ns Percocet 09/18 Hx Tablets 5-325mg 30tab 1 tab by s mouth F - every 6 Senia, 09/26 hours as needed Medrol 09/18 Hx Tablets 4mg 21tab take as S43.52xA s directed F - per Senia, 09/26 dosepak instructio ns Percocet 09/18 Hx Tablets 5-325mg 60tab 1 tab by Matteo3.52xA Kristopher s mouth Pachikara - every 6 , M.D. 04/08 hours needed Pepto-Bismol 02/22 Hx Suspension 524mg/30M 3unit 1 table 565.0 L s spoon po c, - tid Radomir, 03/22.D. Percocet 01/11 Hx Tablets 5-325mg 120ta 1 po q 6 724.2 bs hours as c, - needed for Radomir, 03/22 pain .D. Fentanyltransderm 12/08 Hx Patches 72 25mcg/HR 1unit 1 patch q s 3 days c, - Radomir, 03/22.D. Adderall 12/08 Hx Tablets 20mg 120ta 1 qd Magdi bs Praveena Butler, - M.Praveena,FACP 07/07 Code b /2014 Naproxen Sodium 12/08 Hx Tablets 550mg 180ta 1 po bid bs prn c, - Radomir, 03/22.D. Spiriva 12/08 Hx Capsules 18mcg 1mon 1 vivek Handihale inhalation c, - qam Radomir, 03/22.D. Advair Diskus 12/08 Hx Misc 250/50 2unit 1 puff bid s c, - Radomir, 03/22.D. /2013 Soma 12/08 Hx Tablets 250mg 90tab 1 po tid 493.00 Stevano /2008 s c, - Zevomir, 03/22 MNgoc Hydrocodone/Apap Hx Tablets 5-500mg 50tab 1 q [...] s every 6 - hours as 03/24 needed nausea Combivent Hx Aerosol 20-100mcg 1unit 1 puffs Unknown [...] Flovent HFA Hx Aerosol 2 puffs Unknown / twice - daily for 04/08 Oxycodone HCL Hx Tablets 5mg 1 by mouth Unknown /0000 six times - a day 04/14 Losartan Hx Tablets 50-12.5mg 1 by mouth Unknown Potassium/Hydroch /0000 every day lorothiazide - 04/14 Capsaicin Hx Cream 0.1% apply Unknown / topically - as needed 09/26 Lidocaine Hx Patches 5% apply Unknown / patch up - to 12 09/26 hours once a day. Anaspaz Hx Tablets 0.125mg Unknown / Dispers - 09/26 Folic Acid Hx Tablets 1mg take one Unknown / capsule/ta - blet daily 09/26 by mouth Combivent Hx Aerosol 20-100mcg 4gm 1 puffs 4 Magdi Respimat / / elidia Butler, - daily as Mirna,FACP 04/08 Vitamin B-12 Hx Tablets Sub 5000mcg daily Unknown /0000 - 05/21 Adderall Hx Tablets 20mg 1 by mouth Unknown / every day - 05/21 Vitamin B-1 Hx Tablets 50mg 1 by mouth Unknown / every day - 05/21 Prednisone Hx Tablets 20mg 1 tab Unknown / daily - 04/29 Medications Administered in Office Medication Date Status Form Strength Qnty SIG Indications Ordering Provider Depomedrol Administered Injection Taiwo F 40MG 017 MD Senia Immunizations Description No Information Available Vital Signs Date Vital Result Comment 06/18/2018 1:40pm Weight 201.00 lb Heart Rate 72 /min BP Systolic 138 mmHg BP Diastolic 90 mmHg Respiratory Rate 16 /min Pain Level 8 O2 % BldC Oximetry 95 % 06/16/2018 2:20pm Height 68 inches 5'8" Weight 201.00 lb BP Systolic Sitting 160 mmHg BP Diastolic Sitting 102 mmHg Pain Level 8 BMI (Body Mass Index) 30.6 kg/m2 05/30/2018 1:06pm Height 68 inches 5'8" Weight 201.00 lb Heart Rate 88 /min BP Systolic 134 mmHg BP Diastolic 90 mmHg Respiratory Rate 18 /min Pain Level 9 O2 % BldC Oximetry 96 % BMI (Body Mass Index) 30.6 kg/m2 05/22/2018 3:03pm Height 68 inches 5'8" Weight 214.50 lb Heart Rate 86 /min BP Systolic 190 mmHg BP Diastolic 120 mmHg BMI (Body Mass Index) 32.6 kg/m2 05/02/2018 11:45am Weight 194.00 lb Heart Rate [...] Date Facility Test Result H/L Range Note CBC Auto Diff 05/21/2018 [facility] White Blood 9.5 10^3/uL N 3.5-10.[address] [place] [address] [phone] Red Blood Count 4.55 10^6/uL N 4.00-5.40 Hemoglobin 16.2 g/dL N 14.0-18.0 Hematocrit 46 % N 42-52 Mean Corpuscular Volume 101 fL High 80-94 Mean Corpuscular Hemoglobin 36 pg High 27-31 Mean Corpuscular HGB Conc 35 g/dL N 31-36 Red Cell Distribution Width 14 % N 10.5-15 Platelet Count 254 10^3/uL N 150-450 Mean Platelet Volume 7.3 fL Low 7.4-10.4 Abs Neutrophils 5.9 10^3/uL N 1.5-7.7 Abs Lymphocytes 2.3 10^3/uL N 1.0-4.8 Abs Monocytes 1.0 10^3/uL High 0-0.8 Abs Eosinophils 0.3 10^3/uL N 0-0.6 Abs Basophils 0.1 10^3/uL N 0-0.2 Abs Nucleated RBC 0 10^3/uL Nucleated Red Blood Cells % 0.1 Manual Differential 05/21/2018 [facility] Immature 6 % N 0-[address] [place] [address] [phone] Neutrophil % 57 % Band % 2 % N 0-8 Lymphocytes % 22 % Monocytes % 10 % Eosinophils % 4 % Basophil % 1 % Metamyelocytes % 2 % N 0-2 Myelocytes % 2 % High 0-1 Macrocytosis 1+ Comp Metabolic Panel 05/21/2018 [facility] Sodium 141 mmol/L N 135-[address] [place] [address] [phone] Chloride 105 mmol/L N 101-111 Co2 Carbon Dioxide 29 mmol/L N 22-32 Glucose 118 mg/dL High 70-100 Blood Urea Nitrogen 16 mg/dL N 6-24 Creatinine 1.07 mg/dL N 0.67-1.17 BUN/Creatinine Ratio 15.0 N 8-20 Calcium 9.1 mg/dL N 8.6-10.3 Total Protein 6.6 g/dL N 6.4-8.9 Albumin 3.8 g/dL N 3.2-5.2 Globulin 2.8 g/dL N 2-4 Albumin/Globulin Ratio 1.4 N 1-3 Total Bilirubin 0.30 mg/dL N 0.2-1.0 Alkaline Phosphatase 98 U/L N 34-104 Alt 137 U/L High 7-52 Egfr Non- 73.2 >60 Egfr 88.5 >60 1 Potassium 3.8 mmol/L N 3.5-5.0 Anion Gap 7 mmol/L N 2-11 Ast 91 U/L High 13-39 Laboratory test 05/21/2018 [facility] Magnesium 2.0 mg/dL N 1.9-2.[address] [place] [address] [phone] Laboratory test 05/14/2018 [facility] Troponin-I 0.00 ng/mL < 0.04 [address] (TnI) [place] [address] [phone] CBC Auto Diff 05/14/2018 [facility] White Blood 6.6 N 3.5- 10.[address] Count 10^3/[place] [address] [phone] Red Blood Count 4.83 10^6/uL N 4.00-5.40 [...] Red Blood Cells % 0.1 Inr/Protime 05/14/2018 [facility] Inr 0.89 N 0.77-1.[address] [place] [address] [phone] Laboratory test 05/14/2018 [facility] B-Type 11 pg/mL <=[address] [place] [address] Peptide BNP [phone] Lactic Acid 1.2 mmol/L N 0.5-2.0 3 Comp Metabolic Panel 05/14/2018 [facility] Sodium 139 mmol/L N 135-[address] [place] [address] [phone] Potassium 4.2 mmol/L N 3.5-5.0 Chloride 108 [...] Egfr Non- 80.0 >60 Egfr 96.8 >60 4 Laboratory test 05/14/2018 [facility] Troponin-I (TnI) 0.00 ng/ mL <0.04 [address] [place] [address] [phone] Alcohol < 10 mg/dL N <10 Amylase 35 U/L N 29-103 Lipase 24 U/L N 11.0-82.0 Liver Function 05/02/2018 [facility] Total Protein 7.2 g/dL N 6.4-8.[address] [place] [address] [phone] Albumin 4.1 g/dL N 3.2-5.2 Globulin 3.1 g/dL N 2-4 Albumin/Globulin Ratio 1.3 N 1-3 Total Bilirubin 0.50 mg/dL N 0.2-1.0 Direct Bilirubin 0.10 mg/dL N 0.03-0.18 Indirect Bilirubin 0.4 mg/dL N 0.3-1.0 Alkaline Phosphatase 79 U/L N 34-104 Alt 101 U/L High 7-52 Ast 66 U/L High 13-39 Laboratory 05/02/2018 [facility] Hepatitis C [id number] Abnormal Undetected 6 test finding [address] Rna Quant IU/[place] [address] [phone] Hepatitis C Genotype 3 Abnormal Undetected 7 Hepatitis C Antibody 05/02/2018 [facility] HCV Index > 11.[address] [place] [address] [phone] Hepatitis C Antibody High Reactive Abnormal Nonreactive 8 Inr/Protime 01/10/2017 [facility] Inr 1.01 N 0.89-1.[address] [place] [address] [phone] Laboratory test 01/10/2017 [facility] Partial 38.5 High 26.0- 36.[address] [place] [address] Time PTT [phone] CBC Auto Diff 01/10/2017 [facility] White Blood 8.4 10^3/uL N 3.5-10.[address] [place] [address] [phone] Red Blood Count 4.50 10^6/uL N 4.0-5.4 [...] % 0.1 N Comp Metabolic Panel 01/10/2017 [facility] Sodium 137 mmol/L N 133-[address] [place] [address] [phone] Potassium 4.1 mmol/L N 3.5-5.0 Chloride 107 [...] 88.6 N >60 Egfr 113.9 N >60 9 Laboratory test finding 01/10/2017 [facility] Lipase 11 U/L N 11.0-82.[address] [place] [address] [phone] Troponin-I (TnI) 0.00 ng/mL N <0.04 Urine Drug 12/25/2016 [facility] Amphetamine Ur None Detected N None Detect SCR ED & [address] [place] [address] [phone] Barbiturates Urine Screen Presumptive Posi <SEE NOTE> Abnormal None Detect 10 Benzodiazepine Urine Screen None Detected N None Detect Urine Cannabinoids Screen None Detected N None Detect Urine Cocaine Screen None Detected N None Detect Urine Opiates Screen None Detected N None Detect Urine Phencyclidine Screen None Detected N None Detect 11 Laboratory test 12/25/2016 [facility] Troponin-I 0.00 ng/mL N <0.04 [address] (TnI) [place] [address] [phone] CBC Auto Diff 10/03/2016 [facility] White Blood 7.3 N 3.5- 10.[address] Count 10^3/[place] [address] [phone] Red Blood Count 5.25 10^6/uL N 4.0-5.4 [...] % 0.3 N Basic Metabolic Panel 10/03/2016 [facility] Sodium 138 mmol/L N 133-145 [address] [place] [address] [phone] Potassium 4.7 mmol/L N 3.5-5.0 Chloride 104 mmol/L N 101-111 Co2 Carbon Dioxide 32 mmol/L N 22-32 Anion Gap 2 mmol/L N 2-11 Glucose 82 mg/dL N 70-100 Blood Urea Nitrogen 9 mg/dL N 6-24 Creatinine 1.13 mg/dL N 0.67-1.17 BUN/Creatinine Ratio 8.0 N 8-20 Calcium 9.6 mg/dL N 8.6-10.3 Egfr Non- 69.0 N >60 Egfr 88.7 N >60 13 CKMB 10/03/2016 [facility] CKMB ng/mL 2.8 ng/mL N 0.6-6.3 [address] [place] [address] [phone] CBC Auto Diff 10/03/2016 [facility] White Blood 8.0 10^3/uL N 3.5-10.8 [address] [place] [address] [phone] Red Blood Count 5.00 10^6/uL N 4.0-5.4 [...] Cells % 0.2 N Laboratory test 10/03/2016 [facility] Lactic Acid 1.2 mmol/L N 0.5-2.0 14 finding [address] [place] [address] [phone] Laboratory test 10/03/2016 [facility] Creatine 107 U/L N 10- 223 finding 101 [facility] Kinase(CK) [place] [address] [phone] Troponin-I (TnI) 0.00 ng/mL N <0.04 15 Comp Metabolic Panel 10/03/2016 [facility] Sodium 138 mmol/L N 133-145 [address] [place] [address] [phone] Potassium 4.5 mmol/L N 3.5-5.0 Chloride 106 [...] 74.3 N >60 Egfr 95.5 N >60 16 1 Because ethnic data is not always [...] 5 Kidney failure <15 (or dialysis) 2 Troponin-I testing on Plasma Separator Tubes (PST) has a known false positive rate of 0.20-0.40%. All positive troponins reflex immediate secondary confirmatory testing. 3 [facility] Severe Sepsis and Septic Shock Management Bundle Measure requires all lactic acids initially measuring >2.0 mmol/L be repeated. 4 Because ethnic data is not always readily [...] 15-29 5 Kidney failure <15 (or dialysis) 5 Troponin-I testing on Plasma Separator Tubes (PST) has a known false positive rate of 0.20-0.40%. All positive troponins reflex immediate secondary confirmatory testing. 6 Result in log IU/mL is 6.75. ADDITIONAL INFORMATION The quantification range of this assay is 15 to 100,000,000 IU/mL (1.18 log to 8.00 log IU/mL). Testing was performed using the le HCV test ([employer] with the le meebee0 System. Test Performed by: [facility] [place] [address] 7 ADDITIONAL INFORMATION This test was performed using the Rojas RealTime HCV Genotype II assay ([employer] [place], [place]). Test Performed by: [place] [address] 8 High reactive sample are considered positive for Hepatitis C 9 Because ethnic data is not always readily [...] 15-29 5 Kidney failure <15 (or dialysis) 10 Presumptive Positive Presumptive positive results are unconfirmed. 11 The urine specimen was tested at the listed cutoffs: Drug class test level (ng/mL) Amphetamines 500 Barbiturates 200 Benzodiazepine metabolites 200 Cocaine metabolites 150 Cannabinoids 50 Opiates 300 Pcp 25 Specimen was received without chain of custody. Results should be used for medical purposes only. 12 Comment: please draw at 1400 13 Because ethnic data is not always readily [...] 15-29 5 Kidney failure <15 (or dialysis) 14 [facility] Severe Sepsis and Septic Shock Management Bundle Measure requires all lactic acids initially measuring >2.0 mmol/L be repeated. 15 99th percentile=0.04 ng/mL Troponin results at [facility] and [facility] are not interchangeable. 16 Because ethnic data is not always readily [...] 15-29 5 Kidney failure <15 (or dialysis) Procedures Date Code Description Status 05/18/2018 30613 EKG, Interpretation Only Completed 05/15/2018 72810 EEG Recording Awake & Asleep Completed 05/15/2018 55587 EKG, Interpretation Only Completed 05/15/2018 06449 Treadmill Interp/Report Only Completed 05/15/2018 26269 Stress Test Supervsn W/Out I/R Completed 05/14/2018 45474 EKG, Interpretation Only Completed 04/30/2018 67616 EKG, Interpretation Only Completed 03/18/2018 54278 EKG, Interpretation Only Completed 03/14/2018 51965 EEG Recording In Coma Or Sleep Only Completed 09/12/2016 77400 Inject/Drain Joint/Bursa Intermediate W/O US Completed 09/20/2014 78749 EKG Tracing & Interpretation Completed Encounters Type Date Location Provider Dx Diagnosis Office Visit 06/18/2018 [facility] Best Ordaz MD G90.09 Other idiopathic 1:40p [facility] peripheral autonomic neuropathy M54.2 Cervicalgia B18.2 Chronic viral hepatitis C I10 Essential (primary) hypertension Office Visit 06/16/2018 2:30p Neurosurgery Vassilios M54.2 [facility] MD M47.892 Other spondylosis, cervical region Office Visit 05/30/2018 1:00p [facility] Best Ordaz MD M54.2 Cervicalgia [facility] G89.4 Chronic pain syndrome B18.2 Chronic viral hepatitis C J44.9 Chronic obstructive pulmonary disease, unspecified I10 Essential (primary) hypertension Z86.711 Personal history of pulmonary embolism Office Visit 05/22/2018 2:40p [facility] Best Ordaz MD M54.2 [facility] G89.4 Chronic pain syndrome R07.9 Chest pain, unspecified B18.2 Chronic viral hepatitis C J44.9 Chronic obstructive pulmonary disease, unspecified I10 Essential (primary) hypertension Z86.711 Personal history of pulmonary embolism Office Visit 05/19/2018 10:14a [facility] R07.9 Chest pain, Assoc,pc Alexandre Justin, unspecified Hospitalists [employer] F10.239 Alcohol dependence with withdrawal, unspecified G40.909 Epilepsy, unsp, not intractable, without status epilepticus J44.9 Chronic obstructive pulmonary disease, unspecified Office Visit 05/18/2018 [facility] Magda Cormier, R07.9 Chest pain, 10:14a Assraji,leidy Bradley unspecified Hospitalists J44.9 Chronic obstructive pulmonary disease, unspecified E72.20 Disorder of urea cycle metabolism, unspecified R41.0 Disorientation, unspecified M54.5 Low back pain F10.10 Alcohol abuse, uncomplicated Z86.711 Personal history of pulmonary embolism Office Visit 05/17/2018 4:31p [facility] Feliz Matthews R07.89 Other [facility] Mayen, DO FACC pain Z72.0 Tobacco use F10.230 Alcohol dependence with withdrawal, uncomplicated Office Visit 05/17/2018 [facility] Magda Cormier, R07.9 Chest pain, 10:14a leidy Temple M.D. unspecified Hospitalists J44.9 Chronic obstructive pulmonary disease, unspecified E72.20 Disorder of urea cycle metabolism, unspecified R41.0 Disorientation, unspecified M54.5 Low back pain F10.10 Alcohol abuse, uncomplicated Z86.711 Personal history of pulmonary embolism Office Visit 05/16/2018 [facility] Norma R41.0 Disorientation, 10:14a Assoc,pc Pedro, DO unspecified Hospitalists R07.9 Chest pain, unspecified M54.5 Low back pain F10.10 Alcohol abuse, uncomplicated Z86.711 Personal history of pulmonary embolism Office Visit 05/15/2018 10:13a [facility] Norma R07.9 Chest pain, Assoc,pc Matiasner, DO unspecified Hospitalists M54.5 Low back pain F10.10 Alcohol abuse, uncomplicated Z86.711 Personal history of pulmonary embolism Office Visit 05/14/2018 10:13a [facility] Norma R07.9 Chest pain, Assoc,pc Senner, DO unspecified Hospitalists F10.239 Alcohol dependence with withdrawal, unspecified J44.9 Chronic obstructive pulmonary disease, unspecified G89.4 Chronic pain syndrome B18.2 Chronic viral hepatitis C Office Visit 05/02/2018 11:40a [facility] Norma B18.2 Chronic viral [facility] Pedro, DO hepatitis C R22.32 Localized swelling, mass and lump, left upper limb Office Visit 04/30/2018 1:40p [facility] Norma R07.9 Chest pain, [facility] Pedro, DO unspecified F10.14 Alcohol abuse with alcohol-induced mood disorder M50.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, unsp cervical region B18.2 Chronic viral hepatitis C Office Visit 04/09/2018 [facility] Best Ordaz, F10.14 Alcohol abuse with 9:20a [facility] alcohol-induced mood disorder I10 Essential (primary) hypertension F17.210 Nicotine dependence, cigarettes, uncomplicated J44.9 Chronic obstructive pulmonary disease, unspecified M54.2 Cervicalgia Z86.711 Personal history of pulmonary embolism F33.9 Major depressive disorder, recurrent, unspecified Office Visit 03/22/2018 12:16p [facility] Best Ordaz, F10.239 Alcohol Assoc,pc MD dependence with Hospitalists withdrawal, unspecified W19.xxxD Unspecified [...] 12:14p Intensivists Henry Diamond F10.239 Alcohol dependence with withdrawal, unspecified J69.0 Pneumonitis due to inhalation of food and vomit J96.90 Respiratory failure, unsp, unsp w hypoxia or hypercapnia Office Visit 03/13/2018 [facility] Nithin Dorantes J69.0 Pneumonitis due 12:14p Assoc,pc MD Cathi to inhalation of Hospitalists food and vomit J44.9 Chronic obstructive pulmonary disease, unspecified F10.10 Alcohol abuse, uncomplicated M54.5 Low back pain I10 Essential (primary) hypertension Z86.711 Personal history of pulmonary embolism Office Visit 03/12/2018 [facility] Lottie F10.10 Alcohol abuse, 12:14p Assoc,pc Nilda, [employer] uncomplicated Hospitalists G40.509 Epileptic seiz rel to extrn causes, not ntrct, w/o stat epi R51 Headache I10 Essential (primary) hypertension Z87.09 Personal history of other diseases of the respiratory system Office Visit 10/03/2016 [facility] Internal Magdi Grissom M47.22 Other spondylosis 2:20p Violet Butler M.D.,FACP with radiculopathy, [address] cervical region J01.00 Acute maxillary sinusitis, unspecified G89.4 Chronic pain syndrome F17.210 Nicotine dependence, cigarettes, uncomplicated Office Visit 09/28/2016 Neurosurgery Stew M47.22 Other spondylosis 10:00a [facility] Odell M.D. with radiculopathy, cervical region Office Visit 09/26/2016 [facility] Internal Magdi Grissom M47.22 Other spondylosis 2:00p Medicine - [place], with radiculopathy, Dioni Bradley,FACP cervical region I26.99 Other pulmonary embolism without acute cor pulmonale I10 Essential (primary) hypertension Office 09/18/2016 Orthopedic Taiwo Cunningham S43.52xA Sprain of left Visit 1:00p Services Of MD Senai acromioclavicular C.M.A. joint, initial encounter M54.2 Cervicalgia M47.22 Other spondylosis with radiculopathy, cervical region S43.52xD Sprain of left acromioclavicular joint, subsequent encounter Office 09/12/2016 Orthopedic Taiwo Cunningham S43.52xA Sprain of left Visit 1:15p Services Of MD Senia acromioclavicular C.M.A. joint, initial encounter M54.2 Cervicalgia Office Visit 09/20/2014 1:40p Karolina Fisherfek, 272.4 Hyperlipidemia Other Cardiology Of Mir[place], FACC, Unspec Oncology Consultant AT [facility] FSCAI 401.1 Hypertension Benign 786.50 Pain Chest Unspec Office Visit 07/07/2014 11:30a Neurosurgery Stew Odell, 721.1 Spondylosis Services Of Maru AT [place]na Cervical W/ Cody Myelopathy Office Visit 03/25/2014 9:00a Cody/Yordy Matthews 780.2 Syncope & Neurologic Serv Of Mirna Wells Collapse Oncology Consultant Office Visit 02/22/2009 11:20a DO Not Use Oncology Consultant AT [place], 565.0 Anal Fissure [place] Jaramillo M.D. 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 Cervical Region 721.0 Spondylosis Cervical W/O Myelopathy 723.1 Cervicalgia 782.0 Skin Sensation Disturbance Office Visit 01/11/2009 1:00p DO Not Use Oncology Consultant AT Ella Buchanan, 724.2 Lumbago Kuldip Bradley 723.9 Cervical Region Musculoskeletal Disorders & Symptoms Unspec Office Visit 12/08/2008 9:00a DO Not Use Oncology Consultant [place], 493.00 Asthma Extrinsic AT Kuldip Jaramillo M.D. Unspecified 314.01 Attention Deficit Disorder W/ Hyperactivity 723.9 Cervical Region Musculoskeletal Disorders & Symptoms Unspec 724.2 Lumbago Plan of Treatment Future Appointment(s):10/22/2018 3:00 pm - Stew Wells M.D. at [place] [facility]07/16/2018 1:00 pm - Best Ordaz MD at [facility]06/16/2018 - Zeinab Hathaway, MDM54.2 CervicalgiaFollow up:RV prnM47.892 Other spondylosis, cervical region
--- OUTSIDE RECORDS SUMMARY | 2018-07-13 13:44 | XMS REPORT | Continuity of Care Document ---
:1965 External Reference #:[id number] Author Name Justina Reddy Care Team Providers Name Role Phone [facility] Connections Primary Care Physician Unavailable Payers Date Identification Numbers Payment Provider Subscriber Effective: 2003 Policy Number: [id number] Medicare Talha Jones PayID: [id number] [address] [place] [address] Policy Number: [id number] Medicaid Talha Jones Group Name: [id number] [address] PayID: [id number] [place] [address] Expires: 2012 Policy Number: [id number] Medicaid Talha Jones Group Name: 1 1 [address] PayID: [id number] [place] [address] Advance Directives Description No Information Available Problems [...] Third Daughter 17 First Brother due to [place] () Social History Type Date Description Comments [...] 10mg 30tab take 1 tab I10 [facility] s each day. MD Orlin Xarelto 04/09 Active Tablets 15mg 1 by mouth Magdi every day Praveena Butler M.D.,[facility] Levetiracetam Active Tablets 750mg 1 twice [...] 10/03 Hx Capsules 100mg 20cap twice a [facility] s day by Praveena Butler, - mouth M.DMirlande,[facility] 10/03 Cefuroxime Axetil 10/03 Hx Tablets 500mg 20tab 1 by mouth Magdi s twice a Praveena Butler, - day for 10 M.D.,[facility] Chantix Starting 10/03 Hx Tablets 0.5mg X 55tab as Magdi 11 & 1 mg s directed Praveena Butler, - X 42 M.DMirlande,[facility] 04/08 Losartan 09/26 Hx Tablets 50mg 30tab 1 by mouth [facility] s every day Libby Dhaliwal M.D.,[facility] 04/09 Doxycycline 09/26 Hx Capsules 100mg 14cap twice a [facility] s day by Praveena Butler, - mouth M.D.,[facility] 10/03 Valium 09/20 Hx Tablets 5mg [...] H/L Range Note CBC Auto Diff 05/21/2018 [facility] White Blood 9.5 10^3/uL N 3.5-10.[address] [place] [address] [phone] Red Blood Count 4.55 10^6/uL N 4.00-5.40 [...] Blood Cells % 0.1 Manual Differential 05/21/2018 [facility] Immature 6 % N 0-[address] [place] [address] [phone] Neutrophil % 57 % Band % 2 % N 0-8 Lymphocytes % 22 % Monocytes % 10 % Eosinophils % 4 % Basophil % 1 % Metamyelocytes % 2 % N 0-2 Myelocytes % 2 % High 0-1 Macrocytosis 1+ Comp Metabolic Panel 05/21/2018 [facility] Sodium 141 mmol/L N 135-[address] [place] [address] [phone] Chloride 105 mmol/L N 101-111 Co2 Carbon [...] 91 U/L High 13-39 Laboratory test 05/21/2018 [facility] Magnesium 2.0 mg/dL N 1.9-2.[address] [place] [address] [phone] Laboratory test 05/14/2018 [facility] Troponin-I 0.00 ng/mL < 0.04 [address] (TnI) [place] [address] [phone] CBC Auto Diff 05/14/2018 [facility] White Blood 6.6 N 3.5- 10.[address] Count 10^3/[place] [address] [phone] Red Blood Count 4.83 10^6/uL N 4.00-5.40 [...] Red Blood Cells % 0.1 Inr/Protime 05/14/2018 [facility] Inr 0.89 N 0.77-1.[address] [place] [address] [phone] Laboratory test 05/14/2018 [facility] B-Type 11 pg/mL <=[address] [place] [address] Peptide BNP [phone] Lactic Acid 1.2 mmol/L N 0.5-2.0 3 Comp Metabolic Panel 05/14/2018 [facility] Sodium 139 mmol/L N 135-[address] [place] [address] [phone] Potassium 4.2 mmol/L N 3.5-5.0 Chloride 108 [...] Egfr 96.8 >60 4 Laboratory test 05/14/2018 [facility] Troponin-I (TnI) 0.00 ng/ mL <0.04 [address] [place] [address] [phone] Alcohol < 10 mg/dL N <10 Amylase 35 U/L N 29-103 Lipase 24 U/L N 11.0-82.0 Liver Function 05/02/2018 [facility] Total Protein 7.2 g/dL N 6.4-8.[address] [place] [address] [phone] Albumin 4.1 g/dL N 3.2-5.2 Globulin 3.1 g/dL N 2-4 Albumin/Globulin Ratio 1.3 N 1-3 Total Bilirubin 0.50 mg/dL N 0.2-1.0 Direct Bilirubin 0.10 mg/dL N 0.03-0.18 Indirect Bilirubin 0.4 mg/dL N 0.3-1.0 Alkaline Phosphatase 79 U/L N 34-104 Alt 101 U/L High 7-52 Ast 66 U/L High 13-39 Laboratory 05/02/2018 [facility] Hepatitis C [id number] Abnormal Undetected 6 test finding [address] Rna Quant IU/[place] [address] [phone] Hepatitis C Genotype 3 Abnormal Undetected 7 Hepatitis C Antibody 05/02/2018 [facility] HCV Index > 11.[address] [place] [address] [phone] Hepatitis C Antibody High Reactive Abnormal Nonreactive 8 Inr/Protime 01/10/2017 [facility] Inr 1.01 N 0.89-1.[address] [place] [address] [phone] Laboratory test 01/10/2017 [facility] Partial 38.5 High 26.0- 36.[address] [place] [address] Time PTT [phone] CBC Auto Diff 01/10/2017 [facility] White Blood 8.4 10^3/uL N 3.5-10.[address] [place] [address] [phone] Red Blood Count 4.50 10^6/uL N 4.0-5.4 [...] % 0.1 N Comp Metabolic Panel 01/10/2017 [facility] Sodium 137 mmol/L N 133-[address] [place] [address] [phone] Potassium 4.1 mmol/L N 3.5-5.0 Chloride 107 [...] N >60 9 Laboratory test finding 01/10/2017 [facility] Lipase 11 U/L N 11.0-82.[address] [place] [address] [phone] Troponin-I (TnI) 0.00 ng/mL N <0.04 Urine Drug 12/25/2016 [facility] Amphetamine Ur None Detected N None Detect SCR ED & [address] [place] [address] [phone] Barbiturates Urine Screen Presumptive Posi <SEE NOTE> Abnormal None Detect 10 Benzodiazepine Urine Screen None Detected N None Detect Urine Cannabinoids Screen None Detected N None Detect Urine Cocaine Screen None Detected N None Detect Urine Opiates Screen None Detected N None Detect Urine Phencyclidine Screen None Detected N None Detect 11 Laboratory test 12/25/2016 [facility] Troponin-I 0.00 ng/mL N <0.04 [address] (TnI) [place] [address] [phone] CBC Auto Diff 10/03/2016 [facility] White Blood 7.3 N 3.5- 10.[address] Count 10^3/[place] [address] [phone] Red Blood Count 5.25 10^6/uL N 4.0-5.4 [...] % 0.3 N Basic Metabolic Panel 10/03/2016 [facility] Sodium 138 mmol/L N 133-145 [address] [place] [address] [phone] Potassium 4.7 mmol/L N 3.5-5.0 Chloride 104 mmol/L N 101-111 Co2 Carbon Dioxide 32 mmol/L N 22-32 Anion Gap 2 mmol/L N 2-11 Glucose 82 mg/dL N 70-100 Blood Urea Nitrogen 9 mg/dL N 6-24 Creatinine 1.13 mg/dL N 0.67-1.17 BUN/Creatinine Ratio 8.0 N 8-20 Calcium 9.6 mg/dL N 8.6-10.3 Egfr Non- 69.0 N >60 Egfr 88.7 N >60 13 CKMB 10/03/2016 [facility] CKMB ng/mL 2.8 ng/mL N 0.6-6.3 [address] [place] [address] [phone] CBC Auto Diff 10/03/2016 [facility] White Blood 8.0 10^3/uL N 3.5-10.8 [address] [place] [address] [phone] Red Blood Count 5.00 10^6/uL N 4.0-5.4 [...] Cells % 0.2 N Laboratory test 10/03/2016 [facility] Lactic Acid 1.2 mmol/L N 0.5-2.0 14 finding [address] [place] [address] [phone] Laboratory test 10/03/2016 [facility] Creatine 107 U/L N 10- 223 finding 101 [facility] Kinase(CK) [place] [address] [phone] Troponin-I (TnI) 0.00 ng/mL N <0.04 15 Comp Metabolic Panel 10/03/2016 [facility] Sodium 138 mmol/L N 133-145 [address] [place] [address] [phone] Potassium 4.5 mmol/L N 3.5-5.0 Chloride 106 [...] troponins reflex immediate secondary confirmatory testing. 3 [facility] Severe Sepsis and Septic Shock [...] was performed using the le HCV test ([employer] with the le MusicXray0 System. Test Performed by: [facility] [place] [address] 7 ADDITIONAL INFORMATION This test was performed using the Rojas RealTime HCV Genotype II assay ([employer] [place], [place]). Test Performed [place] [address] 8 High reactive sample are considered positive [...] 5 Kidney failure <15 (or dialysis) 14 [facility] Severe Sepsis and Septic Shock Management Bundle Measure requires all lactic acids initially measuring >2.0 mmol/L be repeated. 15 99th percentile=0.04 ng/mL Troponin results at [facility] and [facility] are not interchangeable. 16 Because ethnic data [...] dialysis) Procedures Date Code Description Status 05/18/2018 85325 EKG, Interpretation Only Completed 05/15/2018 37485 EEG Recording Awake & Asleep Completed 05/15/2018 98919 EKG, Interpretation Only Completed 05/15/2018 88639 Treadmill Interp/Report Only Completed 05/15/2018 43340 Stress Test Supervsn W/Out I/R Completed 05/14/2018 79981 EKG, Interpretation Only Completed 04/30/2018 27341 EKG, Interpretation Only Completed 03/18/2018 13394 EKG, Interpretation Only Completed 03/14/2018 70147 EEG Recording In Coma Or Sleep Only Completed 09/12/2016 75562 Inject/Drain Joint/Bursa Intermediate W/O US Completed 09/20/2014 64783 EKG Tracing & Interpretation Completed Encounters Type Date Location Provider Dx Diagnosis Office Visit 06/18/2018 [facility] Best Ordaz MD G90.09 Other idiopathic 1:40p [facility] peripheral autonomic neuropathy M54.2 Cervicalgia B18.2 Chronic viral hepatitis C I10 Essential (primary) hypertension Office Visit 06/16/2018 2:30p Neurosurgery Vassilios M54.2 Cervicalgia Services Of Maru Hathaway MD M47.892 Other spondylosis, cervical region Office Visit 05/30/2018 1:00p [facility] Best Ordaz MD M54.2 Cervicalgia [facility] G89.4 Chronic pain syndrome B18.2 Chronic viral hepatitis C J44.9 Chronic obstructive pulmonary disease, unspecified I10 Essential (primary) hypertension Z86.711 Personal history of pulmonary embolism Office Visit 05/22/2018 2:40p [facility] Best Ordaz MD M54.2 Cervicalgia [facility] G89.4 Chronic pain syndrome R07.9 Chest pain, unspecified B18.2 Chronic viral hepatitis C J44.9 Chronic obstructive pulmonary disease, unspecified I10 Essential (primary) hypertension Z86.711 Personal history of pulmonary embolism Office Visit 05/19/2018 10:14a [facility] R07.9 Chest pain, Assoc,pc Alexandre Justin, unspecified Hospitalists [employer] F10.239 Alcohol dependence with withdrawal, unspecified G40.909 Epilepsy, unsp, not intractable, without status epilepticus J44.9 Chronic obstructive pulmonary disease, unspecified Office Visit 05/18/2018 [facility] Magda Cormier, R07.9 Chest pain, 10:14a Assraji,leidy Bradley unspecified Hospitalists J44.9 Chronic obstructive pulmonary disease, unspecified E72.20 Disorder of urea cycle metabolism, unspecified R41.0 Disorientation, unspecified M54.5 Low back pain F10.10 Alcohol abuse, uncomplicated Z86.711 Personal history of pulmonary embolism Office Visit 05/17/2018 4:31p [facility] Feliz Matthews R07.89 Other chest [facility] Mayen, DO FACC pain Z72.0 Tobacco use F10.230 Alcohol dependence with withdrawal, uncomplicated Office Visit 05/17/2018 [facility] Magda Cormier, R07.9 Chest pain, 10:14a leidy Temple M.D. unspecified Hospitalists J44.9 Chronic obstructive pulmonary disease, unspecified E72.20 Disorder of urea cycle metabolism, unspecified R41.0 Disorientation, unspecified M54.5 Low back pain F10.10 Alcohol abuse, uncomplicated Z86.711 Personal history of pulmonary embolism Office Visit 05/16/2018 [facility] Norma R41.0 Disorientation, 10:14a Assoc,pc Pedro, DO unspecified Hospitalists R07.9 Chest pain, unspecified M54.5 Low back pain F10.10 Alcohol abuse, uncomplicated Z86.711 Personal history of pulmonary embolism Office Visit 05/15/2018 10:13a [facility] Norma R07.9 Chest pain, Assoc,pc Matiasner, DO unspecified Hospitalists M54.5 Low back pain F10.10 Alcohol abuse, uncomplicated Z86.711 Personal history of pulmonary embolism Office Visit 05/14/2018 10:13a [facility] Norma R07.9 Chest pain, Assoc,pc Senner, DO unspecified Hospitalists F10.239 Alcohol dependence with withdrawal, unspecified J44.9 Chronic obstructive pulmonary disease, unspecified G89.4 Chronic pain syndrome B18.2 Chronic viral hepatitis C Office Visit 05/02/2018 11:40a [facility] Norma B18.2 Chronic viral [facility] Pedro, DO hepatitis C R22.32 Localized swelling, mass and lump, left upper limb Office Visit 04/30/2018 1:40p [facility] Norma R07.9 Chest pain, [facility] Pedro, DO unspecified F10.14 Alcohol abuse with alcohol-induced mood disorder M50.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, unsp cervical region B18.2 Chronic viral hepatitis C Office Visit 04/09/2018 [facility] Best Ordaz, F10.14 Alcohol abuse with 9:20a [facility] alcohol-induced mood disorder I10 Essential (primary) hypertension F17.210 Nicotine dependence, cigarettes, uncomplicated J44.9 Chronic obstructive pulmonary disease, unspecified M54.2 Cervicalgia Z86.711 Personal history of pulmonary embolism F33.9 Major depressive disorder, recurrent, unspecified Office Visit 03/22/2018 12:16p [facility] Best Ordaz, F10.239 Alcohol Assoc,pc MD dependence with Hospitalists withdrawal, unspecified W19.xxxD Unspecified fall, subsequent encounter F10.231 Alcohol dependence with withdrawal delirium Office Visit 03/21/2018 12:15p Intensivists Alfredo Aceveod, F10.231 Alcohol DO dependence with withdrawal delirium [...] w hypoxia or hypercapnia Office Visit 03/13/2018 [facility] Nithni Dorantes J69.0 Pneumonitis due 12:14p Assoc,pc MD Cathi to inhalation of Hospitalists food and vomit J44.9 Chronic obstructive pulmonary disease, unspecified F10.10 Alcohol abuse, uncomplicated M54.5 Low back pain I10 Essential (primary) hypertension Z86.711 Personal history of pulmonary embolism Office Visit 03/12/2018 [facility] Lottie F10.10 Alcohol abuse, 12:14p Assoc,pc Nilda, [employer] uncomplicated Hospitalists G40.509 Epileptic seiz rel to extrn causes, not ntrct, w/o stat epi R51 Headache I10 Essential (primary) hypertension Z87.09 Personal history of other diseases of the respiratory system Office Visit 10/03/2016 [facility] Magdi Grissom M47.22 Other spondylosis 2:20p Violet Butler M.D.,FACP with radiculopathy, [address] cervical region J01.00 Acute maxillary sinusitis, unspecified G89.4 Chronic pain syndrome F17.210 Nicotine dependence, cigarettes, uncomplicated Office Visit 09/28/2016 Neurosurgery Stew M47.22 Other spondylosis 10:00a Services Of Maru Odell M.D. with radiculopathy, cervical region Office Visit 09/26/2016 [facility] Magdi Grissom M47.22 Other spondylosis 2:00p Medicine - [place], with radiculopathy, Dioni Bradley,FACP cervical region I26.99 [...] Hyperlipidemia Other Cardiology Of Mirna, FACC, Unspec Beverage Steward AT [facility] FSCAI 401.1 Hypertension Benign 786.50 Pain Chest Unspec Office Visit 07/07/2014 11:30a Neurosurgery Stew Odell, 721.1 Spondylosis Services Of Maru AT [place] Cervical W/ Cody Myelopathy Office Visit 03/25/2014 9:00a Cody/Yordy Matthews 780.2 Syncope & Neurologic Serv Of Mirna Wells Collapse Beverage Steward Office Visit 02/22/2009 11:20a DO Not Use Beverage Steward AT [place], 565.0 Anal Fissure [place]aver[place]ohan Jaramillo M.D. 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 Cervical Region 721.0 Spondylosis Cervical W/O Myelopathy 723.1 Cervicalgia 782.0 Skin Sensation Disturbance Office Visit 01/11/2009 1:00p DO Not Use Beverage Steward AT Ella Buchanan, 724.2 Lumbago Kuldip Bradley 723.9 Cervical Region Musculoskeletal Disorders & Symptoms Unspec Office Visit 12/08/2008 9:00a DO Not Use Beverage Steward [place], 493.00 Asthma Extrinsic AT Kuldip Jaramillo M.D. Unspecified 314.01 Attention Deficit Disorder W/ Hyperactivity 723.9 Cervical Region Musculoskeletal Disorders & Symptoms Unspec 724.2 Lumbago Plan of Treatment Future Appointment(s):10/22/2018 3:00 pm - Stew Wells M.D. at [place] [facility]07/16/2018 1:00 pm - Best Ordaz MD at [facility]06/16/2018 - Zeinab Hathaway, MDM54.2 CervicalgiaFollow up:RV prnM47.892 Other spondylosis, cervical region
--- OUTSIDE RECORDS SUMMARY | 2018-07-13 13:44 | XMS REPORT | Continuity of Care Document ---
:1965 External Reference #:[id number] Author Name Una Philip Care Team Providers Name Role Phone [facility] Primary Care Physician Unavailable Payers Date Identification Numbers Payment Provider Subscriber Effective: 2003 Policy Number: [id number] Medicare Talha Jones PayID: [id number] [address] [place] [address] Policy Number: [id number] Medicaid Talha Jones Group Name: [id number] [address] PayID: [id number] [place] [address] Expires: 2012 Policy Number: [id number] Medicaid Talha Jones Group Name: 1 1 [address] PayID: [id number] [place] [address] Advance Directives Description No Information Available Problems [...] Third Daughter 17 First Brother due to [place] () Social History Type Date Description Comments [...] (more than 10 cigarettes/day) Smoking Status Reviewed: 07/10/18 Heavy tobacco smoker (more than 10 cigarettes/day) [...] 10mg 30tab take 1 tab I10 [facility] s each day. MD Orlin Xarelto 04/09 Active Tablets 15mg 1 by mouth Magdi every day Praveena Butler M.D.,[facility] Levetiracetam Active Tablets 750mg 1 twice a [...] 10/03 Hx Capsules 100mg 20cap twice a [facility] s day by Praveena Butler, - mouth M.DMirlande,[facility] 10/03 Cefuroxime Axetil 10/03 Hx Tablets 500mg 20tab 1 by mouth Magdi s twice a Praveena Butler, - day for 10 M.D.,[facility] Chantix Starting 10/03 Hx Tablets 0.5mg X 55tab as Magdi 11 & 1 mg s directed Praveena Butler, - X 42 M.DMirlande,[facility] 04/08 Losartan 09/26 Hx Tablets 50mg 30tab 1 by mouth [facility] s every day Libby Dhaliwal M.D.,[facility] 04/09 Doxycycline 09/26 Hx Capsules 100mg 14cap twice a [facility] s day by Praveena Butler, - mouth M.D.,[facility] 10/03 Valium 09/20 Hx Tablets 5mg 2tabs [...] Available Vital Signs Date Vital Result Comment 07/10/2018 4:28pm Height 68 inches 5'8" Weight 214.12 lb Heart Rate 74 /min BP Systolic Sitting 144 mmHg BP Diastolic Sitting 98 mmHg Respiratory Rate 14 /min Body Temperature 98.1 F BMI (Body Mass Index) 32.6 kg/m2 06/18/2018 1:40pm Weight 201.00 lb Heart Rate [...] H/L Range Note CBC Auto Diff 05/21/2018 [facility] White Blood 9.5 10^3/uL N 3.5-10.[address] [place] [address] [phone] Red Blood Count 4.55 10^6/uL N 4.00-5.40 [...] Blood Cells % 0.1 Manual Differential 05/21/2018 [facility] Immature 6 % N 0-[address] [place] [address] [phone] Neutrophil % 57 % Band % 2 % N 0-8 Lymphocytes % 22 % Monocytes % 10 % Eosinophils % 4 % Basophil % 1 % Metamyelocytes % 2 % N 0-2 Myelocytes % 2 % High 0-1 Macrocytosis 1+ Comp Metabolic Panel 05/21/2018 [facility] Sodium 141 mmol/L N 135-[address] [place] [address] [phone] Chloride 105 mmol/L N 101-111 Co2 Carbon [...] 91 U/L High 13-39 Laboratory test 05/21/2018 [facility] Magnesium 2.0 mg/dL N 1.9-2.[address] [place] [address] [phone] Laboratory test 05/14/2018 [facility] Troponin-I 0.00 ng/mL < 0.[address] (TnI) [place] [address] [phone] Alcohol < 10 mg/dL N <10 Amylase 35 U/L N 29-103 Lipase 24 U/L N 11.0-82.0 Laboratory test 05/14/2018 [facility] Troponin-I 0.00 ng/mL < 0.[address] (TnI) [place] [address] [phone] CBC Auto Diff 05/14/2018 [facility] White Blood 6.6 N 3.5- 10.[address] Count 10^3/[place] [address] [phone] Red Blood Count 4.83 10^6/uL N 4.00-5.40 [...] Red Blood Cells % 0.1 Inr/Protime 05/14/2018 [facility] Inr 0.89 N 0.77-1.[address] [place] [address] [phone] Laboratory test 05/14/2018 [facility] B-Type 11 pg/mL <=[address] [place] [address] Peptide BNP [phone] Lactic Acid 1.2 mmol/L N 0.5-2.0 4 Comp Metabolic Panel 05/14/2018 [facility] Sodium 139 mmol/L N 135-[address] [place] [address] [phone] Potassium 4.2 mmol/L N 3.5-5.0 Chloride 108 [...] Egfr Non- 80.0 >60 Egfr 96.8 >60 5 Liver Function 05/02/2018 [facility] Total Protein 7.2 g/dL N 6.4-8.[address] [place] [address] [phone] Albumin 4.1 g/dL N 3.2-5.2 Globulin 3.1 g/dL N 2-4 Albumin/Globulin Ratio 1.3 N 1-3 Total Bilirubin 0.50 mg/dL N 0.2-1.0 Direct Bilirubin 0.10 mg/dL N 0.03-0.18 Indirect Bilirubin 0.4 mg/dL N 0.3-1.0 Alkaline Phosphatase 79 U/L N 34-104 Alt 101 U/L High 7-52 Ast 66 U/L High 13-39 Laboratory 05/02/2018 [facility] Hepatitis C [id number] Abnormal Undetected 6 test finding [address] Rna Quant IU/[place] [address] [phone] Hepatitis C Genotype 3 Abnormal Undetected 7 Hepatitis C Antibody 05/02/2018 [facility] HCV Index > 11.[address] [place] [address] [phone] Hepatitis C Antibody High Reactive Abnormal Nonreactive 8 Inr/Protime 01/10/2017 [facility] Inr 1.01 N 0.89-1.[address] [place] [address] [phone] Laboratory test 01/10/2017 [facility] Partial 38.5 High 26.0- 36.[address] [place] [address] Time PTT [phone] CBC Auto Diff 01/10/2017 [facility] White Blood 8.4 10^3/uL N 3.5-10.[address] [place] [address] [phone] Red Blood Count 4.50 10^6/uL N 4.0-5.4 [...] % 0.1 N Comp Metabolic Panel 01/10/2017 [facility] Sodium 137 mmol/L N 133-[address] [place] [address] [phone] Potassium 4.1 mmol/L N 3.5-5.0 Chloride 107 [...] N >60 9 Laboratory test finding 01/10/2017 [facility] Lipase 11 U/L N 11.0-82.[address] [place] [address] [phone] Troponin-I (TnI) 0.00 ng/mL N <0.04 Urine Drug 12/25/2016 [facility] Amphetamine Ur None Detected N None Detect SCR ED [address] [place] [address] [phone] Barbiturates Urine Screen Presumptive Posi <SEE NOTE> Abnormal None Detect 10 Benzodiazepine Urine Screen None Detected N None Detect Urine Cannabinoids Screen None Detected N None Detect Urine Cocaine Screen None Detected N None Detect Urine Opiates Screen None Detected N None Detect Urine Phencyclidine Screen None Detected N None Detect 11 Laboratory test 12/25/2016 [facility] Troponin-I 0.00 ng/mL N <0.04 12 finding (TnI) [place] [address] [phone] CBC Auto Diff 10/03/2016 [facility] White Blood 7.3 N 3.5- 10.[address] Count 10^3/[place] [address] [phone] Red Blood Count 5.25 10^6/uL N 4.0-5.4 [...] Nucleated Red Blood Cells % 0.3 N CBC Auto Diff 10/03/2016 [facility] White Blood 8.0 10^3/uL N 3.5-10.[address] [place] [address] [phone] Red Blood Count 5.00 10^6/uL N 4.0-5.4 [...] Cells % 0.2 N Laboratory test 10/03/2016 [facility] Lactic Acid 1.2 mmol/L N 0.5-2.0 13 finding [address] [place] [address] [phone] Basic Metabolic 10/03/2016 [facility] Sodium 138 mmol/L N 133- 145 Panel [address] [place] [address] [phone] Potassium 4.7 mmol/L N 3.5-5.0 Chloride 104 mmol/L N 101-111 Co2 Carbon Dioxide 32 mmol/L N 22-32 Anion Gap 2 mmol/L N 2-11 Glucose 82 mg/dL N 70-100 Blood Urea Nitrogen 9 mg/dL N 6-24 Creatinine 1.13 mg/dL N 0.67-1.17 BUN/Creatinine Ratio 8.0 N 8-20 Calcium 9.6 mg/dL N 8.6-10.3 Egfr Non- 69.0 N >60 Egfr 88.7 N >60 14 CKMB 10/03/2016 [facility] CKMB ng/mL 2.8 ng/mL N 0.6-6.3 [address] [place] [address] [phone] Laboratory test 10/03/2016 [facility] Creatine 107 U/L N 10- [address] [facility] Kinase(CK) [place] [address] [phone] Troponin-I (TnI) 0.00 ng/mL N <0.04 15 Comp Metabolic Panel 10/03/2016 [facility] Sodium 138 mmol/L N 133-145 [address] [place] [address] [phone] Potassium 4.5 mmol/L N 3.5-5.0 Chloride 106 [...] troponins reflex immediate secondary confirmatory testing. 3 Troponin-I testing on Plasma Separator Tubes (PST) has a known false positive rate of 0.20-0.40%. All positive troponins reflex immediate secondary confirmatory testing. 4 [facility] Severe Sepsis and Septic Shock Management Bundle Measure requires all lactic acids initially measuring >2.0 mmol/L be repeated. 5 Because ethnic data is not always [...] 5 Kidney failure <15 (or dialysis) 6 Result in log IU/mL is 6.75. ADDITIONAL INFORMATION The quantification range of this assay is 15 to 100,000,000 IU/mL (1.18 log to 8.00 log IU/mL). Testing was performed using the le HCV test ([employer] with the le 6800 System. Test Performed by: [facility] [place] [address] 7 ADDITIONAL INFORMATION This test was performed using the Rojas RealTime HCV Genotype II assay ([employer] [place], [place]). Test Performed by: [place] [address] 8 High reactive sample are considered positive [...] 12 Comment: please draw at [address] [facility] Severe Sepsis and Septic Shock Management Bundle Measure requires all lactic acids initially measuring >2.0 mmol/L be repeated. 14 Because ethnic data is not always [...] 5 Kidney failure <15 (or dialysis) 15 99th percentile=0.04 ng/mL Troponin results at [facility] and [facility] are not interchangeable. 16 Because [...] dialysis) Procedures Date Code Description Status 05/18/2018 68565 EKG, Interpretation Only Completed 05/15/2018 29299 EEG Recording Awake & Asleep Completed 05/15/2018 36825 EKG, Interpretation Only Completed 05/15/2018 12975 Treadmill Interp/Report Only Completed 05/15/2018 84460 Stress Test Supervsn W/Out I/R Completed 05/14/2018 28381 EKG, Interpretation Only Completed 04/30/2018 70681 EKG, Interpretation Only Completed 03/18/2018 46600 EKG, Interpretation Only Completed 03/14/2018 76353 EEG Recording In Coma Or Sleep Only Completed 09/12/2016 82673 Inject/Drain Joint/Bursa Intermediate W/O US Completed 09/20/2014 52336 EKG Tracing & Interpretation Completed Encounters Type Date Location Provider Dx Diagnosis Office Visit 06/18/2018 [facility] Best Ordaz MD G90.09 Other idiopathic 1:40p [facility] peripheral autonomic neuropathy M54.2 Cervicalgia B18.2 Chronic viral hepatitis C I10 Essential (primary) hypertension Office Visit 06/16/2018 2:30p Neurosurgery Vassilios M54.2 [facility] MD Mag M47.892 Other spondylosis, cervical region Office Visit 05/30/2018 1:00p [facility] Best Ordaz MD M54.2 [facility] G89.4 Chronic pain syndrome B18.2 Chronic viral hepatitis C J44.9 Chronic obstructive pulmonary disease, unspecified I10 Essential (primary) hypertension Z86.711 Personal history of pulmonary embolism Office Visit 05/22/2018 2:40p [facility] Best Ordaz MD M54.2 [facility] G89.4 Chronic pain syndrome R07.9 Chest pain, unspecified B18.2 Chronic viral hepatitis C J44.9 Chronic obstructive pulmonary disease, unspecified I10 Essential (primary) hypertension Z86.711 Personal history of pulmonary embolism Office Visit 05/19/2018 10:14a [facility] Anne R07.9 Chest pain, Assoc,leidy Justin, unspecified Hospitalists [employer] F10.239 Alcohol dependence with withdrawal, unspecified G40.909 Epilepsy, unsp, not intractable, without status epilepticus J44.9 Chronic obstructive pulmonary disease, unspecified Office Visit 05/18/2018 [facility] Magda Cormier, R07.9 Chest pain, 10:14a leidy Temple M.D. unspecified Hospitalists J44.9 Chronic obstructive pulmonary disease, unspecified E72.20 Disorder of urea cycle metabolism, unspecified R41.0 Disorientation, unspecified M54.5 Low back pain F10.10 Alcohol abuse, uncomplicated Z86.711 Personal history of pulmonary embolism Office Visit 05/17/2018 4:31p [facility] Feliz S. R07.89 Other [facility] Mayen, DO FACC pain Z72.0 Tobacco use F10.230 Alcohol dependence with withdrawal, uncomplicated Office Visit 05/17/2018 [facility] Magda Cormier, R07.9 Chest pain, 10:14a leidy Temple M.D. unspecified Hospitalists J44.9 Chronic obstructive pulmonary disease, unspecified E72.20 Disorder of urea cycle metabolism, unspecified R41.0 Disorientation, unspecified M54.5 Low back pain F10.10 Alcohol abuse, uncomplicated Z86.711 Personal history of pulmonary embolism Office Visit 05/16/2018 [facility] Norma R41.0 Disorientation, 10:14a Assoc,pc Pedro, DO unspecified Hospitalists R07.9 Chest pain, unspecified M54.5 Low back pain F10.10 Alcohol abuse, uncomplicated Z86.711 Personal history of pulmonary embolism Office Visit 05/15/2018 10:13a [facility] Norma R07.9 Chest pain, Assoc,pc Pedro, DO unspecified Hospitalists M54.5 Low back pain F10.10 Alcohol abuse, uncomplicated Z86.711 Personal history of pulmonary embolism Office Visit 05/14/2018 10:13a [facility] R07.9 Chest pain, Assoc,pc Matiasner, DO unspecified Hospitalists F10.239 Alcohol dependence with withdrawal, unspecified J44.9 Chronic obstructive pulmonary disease, unspecified G89.4 Chronic pain syndrome B18.2 Chronic viral hepatitis C Office Visit 05/02/2018 11:40a [facility] Norma B18.2 Chronic viral [facility] hepatitis C R22.32 Localized swelling, mass and lump, left upper limb Office Visit 04/30/2018 1:40p [facility] Norma R07.9 Chest pain, [facility] Pedro, DO unspecified F10.14 Alcohol abuse with alcohol-induced mood disorder M50.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, unsp cervical region B18.2 Chronic viral hepatitis C Office Visit 04/09/2018 [facility] Best Ordaz, F10.14 Alcohol abuse with 9:20a [facility] alcohol-induced mood disorder I10 Essential (primary) hypertension F17.210 Nicotine dependence, cigarettes, uncomplicated J44.9 Chronic obstructive pulmonary disease, unspecified M54.2 Cervicalgia Z86.711 Personal history of pulmonary embolism F33.9 Major depressive disorder, recurrent, unspecified Office Visit 03/22/2018 12:16p [facility] Best Ordaz, F10.239 Alcohol Assoc, dependence with Hospitalists withdrawal, unspecified W19.xxxD Unspecified [...] w hypoxia or hypercapnia Office Visit 03/13/2018 [facility] Nithin Dorantes J69.0 Pneumonitis due 12:14p Assoc,leidy Winkler MD to inhalation of Hospitalists food and vomit J44.9 Chronic obstructive pulmonary disease, unspecified F10.10 Alcohol abuse, uncomplicated M54.5 Low back pain I10 Essential (primary) hypertension Z86.711 Personal history of pulmonary embolism Office Visit 03/12/2018 [facility] Lottie F10.10 Alcohol abuse, 12:14p Assoc,pc Nilda, AMRLY uncomplicated Hospitalists G40.509 Epileptic seiz rel to extrn causes, not ntrct, w/o stat epi R51 Headache I10 Essential (primary) hypertension Z87.09 Personal history of other diseases of the respiratory system Office Visit 10/03/2016 [facility] Magdi Grissom M47.22 Other spondylosis 2:20p Violet Butler M.D.,FAC with radiculopathy, [address] cervical region J01.00 Acute maxillary sinusitis, unspecified G89.4 Chronic pain syndrome F17.210 Nicotine dependence, cigarettes, uncomplicated Office Visit 09/28/2016 Neurosurgery Stew M47.22 Other spondylosis 10:00a [facility] M.D. with radiculopathy, cervical region Office Visit 09/26/2016 [facility] Magdi Grissom M47.22 Other spondylosis 2:00p [...] Hyperlipidemia Other [facility], FACC, Unspec Living Advisor AT [facility] FSCAI 401.1 Hypertension Benign 786.50 Pain Chest Unspec Office Visit 07/07/2014 11:30a Neurosurgery Stew Odell, 721.1 Spondylosis [facility] MERCHANT M.D. Cervical W/ [place] Myelopathy Office Visit 03/25/2014 9:00a Cody/Yordy Matthews 780.2 Syncope & Neurologic [facility] Wells Collapse Living Advisor Office Visit 02/22/2009 11:20a DO Not Use Living Advisor AT [facility], 565.0 Anal Fissure Kuldip Jaramillo M.D. 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 Unspecified 314.01 Attention Deficit Disorder W/ Hyperactivity 723.9 Cervical Region Musculoskeletal Disorders & Symptoms Unspec 724.2 Lumbago Plan of Treatment Future Appointment(s):08/07/2018 4:20 pm - Talha Covarrubias M.D. at [facility]/19/2019 3:00 pm - Stew Wells M.D. at [facility]07/16/2018 1:00 pm - Best Ordaz MD at [facility]07/10/2018 - Talha Covarrubias M.D.B18.2 Chronic viral hepatitis CNew Labs:Fibro Test-Actitest, Serum, Ordered: Hepatitis B Surface Ag, Ordered: 07/10/18HIV 1/2 Ag/AB Screen,W/Reflex,Plasma , Ordered: 07/10/18Follow up:1 pxbwjB84.0 Hepatic fibrosis
--- OUTSIDE RECORDS SUMMARY | 2018-07-13 13:45 | XMS REPORT | Continuity of Care Document ---
:1965 External Reference #:[id number] Author Name Toma Zhao Care Team Providers Name Role Phone Care Connections Primary Care Physician Unavailable Payers Date Identification Numbers Payment Provider Subscriber Effective: 2003 Policy Number: [id number] Medicare Talha Jones PayID: [id number] [address] [place] [address] Policy Number: [id number] Medicaid Talha Jones Group Name: [id number] [address] PayID: [id number] [place] [address] Expires: 2012 Policy Number: [id number] Medicaid Talha Jones Group Name: 1 1 [address] PayID: [id number] [place] [address] Advance Directives Description No Information Available Problems Date Description Provider Status Onset: 07/07/2014 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 Onset: 09/20/2014 Hyperlipidemia Filiberto Woodard M.D., [facility], Active [facility] Onset: 09/20/2014 Benign essential hypertension Filiberto Woodard M.D., [facility], Active [facility] Onset: 09/26/2016 H/O: pulmonary embolus [...] Third Daughter 17 First Brother due to [place] () Social History Type Date Description Comments [...] Tablets 10mg 30tab take 1 tab I[facility]. MD Orlin Xarelto 04/09 Active Tablets 15mg 1 by mouth Magdi every day Praveena Butler M.D.,[facility] Levetiracetam Active Tablets 750mg 1 twice a [...] 10/03 Hx Capsules 100mg 20cap twice a [facility] s day by Praveena Butler, - mouth M.DMirlande,[facility] 10/03 Cefuroxime Axetil 10/03 Hx Tablets 500mg 20tab 1 by mouth Magdi s twice a Praveena Butler, - day for 10 M.D.,[facility] Chantix Starting 10/03 Hx Tablets 0.5mg X 55tab as Magdi 11 & 1 mg s directed Praveena Butler, - X 42 M.DMirlande,[facility] 04/08 Losartan 09/26 Hx Tablets 50mg 30tab 1 by mouth [facility] s every day Libby Dhaliwal M.D.,[facility] 04/09 Doxycycline 09/26 Hx Capsules 100mg 14cap twice a [facility] s day by Praveena Butler, - mouth M.D.,[facility] 10/03 Valium 09/20 Hx Tablets 5mg 2tabs [...] c, - needed for Radomir, 03/22 pain M.D. Fentanyltransderm 12/08 Hx Patches 72 25mcg/HR 1unit 1 patch q s 3 days c, - Radomir, 03/22.D. Adderall 12/08 Hx Tablets 20mg 120ta 1 qd Magdi bs Praveena Butler - Patricia.Praveena,FACP 07/07 Code b /2014 Naproxen Sodium 12/08 [...] tid 493.00 Stevano /2008 s c, - Radomir, 03/22 MNgoc Hydrocodone/Apap Hx Tablets 5-500mg 50tab [...] Magdi /0000 s every day Lib[facility] M.[facility].,[facility] 04/09 Carbamazepine ER Hx Caps ER 100mg [...] Hx Tablets 5mg 1 by mouth Unknown / six times - a day 04/14 Losartan [...] H/L Range Note CBC Auto Diff 05/21/2018 [facility] White Blood 9.5 10^3/uL N 3.5-10.[address] [place] [address] [phone] Red Blood Count 4.55 10^6/uL N 4.00-5.40 [...] Blood Cells % 0.1 Manual Differential 05/21/2018 [facility] Immature 6 % N 0-[address] [place] [address] [phone] Neutrophil % 57 % Band % 2 % N 0-8 Lymphocytes % 22 % Monocytes % 10 % Eosinophils % 4 % Basophil % 1 % Metamyelocytes % 2 % N 0-2 Myelocytes % 2 % High 0-1 Macrocytosis 1+ Comp Metabolic Panel 05/21/2018 [facility] Sodium 141 mmol/L N 135-[address] [place] [address] [phone] Chloride 105 mmol/L N 101-111 Co2 Carbon [...] 91 U/L High 13-39 Laboratory test 05/21/2018 [facility] Magnesium 2.0 mg/dL N 1.9-2.[address] [place] [address] [phone] Laboratory test 05/14/2018 [facility] Troponin-I 0.00 ng/mL < 0.04 [address] (TnI) [place] [address] [phone] CBC Auto Diff 05/14/2018 [facility] White Blood 6.6 N 3.5- 10.[address] Count 10^3/[place] [address] [phone] Red Blood Count 4.83 10^6/uL N 4.00-5.40 [...] Red Blood Cells % 0.1 Inr/Protime 05/14/2018 [facility] Inr 0.89 N 0.77-1.[address] [place] [address] [phone] Laboratory test 05/14/2018 [facility] B-Type 11 pg/mL <=[address] [place] [address] Peptide BNP [phone] Lactic Acid 1.2 mmol/L N 0.5-2.0 3 Comp Metabolic Panel 05/14/2018 [facility] Sodium 139 mmol/L N 135-[address] [place] [address] [phone] Potassium 4.2 mmol/L N 3.5-5.0 Chloride 108 [...] Egfr 96.8 >60 4 Laboratory test 05/14/2018 [facility] Troponin-I (TnI) 0.00 ng/ mL <0.04 [address] [place] [address] [phone] Alcohol < 10 mg/dL N <10 Amylase 35 U/L N 29-103 Lipase 24 U/L N 11.0-82.0 Liver Function 05/02/2018 [facility] Total Protein 7.2 g/dL N 6.4-8.[address] [place] [address] [phone] Albumin 4.1 g/dL N 3.2-5.2 Globulin 3.1 g/dL N 2-4 Albumin/Globulin Ratio 1.3 N 1-3 Total Bilirubin 0.50 mg/dL N 0.2-1.0 Direct Bilirubin 0.10 mg/dL N 0.03-0.18 Indirect Bilirubin 0.4 mg/dL N 0.3-1.0 Alkaline Phosphatase 79 U/L N 34-104 Alt 101 U/L High 7-52 Ast 66 U/L High 13-39 Laboratory 05/02/2018 [facility] Hepatitis C [id number] Abnormal Undetected 6 test finding [address] Rna Quant IU/[place] [address] [phone] Hepatitis C Genotype 3 Abnormal Undetected 7 Hepatitis C Antibody 05/02/2018 [facility] HCV Index > 11.[address] [place] [address] [phone] Hepatitis C Antibody High Reactive Abnormal Nonreactive 8 Inr/Protime 01/10/2017 [facility] Inr 1.01 N 0.89-1.[address] [place] [address] [phone] Laboratory test 01/10/2017 [facility] Partial 38.5 High 26.0- 36.[address] [place] [address] Time PTT [phone] CBC Auto Diff 01/10/2017 [facility] White Blood 8.4 10^3/uL N 3.5-10.[address] [place] [address] [phone] Red Blood Count 4.50 10^6/uL N 4.0-5.4 [...] % 0.1 N Comp Metabolic Panel 01/10/2017 [facility] Sodium 137 mmol/L N 133-[address] [place] [address] [phone] Potassium 4.1 mmol/L N 3.5-5.0 Chloride 107 [...] N >60 9 Laboratory test finding 01/10/2017 [facility] Lipase 11 U/L N 11.0-82.[address] [place] [address] [phone] Troponin-I (TnI) 0.00 ng/mL N <0.04 Urine Drug 12/25/2016 [facility] Amphetamine Ur None Detected N None Detect SCR ED & [address] [place] [address] [phone] Barbiturates Urine Screen Presumptive Posi <SEE NOTE> Abnormal None Detect 10 Benzodiazepine Urine Screen None Detected N None Detect Urine Cannabinoids Screen None Detected N None Detect Urine Cocaine Screen None Detected N None Detect Urine Opiates Screen None Detected N None Detect Urine Phencyclidine Screen None Detected N None Detect 11 Laboratory test 12/25/2016 [facility] Troponin-I 0.00 ng/mL N <0.04 [address] (TnI) [place] [address] [phone] CBC Auto Diff 10/03/2016 [facility] White Blood 7.3 N 3.5- 10.[address] Count 10^3/[place] [address] [phone] Red Blood Count 5.25 10^6/uL N 4.0-5.4 [...] % 0.3 N Basic Metabolic Panel 10/03/2016 [facility] Sodium 138 mmol/L N 133-[address] [place] [address] [phone] Potassium 4.7 mmol/L N 3.5-5.0 Chloride 104 mmol/L N 101-111 Co2 Carbon Dioxide 32 mmol/L N 22-32 Anion Gap 2 mmol/L N 2-11 Glucose 82 mg/dL N 70-100 Blood Urea Nitrogen 9 mg/dL N 6-24 Creatinine 1.13 mg/dL N 0.67-1.17 BUN/Creatinine Ratio 8.0 N 8-20 Calcium 9.6 mg/dL N 8.6-10.3 Egfr Non- 69.0 N >60 Egfr 88.7 N >60 13 CKMB 10/03/2016 [facility] CKMB ng/mL 2.8 ng/mL N 0.6-6.[address] [place] [address] [phone] CBC Auto Diff 10/03/2016 [facility] White Blood 8.0 10^3/uL N 3.5-10.[address] [place] [address] [phone] Red Blood Count 5.00 10^6/uL N 4.0-5.4 [...] Cells % 0.2 N Laboratory test 10/03/2016 [facility] Lactic Acid 1.2 mmol/L N 0.5-2.0 14 finding [address] [place] [address] [phone] Laboratory test 10/03/2016 [facility] Creatine 107 U/L N 10- 223 finding [address] [facility] Kinase(CK) [place] [address] [phone] Troponin-I (TnI) 0.00 ng/mL N <0.04 15 Comp Metabolic Panel 10/03/2016 [facility] Sodium 138 mmol/L N 133-145 [address] [place] [address] [phone] Potassium 4.5 mmol/L N 3.5-5.0 Chloride 106 [...] troponins reflex immediate secondary confirmatory testing. 3 [facility] Severe Sepsis and Septic Shock Management [...] was performed using the le HCV test ([employer] with the le [employer]0 System. Test Performed by: [facility] [place] [address] 7 ADDITIONAL INFORMATION This test was performed using the Rojas RealTime HCV Genotype II assay ([employer] [place], [place]). Test Performed by: [place] [address] 8 High reactive sample are considered positive [...] 5 Kidney failure <15 (or dialysis) 14 [facility] Severe Sepsis and Septic Shock Management Bundle Measure requires all lactic acids initially measuring >2.0 mmol/L be repeated. 15 99th percentile=0.04 ng/mL Troponin results at [facility] and [facility] are not interchangeable. 16 Because ethnic data [...] (or dialysis) Procedures Date Code Description Status 05/15/2018 10930 Treadmill Interp/Report Only Completed 05/15/2018 67809 Stress Test Supervsn W/Out I/R Completed 04/30/2018 34271 EKG, Interpretation Only Completed 03/18/2018 24429 EKG, Interpretation Only Completed 03/14/2018 81889 EEG Recording In Coma Or Sleep Only Completed 09/12/2016 32510 Inject/Drain Joint/Bursa Intermediate W/O US Completed 09/20/2014 95811 EKG Tracing & Interpretation Completed Encounters Type Date Location Provider Dx Diagnosis Office Visit 05/30/2018 1:00p [facility] Best Ordaz MD M54.2 Cervicalgia Of It Systems Administrator G89.4 Chronic pain syndrome B18.2 Chronic viral hepatitis C J44.9 Chronic obstructive pulmonary disease, unspecified I10 Essential (primary) hypertension Z86.711 Personal history of pulmonary embolism Office Visit 05/19/2018 10:14a [facility] Anne R07.9 Chest pain, Assoc,pc Alexandre Justin, unspecified Hospitalists [employer] F10.239 Alcohol dependence with withdrawal, unspecified G40.909 Epilepsy, unsp, not intractable, without status epilepticus J44.9 Chronic obstructive pulmonary disease, unspecified Office Visit 05/18/2018 [facility] Magda Cormier, R07.9 Chest pain, 10:14a Assocleidy M.D. unspecified Hospitalists J44.9 Chronic obstructive pulmonary disease, unspecified E72.20 Disorder of urea cycle metabolism, unspecified R41.0 Disorientation, unspecified M54.5 Low back pain F10.10 Alcohol abuse, uncomplicated Z86.711 Personal history of pulmonary embolism Office Visit 05/17/2018 4:31p [facility] Feliz Matthews R07.89 Other chest Of It Systems Administrator Mayen, DO FACC pain Z72.0 Tobacco use F10.230 Alcohol dependence with withdrawal, uncomplicated Office Visit 05/17/2018 [facility] Magda Cormier, R07.9 Chest pain, 10:14a Assocleidy M.D. unspecified Hospitalists J44.9 Chronic obstructive pulmonary disease, unspecified E72.20 Disorder of urea cycle metabolism, unspecified R41.0 Disorientation, unspecified M54.5 Low back pain F10.10 Alcohol abuse, uncomplicated Z86.711 Personal history of pulmonary embolism Office Visit 05/16/2018 [facility] Norma R41.0 Disorientation, 10:14a Assoc,leidy Vasquez, DO unspecified Hospitalists R07.9 Chest pain, unspecified M54.5 Low back pain F10.10 Alcohol abuse, uncomplicated Z86.711 Personal history of pulmonary embolism Office Visit 05/15/2018 10:13a [facility] Norma R07.9 Chest pain, Assoc,pc Pedro, DO unspecified Hospitalists M54.5 Low back pain F10.10 Alcohol abuse, uncomplicated Z86.711 Personal history of pulmonary embolism Office Visit 05/14/2018 10:13a [facility] Norma R07.9 Chest pain, Assoc,leidy Vasquez, DO unspecified Hospitalists F10.239 Alcohol dependence with withdrawal, unspecified J44.9 Chronic obstructive pulmonary disease, unspecified G89.4 Chronic pain syndrome B18.2 Chronic viral hepatitis C Office Visit 05/02/2018 11:40a [facility] B18.2 Chronic viral [facility] Pedro, DO hepatitis C R22.32 Localized swelling, mass and lump, left upper limb Office Visit 04/30/2018 1:40p [facility] [place] R07.9 Chest pain, [facility] Pedro, DO unspecified F10.14 Alcohol abuse with alcohol-induced mood disorder M50.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, unsp cervical region B18.2 Chronic viral hepatitis C Office Visit 04/09/2018 Care Tory Ordaz, F10.14 Alcohol abuse with 9:20a [facility] alcohol-induced mood disorder I10 Essential (primary) hypertension F17.210 Nicotine dependence, cigarettes, uncomplicated J44.9 Chronic obstructive pulmonary disease, unspecified M54.2 Cervicalgia Z86.711 Personal history of pulmonary embolism F33.9 Major depressive disorder, recurrent, unspecified Office Visit 03/22/2018 12:16p [facility] Best Ordaz, F10.239 Alcohol Assoc,pc MD [...] hypercapnia Office Visit 03/15/2018 12:04p Intensivists Kayley White F10.239 Alcohol dependence MD with withdrawal, unspecified J18.9 Pneumonia, unspecified organism J96.90 Respiratory failure, unsp, unsp w hypoxia or hypercapnia Office Visit 03/14/2018 12:14p [facility]ens[facility] Henry Diamond, F10.239 Alcohol dependence MD with withdrawal, unspecified J69.0 Pneumonitis due to inhalation of food and vomit J96.90 Respiratory failure, unsp, unsp w hypoxia or hypercapnia Office Visit 03/13/2018 [facility] Nithin Jose E J69.0 Pneumonitis due 12:14p Assoc,leidy Winkler MD to inhalation of Hospitalists food and vomit J44.9 Chronic obstructive pulmonary disease, unspecified F10.10 Alcohol abuse, uncomplicated M54.5 Low back pain I10 Essential (primary) hypertension Z86.711 Personal history of pulmonary embolism Office Visit 03/12/2018 [facility] Lottie F10.10 Alcohol abuse, 12:14p Assoc,leidy Munguia NP uncomplicated Hospitalists G40.509 Epileptic seiz rel to extrn causes, not ntrct, w/o stat epi R51 Headache I10 Essential (primary) hypertension Z87.09 Personal history of other diseases of the respiratory system Office Visit 10/03/2016 [facility] Internal Magdi Grissom M47.22 Other spondylosis 2:20p Violet Butler M.D.,FACP with radiculopathy, [address] cervical region J01.00 Acute maxillary sinusitis, unspecified G89.4 Chronic pain syndrome F17.210 Nicotine dependence, cigarettes, uncomplicated Office Visit 09/28/2016 Neurosurgery Stew M47.22 Other spondylosis 10:00a Services Of Maru Odell M.D. with radiculopathy, cervical region Office Visit 09/26/2016 [facility] Internal Magdi Grissom M47.22 Other spondylosis [...] joint, subsequent encounter Office 09/12/2016 Orthopedic Taiwo F S43.52xA Sprain of left Visit 1:15p Services Of MD Senia acromioclavicular C.M.A. joint, initial encounter M54.2 Cervicalgia Office Visit 09/20/2014 1:40p Karolina Woodard, 272.4 Hyperlipidemia Other Cardiology Of Mirna, FACC, Unspec It Systems Administrator AT [facility]SC[facility] 401.1 Hypertension Benign 786.50 Pain Chest Unspec Office Visit 07/07/2014 11:30a Neurosurgery Stew Odell 721.1 Spondylosis [facility] AT Mirna Cervical W/ [place] Myelopathy Office Visit 03/25/2014 9:00a [place] Stew Matthews 780.2 Syncope & Neurologic Serv Of [place] Wells Collapse [facility] Office Visit 02/22/2009 11:20a DO Not Use It Systems Administrator AT [place], 565.0 Anal Fissure Kuldip Jaramillo M.D. 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 Unspecified 314.01 Attention Deficit Disorder W/ Hyperactivity 723.9 Cervical Region Musculoskeletal Disorders & Symptoms Unspec 724.2 Lumbago Plan of Treatment Future Appointment(s):07/16/2018 1:00 pm - Best Ordaz MD at [facility]07/01/2018 10:30 am - Stew Wells M.D. at [place] [facility]06/18/2018 - Best Ordaz MDG90.09 Other idiopathic peripheral autonomic npvjiqlrpwO45.2 IaynfalmvkoM42.2 Chronic viral hepatitis CReferral: Talha Covarrubias MD, Infectious NtaidurbS02 Essential (primary) hypertension
[2018-07-13 13:50] LABS: ALT 96 U/L (7-52); Albumin 4.4 g/dL (3.2-5.2); Albumin/Globulin Ratio 1.2 (1-3); Alkaline Phosphatase 110 U/L (34-104); BUN/Creatinine Ratio 13.3 (8-20); Blood Urea Nitrogen 13 mg/dL (6-24); CO2 Carbon Dioxide 23 mmol/L (22-32); Calcium 9.5 mg/dL (8.6-10.3); Chloride 105 mmol/L (101-111); Creatine Kinase 237 U/L (10-223); EGFR African American 97.6 (>60); EGFR Non-African American 80.6 (>60); Globulin 3.7 g/dL (2-4); Glucose 105 mg/dL (70-100); Magnesium 1.9 mg/dL (1.9-2.7); Sodium 136 mmol/L (135-145); Total Protein 8.1 g/dL (6.4-8.9)
[2018-07-13 13:54] LABS: CKMB ng/mL 5.4 ng/mL (0.6-6.3)
[2018-07-13 13:57] LABS: ABS Basophils 0.1 10^3/ul (0-0.2); ABS Eosinophils 0.2 10^3/ul (0-0.6); ABS Lymphocytes 1.7 10^3/ul (1.0-4.8); ABS Monocytes 0.7 10^3/ul (0-0.8); ABS Neutrophils 5.9 10^3/ul (1.5-7.7); ABS Nucleated RBC 0 10^3/ul; Eosinophil % 2.2 %; Lymphocyte % 20.2 %; Mean Platelet Volume 7.7 fL (7.4-10.4); Nucleated Red Blood Cells % 0.2; Platelet Count 265 10^3/ul (150-450)
[2018-07-13 14:35] LABS: TSH (Thyroid Stimulating Horm) 1.14 mcIU/mL (0.34-5.60)
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
[2018-07-13] MEDS ORDERED: Ondansetron INJ* 2 MG/ML VIAL IV ONE (14:42)
[2018-07-13] MEDS ORDERED: Nitroglycerin TAB 0.4 MG* 0.4 MG TAB SL ONE (14:42)
[2018-07-13 14:52] LABS: Anion Gap 8 mmol/L (2-11)
[2018-07-13 16:06] LABS: Urine Appearance Clear; Urine Bacteria Absent (Absent); Urine Bilirubin Negative (Negative); Urine Blood 2+ (Negative); Urine Color Yellow; Urine Glucose Negative (Negative); Urine Ketones Negative (Negative); Urine Nitrite Negative (Negative); Urine Protein Negative (Negative); Urine Red Blood Cell Trace(0-2/hpf) (Absent); Urine Specific Gravity 1.014 (1.010-1.030); Urine Urobilinogen Negative (Negative); Urine White Blood Cell Trace(0-5/hpf) (Absent)
[2018-07-13 16:35] LABS: Alcohol < 10 mg/dL (<10)
[2018-07-13] MEDS ORDERED: Ketorolac INJ* 30 MG/ML 1 ML VIAL ONE (16:38)
[2018-07-13] MEDS ORDERED: Ketorolac INJ* 30 MG/ML 1 ML VIAL IV PUSH ONE (16:39)
[2018-07-13 17:07] LABS: Potassium Redraw 4.2 mmol/L (3.5-5.0)
[2018-07-13 17:12] VITALS: BP 149/90
== END 2018-07-13 17:13 | disposition home or self-care (01) ==
LOC: ED 12:43
DX: R07.89 Other chest pain (principal); R11.0 Nausea; I20.9 Angina pectoris, unspecified; I10 Essential (primary) hypertension; Z86.711 Personal history of pulmonary embolism; Z79.01 Long term (current) use of anticoagulants; F41.9 Anxiety disorder, unspecified; F32.9 Major depressive disorder, single episode, unspecified; Z88.0 Allergy status to penicillin; Z88.8 Allergy status to other drugs, medicaments and biological substances; Z88.6 Allergy status to analgesic agent; Z91.030 Bee allergy status; F17.210 Nicotine dependence, cigarettes, uncomplicated
CPT/HCPCS: 36415; 71045; 80053; 80320; 81003; 81015; 82550; 82553; 83605; 83735; 83880; 84443; 84484; 85025; 87086; 93005; 96361; 96374; 96375; 99283; A9270-GY; G0480; J1885; J2405

== ENCOUNTER 2018-07-21 19:57 | Emergency (ER) | payer MEDICARE, MEDICAID ==
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
[2018-07-21] MEDS ORDERED: Morphine 10 MG/ML VIAL (1 ml) IM ONE (22:24)
[2018-07-22] MEDS ORDERED: HYDROmorphone INJ* 0.5 MG/0.5 ML SYRINGE IM ONE (00:25)
[2018-07-22 02:13] VITALS: BP 164/114
== END 2018-07-22 02:11 | disposition home or self-care (01) ==
LOC: ED 19:57
DX: S42.142A Displaced fracture of glenoid cavity of scapula, left shoulder, initial encounter for closed fracture (principal); W19.XXXA Unspecified fall, initial encounter; M19.90 Unspecified osteoarthritis, unspecified site; Y92.9 Unspecified place or not applicable; Z88.0 Allergy status to penicillin; Z88.6 Allergy status to analgesic agent; Z79.01 Long term (current) use of anticoagulants; I10 Essential (primary) hypertension; J44.9 Chronic obstructive pulmonary disease, unspecified; R51 Headache; F17.210 Nicotine dependence, cigarettes, uncomplicated
CPT/HCPCS: 96372; 99283; J1170; J2270

== ENCOUNTER → 2018-07-24 19:57 | Emergency (ER) | payer MEDICARE, MEDICAID ==
[~2018-07-24 19:57] MED LIST changes: -LORazepam INJ* 2 MG/ML 1 ML VIAL ONE; -Metoclopramide IV* 5 MG/ML 2 ML VIAL IV ONE; +Morphine 10 MG/ML VIAL (1 ml) IM ONE; -diPHENhydraMINE IV* 50 MG in NS 0.9% 50 ML* 50 ML IVPB ONE; -methylPREDNISolone 125 MG* 2 ML VIAL IV ONE
--- OUTSIDE RECORDS SUMMARY | 2018-07-24 20:45 | XMS REPORT | Continuity of Care Document ---
:1965 External Reference #:[id number] Author Name Cortney Mo Care Team Providers Name Role Phone [facility] Primary Care Physician Unavailable Payers Date Identification Numbers Payment Provider Subscriber Effective: 2003 Policy Number: [id number] Medicare Adriano Jones PayID: [id number] [address] [place] [address] Policy Number: [id number] Medicaid Adriano Jones Group Name: [id number] [address] PayID: [id number] [place] [address] Expires: 2012 Policy Number: [id number] Medicaid Adriano Jones Group Name: 1 1 [address] PayID: [id number] [place] [address] Advance Directives Description No Information Available Problems Date Description Provider Status Onset: 07/07/2014 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 Onset: 09/20/2014 Hyperlipidemia Filiberto Woodard M.D., [facility], Active [facility] Onset: 09/20/2014 Benign essential hypertension Filiberto Woodard M.D., [facility], Active [facility] Onset: 09/26/2016 H/O: pulmonary embolus Servando Colon M.D.,[facility] Note: 2010 Onset: 09/26/2016 Chronic obstructive lung [...] Onset: 09/20/2014 Chest pain Filiberto Woodard M.D., [facility], Inactive [facility] Inactive: 09/26/2016 Onset: 03/25/2014 Syncope Stew Wells M.D. Resolved Resolved: 09/26/2016 Family History Date Family Member(s) Observation Comments General Heart Disease General Hypertension General Cancer General Rheumatoid Arthritis Father Stroke Father due to Unknown Causes () Father Cancer Father Seizure Disorder Father Hypertension Father Diabetes Father Heart Disease Mother due to Murdered () First Son 25 First Daughter 30 Second Daughter 29 Third Daughter 17 First Brother due to [place] () Social History Type Date Description Comments Sex Unknown Marital Status Marital Status Lives With lives with a friend Occupation Unemployed Tobacco Use Start: Unknown Current Cigarette Smoker 1 Pack Daily ETOH Use Denies alcohol use Tobacco Use Start: Unknown Patient is a current smoker, smokes every day Recreational Drug Use 09/26/2016 Denies Drug Use Tobacco Use Start: Unknown Heavy tobacco smoker (more than 10 cigarettes/day) Smoking Status Reviewed: 07/24/18 Heavy tobacco smoker (more than 10 cigarettes/day) Exercise Type/Frequency Does not exercise Allergies, Adverse Reactions, Alerts Date Description Reaction Status Severity Comments 12/08/2008 Penicillins Anaphylaxis Active Severe 12/08/2008 Asa/Caff/Butal/Cod GI irritation Active 09/26/2016 Tegretol Anaphylaxis Active Severe 05/23/2018 Ativan Active He states he blacks out Medications Medication Date Status Form Strength Qnty SIG Indications Ordering Provider Oxycodone HCL 07/22 Active Tablets 5mg 30tab 1 tabs by Zaneb /2018 s mouth Yaseen, every 4-6 MD hours as needed Cyclobenzaprine 05/30 Active Tablets 5mg 90tab take 5mg M54.2 Best HCL /2018 s three Ordaz, MD times a day as needed. Oxycodone-Acetami 05/22 Active Tablets 5-325mg 90tab 1 by mouth G89.4 Best nophen s every MD Orlin three times a day as needed for pain Adderall 05/22 Active Tablets 20mg 30tab 1 by mouth s every day MD Orlin Amlodipine 05/22 Active Tablets 10mg 30tab take 1 tab I10 Best s each day. MD Orlin Xarelto 04/09 Active Tablets 15mg 1 by mouth every day Praveena Butler M.D.,[facility] Levetiracetam Active Tablets 750mg 1 twice a Unknown day by mouth Clonidine HCL Active Tablets 0.1mg 1 by mouth Unknown 0000 twice a day Metoprolol Active Tablets ER 50mg 1 by mouth Unknown Succinate ER 24HR every day Escitalopram Active Tablets 20mg 1 by mouth Unknown Oxalate every day Gabapentin Active Tablets 600mg 180ta 600mg Best bs three MD Orlin times a day and 1800 mg at at bedtime Morphine Sulfate Active Tablets ER 15mg Unknown ER Prednisone 05/30 Hx Tablets 20mg 14tab take 2 tab M54.2 s daily for MD Orlin - 7 days 06/18 Medrol 04/09 Hx Tablets 4mg 21tab take as s directed MD Orlin - per 06/18 dosepa instructio ns Doxycycline 10/03 Hx Capsules 100mg 20cap twice a [facility] s day by Praveena Butler, - mouth M.DMirlande,[facility] 10/03 Cefuroxime Axetil 10/03 Hx Tablets 500mg 20tab 1 by mouth s twice a Praveena Butler, - day for 10 M.DMirlande,[facility] Chantix Starting 10/03 Hx Tablets 0.5mg X 55tab as 11 & 1 mg s directed Praveena Butler, - X 42 M.D.,[facility] 04/08 Losartan 09/26 Hx Tablets 50mg 30tab 1 by mouth Magdi s every day Praveena Butler - Mirna,[facility] 04/09 Doxycycline 09/26 Hx Capsules 100mg 14cap twice a [facility] s day by D. [place], - mouth M.D.,FACP 10/03 Valium 09/20 Hx Tablets 5mg 2tabs take 1-2 tabs prior F - to mri Senia, 04/08 imaging MD test Medrol /16 Hx Tablets 4mg 21tab take as S43.52xA [...] Tablets 5-325mg 60tab 1 tab by S43.52xA [place] s mouth Pachikara - every 6 , [...] 1 qd Magdi bs Praveena Butler, - Mirna,[facility] 07/07 Code b /2014 Naproxen Sodium 12/08 Hx Tablets 550mg 180ta 1 po bid bs prn c, - Radomir, 03/22.D. Spiriva 12/08 Hx Capsules 18mcg 1mon 1 Johnnie Handdexalesancho inhalation c, - qam Radomir, 03/22 M.D. Advair Diskus 12/08 Hx Misc 250/50 2unit 1 puff bid s c, - Zevomir, 03/22.. /2013 Soma 12/08 Hx Tablets 250mg 90tab 1 po tid 493.00 s c, - Radomir, 03/22. Hydrocodone/Apap Hx Tablets 5-500mg 50tab 1 q [...] by mouth - every 04/14 night at /2016 bedtime Lisinopril Hx Tablets 10mg 30tab 1 [...] /0000 /Act elidia Butler, - daily as Mirna,[facility] 04/08 Vitamin B-12 Hx Tablets Sub 5000mcg daily Unknown /0000 - 05/21 Adderall Hx Tablets 20mg 1 by mouth Unknown /0000 every day - 05/21 Vitamin B-1 Hx Tablets 50mg 1 by mouth Unknown /0000 every day - 05/21 Prednisone Hx Tablets 20mg 1 tab Unknown /0000 daily - 04/29 Medications Administered in Office Medication Date Status Form Strength Qnty SIG Indications Ordering Provider Depomedrol Administered Injection Taiwo F 40MG 017 MD Senia Immunizations Description No Information Available Vital Signs Date Vital Result Comment 07/24/2018 8:26am Height 68 inches 5'8" Weight 214.00 lb BP Systolic 122 mmHg BP Diastolic 78 mmHg Pain Level 10 BMI (Body Mass Index) 32.5 kg/m2 07/22/2018 2:28pm Height 68 inches 5'8" Weight 214.00 lb Heart Rate 80 /min BP Systolic 130 mmHg BP Diastolic 84 mmHg Respiratory Rate 18 /min Pain Level 10 BMI (Body Mass Index) 32.5 kg/m2 07/10/2018 4:28pm Height 68 inches 5'8" Weight [...] Date Facility Test Result H/L Range Note Fibro 07/14/2018 [facility] FibroTest Score 0.58 Test-Actitest, [address] [place] [address] [place] [address] [phone] FibroTest Stage F3 FibroTest Interpretation advanced fibrosi <SEE NOTE> 1 ActiTest Score 0.66 ActiTest Grade A3 ActiTest Interpretation severe activity 2 FibroTest-ActiTest Comment See Comment 3 [employer] Serial Number [id number] Apolipoprotein A1, S 168 mg/dL >=120 Horfc-6-Nlxwkxrngmccc, S 235 mg/dL 100 - 280 Haptoglobin, S 118 mg/dL 30 - 200 Alanine Aminotransferase (Alt) 99 U/L Abnormal 7-55 Gamma Glutamyltransferase GGT 284 U/L Abnormal 8 - 61 Bilirubin, Total, S 0.9 mg/dL <=1.2 4 Laboratory 07/14/2018 [facility] Hepatitis B Nonreactive Nonreactive test finding [address] [place] [address] [place] [address] [phone] HIV 1/2 Ag/AB 07/14/2018 [facility] Hiv1/2 Ag/Ab Negative Negative 5 Screen,W/Refle [address] [place] [address] Screen,w/Refl [place] [address] ex,P [phone] Laboratory 07/13/2018 [facility] Potassium 4.2 mmol/L N 3.5- 5.0 test finding [address] [place] [address] [place] [address] [phone] Ast Redraw 60 U/L High 13-39 Laboratory test 07/13/2018 [facility] Troponin-I (TnI) 0.00 ng/ mL <0.04 [address] [place] [address] [phone] Potassium Redraw TNP mmol/L 3.5-5.0 Ast Redraw TNP U/L 13-39 CBC Auto Diff 07/13/2018 [facility] White Blood 8.6 10^3/uL N 3.5-10.[address] [place] [address] [place] [address] [phone] Red Blood Count 4.98 10^6/uL N 4.00-5.40 Hemoglobin 17.5 g/dL N 14.0-18.0 Hematocrit 50 % N 42-52 Mean Corpuscular Volume 101 fL High 80-94 Mean Corpuscular Hemoglobin 35 pg High 27-31 Mean Corpuscular HGB Conc 35 g/dL N 31-36 Red Cell Distribution Width 14 % N 10.5-15 Platelet Count 265 10^3/uL N 150-450 Mean Platelet Volume 7.7 fL N 7.4-10.4 Abs Neutrophils 5.9 10^3/uL N 1.5-7.7 Abs Lymphocytes 1.7 10^3/uL N 1.0-4.8 Abs Monocytes 0.7 10^3/uL N 0-0.8 Abs Eosinophils 0.2 10^3/uL N 0-0.6 Abs Basophils 0.1 10^3/uL N 0-0.2 Abs Nucleated RBC 0 10^3/uL Granulocyte % 68.9 % Lymphocyte % 20.2 % Monocyte % 8.0 % Eosinophil % 2.2 % Basophil % 0.7 % Nucleated Red Blood Cells % 0.2 Laboratory test 07/13/2018 [facility] Lactic Acid 1.8 mmol/L N 0.5-2.0 7 finding [address] [place] [address] [phone] B-Type Natriuretic Peptide BNP 22 pg/mL <=100 Comp Metabolic Panel 07/13/2018 [facility] Sodium 136 mmol/L N 135-145 [address] [place] [address] [phone] Chloride 105 mmol/L N 101-111 Co2 Carbon Dioxide 23 mmol/L N 22-32 Glucose 105 mg/dL High 70-100 Blood Urea Nitrogen 13 mg/dL N 6-24 Creatinine 0.98 mg/dL N 0.67-1.17 BUN/Creatinine Ratio 13.3 N 8-20 Calcium 9.5 mg/dL N 8.6-10.3 Total Protein 8.1 g/dL N 6.4-8.9 Albumin 4.4 g/dL N 3.2-5.2 Globulin 3.7 g/dL N 2-4 Albumin/Globulin Ratio 1.2 N 1-3 Total Bilirubin 0.60 mg/dL N 0.2-1.0 Alkaline Phosphatase 110 U/L High 34-104 Alt 96 U/L High 7-52 Egfr Non- 80.6 >60 Egfr 97.6 >60 8 Potassium TNP mmol/L 3.5-5.0 9 Anion Gap 8 mmol/L N 2-11 Ast TNP U/L 13-39 Laboratory test 07/13/2018 [facility] Magnesium 1.9 mg/dL N 1.9-2.[address] [place], [place] [address] [phone] Creatine Kinase(CK) 237 U/L High 10-223 Troponin-I (TnI) 0.00 ng/mL <0.04 10 CKMB 07/13/2018 [facility] CKMB ng/mL 5.4 ng/mL N 0.6-6.[address] [place] [address] [phone] Laboratory test 07/13/2018 [facility] TSH 1.14 mcIU/mL N 0.34- 5.[address] ([place] [address] Stim Horm) [phone] Urinalysis 07/13/2018 [facility] Urine Color Yellow Profile [address] [place] [address] [phone] Urine Appearance Clear Urine Specific [place] 1.014 N 1.010-1.030 Urine pH 5.0 N 5-9 Urine Urobilinogen Negative Negative Urine Ketones Negative Negative Urine Protein Negative Negative Urine Leukocytes Negative Negative Urine Blood 2+ Abnormal Negative Urine Nitrite Negative Negative Urine Bilirubin Negative Negative Urine Glucose Negative Negative Urine White Blood Cell Trace(0-5/hpf) Absent Urine Red Blood Cell Trace(0-2/hpf) Absent Urine Bacteria Absent Absent Urine Hyaline Casts Present Abnormal Absent Laboratory test 07/13/2018 [facility] Alcohol < 10 mg/dL N < [address] [place] [address] [phone] Urine Culture And 07/13/2018 [facility] Urine Culture SEE RESULT [address] [place] [address] [phone] Manual 05/21/2018 [facility] Immature 6 % N 0-[address] [place] [address] [phone] Neutrophil % 57 % Band % 2 % N 0-8 Lymphocytes % 22 % Monocytes % 10 % Eosinophils % 4 % Basophil % 1 % Metamyelocytes % 2 % N 0-2 Myelocytes % 2 % High 0-1 Macrocytosis 1+ Comp Metabolic Panel 05/21/2018 [facility] Sodium 141 mmol/L N 135-[address] [place] [address] [phone] Chloride 105 mmol/L N 101-111 Co2 Carbon [...] Egfr Non- 73.2 >60 Egfr 88.5 >60 12 Potassium 3.8 mmol/L N 3.5-5.0 Anion Gap 7 mmol/L N 2-11 Ast 91 U/L High 13-39 Laboratory test 05/21/2018 [facility] Magnesium 2.0 mg/dL N 1.9-2.[address] [place] [address] [phone] CBC Auto Diff 05/21/2018 [facility] White Blood 9.5 N 3.5- 10.[address] Count 10^3/[place] [address] [phone] Red Blood Count 4.55 10^6/uL N 4.00-5.40 [...] 10^3/uL Nucleated Red Blood Cells % 0.1 Laboratory test 05/14/2018 [facility] Troponin-I 0.00 ng/mL < 0.04 [address] (TnI) [place] [address] [phone] CBC Auto Diff 05/14/2018 [facility] White Blood 6.6 N 3.5- 10.[address] Count 10^3/[place] [address] [phone] Red Blood Count 4.83 10^6/uL N 4.00-5.40 [...] Red Blood Cells % 0.1 Inr/Protime 05/14/2018 [facility] Inr 0.89 N 0.77-1.[address] [place], [place] [address] [phone] Laboratory test 05/14/2018 [facility] B-Type 11 pg/mL <=[address] [place] [address] Peptide BNP [phone] Lactic Acid 1.2 mmol/L N 0.5-2.0 14 Comp Metabolic Panel 05/14/2018 [facility] Sodium 139 mmol/L N 135-[address] [place] [address] [phone] Potassium 4.2 mmol/L N 3.5-5.0 Chloride 108 [...] Egfr Non- 80.0 >60 Egfr 96.8 >60 15 Laboratory test 05/14/2018 [facility] Troponin-I (TnI) 0.00 ng/ mL <0.[address] [place] [address] [phone] Alcohol < 10 mg/dL N <10 Amylase 35 U/L N 29-103 Lipase 24 U/L N 11.0-82.0 Hepatitis C Antibody 05/02/2018 [facility] HCV Index > 11.[address] [place] [address] [phone] Hepatitis C Antibody High Reactive Abnormal Nonreactive 17 Laboratory 05/02/2018 [facility] Hepatitis C [id number] Abnormal Undetected [address] Rna Quant IU/[place] [address] [phone] Hepatitis C Genotype 3 Abnormal Undetected 19 Liver Function 05/02/2018 [facility] Total Protein 7.2 g/dL N 6.4-8.[address] [place] [address] [phone] Albumin 4.1 g/dL N 3.2-5.2 Globulin 3.1 g/dL N 2-4 Albumin/Globulin Ratio 1.3 N 1-3 Total Bilirubin 0.50 mg/dL N 0.2-1.0 Direct Bilirubin 0.10 mg/dL N 0.03-0.18 Indirect Bilirubin 0.4 mg/dL N 0.3-1.0 Alkaline Phosphatase 79 U/L N 34-104 Alt 101 U/L High 7-52 Ast 66 U/L High 13-39 Laboratory test finding 01/10/2017 [facility] Lipase 11 U/L N 11.0-82.[address] [place] [address] [phone] Troponin-I (TnI) 0.00 ng/mL N <0.04 CBC Auto Diff 01/10/2017 [facility] White Blood 8.4 10^3/uL N 3.5-10.[address] [place] [address] [phone] Red Blood Count 4.50 10^6/uL N 4.0-5.4 [...] % 0.1 N Comp Metabolic Panel 01/10/2017 [facility] Sodium 137 mmol/L N 133-[address] [place] [address] [phone] Potassium 4.1 mmol/L N 3.5-5.0 Chloride 107 [...] 88.6 N >60 Egfr 113.9 N >60 20 Laboratory 01/10/2017 [facility] Partial 38.5 High 26.0-36.3 test finding [address] [place] [address] PTT [phone] Inr/Protime 01/10/2017 [facility] Inr 1.01 N 0.89-1.[address] [place] [address] [phone] Urine Drug 12/25/2016 [facility] Amphetamine Ur None N None Detect SCR ED & Pain [address] [place] [address] [phone] Barbiturates Urine Screen Presumptive Posi <SEE NOTE> Abnormal None Detect 21 Benzodiazepine Urine Screen None Detected N None Detect Urine Cannabinoids Screen None Detected N None Detect Urine Cocaine Screen None Detected N None Detect Urine Opiates Screen None Detected N None Detect Urine Phencyclidine Screen None Detected N None Detect 22 Laboratory test 12/25/2016 [facility] Troponin-I 0.00 ng/mL N <0.04 [address] (TnI) [place] [address] [phone] CBC Auto Diff 10/03/2016 [facility] White Blood 7.3 N 3.5- 10.[address] Count 10^3/[place] [address] [phone] Red Blood Count 5.25 10^6/uL N 4.0-5.4 [...] % 0.3 N Basic Metabolic Panel 10/03/2016 [facility] Sodium 138 mmol/L N 133-[address] [place] [address] [phone] Potassium 4.7 mmol/L N 3.5-5.0 Chloride 104 mmol/L N 101-111 Co2 Carbon Dioxide 32 mmol/L N 22-32 Anion Gap 2 mmol/L N 2-11 Glucose 82 mg/dL N 70-100 Blood Urea Nitrogen 9 mg/dL N 6-24 Creatinine 1.13 mg/dL N 0.67-1.17 BUN/Creatinine Ratio 8.0 N 8-20 Calcium 9.6 mg/dL N 8.6-10.3 Egfr Non- 69.0 N >60 Egfr 88.7 N >60 24 CKMB 10/03/2016 [facility] CKMB ng/mL 2.8 ng/mL N 0.6-6.[address] [place] [address] [phone] Laboratory test 10/03/2016 [facility] Creatine 107 U/L N 10- [address] Kinase(CK) [place] [address] [phone] Troponin-I (TnI) 0.00 ng/mL N <0.04 25 Comp Metabolic Panel 10/03/2016 [facility] Sodium 138 mmol/L N 133-[address] [place] [address] [phone] Potassium 4.5 mmol/L N 3.5-5.0 Chloride 106 [...] 74.3 N >60 Egfr 95.5 N >60 26 Laboratory test 10/03/2016 [facility] Lactic Acid 1.2 mmol/L N 0.5-2.0 [address] [place] [address] [phone] CBC Auto Diff 10/03/2016 [facility] White Blood 8.0 10^3/uL N 3.5-10.[address] [place] [address] [phone] Red Blood Count 5.00 10^6/uL N 4.0-5.4 [...] Red Blood Cells % 0.2 N 1 advanced fibrosis FibroTest estimates liver fibrosis FibroTest Score Stage Interpretation 0.00-0.21 F0 no fibrosis 0.21-0.27 F0-F1 no fibrosis 0.27-0.31 F1 minimal fibrosis 0.31-0.48 F1-F2 minimal fibrosis 0.48-0.58 F2 moderate fibrosis 0.58-0.72 F3 advanced fibrosis 0.72-0.74 F3-F4 advanced fibrosis 0.74-1.00 F4 severe fibrosis (Cirrhosis) 2 ActiTest estimates necroinflammatory activity ActiTest Score Grade Interpretation 0.00-0.17 A0 no activity 0.17-0.29 A0-A1 no activity 0.29-0.36 A1 minimal activity 0.36-0.52 A1-A2 minimal activity 0.52-0.60 A2 significant activity 0.60-0.62 A2-A3 significant activity 0.62-1.00 A3 severe activity 3 The reliability of results is dependent on compliance with the preanalytical and analytical conditions recommended by [employer]. The tests have to be deferred for: acute hemolysis, acute hepatitis, acute inflammation, extra hepatic cholestasis. The advice of a specialist should be sought for interpretation in chronic hemolysis and Gilbert's syndrome. The test interpretation is not validated in liver transplant patients. Isolated extreme values of one of the components should lead to caution in interpreting the results. In case of discordance between a biopsy result and a test, it is recommended to seek advice of a specialist. The causes of these discordances could be due to a flaw of the test or to a flaw in the biopsy: i.e. a liver biopsy has a 33% variability rate for one fibrosis stage. FibroTest is interpretable for chronic hepatitis B and C, alcoholic and non alcoholic steatosis. ActiTest is interpretable for chronic hepatitis B and C. ADDITIONAL INFORMATION This test was developed and its performance characteristics determined by [facility] in a manner consistent with CLIA requirements. This test has not been cleared or approved by the U.S. Food and Drug Administration. 4 Test Performed by: [facility] - [facility] [address] [id number] 5 Negative result does not rule out HIV infection. If exposure to HIV infection occurred <14 days ago, contact the laboratory to request addition of HIV-1 RNA detection / quantification test (HIVQN). Test Performed by: [facility] - [facility] [address] [place] [address] 6 Troponin-I testing on Plasma Separator Tubes (PST) has a known false positive rate of 0.20-0.40%. All positive troponins reflex immediate secondary confirmatory testing. 7 [facility] Severe Sepsis and Septic Shock Management Bundle Measure requires all lactic acids initially measuring >2.0 mmol/L be repeated. 8 Because ethnic data is not always [...] 5 Kidney failure <15 (or dialysis) 9 Specimen Hemolyzed. Result may not be valid. Unable to report test result due to hemolysis. 10 Troponin-I testing on Plasma Separator Tubes (PST) has a known false positive rate of 0.20-0.40%. All positive troponins reflex immediate secondary confirmatory testing. 11 SEE RESULT BELOW Name: ADRIANO JONES : [address]: Saw Figueredo MD Acct: [id number] Unit: [id number] AGE: 53 Location: ED Re07/13/18 SEX: M Status: DEP ER SPEC: [id number] JANEL: [address]: Saw Figueredo MD REQ: [id number] RECD: 07/13/18 STATUS: [place] [facility] DR: Norma Vasquez DO _ SOURCE: URINE [facility]: ORDERED: Urine Culture Procedure Result Reported Site Urine Culture Final 07/14/18- 1602 ML No Growth (<1,000 CFU/mL) * ML - Main Lab . END OF REPORT DEPARTMENT OF PATHOLOGY, [address] [place] [address] Romario Meier M.D. Director [facility] # [id number] 12 Because ethnic data is not always [...] 5 Kidney failure <15 (or dialysis) 13 Troponin-I testing on Plasma Separator Tubes (PST) has a known false positive rate of 0.20-0.40%. All positive troponins reflex immediate secondary confirmatory testing. 14 [facility] Severe Sepsis and Septic Shock Management Bundle Measure requires all lactic acids initially measuring >2.0 mmol/L be repeated. 15 Because ethnic data is not always readily [...] 15-29 5 Kidney failure <15 (or dialysis) 16 Troponin-I testing on Plasma Separator Tubes (PST) has a known false positive rate of 0.20-0.40%. All positive troponins reflex immediate secondary confirmatory testing. 17 High reactive sample are considered positive for Hepatitis C 18 Result in log IU/mL is 6.75. ADDITIONAL INFORMATION The quantification range of this assay is 15 to 100,000,000 IU/mL (1.18 log to 8.00 log IU/mL). Testing was performed using the le HCV test ([employer] with the le 6800 System. Test Performed by: [facility] - [address] [address] 19 ADDITIONAL INFORMATION This test was performed using the Rojas RealTime HCV Genotype II assay ([employer] [place], [place]). Test Performed by: [facility] - [address] [address] 20 Because ethnic data is not always readily [...] 15-29 5 Kidney failure <15 (or dialysis) 21 Presumptive Positive Presumptive positive results are unconfirmed. 22 The urine specimen was tested at the listed cutoffs: Drug class test level (ng/mL) Amphetamines 500 Barbiturates 200 Benzodiazepine metabolites 200 Cocaine metabolites 150 Cannabinoids 50 Opiates 300 Pcp 25 Specimen was received without chain of custody. Results should be used for medical purposes only. 23 Comment: please draw at 1400 24 Because ethnic data is not always readily [...] 15-29 5 Kidney failure <15 (or dialysis) 25 99th percentile=0.04 ng/mL Troponin results at [facility] and [facility] are not interchangeable. 26 Because ethnic data is not always readily [...] 15-29 5 Kidney failure <15 (or dialysis) 27 [facility] Severe Sepsis and Septic Shock Management Bundle Measure requires all lactic acids initially measuring >2.0 mmol/L be repeated. Procedures Date Code Description Status 05/18/2018 24907 EKG, Interpretation Only Completed 05/15/2018 06733 EEG Recording Awake & Asleep Completed 05/15/2018 97591 Treadmill Interp/Report Only Completed 05/15/2018 53238 Stress Test Supervsn W/Out I/R Completed 05/15/2018 71796 EKG, Interpretation Only Completed 05/14/2018 80643 EKG, Interpretation Only Completed 04/30/2018 92090 EKG, Interpretation Only Completed 03/18/2018 57879 EKG, Interpretation Only Completed 03/14/2018 02697 EEG Recording In Coma Or Sleep Only Completed 09/12/2016 58261 Inject/Drain Joint/Bursa Intermediate W/O US Completed 09/20/2014 42263 EKG Tracing & Interpretation Completed Encounters Type Date Location Provider Dx Diagnosis Office Visit 07/10/2018 [facility] Adriano Grissom B18.2 Chronic viral 4:20p Infectious Diseases Mirna Covarrubias hepatitis C K74.0 Hepatic fibrosis Office Visit 06/18/2018 1:40p [facility] Ordaz, G90.09 Other idiopathic [facility] peripheral autonomic neuropathy M54.2 Cervicalgia B18.2 Chronic viral hepatitis C I10 Essential (primary) hypertension Office Visit 06/16/2018 2:30p Neurosurgery Vassilios M54.2 Cervicalgia [facility] MD Mag M47.892 Other spondylosis, cervical region Office Visit 05/30/2018 1:00p [facility] Best Ordaz MD M54.2 Cervicalgia [facility]89.4 Chronic pain syndrome B18.2 Chronic viral hepatitis C J44.9 Chronic obstructive pulmonary disease, unspecified I10 Essential (primary) hypertension Z86.711 Personal history of pulmonary embolism Office Visit 05/22/2018 2:40p [facility] Best Ordaz MD M54.2 Cervicalgia [facility] G89.4 Chronic pain syndrome R07.9 Chest pain, unspecified B18.2 Chronic viral hepatitis C J44.9 Chronic obstructive pulmonary disease, unspecified I10 Essential (primary) hypertension Z86.711 Personal history of pulmonary embolism Office Visit 05/19/2018 10:14a [facility] Anne R07.9 Chest pain, Assoc,pc Alexandre Justin, unspecified Hospitalists PLASTER TENDER F10.239 Alcohol dependence with withdrawal, unspecified G40.909 Epilepsy, unsp, not intractable, without status epilepticus J44.9 Chronic obstructive pulmonary disease, unspecified Office Visit 05/18/2018 [facility] Magdayu Cormier, R07.9 Chest pain, 10:14a Assoc,pc Mirna unspecified Hospitalists J44.9 Chronic obstructive pulmonary disease, unspecified E72.20 Disorder of urea cycle metabolism, unspecified R41.0 Disorientation, unspecified M54.5 Low back pain F10.10 Alcohol abuse, uncomplicated Z86.711 Personal history of pulmonary embolism Office Visit 05/17/2018 4:31p [facility] Feliz S. R07.89 Other chest [facility] Mayen, DO FACC pain Z72.0 Tobacco use F10.230 Alcohol dependence with withdrawal, uncomplicated Office Visit 05/17/2018 [facility] Magda Cormier, R07.9 Chest pain, 10:14a Assoc,leidy Bradley unspecified Hospitalists J44.9 Chronic obstructive pulmonary disease, unspecified E72.20 Disorder of urea cycle metabolism, unspecified R41.0 Disorientation, unspecified M54.5 Low back pain F10.10 Alcohol abuse, uncomplicated Z86.711 Personal history of pulmonary embolism Office Visit 05/16/2018 [facility] R41.0 Disorientation, 10:14a Assoc,pc Senner, DO unspecified Hospitalists R07.9 Chest pain, unspecified M54.5 Low back pain F10.10 Alcohol abuse, uncomplicated Z86.711 Personal history of pulmonary embolism Office Visit 05/15/2018 10:13a [facility] Norma R07.9 Chest pain, Assoc,pc Senner, DO unspecified Hospitalists M54.5 Low back pain F10.10 Alcohol abuse, uncomplicated Z86.711 Personal history of pulmonary embolism Office Visit 05/14/2018 10:13a [facility] R07.9 Chest pain, Assoc,pc Senner, DO unspecified Hospitalists F10.239 Alcohol dependence with withdrawal, unspecified J44.9 Chronic obstructive pulmonary disease, unspecified G89.4 Chronic pain syndrome B18.2 Chronic viral hepatitis C Office Visit 05/02/2018 11:40a Care Tory Green B18.2 Chronic viral [facility] Pedro, DO hepatitis C R22.32 Localized swelling, mass and lump, left upper limb Office Visit 04/30/2018 1:40p Care Tory Green R07.9 Chest pain, [facility] Pedro DO unspecified F10.14 Alcohol abuse with alcohol-induced mood disorder M50.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, unsp cervical region B18.2 Chronic viral hepatitis C Office Visit 04/09/2018 Care Tory Ordaz, F10.14 Alcohol abuse with 9:20a [facility] alcohol-induced mood disorder I10 Essential (primary) hypertension F17.210 Nicotine dependence, cigarettes, uncomplicated J44.9 Chronic obstructive pulmonary disease, unspecified M54.2 Cervicalgia Z86.711 Personal history of pulmonary embolism F33.9 Major depressive disorder, recurrent, unspecified [facility] F10.239 Alcohol Assoc,pc MD dependence with [...] cigarettes, uncomplicated Office Visit 03/17/2018 12:07p Intensivists Kaylye White, F10.239 Alcohol dependence MD with withdrawal, [...] 12:14p [facility]ens[facility] Henry Diamond, F10.239 Alcohol dependence with withdrawal, unspecified J69.0 Pneumonitis due to inhalation of food and vomit J96.90 Respiratory failure, unsp, unsp w hypoxia or hypercapnia Office Visit 03/13/2018 [facility] Nithin Dorantes J69.0 Pneumonitis due 12:14p Assoc,leidy Winkler MD to inhalation of Hospitalists food and vomit J44.9 Chronic obstructive pulmonary disease, unspecified F10.10 Alcohol abuse, uncomplicated M54.5 Low back pain I10 Essential (primary) hypertension Z86.711 Personal history of pulmonary embolism Office Visit 03/12/2018 [facility] Lottie F10.10 Alcohol abuse, 12:14p Assoc,leidy Munguia NP uncomplicated Hospitalists 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 with radiculopathy, cervical region Office Visit 09/26/2016 [facility] Magdi Grissom M47.22 Other spondylosis [...] encounter M54.2 Cervicalgia Office Visit 09/20/2014 1:40p [facility] Filiberto Woodard, 272.4 Hyperlipidemia Other Cardiology [facility], FACC, Unspec Electrical Engineering Drafting Officer AT [facility] FSCAI 401.1 Hypertension Benign 786.50 Pain Chest Unspec Office Visit 07/07/2014 11:30a Neurosurgery Stew Odell 721.1 Spondylosis [facility] AT Mirna Cervical W/ Cody Myelopathy Office Visit 03/25/2014 9:00a [place]/Yordy Matthews 780.2 Syncope & Neurologic Serv [facility] Wells Collapse [facility] Office Visit 02/22/2009 11:20a DO Not Use Electrical Engineering Drafting Officer AT [place] 565.0 Anal Fissure Kuldip Jaramillo M.D. 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 Unspecified 314.01 Attention Deficit Disorder W/ Hyperactivity 723.9 Cervical Region Musculoskeletal Disorders & Symptoms Unspec 724.2 Lumbago Plan of Treatment Future Appointment(s):07/30/2018 2:00 pm - Taiwo Conn MD at [facility]08/07/2018 4:20 pm - Adriano Covarrubias M.D. at [facility]32/19/2019 3:00 pm - Stew Wells M.D. at [facility]
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
[2018-07-24 22:20] VITALS: BP 135/99
== END | disposition home or self-care (01) ==
LOC: ED 19:57
DX: S42.92XA Fracture of left shoulder girdle, part unspecified, initial encounter for closed fracture (principal); M25.512 Pain in left shoulder; W01.0XXA Fall on same level from slipping, tripping and stumbling without subsequent striking against object, initial encounter; Y92.9 Unspecified place or not applicable; Z88.0 Allergy status to penicillin; Z88.6 Allergy status to analgesic agent; Z79.01 Long term (current) use of anticoagulants; F17.210 Nicotine dependence, cigarettes, uncomplicated
CPT/HCPCS: 96372; 99282; J2270

== ENCOUNTER 2018-08-09 20:19 | Emergency (ER) | payer MEDICARE, MEDICAID ==
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
[2018-08-09 22:40] VITALS: BP 152/100
== END 2018-08-09 22:00 | disposition home or self-care (01) ==
LOC: ED 20:19
DX: M25.512 Pain in left shoulder (principal); S42.14 Fracture of glenoid cavity of scapula; X58.XXXD Exposure to other specified factors, subsequent encounter; G89.29 Other chronic pain; I20.9 Angina pectoris, unspecified; I10 Essential (primary) hypertension; J44.9 Chronic obstructive pulmonary disease, unspecified; Z86.711 Personal history of pulmonary embolism; Z79.01 Long term (current) use of anticoagulants; F41.9 Anxiety disorder, unspecified; F32.9 Major depressive disorder, single episode, unspecified; Z88.0 Allergy status to penicillin; Z88.8 Allergy status to other drugs, medicaments and biological substances; Z88.6 Allergy status to analgesic agent; Z91.030 Bee allergy status; F17.210 Nicotine dependence, cigarettes, uncomplicated
CPT/HCPCS: 99281

== ENCOUNTER 2018-10-01 17:39 | Emergency (ER) | payer MEDICARE, MEDICAID ==
--- OUTSIDE RECORDS SUMMARY | 2018-10-01 18:05 | XMS REPORT | Continuity of Care Document ---
:1965 External Reference #:[id number] Author Name Toma Zhao Care Team Providers Name Role Phone [facility] Primary Care Physician Unavailable Payers Date Identification Numbers Payment Provider Subscriber Effective: 2003 Policy Number: [id number] Medicare Adriano Jones PayID: [id number] [address] [place] [address] Policy Number: [id number] Medicaid Adriano Jones Group Name: [id number] [address] PayID: [id number] [place] [address] Expires: 2012 Policy Number: [id number] Medicaid Adriano Jones Group Name: 1 [address] PayID: [id number] [place] [address] Problems Active Problems Provider Date Cervical spondylosis with myelopathy Stew Odell M.D. Onset: 07/07/2014 Hyperlipidemia Filiberto Woodard M.D., [facility] Onset: 09/20/2014 Benign essential hypertension Filiberto Woodard M.D., [facility] Onset: 2014 H/O: pulmonary embolus Magdi Butler M.D.,[facility] Onset: 09/26/2016 Note: 2010 Chronic obstructive lung disease Magdi Butler M.D.,[facility] Onset: 2016 Tobacco user Best Ordaz MD Onset: 04/09/2018 Neck pain Best Ordaz MD Onset: 04/09/2018 Alcohol abuse with alcohol-induced Best Ordaz MD Onset: 04/09/2018 mood disorder Recurrent major depressive episodes Best Ordaz MD Onset: 04/09/2018 Chest pain Best Ordaz MD Onset: 05/22/2018 Chronic pain syndrome Best Ordaz MD Onset: 05/22/2018 Chronic hepatitis C Best Ordaz MD Onset: 05/22/2018 Other idiopathic peripheral autonomic Best Ordaz MD Onset: 06/18/2018 neuropathy Shoulder joint pain Best Ordaz MD Onset: 07/28/2018 Displaced fracture of glenoid cavity Best Ordaz MD Onset: 07/28/2018 of scapula, left shoulder, subsequent encounter for fracture with routine healing Preoperative cardiovascular Best Ordaz MD Onset: 07/28/2018 examination Inactive Problems Chest pain Filiberto Woodard M.D., [facility] Onset: 09/20/2014 Inactive: 09/26/2016 Resolved Problems Syncope Stew Wells M.D. Onset: 03/25/2014 Resolved: 09/26/2016 Family History Date Family Member(s) Observation Comments General Heart Disease General Hypertension General Cancer General Rheumatoid Arthritis Father Stroke Father due to Unknown Causes () Father Cancer Father Seizure Disorder Father Hypertension Father Diabetes Father Heart Disease Mother due to Murdered () First Son 25 First Daughter 30 Second Daughter 29 Third Daughter 17 First Brother due to [place] () Social History Type Date Description Comments [...] (more than 10 cigarettes/day) Smoking Status Reviewed: 09/25/18 Heavy tobacco smoker (more than 10 cigarettes/day) Exercise Type/Frequency Does not exercise Allergies, Adverse Reactions, Alerts Active Allergies Reaction Severity Comments Date Penicillins Anaphylaxis Severe 12/08/2008 Asa/Caff/Butal/Cod GI irritation 12/08/2008 Tegretol Anaphylaxis Severe 09/26/2016 Ativan He states he blacks out 05/23/2018 Medications Active Medications SIG Qnty Indications Ordering Date Provider Disulfiram take 2 tabs at 60tabs F10.14 Norma Vasquez, 09/25/2018 250mg Tablets night for two DO weeks, and then 2 tab at night Oxycodone HCL 1 tab every 6 20tabs S42.142D Norma Vasquez, 09/25/2018 5mg Tablets hours as needed DO Oxycodone HCL 1 tabs by mouth 60tabs Best Ordaz MD 07/22/2018 5mg Tablets every 4-6 hours as needed Cyclobenzaprine HCL take 5mg three 90tabs M54.2 Normaharish Vasquez, 05/30/2018 5mg times a day as DO Tablets needed. Adderall 1 by mouth 30tabs Norma Vasquez, 05/22/2018 20mg Tablets every day DO Amlodipine Besylate take 1 tab each 30tabs I10 Norma Vasquez, 05/22/2018 10mg day. DO Tablets Xarelto 1 by mouth 30tabs Norma Vasquez, 04/09/2018 15mg Tablets every day DO Levetiracetam 1 twice a day 60tabs Norma Vasquez, 750mg Tablets by mouth DO Clonidine HCL 1 by mouth 60tabs Norma Vasquez, 0.1mg Tablets twice a day DO Metoprolol Succinate ER 1 by mouth 30tabs Norma Vasquez, every day DO 50mg Tablets ER 24HR Escitalopram Oxalate 1 by mouth 30tabs Norma Vasquez, 20mg every day DO Tablets Gabapentin 600mg three 180tabs Norma [facility], 600mg Tablets times a day and DO 1800 mg at at bedtime History Medications Prednisone take 2 tab daily 14tabs M54.2 Best Ordaz MD 05/30/2018 - 20mg Tablets for 7 days 06/18/2018 Oxycodone-Acetaminophen 1 by mouth every 90tabs G89.4 Norma 05/22/2018 - three times a day SennerDO 09/25/2018 5-325mg Tablets as needed for pain Medrol take as directed 21tabs Best Ordaz MD 04/09/2018 - 4mg Tablets per dosepak 06/18/2018 instructions Chantix Starting Month as directed 55tabs Magdi Grissom 10/03/2016 - Maximiliano Carrie, 04/08/2018 0.5mg X 11 & 1 mg X 42 M.D.,FACP Tablets Cefuroxime Axetil 1 by mouth twice 20tabs Magdi Grissom 10/03/2016 - 500mg a day for 10 days [place], 10/13/2016 Tablets Mirna,FACP Doxycycline Hyclate twice a day by 20caps Magdi Grissom 10/03/2016 - 100mg mouth [place], 10/03/2016 Capsules Mirna,FACP Losartan Potassium 1 by mouth every 30tabs Magdi Grissom 09/26/2016 - 50mg day [place], 04/09/2018 Tablets Mirna,FACP Doxycycline Hyclate twice a day by 14caps Magdi Grissom 09/26/2016 - 100mg mouth [place], 10/03/2016 Capsules Mirna,FACP Valium take 1-2 tabs 2tabs Taiwo Cunningham 09/20/2016 - 5mg Tablets prior to mri MD Senia 04/08/2018 imaging test Medrol take as directed 21tabs S43.52xA Taiwo Cunningham 09/18/2016 - 4mg Tablets per shefali Conn MD 09/26/2016 instructions Percocet 1 tab by mouth 30tabs Taiwo Cunningham 09/18/2016 - 5-325mg Tablets every 6 hours as MD Senia 09/26/2016 needed Medrol take as directed 21tabs S43.52xA Taiwo 09/18/2016 - 4mg Tablets per shefali Conn MD 09/26/2016 instructions Percocet 1 tab by mouth 60tabs S43.52xA Kristopher 09/18/2016 - 5-325mg Tablets every 6 hours as Kymberly 04/08/2018 needed Mirna Pepto-Bismol 1 table spoon po 3units 565.0 Dewayne, 02/22/2009 - 524mg/30ML tid Mirna Jaramillo 03/22/2014 Suspension Percocet 1 po q 6 hours as 120tabs 724.2 Dewayne, 01/11/2009 - 5-325mg Tablets needed for pain Mirna Jaramillo 03/22/2014 Soma 1 po tid 90tabs 493.00 Dewayne, 12/08/2008 - 250mg Tablets Mirna Jaramillo 03/22/2014 Advair Diskus 1 puff bid 2units Dewayne, 12/08/2008 - 250/50 Misc Mirna Jaramillo 03/22/2014 Spiriva Handihaler 1 inhalation qam 1mon Dewayne, 12/08/2008 - 18mcg Mirna Jaramillo 03/22/2014 Capsules Naproxen Sodium 1 po bid prn 180tabs Dewayne, 12/08/2008 - 550mg Tablets Mirna Jaramillo 03/22/2014 Adderall 1 qd 120tabs Magdi Grissom 12/08/2008 - 20mg Tablets Carrie, 07/07/2014 Code b Mirna,FACP Fentanyltransdermal 1 patch q 3 days 1unignacia Dewayne, 12/08/2008 - 25mcg/HR Mirna Jaramillo 03/22/2014 Patches 72 Adderall 1 tab by mouth Unknown - 30mg Tablets once a day 04/14/2017 Flovent HFA 2 puffs twice Unknown - Aerosol daily for 10 days 04/08/2018 Oxycodone HCL 1 by mouth six Unknown - 5mg Tablets times a day 04/14/2017 Losartan 1 by mouth every Unknown - Potassium/Hydrochlorothi day 04/14/2017 azide 50-12.5mg Tablets Capsaicin apply topically Unknown - 0.1% Cream as needed pain 09/26/2016 Lidocaine apply patch up to Unknown - 5% Patches 12 hours once a 09/26/2016 day. Anaspaz Unknown - 0.125mg Tablets 09/26/2016 Dispers Folic Acid take one Unknown - 1mg Tablets capsule/tablet 09/26/2016 daily by mouth Combivent Respimat 1 puffs 4 times 4gm Magdi Grissom - daily as needed Carrie, 04/08/2018 20-100mcg/Act Aerosol MNgoc,FACP Vitamin B-12 daily Unknown - 5000mcg Tablets 05/21/2018 Sub Adderall 1 by mouth every Unknown - 20mg Tablets day 05/21/2018 Vitamin B-1 1 by mouth every Unknown - 50mg Tablets day 05/21/2018 Prednisone 1 tab daily Unknown - 20mg Tablets 04/29/2018 Morphine Sulfate ER Unknown - 15mg 07/25/2018 Tablets ER Horizant 1 by mouth bid 30tabs Unknown - 600mg Tablets ER 07/07/2014 Tizanidine HCL 1 to 2 po q 6 Unknown - 4mg Tablets hours as needed 07/07/2014 Meclizine HCL 1 po q 6 hours as 60tabs Unknown - 25mg Tablets needed for 03/24/2014 dizziness.. Carbamazepine ER 1 by mouth two 45caps Unknown - 100mg Caps times a day 03/24/2014 ER 12HR Xarelto 1 by mouth every 90tabs Magdi Grissom - 20mg Tablets day [place], 04/09/2018 Mirna,SILVANA Flovent HFA 2 puffs twice 12gm Unknown - 110mcg/Act daily 03/24/2014 Aerosol Combivent Respimat 1 puffs 4-6 times 1units Unknown - daily as needed 03/24/2014 20-100mcg/Act Aerosol Prochlorperazine Maleate 1 by mouth every 20tabs Unknown - 5mg 6 hours as needed 03/24/2014 Tablets nausea Omeprazole 1 by mouth every Unknown - 40mg Capsules DR day 04/09/2018 Lisinopril 1 by mouth every 30tabs Unknown - 10mg Tablets day 09/19/2014 Pravachol 1 tablet by mouth 90tabs Unknown - 40mg Tablets every night at 04/14/2017 bedtime Escitalopram Oxalate 1 by mouth every 30tabs Unknown - 20mg day 04/14/2017 Tablets Zofran 1 every 6 hours 60tabs Unknown - 4mg Tablets as needed nausea 03/24/2014 Hydrocodone/Apap 1 q 4 hours prn 50tabs Unknown - 5-500mg pain 03/22/2014 Tablets Medications Administered in Office Medication SIG Qnty Indications Ordering Provider Date Depomedrol 40MG Taiwo Conn MD 09/12/2016 Injection Vital Signs Date Vital Result Comment 09/25/2018 3:28pm Weight 208.00 lb Heart Rate 80 /min BP Systolic 130 mmHg BP Diastolic 88 mmHg Respiratory Rate 18 /min Body Temperature 98.5 F Pain Level 8 O2 % BldC Oximetry 98 % 07/28/2018 10:27am Weight 212.00 lb Heart Rate 80 /min BP Systolic 154 mmHg BP Diastolic 90 mmHg Respiratory Rate 18 /min Body Temperature 98.4 F Pain Level 10 07/24/2018 8:26am Height 68 inches 5'8" Weight [...] Date Facility Test Result H/L Range Note Drug Abuse 07/28/2018 [facility] Urine Amphetamine Negative ng/ mL 1 [address] [place] [address] [phone] Urine Barbiturates Negative ng/mL 2 Urine Benzodiazepines Negative ng/mL 3 Urine Cocaine Negative ng/mL 4 Urine Phencyclidine Negative ng/mL Cutoff: 25 Urine Tetrahydrocannabinol Negative ng/mL Cutoff: 50 5 Creatinine, Urine 133.2 mg/dL Specific [place] 1.015 pH 6.0 Oxidants Negative 6 Adulterants Comment Normal Codeine, Ur Not Detected ng/mL Cutoff: 25 7 Ljoqclc-5-tyna-glucuronide, Ur Not Detected ng/mL 8 Morphine, Ur Not Detected ng/mL Cutoff: 25 9 Gvtxggty-3-pnge-glucuronide, U Not Detected ng/mL 10 6-monoacetylmorphine, Ur Not Detected ng/mL Cutoff: 25 11 Hydrocodone, Ur Not Detected ng/mL Cutoff: 25 12 Norhydrocodone, Ur Not Detected ng/mL Cutoff: 25 13 Dihydrocodeine, Ur Not Detected ng/mL Cutoff: 25 14 Hydromorphone, Ur Not Detected ng/mL Cutoff: 25 15 Bymozjmvzvbfn1pbparffgpleqezn Not Detected ng/mL 16 Oxycodone, Ur Not Detected ng/mL Cutoff: 25 17 Noroxycodone, Ur Present ng/mL Abnormal Cutoff: 25 18 Oxymorphone, Ur Not Detected ng/mL Cutoff: 25 19 Nqygldnegfz-6-mcqk-glucuronide Not Detected ng/mL 20 Noroxymorphone, Ur Not Detected ng/mL Cutoff: 25 21 Fentanyl, Ur Not Detected ng/mL Cutoff: 2 22 Norfentanyl, Ur Not Detected ng/mL Cutoff: 2 23 Meperidine, Ur Not Detected ng/mL Cutoff: 25 24 Normeperidine, Ur Not Detected ng/mL Cutoff: 25 25 Naloxone, Ur Not Detected ng/mL Cutoff: 25 26 Ktpdwspd-4-wtkv-glucuronide, U Not Detected ng/mL 27 Methadone, Ur Not Detected ng/mL Cutoff: 25 28 Eddp, Ur Not Detected ng/mL Cutoff: 25 29 Propoxyphene, Ur Not Detected ng/mL Cutoff: 25 30 Norpropoxyphene, Ur Not Detected ng/mL Cutoff: 25 31 Tramadol, Ur Not Detected ng/mL Cutoff: 25 32 O-desmethyltramadol, Ur Not Detected ng/mL Cutoff: 25 33 Tapentadol, Ur Not Detected ng/mL Cutoff: 25 34 N-desmethyltapentadol, Ur Not Detected ng/mL Cutoff: 50 35 Sbppsiyazi-kxfh-kwxodixsdcv, U Not Detected ng/mL 36 Buprenorphine, Ur Not Detected ng/mL Cutoff: 5 37 Norbuprenorphine, Ur Not Detected ng/mL Cutoff: 5 38 Norbuprenorphine glucuronide Not Detected ng/mL Cutoff: 20 39 Opioid Interpretation See Comment 40 Laboratory 07/14/2018 [facility] Hepatitis B Nonreactive Nonreactive test finding [address] [place] [address] [phone] HIV 1/2 Ag/AB 07/14/2018 [facility] Hiv1/2 Ag/Ab Negative Negative 41 Screen,W/Refle [address] Screen,w/Ref x,[place] [address] dara,P [phone] Fibro 07/14/2018 [facility] FibroTest 0.58 Test-Actitest, [address] [place] [address] [phone] FibroTest Stage F3 FibroTest Interpretation advanced fibrosi <SEE NOTE> 42 ActiTest Score 0.66 ActiTest Grade A3 ActiTest Interpretation severe activity 43 FibroTest-ActiTest Comment See Comment 44 [employer] Serial Number [id number] Apolipoprotein A1, S 168 mg/dL >=120 Noxha-2-Btvmoohtlxbww, S 235 mg/dL 100 - 280 Haptoglobin, S 118 mg/dL 30 - 200 Alanine Aminotransferase (Alt) 99 U/L Abnormal 7-55 Gamma Glutamyltransferase GGT 284 U/L Abnormal 8 - 61 Bilirubin, Total, S 0.9 mg/dL <=1.2 45 Laboratory test 07/13/2018 [facility] Potassium 4.2 mmol/L N 3.5-5.[address] [place] [address] [phone] Ast Redraw 60 U/L High 13-39 Laboratory test 07/13/2018 [facility] Troponin-I (TnI) 0.00 ng/ mL <0.04 [address] [place] [address] [phone] Potassium Redraw TNP mmol/L 3.5-5.0 Ast Redraw TNP U/L 13-39 CBC Auto Diff 07/13/2018 [facility] White Blood 8.6 10^3/uL N 3.5-10.[address] [place] [address] [phone] Red Blood Count 4.98 10^6/uL N 4.00-5.40 [...] Blood Cells % 0.2 Laboratory test 07/13/2018 [facility] Lactic Acid 1.8 mmol/L N 0.5-2.[address] [place] [address] [phone] B-Type Natriuretic Peptide BNP 22 pg/mL <=100 Comp Metabolic Panel 07/13/2018 [facility] Sodium 136 mmol/L N 135-[address] [place] [address] [phone] Chloride 105 mmol/L N 101-111 Co2 Carbon [...] Egfr Non- 80.6 >60 Egfr 97.6 >60 48 Potassium TNP mmol/L 3.5-5.0 49 Anion Gap 8 mmol/L N 2-11 Ast TNP U/L 13-39 Laboratory test 07/13/2018 [facility] Magnesium 1.9 mg/dL N 1.9-2.[address] [place] [address] [phone] Creatine Kinase(CK) 237 U/L High 10-223 Troponin-I (TnI) 0.00 ng/mL <0.04 50 CKMB 07/13/2018 [facility] CKMB ng/mL 5.4 ng/mL N 0.6-6.[address] [place] [address] [phone] Laboratory test 07/13/2018 [facility] TSH 1.14 mcIU/mL N 0.34- 5.[address] ([place] [address] Stim Mprh) [phone] Urinalysis 07/13/2018 [facility] Urine Color Yellow Profile [address] [place] [address] [phone] Urine Appearance Clear Urine Specific [place] 1.014 N 1.010-1.030 Urine pH 5.0 N [...] Casts Present Abnormal Absent Laboratory test 07/13/2018 [facility] Alcohol < 10 mg/dL N < 10 finding [address] [place] [address] [phone] Urine Culture And 07/13/2018 [facility] Urine Culture SEE RESULT [address] [place] [address] [phone] Laboratory test 05/21/2018 [facility] Magnesium 2.0 mg/dL N 1.9-2.7 finding [address] [place] [address] [phone] Comp Metabolic 05/21/2018 [facility] Sodium 141 mmol/L N 135- 145 Panel [address] [place] [address] [phone] Chloride 105 mmol/L N 101-111 Co2 Carbon [...] Egfr Non- 73.2 >60 Egfr 88.5 >60 52 Potassium 3.8 mmol/L N 3.5-5.0 Anion Gap 7 mmol/L N 2-11 Ast 91 U/L High 13-39 Manual Differential 05/21/2018 [facility] Immature 6 % N 0-[address] [place] [address] [phone] Neutrophil % 57 % Band % 2 % N 0-8 Lymphocytes % 22 % Monocytes % 10 % Eosinophils % 4 % Basophil % 1 % Metamyelocytes % 2 % N 0-2 Myelocytes % 2 % High 0-1 Macrocytosis 1+ CBC Auto Diff 05/21/2018 [facility] White Blood 9.5 10^3/uL N 3.5-10.[address] [place] [address] [phone] Red Blood Count 4.55 10^6/uL N 4.00-5.40 [...] Blood Cells % 0.1 Laboratory test 05/14/2018 [facility] Troponin-I 0.00 ng/mL < 0.04 [address] (TnI) [place] [address] [phone] CBC Auto Diff 05/14/2018 [facility] White Blood 6.6 N 3.5- 10.[address] Count 10^3/[place] [address] [phone] Red Blood Count 4.83 10^6/uL N 4.00-5.40 [...] Red Blood Cells % 0.1 Inr/Protime 05/14/2018 [facility] Inr 0.89 N 0.77-1.02 [address] [place] [address] [phone] Laboratory test 05/14/2018 [facility] B-Type 11 pg/mL <=[address] [address] Peptide BNP [phone] Lactic Acid 1.2 mmol/L N 0.5-2.0 54 Comp Metabolic Panel 05/14/2018 [facility] Sodium 139 mmol/L N 135-145 [address] [place] [address] [phone] Potassium 4.2 mmol/L N 3.5-5.0 Chloride 108 [...] Egfr Non- 80.0 >60 Egfr 96.8 >60 55 Laboratory test 05/14/2018 [facility] Troponin-I (TnI) 0.00 ng/ mL <0.04 [address] [place] [address] [phone] Alcohol < 10 mg/dL N <10 Amylase 35 U/L N 29-103 Lipase 24 U/L N 11.0-82.0 Hepatitis C Antibody 05/02/2018 [facility] HCV Index > 11.[address] [place] [address] [phone] Hepatitis C Antibody High Reactive Abnormal Nonreactive 57 Laboratory 05/02/2018 [facility] Hepatitis C [id number] Abnormal Undetected 58 test finding [address] [facility] Rna Quant IU/[place] [address] [phone] Hepatitis C Genotype 3 Abnormal Undetected 59 Liver Function 05/02/2018 [facility] Total Protein 7.2 g/dL N 6.4-8.[address] [place] [address] [phone] Albumin 4.1 g/dL N 3.2-5.2 Globulin 3.1 g/dL N 2-4 Albumin/Globulin Ratio 1.3 N 1-3 Total Bilirubin 0.50 mg/dL N 0.2-1.0 Direct Bilirubin 0.10 mg/dL N 0.03-0.18 Indirect Bilirubin 0.4 mg/dL N 0.3-1.0 Alkaline Phosphatase 79 U/L N 34-104 Alt 101 U/L High 7-52 Ast 66 U/L High 13-39 Inr/Protime 01/10/2017 [facility] Inr 1.01 N 0.89-1.[address] [place] [address] [phone] Laboratory test 01/10/2017 [facility] Partial 38.5 High 26.0- 36.[address] [place] [address] Time PTT [phone] CBC Auto Diff 01/10/2017 [facility] White Blood 8.4 10^3/uL N 3.5-10.[address] [place] [address] [phone] Red Blood Count 4.50 10^6/uL N 4.0-5.4 [...] % 0.1 N Comp Metabolic Panel 01/10/2017 [facility] Sodium 137 mmol/L N 133-[address] [place], [place] [address] [phone] Potassium 4.1 mmol/L N 3.5-5.0 Chloride 107 [...] 88.6 N >60 Egfr 113.9 N >60 60 Laboratory test finding 01/10/2017 [facility] Lipase 11 U/L N 11.0-82.[address] [place] [address] [phone] Troponin-I (TnI) 0.00 ng/mL N <0.04 Urine Drug 12/25/2016 [facility] Amphetamine Ur None Detected N None Detect SCR ED & [address] [place] [address] [phone] Barbiturates Urine Screen Presumptive Posi <SEE NOTE> Abnormal None Detect 61 Benzodiazepine Urine Screen None Detected N None Detect Urine Cannabinoids Screen None Detected N None Detect Urine Cocaine Screen None Detected N None Detect Urine Opiates Screen None Detected N None Detect Urine Phencyclidine Screen None Detected N None Detect 62 Laboratory test 12/25/2016 [facility] Troponin-I 0.00 ng/mL N <0.04 [address] (TnI) [place] [address] [phone] Basic Metabolic 10/03/2016 [facility] Sodium 138 mmol/L N 133- [address] [place] [address] [phone] Potassium 4.7 mmol/L N 3.5-5.0 Chloride 104 mmol/L N 101-111 Co2 Carbon Dioxide 32 mmol/L N 22-32 Anion Gap 2 mmol/L N 2-11 Glucose 82 mg/dL N 70-100 Blood Urea Nitrogen 9 mg/dL N 6-24 Creatinine 1.13 mg/dL N 0.67-1.17 BUN/Creatinine Ratio 8.0 N 8-20 Calcium 9.6 mg/dL N 8.6-10.3 Egfr Non- 69.0 N >60 Egfr 88.7 N >60 64 CBC Auto Diff 10/03/2016 [facility] White Blood 7.3 10^3/uL N 3.5-10.[address] [place] [address] [phone] Red Blood Count 5.25 10^6/uL N 4.0-5.4 [...] % 0.3 N CBC Auto Diff 10/03/2016 [facility] White Blood 8.0 10^3/uL N 3.5-10.[address] [place] [address] [phone] Red Blood Count 5.00 10^6/uL N 4.0-5.4 [...] Cells % 0.2 N Laboratory test 10/03/2016 [facility] Lactic Acid 1.2 mmol/L N 0.5-2.0 65 finding [address] [place] [address] [phone] CKMB 10/03/2016 [facility] CKMB ng/mL 2.8 ng/mL N 0.6-6.3 [address] [place] [address] [phone] Laboratory test 10/03/2016 [facility] Creatine 107 U/L N 10- [address] Kinase(CK) [place] [address] [phone] Troponin-I (TnI) 0.00 ng/mL N <0.04 66 Comp Metabolic Panel 10/03/2016 [facility] Sodium 138 mmol/L N 133-145 [address] [place] [address] [phone] Potassium 4.5 mmol/L N 3.5-5.0 Chloride 106 [...] 74.3 N >60 Egfr 95.5 N >60 67 1 REFERENCE VALUE Cutoff: 500 2 REFERENCE VALUE Cutoff: 200 3 REFERENCE VALUE Cutoff: 100 4 REFERENCE VALUE Cutoff: 150 5 ADDITIONAL INFORMATION This report is intended for use in clinical monitoring or management of patients. It is not intended for use in employment-related testing. 6 REFERENCE VALUE Cutoff: 200 mg/L 7 Tylenol 3 8 Metabolite of codeine REFERENCE VALUE Cutoff: 100 9 Jennifer Ley, Contin; Also a minor metabolite (10%) of codeine and can be seen in low concentrations (<2,000 ng/mL) with poppy seed ingestion. 10 Metabolite of morphine REFERENCE VALUE Cutoff: 100 11 Metabolite of heroin 12 Lortab, [place], Vicodin; Also a very minor metabolite of codeine and impurity (<1%) of oxycodone. 13 Metabolite of hydrocodone 14 Metabolite of hydrocodone 15 Dilaudid, Exalgo; Also a metabolite of hydrocodone and a minor (<5%) metabolite of morphine. 16 Metabolite of hydromorphone REFERENCE VALUE Cutoff: 100 17 Endocet, Percocet, Oxycontin 18 Metabolite of oxycodone 19 Numorphan, Opana; Also a metabolite of oxycodone. 20 Metabolite of oxymorphone REFERENCE VALUE Cutoff: 100 21 Metabolite of oxymorphone 22 Actiq, Duragesic, [place] 23 Metabolite of fentanyl 24 Demerol 25 Metabolite of meperidine 26 Narcan 27 Metabolite of naloxone REFERENCE VALUE Cutoff: 100 28 Dolophine 29 Metabolite of methadone 30 Darvon, Darvocet 31 Metabolite of propoxyphene 32 Tradol, Ultram, Ultracet 33 Metabolite of tramadol 34 Nucynta 35 Metabolite of tapentadol 36 Metabolite of tapentadol REFERENCE VALUE Cutoff: 100 37 Buprenex, Suboxone 38 Metabolite of buprenorphine 39 Metabolite of buprenorphine 40 Test detected the presence of noroxycodone (metabolite of oxycodone) only. Suspect use of oxycodone within the past three days. ADDITIONAL INFORMATION This test was developed and its performance characteristics determined by [facility] in a manner consistent with CLIA requirements. This test has not been cleared or approved by the U.S. Food and Drug Administration. Test Performed by: [facility] [place] [address] 41 Negative result does not rule out HIV infection. If exposure to HIV infection occurred <14 days ago, contact the laboratory to request addition of HIV-1 RNA detection / quantification test (HIVQN). Test Performed by: [facility] [place] [address] 42 advanced fibrosis FibroTest estimates liver fibrosis FibroTest Score Stage Interpretation 0.00-0.21 F0 no fibrosis 0.21-0.27 F0-F1 no fibrosis 0.27-0.31 F1 minimal fibrosis 0.31-0.48 F1-F2 minimal fibrosis 0.48-0.58 F2 moderate fibrosis 0.58-0.72 F3 advanced fibrosis 0.72-0.74 F3-F4 advanced fibrosis 0.74-1.00 F4 severe fibrosis (Cirrhosis) 43 ActiTest estimates necroinflammatory activity ActiTest Score Grade Interpretation 0.00-0.17 A0 no activity 0.17-0.29 A0-A1 no activity 0.29-0.36 A1 minimal activity 0.36-0.52 A1-A2 minimal activity 0.52-0.60 A2 significant activity 0.60-0.62 A2-A3 significant activity 0.62-1.00 A3 severe activity 44 The reliability of results is dependent on [...] developed and its performance characteristics determined by [facility] in a manner consistent with CLIA requirements. This test has not been cleared or approved by the U.S. Food and Drug Administration. 45 Test Performed by: [place] [address] 46 Troponin-I testing on Plasma Separator Tubes (PST) has a known false positive rate of 0.20-0.40%. All positive troponins reflex immediate secondary confirmatory testing. [address] [facility] Severe Sepsis and Septic Shock Management Bundle Measure requires all lactic acids initially measuring >2.0 mmol/L be repeated. 48 Because ethnic data is not always readily [...] 15-29 5 Kidney failure <15 (or dialysis) 49 Specimen Hemolyzed. Result may not be valid. Unable to report test result due to hemolysis. 50 Troponin-I testing on Plasma Separator Tubes (PST) has a known false positive rate of 0.20-0.40%. All positive troponins reflex immediate secondary confirmatory testing. 51 SEE RESULT BELOW Name: WILEYADRIANO Alfredo : [address]: Saw Figueredo MD Acct: [id number] Unit: [id number] AGE: 53 Location: ED Re07/13/18 SEX: M Status: DEP ER SPEC: [id number] JANEL: 07/13/18 [facility] [address]: Saw Figueredo MD REQ: [id number] RECD: 07/13/18 STATUS: [facility] DR: Norma Vasquez DO _ SOURCE: URINE SPDESC: ORDERED: Urine Culture Procedure Result Reported Site Urine Culture Final 07/14/18- 1602 ML No Growth (<1,000 CFU/mL) * ML - Main Lab . END OF REPORT DEPARTMENT OF PATHOLOGY, [address] [place] [address] Romario Meier M.D. Director [facility] # [id number] 52 Because ethnic data is not always readily [...] 15-29 5 Kidney failure <15 (or dialysis) 53 Troponin-I testing on Plasma Separator Tubes (PST) has a known false positive rate of 0.20-0.40%. All positive troponins reflex immediate secondary confirmatory testing. 54 [facility] Severe Sepsis and Septic Shock Management Bundle Measure requires all lactic acids initially measuring >2.0 mmol/L be repeated. 55 Because ethnic data is not always readily [...] 15-29 5 Kidney failure <15 (or dialysis) 56 Troponin-I testing on Plasma Separator Tubes (PST) has a known false positive rate of 0.20-0.40%. All positive troponins reflex immediate secondary confirmatory testing. 57 High reactive sample are considered positive for Hepatitis C 58 Result in log IU/mL is 6.75. ADDITIONAL INFORMATION The quantification range of this assay is 15 to 100,000,000 IU/mL (1.18 log to 8.00 log IU/mL). Testing was performed using the le HCV test ([employer] with the le 6800 System. Test Performed by: [facility] - [address] [address] 59 ADDITIONAL INFORMATION This test was performed using the Rojas RealTime HCV Genotype II assay ([employer] [place], [place]). Test Performed by: [address] [address] 60 Because ethnic data is not always readily [...] 15-29 5 Kidney failure <15 (or dialysis) 61 Presumptive Positive Presumptive positive results are unconfirmed. 62 The urine specimen was tested at the listed cutoffs: Drug class test level (ng/mL) Amphetamines 500 Barbiturates 200 Benzodiazepine metabolites 200 Cocaine metabolites 150 Cannabinoids 50 Opiates 300 Pcp 25 Specimen was received without chain of custody. Results should be used for medical purposes only. 63 Comment: please draw at 1400 64 Because ethnic data is not always readily [...] 15-29 5 Kidney failure <15 (or dialysis) 65 [facility] Severe Sepsis and Septic Shock Management Bundle Measure requires all lactic acids initially measuring >2.0 mmol/L be repeated. 66 99th percentile=0.04 ng/mL Troponin results at [facility] are not interchangeable. 67 Because ethnic data is not always readily [...] (or dialysis) Procedures Date Code Description Status 07/28/2018 62396 EKG, Interpretation Only Completed 07/28/2018 72587 EKG Tracing & Interpretation Completed 05/18/2018 16059 EKG, Interpretation Only Completed 05/15/2018 19160 EEG Recording Awake & Asleep Completed 05/15/2018 41064 Treadmill Interp/Report Only Completed 05/15/2018 29061 Stress Test Supervsn W/Out I/R Completed 05/15/2018 20623 EKG, Interpretation Only Completed 05/14/2018 75902 EKG, Interpretation Only Completed 04/30/2018 82860 EKG, Interpretation Only Completed 03/18/2018 46055 EKG, Interpretation Only Completed 03/14/2018 14385 EEG Recording In Coma Or Sleep Only Completed 09/12/2016 19772 Inject/Drain Joint/Bursa Intermediate W/O US Completed 09/20/2014 24519 EKG Tracing & Interpretation Completed Encounters Type Date Location Provider Dx Diagnosis Office Visit 09/25/2018 [facility] Norma Vasquez, S42.142D Disp fx of 3:00p [facility] DO glenoid cav of scapula, l melissar, 7thD F10.14 Alcohol abuse with alcohol-induced mood disorder Office Visit 07/24/2018 9:30a Orthopedic Taiwo Cunningham S42.142D Disp fx of Services Of MD Senia glenoid cav of C.M.A. scapula, l shldr, 7thD Office Visit 07/22/2018 2:45p Orthopedic Jhony Cowart, M25.512 Pain in left Services Of shoulder C.M.A. S42.142A Disp fx of glenoid cavity of scapula, left shoulder, init Office Visit 07/10/2018 4:20p [facility] For Ardiano Grissom B18.2 Chronic viral Infectious Mirna Covarrubias hepatitis C Diseases K74.0 Hepatic fibrosis Office Visit 06/18/2018 1:40p [facility] Best Ordaz, G90.09 Other idiopathic [facility] peripheral autonomic neuropathy M54.2 Cervicalgia B18.2 Chronic viral hepatitis C I10 Essential (primary) hypertension Office Visit 06/16/2018 2:30p Neurosurgery Vassilios M54.2 Cervicalgia [facility] MD Mag M47.892 Other spondylosis, cervical region Office Visit 05/30/2018 1:00p [facility] Best Odraz MD M54.2 Cervicalgia [facility]89.4 Chronic pain syndrome B18.2 Chronic viral hepatitis C J44.9 Chronic obstructive pulmonary disease, unspecified I10 Essential (primary) hypertension Z86.711 Personal history of pulmonary embolism Office Visit 05/22/2018 2:40p [facility] Best Ordaz MD M54.2 Cervicalgia [facility]89.4 Chronic pain syndrome R07.9 Chest pain, unspecified B18.2 Chronic viral hepatitis C J44.9 Chronic obstructive pulmonary disease, unspecified I10 Essential (primary) hypertension Z86.711 Personal history of pulmonary embolism Office Visit 05/19/2018 10:14a [facility] Anne R07.9 Chest pain, Assoc,leidy Justin, unspecified 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 unspecified Hospitalists J44.9 Chronic obstructive pulmonary disease, unspecified E72.20 Disorder of urea cycle metabolism, unspecified R41.0 Disorientation, unspecified M54.5 Low back pain F10.10 Alcohol abuse, uncomplicated Z86.711 Personal history of pulmonary embolism Office Visit 05/17/2018 [facility] Magda Cormier, R07.9 Chest pain, 10:14a Assocleidy M.D. unspecified Hospitalists J44.9 Chronic obstructive pulmonary disease, unspecified E72.20 Disorder of urea cycle metabolism, unspecified R41.0 Disorientation, unspecified M54.5 Low back pain F10.10 Alcohol abuse, uncomplicated Z86.711 Personal history of pulmonary embolism Office Visit 05/17/2018 4:31p [facility] Feliz S. R07.89 Other [facility] Of [facility] Mayen, DO FACC pain Z72.0 Tobacco use F10.230 Alcohol dependence with withdrawal, uncomplicated Office Visit 05/16/2018 [facility] Norma R41.0 Disorientation, 10:14a Assoc,pc Senner, DO unspecified Hospitalists R07.9 Chest pain, unspecified M54.5 Low back pain F10.10 Alcohol abuse, uncomplicated Z86.711 Personal history of pulmonary embolism Office Visit 05/15/2018 10:13a [facility] Norma R07.9 Chest pain, Assoc,pc Senner, DO unspecified Hospitalists M54.5 Low back pain F10.10 Alcohol abuse, uncomplicated Z86.711 Personal history of pulmonary embolism Office Visit 05/14/2018 [facility] R07.9 Chest pain, Assoc,pc Senner, DO unspecified Hospitalists F10.239 Alcohol dependence with withdrawal, unspecified J44.9 Chronic obstructive pulmonary disease, unspecified G89.4 Chronic pain syndrome B18.2 Chronic viral hepatitis C Office Visit 05/02/2018 11:40a Care Tory [place] B18.2 Chronic viral [facility] Pedro, DO hepatitis C R22.32 Localized swelling, mass and lump, left upper limb Office Visit 04/30/2018 1:40p [facility] R07.9 Chest pain, [facility] Pedro, DO unspecified F10.14 Alcohol abuse with alcohol-induced mood disorder M50.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, unsp cervical region B18.2 Chronic viral hepatitis C Office Visit 04/09/2018 [facility] Best Ordaz, F10.14 Alcohol abuse with 9:20a [facility] alcohol-induced mood disorder I10 Essential (primary) hypertension F17.210 Nicotine dependence, cigarettes, uncomplicated J44.9 Chronic obstructive pulmonary disease, unspecified M54.2 Cervicalgia Z86.711 Personal history of pulmonary embolism F33.9 Major depressive disorder, recurrent, unspecified [facility]2018 [facility] F10.239 Alcohol Assoc,pc MD dependence with Hospitalists [...] w hypoxia or hypercapnia Office Visit 03/13/2018 [facility] Nithin Dorantes J69.0 Pneumonitis due 12:14p Assoc,pc MD Cathi to inhalation of Hospitalists food and vomit J44.9 Chronic obstructive pulmonary disease, unspecified F10.10 Alcohol abuse, uncomplicated M54.5 Low back pain I10 Essential (primary) hypertension Z86.711 Personal history of pulmonary embolism Office Visit 03/12/2018 [facility] Lottie F10.10 Alcohol abuse, 12:14p Assoc,leidy Munguia NP uncomplicated Hospitalists G40.509 Epileptic seiz rel to extrn causes, not ntrct, w/o stat epi R51 Headache I10 Essential (primary) hypertension Z87.09 Personal history of other diseases of the respiratory system Office Visit 10/03/2016 [facility] Internal Magdi Grissom M47.22 Other spondylosis 2:20p Violet Butler M.D.,FACP with radiculopathy, [address] cervical region J01.00 Acute maxillary sinusitis, unspecified G89.4 Chronic pain syndrome F17.210 Nicotine dependence, cigarettes, uncomplicated Office Visit 09/28/2016 Neurosurgery Stew M47.22 Other spondylosis 10:00a Services Of Maru Odell M.D. with radiculopathy, cervical region Office Visit 09/26/2016 [facility] Internal Magdi Grissom M47.22 Other spondylosis 2:00p [...] encounter M54.2 Cervicalgia Office Visit 09/20/2014 1:40p [facility] Filiberto Woodard, 272.4 Hyperlipidemia Other Cardiology Of Mirna, FACC, Unspec Architectural Engineering Teacher AT [facility] 401.1 Hypertension Benign 786.50 Pain Chest Unspec Office Visit 07/07/2014 11:30a Neurosurgery Stew Odell 721.1 Spondylosis [facility] AT Mirna Cervical W/ [place] Myelopathy Office Visit 03/25/2014 9:00a [place]/Yordy Matthews 780.2 Syncope & Neurologic Serv Of Mirna Wells Collapse [facility] Office Visit 02/22/2009 11:20a DO Not Use 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 Unspecified 314.01 Attention Deficit Disorder W/ Hyperactivity 723.9 Cervical Region Musculoskeletal Disorders & Symptoms Unspec 724.2 Lumbago Plan of Treatment Future Appointment(s):10/13/2018 9:20 am - Best Ordaz MD at [facility]10/22/2018 3:00 pm - Stew Wells M.D. at [place] [facility]09/25/2018 - Norma Vasquez, DOS42.142D Displaced fracture of glenoid cavity of scapula, left shouldNew Medication:Oxycodone HCL 5 mg - 1 tab every 6 hours as neededRecommendations:CALL [facility] ([phone]) See if they will consider [id number] Alcohol abuse with alcohol-induced mood disorderNew Medication:Disulfiram 250 mg - take 2 tabs at night for two weeks, and then 2 tab at nightRecommendations:suboxone is a good idea--think about it!
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
[2018-10-01] MEDS ORDERED: Albuterol/Ipratropium NEB.SOL* Albuterol 2.5 MG/Ipratropium 0.5 MG 3 ML INH ONE (19:56)
[2018-10-01] MEDS ORDERED: predniSONE TAB* 20 MG PO ONE (19:56)
[2018-10-01 21:19] LABS: Albumin 3.7 g/dL (3.2-5.2); CO2 Carbon Dioxide 21 mmol/L (22-32); Calcium 9.3 mg/dL (8.6-10.3); Sodium 140 mmol/L (135-145)
[2018-10-01 21:25] LABS: ALT 73 U/L (7-52); Albumin/Globulin Ratio 1.1 (1-3); Alkaline Phosphatase 58 U/L (34-104); BUN/Creatinine Ratio 8.6 (8-20); Blood Urea Nitrogen 8 mg/dL (6-24); C Reactive Protein 6.01 mg/L (<8.01); EGFR African American 103.6 (>60); EGFR Non-African American 85.7 (>60); Globulin 3.5 g/dL (2-4); Glucose 102 mg/dL (70-100); Total Protein 7.2 g/dL (6.4-8.9)
[2018-10-01 21:39] LABS: Anion Gap 7 mmol/L (2-11); Chloride 112 mmol/L (101-111)
[2018-10-01] MEDS ORDERED: Azithromycin TAB* 250 MG PO ONE (21:53)
--- NOTE | 2018-10-01 22:10 | ED ---
Progress - Progress Note Progress Note: RECEIVING SIGN OUT FROM DR. MCNAMARA AT SHIFT CHANGE PENDING LABS AND DISPO. Pt is a 53 y/o M presenting to the ED with a chief respiratory complaint due to cold. Course/Dx - Course Course Of Treatment: RECEIVING SIGN OUT FROM DR. MCNAMARA AT SHIFT CHANGE PENDING LABS AND DISPO. Pt is a 53 y/o M presenting to the ED with a chief respiratory complaint. - Diagnoses Provider Diagnoses: Bronchitis, Asthma exacerbation Discharge - Sign-Out/Discharge Documenting (check all that apply): Patient Departure - D/C, Receiving Sign-Out Receiving patient FROM: Tez Mcnamara - pending labs and dispo Patient Received Moderate/Deep Sedation with Procedure: No - Discharge Plan Condition: Stable Disposition: HOME Prescriptions: Albuterol HFA INHALER* [Ventolin HFA Inhaler*] 2 puff INH Q6H PRN #1 mdi MDD 4 PRN Reason: Sob/Wheezing Azithromycin TAB* [Zithromax TAB (Z-NANCY) 250 mg #6 tabs] 2 tab PO .TODAY, THEN 1 DAILY #1 nancy predniSONE TAB* [Deltasone TAB*] 50 mg PO ONCE #4 tab Patient Education Materials: Acute Bronchitis (ED) Referrals: Best Ordaz MD [Primary Care Provider] - Additional Instructions: Please follow up with your primary care physician within the next 2-3 days. Return to the emergency department with any new or worsening symptoms. - Billing Disposition and Condition Condition: STABLE Disposition: Home - Attestation Statements Document Initiated by Scribe: Yes Documenting Scribe: Milly Norton Provider For Whom Mistyibe is Documenting (Include Credential): Dr. Raffi Del Toro MD Scribe Attestation: Milly Otero, scribed for Dr. Raffi Del Toro MD on 10/02/18 at 0308. Scribe Documentation Reviewed: Yes Provider Attestation: The documentation as recorded by the Milly alves accurately reflects the service I personally performed and the decisions made by me, Dr. Raffi Del Toro MD Status of Scribe Document: Viewed
[2018-10-01 22:20] LABS: Troponin I 0.01 ng/mL (<0.04)
[2018-10-01 23:18] VITALS: BP 127/83
== END 2018-10-01 23:26 | disposition home or self-care (01) ==
LOC: ED 17:39
DX: J40 Bronchitis, not specified as acute or chronic (principal); J45.901 Unspecified asthma with (acute) exacerbation; Z88.0 Allergy status to penicillin; Z88.6 Allergy status to analgesic agent; Z79.01 Long term (current) use of anticoagulants; F17.210 Nicotine dependence, cigarettes, uncomplicated
CPT/HCPCS: 36415; 71046; 80053; 84484; 86140; 99284; A9270-GY; J7512

== ENCOUNTER 2018-12-03 19:11 | Emergency (ER) | payer MEDICARE, MEDICAID ==
[2018-12-03] MEDS ORDERED: Metoclopramide IV* 5 MG/ML 2 ML VIAL IV SLOW PU ONE (19:39)
[2018-12-03] MEDS ORDERED: Morphine 4 MG/ML VIAL (1 ml) 4 MG/ML VIAL IV ONE (19:39)
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
[2018-12-03] MEDS ORDERED: Acetaminophen TAB* 325 MG PO ONE (22:31)
[2018-12-03 22:54] VITALS: BP 0/0
--- OUTSIDE RECORDS SUMMARY | 2018-12-04 01:30 | XMS REPORT | Continuity of Care Document ---
:1965 External Reference #:[id number] Author Name Toma Zhao Care Team Providers Name Role Phone [facility] Primary Care Physician Unavailable Payers Date Identification Numbers Payment Provider Subscriber Effective: 2003 Policy Number: [id number] Medicare Adriano Jones PayID: [id number] [address] [place] [address] Policy Number: [id number] Medicaid Adriano Jones Group Name: [id number] [address] PayID: [id number] [place] [address] Expires: 2012 Policy Number: [id number] Medicaid Adriano Jones Group Name: 1 1 [address] PayID: [id number] [place] [address] Problems Active Problems Provider Date Cervical spondylosis with myelopathy Stew Odell M.D. Onset: 07/07/2014 Hyperlipidemia Filiberto Woodard M.D., [facility] Onset: 09/20/2014 Benign essential hypertension Filiberto Woodard M.D., [facility] Onset: 2014 H/O: pulmonary embolus Magdi Butler M.D.,[facility] Onset: 09/26/2016 Note: 2010 Chronic obstructive lung disease [facility] Onset: 2016 Tobacco user Best Ordaz MD [...] cardiovascular Best Ordaz MD Onset: 07/28/2018 examination Epilepsy Best Ordaz MD Onset: 10/30/2018 Inactive Problems Chest pain Filiberto Woodard M.D., [facility] Onset: 09/20/2014 Inactive: 09/26/2016 Resolved [...] (more than 10 cigarettes/day) Smoking Status Reviewed: 12/03/18 Heavy tobacco smoker (more than 10 cigarettes/day) Exercise Type/Frequency Does not exercise Allergies, Adverse Reactions, Alerts Active Allergies Reaction Severity Comments Date Penicillins Anaphylaxis Severe 12/08/2008 Asa/Caff/Butal/Cod GI irritation 12/08/2008 Tegretol Anaphylaxis Severe 09/26/2016 Ativan He states he blacks out 05/23/2018 Medications Active Medications SIG Qnty Indications Ordering Date Provider [facility] Nicotine use gum every 2 110units Z72.0 Best Ordaz MD 12/03/2018 Polacrilex hours as needed 4mg Gum for cravings. Nicotine Transdermal use daily. 28units Z72.0 Best Ordaz MD 12/03/2018 System Step 2 14mg/24HR Patches 24HR Incruse Ellipta use 1 inhalation 30units J44.9 Best Ordaz MD 12/03/2018 by mouth every 62.5mcg/Inh Aerosol day Advair Diskus 1 puff inhaled 60units J44.1 Norma Vasquez, 11/25/2018 daily DO 250-50mcg/Dose Aerosol Triamcinolone apply twice daily 45gm Norma Vasquez, 11/25/2018 Acetonide to the affected DO 0.5% Cream area Levetiracetam Take 1 tab twice 60tabs G40.909 Best Ordaz MD 10/30/2018 1000mg a day Tablets Mavyret 3 tabs by mouth 84tabs Adriano D. 10/08/2018 100-40mg Tablets once daily - Mirna Covarrubias Started 10/14/18 Disulfiram not currently 60tabs F10.14 Norma Vasquez, 09/25/2018 250mg Tablets taking----take 2 DO tabs at night for two weeks, and then 1 tab at night Oxycodone HCL 1 tabs by mouth 60tabs Best Ordaz MD 07/22/2018 5mg Tablets every 6 hours as needed Cyclobenzaprine HCL take 5mg three 90tabs M54.2 Norma Vasquez, 05/30/2018 5mg times a day as DO Tablets needed. Adderall 1 by mouth every 30tabs Norma Vasquez, 05/22/2018 20mg Tablets day DO Amlodipine Besylate take 1 tab each 30tabs I10 Norma Vasquez, 05/22/2018 10mg day. DO Tablets Xarelto 1 by mouth every 30tabs Norma Vasquez, 04/09/2018 15mg Tablets day DO Clonidine HCL 1 by mouth twice 60tabs Norma Vasquez, 0.1mg a day DO Tablets Metoprolol Succinate 1 by mouth every 30tabs Norma Vasquez, ER day DO 50mg Tablets ER 24HR Escitalopram Oxalate 1 by mouth every 30tabs Norma Vasquez, 20mg day DO Tablets Gabapentin Take 1 Tablet By 180tabs [facility], 600mg Tablets Mouth Three Times DO A Day And Take 3 Tablets AT Bedtime History Medications Prednisone 1 by mouth every 5tabs J44.[address] [facility] 11/25/2018 - 50mg Tablets day [facility], DO 12/02/2018 Azithromycin take two tabs on 6tabs J44.[address] [facility] 11/25/2018 - 250mg Tablets day one, and then [facility], DO 12/02/2018 one tab for four days Oxycodone HCL 1 tab every 8 20tabs [address].142D [facility] 09/25/2018 - 5mg Tablets hours as needed [facility], DO 10/30/2018 Prednisone take 2 tab daily 14tabs M54.2 Best Ordaz MD 05/30/2018 - 20mg Tablets for 7 days 06/18/2018 Oxycodone-Acetaminophen 1 by mouth every 90tabs G89.[address] [facility] 05/22/2018 - three times a day [facility], 09/25/2018 5-325mg Tablets as needed for pain Medrol take as directed 21tabs Best Ordaz MD 04/09/2018 - 4mg Tablets per dosepak 06/18/2018 instructions Doxycycline Hyclate twice a day by 20caps Magdi Grissom 10/03/2016 - 100mg mouth [place], 10/03/2016 Capsules Mirna,FACP Cefuroxime Axetil 1 by mouth twice 20tabs Magdi Grissom 10/03/2016 - 500mg a day for 10 days [place], 10/13/2016 Tablets Mirna,FACP Chantix Starting Month as directed 55tabs Magdi Grissom 10/03/2016 - Maximiliano [place], 04/08/2018 0.5mg X 11 & 1 mg X 42 M.DMirlande,FACP Tablets Losartan Potassium 1 by mouth every 30tabs Magdi Grissom 09/26/2016 - 50mg day [place], 04/09/2018 Tablets Mirna,FACP Doxycycline Hyclate twice a day by 14caps Magdi Grissom 09/26/2016 - 100mg mouth [place], 10/03/2016 Capsules Mirna,FACP Valium take 1-2 tabs 2tabs Taiwo Cunningham 09/20/2016 - 5mg Tablets prior to mri MD Senia 04/08/2018 imaging test Medrol take as directed 21tabs S43.52xA Taiwo Cunningham 09/18/2016 - 4mg Tablets per dosemaximiliano Conn MD 09/26/2016 instructions Percocet 1 tab by mouth 30tabs Taiwo 09/18/2016 - 5-325mg Tablets every 6 hours as MD Senia 09/26/2016 needed Medrol take as directed 21tabs S43.52xA Taiwo 09/18/2016 - 4mg Tablets per dosemaximiliano Conn MD 09/26/2016 instructions Percocet 1 tab by mouth 60tabs S43.52xA [place] 09/18/2016 - 5-325mg Tablets every 6 hours [...] 120tabs Magdi Grissom 12/08/2008 - 20mg Tablets [place], 07/07/2014 Code b Mirna,FACP Fentanyltransdermal 1 patch q 3 days 1units [place], 12/08/2008 - 25mcg/HR Mirna Jaramillo 03/22/2014 Patches 72 Flovent HFA 2 puffs twice Unknown - [...] - daily as needed Carrie, 04/08/2018 20-100mcg/Act Navya Bradley,FACP Levetiracetam 1 twice a day by 60tabs G40.909 Norma - 750mg Tablets mouth DO Pedro 10/30/2018 Vitamin B-12 daily Unknown - 5000mcg Tablets 05/21/2018 Sub Adderall 1 by mouth every Unknown - 20mg Tablets day 05/21/2018 Vitamin B-1 1 by mouth every Unknown - 50mg Tablets day 05/21/2018 Prednisone 1 tab daily Unknown - 20mg Tablets 04/29/2018 Morphine Sulfate ER Unknown - 15mg 07/25/2018 Tablets ER Adderall 1 tab by mouth Unknown - 30mg Tablets once a day 04/14/2017 Horizant 1 by mouth bid 30tabs Unknown [...] 90tabs Magdi Grissom - 20mg Tablets day [place], 04/09/2018 Mirna,FACGene Flovent HFA 2 puffs twice 12gm Unknown [...] Injection Vital Signs Date Vital Result Comment 12/03/2018 8:29am Weight 202.00 lb Heart Rate 68 /min BP Systolic 130 mmHg BP Diastolic 89 mmHg Respiratory Rate 18 /min Body Temperature 97.3 F O2 % BldC Oximetry 96 % 11/25/2018 11:38am Height 68 inches 5'8" Weight 204.00 lb Heart Rate 58 /min BP Systolic Sitting 118 mmHg BP Diastolic Sitting 79 mmHg O2 % BldC Oximetry 96 % BMI (Body Mass Index) 31.0 kg/m2 11/19/2018 11:10am Height 68 inches 5'8" Weight 200.25 lb Heart Rate 125 /min BP Systolic Sitting 110 mmHg BP Diastolic Sitting 80 mmHg Respiratory Rate 14 /min Body Temperature 97.4 F O2 % BldC Oximetry 96 % BMI (Body Mass Index) 30.4 kg/m2 11/12/2018 2:55pm Height 68 inches 5'8" Weight 210.00 lb Heart Rate 82 /min BP Systolic 168 mmHg BP Diastolic 100 mmHg BMI (Body Mass Index) 31.9 kg/m2 10/30/2018 9:46am Weight 206.00 lb Heart Rate 72 /min BP Systolic 132 mmHg BP Diastolic 88 mmHg Respiratory Rate 16 /min Body Temperature 98.2 F 09/25/2018 3:28pm Weight 208.00 lb Heart Rate [...] Test Result H/L Range Note Laboratory test [facility] Levetiracetam 19.6 1 finding [address] (Keppra) g/[place] [address] [phone] CBC Auto Diff [facility] White Blood Count 7.6 Normal 3.5-10.[address] 10^3/[place] [address] [phone] Red Blood Count 4.69 10^6/uL Normal 4.18-5.48 Hemoglobin 16.0 g/dL Normal 14.0-18.0 Hematocrit 47 % Normal 42-52 Mean Corpuscular Volume 100 fL High 80-94 Mean Corpuscular Hemoglobin 34 pg High 27-31 Mean Corpuscular HGB Conc 34 g/dL Normal 31-36 Red Cell Distribution Width 13 % Normal 10-15 Platelet Count 229 10^3/uL Normal 150-450 Mean Platelet Volume 7.9 fL Normal 7.4-10.4 Abs Neutrophils 4.8 10^3/uL Normal 1.5-7.7 Abs Lymphocytes 1.9 10^3/uL Normal 1.0-4.8 Abs Monocytes 0.7 10^3/uL Normal 0-0.8 Abs Eosinophils 0.2 10^3/uL Normal 0-0.6 Abs Basophils 0.0 10^3/uL Normal 0-0.2 Abs Nucleated RBC 0.0 10^3/uL Granulocyte % 62.5 % Lymphocyte % 25.4 % Monocyte % 8.8 % Eosinophil % 3.0 % Basophil % 0.3 % Nucleated Red Blood Cells % 0.2 Comp Metabolic 11/25/2018 [facility] Sodium 141 mmol/L Normal 135-[address] [place] [address] [phone] Potassium 4.1 mmol/L Normal 3.5-5.0 Chloride 108 mmol/L Normal 101-111 Co2 Carbon Dioxide 25 mmol/L Normal 22-32 Anion Gap 8 mmol/L Normal 2-11 Glucose 91 mg/dL Normal 70-100 Blood Urea Nitrogen 12 mg/dL Normal 6-24 Creatinine 1.01 mg/dL Normal 0.67-1.17 BUN/Creatinine Ratio 11.9 Normal 8-20 Calcium 9.7 mg/dL Normal 8.6-10.3 Total Protein 6.9 g/dL Normal 6.4-8.9 Albumin 4.1 g/dL Normal 3.2-5.2 Globulin 2.8 g/dL Normal 2-4 Albumin/Globulin Ratio 1.5 Normal 1-3 Total Bilirubin 0.60 mg/dL Normal 0.2-1.0 Alkaline Phosphatase 85 U/L Normal 34-104 Alt 14 U/L Normal 7-52 Ast 17 U/L Normal 13-39 Egfr Non- 77.9 >60 Egfr 94.2 >60 2 Laboratory 11/04/2018 [facility] Levetiracetam <2.0 Abnormal 3 test finding [address] (Keppra) g/[place] [address] [phone] Liver Function 11/04/2018 [facility] Total Protein 7.4 g/dL Normal 6.4- Panel [address] 8.9 [place] [address] [phone] Albumin 4.4 g/dL Normal 3.2-5.2 Globulin 3.0 g/dL Normal 2-4 Albumin/Globulin Ratio 1.5 Normal 1-3 Total Bilirubin 1.30 mg/dL High 0.2-1.0 Direct Bilirubin 0.20 mg/dL High 0.03-0.18 Indirect Bilirubin 1.1 mg/dL High 0.3-1.0 Alkaline Phosphatase 70 U/L Normal 34-104 Alt 20 U/L Normal 7-52 Ast 21 U/L Normal 13-39 Laboratory 11/04/2018 [facility] Hepatitis C Undetected Undetected [address] Rna Quant IU/[place] [address] [phone] Basic 11/04/2018 [facility] Sodium 141 mmol/L Normal 135-[address] [place] [address] [phone] Potassium 3.8 mmol/L Normal 3.5-5.0 Chloride 105 mmol/L Normal 101-111 Co2 Carbon Dioxide 30 mmol/L Normal 22-32 Anion Gap 6 mmol/L Normal 2-11 Glucose 75 mg/dL Normal 70-100 Blood Urea Nitrogen 9 mg/dL Normal 6-24 Creatinine 1.01 mg/dL Normal 0.67-1.17 BUN/Creatinine Ratio 8.9 Normal 8-20 Calcium 10.0 mg/dL Normal 8.6-10.3 Egfr Non- 77.9 >60 Egfr 94.2 >60 5 CBC Auto 11/04/2018 [facility] White Blood 6.1 10^3/uL Normal 3.5-10.[address] [place] [address] [phone] Red Blood Count 4.64 10^6/uL Normal 4.18-5.48 Hemoglobin 15.7 g/dL Normal 14.0-18.0 Hematocrit 46 % Normal 42-52 Mean Corpuscular Volume 99 fL High 80-94 Mean Corpuscular Hemoglobin 34 pg High 27-31 Mean Corpuscular HGB Conc 34 g/dL Normal 31-36 Red Cell Distribution Width 12 % Normal 10-15 Platelet Count 325 10^3/uL Normal 150-450 Mean Platelet Volume 8.2 fL Normal 7.4-10.4 Abs Neutrophils 3.1 10^3/uL Normal 1.5-7.7 Abs Lymphocytes 2.2 10^3/uL Normal 1.0-4.8 Abs Monocytes 0.6 10^3/uL Normal 0-0.8 Abs Eosinophils 0.2 10^3/uL Normal 0-0.6 Abs Basophils 0.0 10^3/uL Normal 0-0.2 Abs Nucleated RBC 0.0 10^3/uL Granulocyte % 50.5 % Lymphocyte % 35.3 % Monocyte % 10.3 % Eosinophil % 3.4 % Basophil % 0.5 % Nucleated Red Blood Cells % 0.0 Laboratory 11/04/2018 [facility] Partial 41.3 High 26.0-38.0 test finding [address] [place] [address] PTT [phone] Inr/Protime 11/04/2018 [facility] Inr 1.03 Normal 0.82-1.[address] [place] [address] [phone] Drug Abuse 20 07/28/2018 [facility] Urine Negative [address] Amphetamine ng/[place] [address] [phone] Urine Barbiturates Negative ng/mL 8 Urine Benzodiazepines Negative ng/mL 9 Urine Cocaine Negative ng/mL 10 Urine Phencyclidine Negative ng/mL Cutoff: 25 Urine Tetrahydrocannabinol Negative ng/mL Cutoff: 50 11 Creatinine, Urine 133.2 mg/dL Specific [place] 1.015 pH 6.0 Oxidants Negative 12 Adulterants Comment Normal Codeine, Ur Not Detected ng/mL Cutoff: 25 13 Ultfwbx-0-guni-glucuronide, Ur Not Detected ng/mL 14 Morphine, Ur Not Detected ng/mL Cutoff: 25 15 Ghhlnjuk-8-gocw-glucuronide, U Not Detected ng/mL 16 6-monoacetylmorphine, Ur Not Detected ng/mL Cutoff: 25 17 Hydrocodone, Ur Not Detected ng/mL Cutoff: 25 18 Norhydrocodone, Ur Not Detected ng/mL Cutoff: 25 19 Dihydrocodeine, Ur Not Detected ng/mL Cutoff: 25 20 Hydromorphone, Ur Not Detected ng/mL Cutoff: 25 21 Noldecnxsnepu0xqkegwdgafarnqh Not Detected ng/mL 22 Oxycodone, Ur Not Detected ng/mL Cutoff: 25 23 Noroxycodone, Ur Present ng/mL Abnormal Cutoff: 25 24 Oxymorphone, Ur Not Detected ng/mL Cutoff: 25 25 Dcrgxdbykuv-8-vifg-glucuronide Not Detected ng/mL 26 Noroxymorphone, Ur Not Detected ng/mL Cutoff: 25 27 Fentanyl, Ur Not Detected ng/mL Cutoff: 2 28 Norfentanyl, Ur Not Detected ng/mL Cutoff: 2 29 Meperidine, Ur Not Detected ng/mL Cutoff: 25 30 Normeperidine, Ur Not Detected ng/mL Cutoff: 25 31 Naloxone, Ur Not Detected ng/mL Cutoff: 25 32 Epgzdcjt-9-cuur-glucuronide, U Not Detected ng/mL 33 Methadone, Ur Not Detected ng/mL Cutoff: 25 34 Eddp, Ur Not Detected ng/mL Cutoff: 25 35 Propoxyphene, Ur Not Detected ng/mL Cutoff: 25 36 Norpropoxyphene, Ur Not Detected ng/mL Cutoff: 25 37 Tramadol, Ur Not Detected ng/mL Cutoff: 25 38 O-desmethyltramadol, Ur Not Detected ng/mL Cutoff: 25 39 Tapentadol, Ur Not Detected ng/mL Cutoff: 25 40 N-desmethyltapentadol, Ur Not Detected ng/mL Cutoff: 50 41 Oitrhzoopc-lnpc-nttmamybjmy, U Not Detected ng/mL 42 Buprenorphine, Ur Not Detected ng/mL Cutoff: 5 43 Norbuprenorphine, Ur Not Detected ng/mL Cutoff: 5 44 Norbuprenorphine glucuronide Not Detected ng/mL Cutoff: 20 45 Opioid Interpretation See Comment 46 Fibro Test-Actitest, 07/14/2018 [facility] FibroTest Score 0.[address] [place] [address] [phone] FibroTest Stage F3 FibroTest Interpretation advanced fibrosi <SEE NOTE> 47 ActiTest Score 0.66 ActiTest Grade A3 ActiTest Interpretation severe activity 48 FibroTest-ActiTest Comment See Comment 49 [employer] Serial Number [id number] Apolipoprotein A1, S 168 mg/dL >=120 Yzgoh-3-Bleewzurwppzm, S 235 mg/dL 100 - 280 Haptoglobin, S 118 mg/dL 30 - 200 Alanine Aminotransferase (Alt) 99 U/L Abnormal 7-55 Gamma Glutamyltransferase GGT 284 U/L Abnormal 8 - 61 Bilirubin, Total, S 0.9 mg/dL <=1.2 50 Laboratory 07/14/2018 [facility] Hepatitis B Nonreactive Nonreactive test finding [address] [place] [address] [phone] HIV 1/2 07/14/2018 [facility] Hiv1/2 Negative Negative 51 Ag/AB [address] DR[address] Ag/Ab Screen,W/[place] [address] Screen,w/Re dara,Plasma [phone] flex,P Laboratory 07/13/2018 [facility] Potassium 4.2 mmol/L Normal 3.5-5.[address] [place] [address] [phone] Ast Redraw 60 U/L High 13-39 Laboratory test 07/13/2018 [facility] Troponin-I (TnI) 0.00 ng/ mL <0.[address] [place] [address] [phone] Potassium Redraw TNP mmol/L 3.5-5.0 Ast Redraw TNP U/L 13-39 Urine Culture And 07/13/2018 [facility] Urine SEE RESULT [address] Culture BELOW [place], [place] [id number] [phone] Laboratory test 07/13/2018 [facility] Alcohol < 10 mg/dL Normal <[address] [place] [address] [phone] CBC Auto Diff 07/13/2018 [facility] White Blood 8.6 10^3/uL Normal 3.5- [address] Count 10.8 [place], [place] [id number] [phone] Red Blood Count 4.98 10^6/uL Normal 4.00-5.40 Hemoglobin 17.5 g/dL Normal 14.0-18.0 Hematocrit 50 % Normal 42-52 Mean Corpuscular Volume 101 fL High 80-94 Mean Corpuscular Hemoglobin 35 pg High 27-31 Mean Corpuscular HGB Conc 35 g/dL Normal 31-36 Red Cell Distribution Width 14 % Normal 10.5-15 Platelet Count 265 10^3/uL Normal 150-450 Mean Platelet Volume 7.7 fL Normal 7.4-10.4 Abs Neutrophils 5.9 10^3/uL Normal 1.5-7.7 Abs Lymphocytes 1.7 10^3/uL Normal 1.0-4.8 Abs Monocytes 0.7 10^3/uL Normal 0-0.8 Abs Eosinophils 0.2 10^3/uL Normal 0-0.6 Abs Basophils 0.1 10^3/uL Normal 0-0.2 Abs Nucleated RBC 0 10^3/uL Granulocyte % 68.9 % Lymphocyte % 20.2 % Monocyte % 8.0 % Eosinophil % 2.2 % Basophil % 0.7 % Nucleated Red Blood Cells % 0.2 Laboratory test 07/13/2018 [facility] Lactic Acid 1.8 mmol/L Normal 0.5-2.0 54 finding [address] [place] [address] [phone] B-Type Natriuretic Peptide BNP 22 pg/mL <=100 Comp Metabolic 07/13/2018 [facility] Sodium 136 mmol/L Normal 135-145 Panel [address] [place] [address] [phone] Chloride 105 mmol/L Normal 101-111 Co2 Carbon Dioxide 23 mmol/L Normal 22-32 Glucose 105 mg/dL High 70-100 Blood Urea Nitrogen 13 mg/dL Normal 6-24 Creatinine 0.98 mg/dL Normal 0.67-1.17 BUN/Creatinine Ratio 13.3 Normal 8-20 Calcium 9.5 mg/dL Normal 8.6-10.3 Total Protein 8.1 g/dL Normal 6.4-8.9 Albumin 4.4 g/dL Normal 3.2-5.2 Globulin 3.7 g/dL Normal 2-4 Albumin/Globulin Ratio 1.2 Normal 1-3 Total Bilirubin 0.60 mg/dL Normal 0.2-1.0 Alkaline Phosphatase 110 U/L High 34-104 Alt 96 U/L High 7-52 Egfr Non- 80.6 >60 Egfr 97.6 >60 55 Potassium TNP mmol/L 3.5-5.0 56 Anion Gap 8 mmol/L Normal 2-11 Ast TNP U/L 13-39 Laboratory test 07/13/2018 [facility] Magnesium 1.9 mg/dL Normal 1.9-2.7 finding [address] [place] [address] [phone] Creatine Kinase(CK) 237 U/L High 10-223 Troponin-I (TnI) 0.00 ng/mL <0.04 57 CKMB 07/13/2018 [facility] CKMB ng/mL 5.4 ng/mL Normal 0.6- 6.3 [address] [place] [address] [phone] Urinalysis 07/13/2018 [facility] Urine Color Yellow Profile [facility] [place] [address] [phone] Urine Appearance Clear Urine Specific [place] 1.014 Normal 1.010-1.030 Urine pH 5.0 Normal 5-9 Urine Urobilinogen Negative Negative Urine Ketones Negative Negative Urine Protein Negative Negative Urine Leukocytes Negative Negative Urine Blood 2+ Abnormal Negative Urine Nitrite Negative Negative Urine Bilirubin Negative Negative Urine Glucose Negative Negative Urine White Blood Cell Trace(0-5/hpf) Absent Urine Red Blood Cell Trace(0-2/hpf) Absent Urine Bacteria Absent Absent Urine Hyaline Casts Present Abnormal Absent Laboratory 07/13/2018 [facility] TSH (Thyroid 1.14 Normal 0.34 -5.60 test finding 101 [facility] Stim Horm) mcIU/[place] [address] [phone] CBC Auto Diff 05/21/2018 [facility] White Blood 9.5 10^3/uL Normal 3.5-10.8 [address] [facility] [place] [address] [phone] Red Blood Count 4.55 10^6/uL Normal 4.00-5.40 Hemoglobin 16.2 g/dL Normal 14.0-18.0 Hematocrit 46 % Normal 42-52 Mean Corpuscular Volume 101 fL High 80-94 Mean Corpuscular Hemoglobin 36 pg High 27-31 Mean Corpuscular HGB Conc 35 g/dL Normal 31-36 Red Cell Distribution Width 14 % Normal 10.5-15 Platelet Count 254 10^3/uL Normal 150-450 Mean Platelet Volume 7.3 fL Low 7.4-10.4 Abs Neutrophils 5.9 10^3/uL Normal 1.5-7.7 Abs Lymphocytes 2.3 10^3/uL Normal 1.0-4.8 Abs Monocytes 1.0 10^3/uL High 0-0.8 Abs Eosinophils 0.3 10^3/uL Normal 0-0.6 Abs Basophils 0.1 10^3/uL Normal 0-0.2 Abs Nucleated RBC 0 10^3/uL Nucleated Red Blood Cells % 0.1 Manual Differential 05/21/2018 [facility] Immature 6 % Normal 0-[address] [place] [address] [phone] Neutrophil % 57 % Band % 2 % Normal 0-8 Lymphocytes % 22 % Monocytes % 10 % Eosinophils % 4 % Basophil % 1 % Metamyelocytes % 2 % Normal 0-2 Myelocytes % 2 % High 0-1 Macrocytosis 1+ Comp Metabolic 05/21/2018 [facility] Sodium 141 mmol/L Normal 135-[address] [place] [address] [phone] Chloride 105 mmol/L Normal 101-111 Co2 Carbon Dioxide 29 mmol/L Normal 22-32 Glucose 118 mg/dL High 70-100 Blood Urea Nitrogen 16 mg/dL Normal 6-24 Creatinine 1.07 mg/dL Normal 0.67-1.17 BUN/Creatinine Ratio 15.0 Normal 8-20 Calcium 9.1 mg/dL Normal 8.6-10.3 Total Protein 6.6 g/dL Normal 6.4-8.9 Albumin 3.8 g/dL Normal 3.2-5.2 Globulin 2.8 g/dL Normal 2-4 Albumin/Globulin Ratio 1.4 Normal 1-3 Total Bilirubin 0.30 mg/dL Normal 0.2-1.0 Alkaline Phosphatase 98 U/L Normal 34-104 Alt 137 U/L High 7-52 Egfr Non- 73.2 >60 Egfr 88.5 >60 58 Potassium 3.8 mmol/L Normal 3.5-5.0 Anion Gap 7 mmol/L Normal 2-11 Ast 91 U/L High 13-39 Laboratory test 05/21/2018 [facility] Magnesium 2.0 mg/dL Normal 1.9-2.[address] [place] [address] [phone] Laboratory test 05/14/2018 [facility] Troponin-I 0.00 <0.04 59 finding 101 (TnI) ng/[place] [address] [phone] CBC Auto Diff 05/14/2018 [facility] White Blood 6.6 Normal 3.5 -10.8 [address] Count 10^3/[place] [address] [phone] Red Blood Count 4.83 10^6/uL Normal 4.00-5.40 Hemoglobin 16.8 g/dL Normal 14.0-18.0 Hematocrit 49 % Normal 42-52 Mean Corpuscular Volume 102 fL High 80-94 Mean Corpuscular Hemoglobin 35 pg High 27-31 Mean Corpuscular HGB Conc 34 g/dL Normal 31-36 Red Cell Distribution Width 14 % Normal 10.5-15 Platelet Count 229 10^3/uL Normal 150-450 Mean Platelet Volume 7.3 fL Low 7.4-10.4 Abs Neutrophils 4.2 10^3/uL Normal 1.5-7.7 Abs Lymphocytes 1.5 10^3/uL Normal 1.0-4.8 Abs Monocytes 0.7 10^3/uL Normal 0-0.8 Abs Eosinophils 0.2 10^3/uL Normal 0-0.6 Abs Basophils 0 10^3/uL Normal 0-0.2 Abs Nucleated RBC 0 10^3/uL Granulocyte % 62.6 % Lymphocyte % 23.3 % Monocyte % 9.9 % Eosinophil % 3.7 % Basophil % 0.5 % Nucleated Red Blood Cells % 0.1 Inr/Protime 05/14/2018 [facility] Inr 0.89 Normal 0.77-1.[address] [place] [address] [phone] Laboratory test 05/14/2018 [facility] B-Type 11 <=[address] Natriuretic pg/[place] [address] Peptide BNP [phone] Lactic Acid 1.2 mmol/L Normal 0.5-2.0 60 Comp Metabolic 05/14/2018 [facility] Sodium 139 mmol/L Normal 135-[address] [place] [address] [phone] Potassium 4.2 mmol/L Normal 3.5-5.0 Chloride 108 mmol/L Normal 101-111 Co2 Carbon Dioxide 26 mmol/L Normal 22-32 Anion Gap 5 mmol/L Normal 2-11 Glucose 105 mg/dL High 70-100 Blood Urea Nitrogen 13 mg/dL Normal 6-24 Creatinine 0.99 mg/dL Normal 0.67-1.17 BUN/Creatinine Ratio 13.1 Normal 8-20 Calcium 9.2 mg/dL Normal 8.6-10.3 Total Protein 7.7 g/dL Normal 6.4-8.9 Albumin 3.9 g/dL Normal 3.2-5.2 Globulin 3.8 g/dL Normal 2-4 Albumin/Globulin Ratio 1.0 Normal 1-3 Total Bilirubin 0.40 mg/dL Normal 0.2-1.0 Alkaline Phosphatase 98 U/L Normal 34-104 Alt 99 U/L High 7-52 Ast 72 U/L High 13-39 Egfr Non- 80.0 >60 Egfr 96.8 >60 61 Laboratory test 05/14/2018 [facility] Troponin-I (TnI) 0.00 ng/ mL <0.04 62 finding [address] [place] [address] [phone] Alcohol < 10 mg/dL Normal <10 Amylase 35 U/L Normal 29-103 Lipase 24 U/L Normal 11.0-82.0 Hepatitis C Antibody 05/02/2018 [facility] HCV Index > 11.[address] [place] [address] [phone] Hepatitis C Antibody High Reactive Abnormal Nonreactive 63 Laboratory 05/02/2018 [facility] Hepatitis C [id number] Abnormal Undetected 64 test finding [address] [facility] Rna Quant IU/[place] [address] [phone] Hepatitis C Genotype 3 Abnormal Undetected 65 Liver Function 05/02/2018 [facility] Total Protein 7.2 g/dL Normal 6.4-8.[address] [place] [address] [phone] Albumin 4.1 g/dL Normal 3.2-5.2 Globulin 3.1 g/dL Normal 2-4 Albumin/Globulin Ratio 1.3 Normal 1-3 Total Bilirubin 0.50 mg/dL Normal 0.2-1.0 Direct Bilirubin 0.10 mg/dL Normal 0.03-0.18 Indirect Bilirubin 0.4 mg/dL Normal 0.3-1.0 Alkaline Phosphatase 79 U/L Normal 34-104 Alt 101 U/L High 7-52 Ast 66 U/L High 13-39 Inr/Protime 01/10/2017 [facility] Inr 1.01 Normal 0.89-1.[address] [place] [address] [phone] Laboratory test 01/10/2017 [facility] Health Partial 38.5 High 26.0- 36.[address] [place] [address] Time PTT [phone] CBC Auto Diff 01/10/2017 [facility] White Blood 8.4 10^3/uL Normal 3.5-10.[address] [place] [address] [phone] Red Blood Count 4.50 10^6/uL Normal 4.0-5.4 Hemoglobin 15.3 g/dL Normal 14.0-18.0 Hematocrit 44 % Normal 42-52 Mean Corpuscular Volume 98 fL High 80-94 Mean Corpuscular Hemoglobin 34 pg High 27-31 Mean Corpuscular HGB Conc 35 g/dL Normal 31-36 Red Cell Distribution Width 12 % Normal 10.5-15 Platelet Count 240 10^3/uL Normal 150-450 Mean Platelet Volume 8 um3 Normal 7.4-10.4 Abs Neutrophils 5.5 10^3/uL Normal 1.5-7.7 Abs Lymphocytes 1.7 10^3/uL Normal 1.0-4.8 Abs Monocytes 0.9 10^3/uL High 0-0.8 Abs Eosinophils 0.2 10^3/uL Normal 0-0.6 Abs Basophils 0.1 10^3/uL Normal 0-0.2 Abs Nucleated RBC 0.01 10^3/uL Normal Granulocyte % 64.6 % Normal 38-83 Lymphocyte % 20.7 % Low 25-47 Monocyte % 11.2 % High 1-9 Eosinophil % 2.6 % Normal 0-6 Basophil % 0.9 % Normal 0-2 Nucleated Red Blood Cells % 0.1 Normal Comp Metabolic 01/10/2017 [facility] Sodium 137 mmol/L Normal 133-[address] [place] [address] [phone] Potassium 4.1 mmol/L Normal 3.5-5.0 Chloride 107 mmol/L Normal 101-111 Co2 Carbon Dioxide 25 mmol/L Normal 22-32 Anion Gap 5 mmol/L Normal 2-11 Glucose 123 mg/dL High 70-100 Blood Urea Nitrogen 18 mg/dL Normal 6-24 Creatinine 0.91 mg/dL Normal 0.67-1.17 BUN/Creatinine Ratio 19.8 Normal 8-20 Calcium 9.2 mg/dL Normal 8.6-10.3 Total Protein 7.6 g/dL Normal 6.4-8.9 Albumin 3.8 g/dL Normal 3.2-5.2 Globulin 3.8 g/dL Normal 2-4 Albumin/Globulin Ratio 1.0 Normal 1-3 Total Bilirubin 0.70 mg/dL Normal 0.2-1.0 Alkaline Phosphatase 72 U/L Normal 34-104 Alt 155 U/L High 7-52 Ast 93 U/L High 13-39 Egfr Non- 88.6 Normal >60 Egfr 113.9 Normal >60 66 Laboratory test 01/10/2017 [facility] Lipase 11 U/L Normal 11.0-82.[address] [place] [address] [phone] Troponin-I (TnI) 0.00 ng/mL Normal <0.04 Urine Drug 12/25/2016 [facility] Amphetamine Ur None Normal None SCR ED & [address] Screen Detected Detect Pain [address] [phone] Barbiturates Urine Screen Presumptive Posi <SEE NOTE> Abnormal None Detect 67 Benzodiazepine Urine Screen None Detected Normal None Detect Urine Cannabinoids Screen None Detected Normal None Detect Urine Cocaine Screen None Detected Normal None Detect Urine Opiates Screen None Detected Normal None Detect Urine Phencyclidine Screen None Detected Normal None Detect 68 Laboratory 12/25/2016 [facility] Troponin-I 0.00 Normal <0.04 69 test finding [address] (TnI) ng/[place] [address] [phone] CBC Auto Diff 10/03/2016 [facility] White Blood 8.0 Normal 3.5 -10.[address] Count 10^3/[place] [address] [phone] Red Blood Count 5.00 10^6/uL Normal 4.0-5.4 Hemoglobin 17.0 g/dL Normal 14.0-18.0 Hematocrit 50 % Normal 42-52 Mean Corpuscular Volume 100 fL High 80-94 Mean Corpuscular Hemoglobin 34 pg High 27-31 Mean Corpuscular HGB Conc 34 g/dL Normal 31-36 Red Cell Distribution Width 14 % Normal 10.5-15 Platelet Count 220 10^3/uL Normal 150-450 Mean Platelet Volume 8 um3 Normal 7.4-10.4 Abs Neutrophils 5.1 10^3/uL Normal 1.5-7.7 Abs Lymphocytes 1.8 10^3/uL Normal 1.0-4.8 Abs Monocytes 0.8 10^3/uL Normal 0-0.8 Abs Eosinophils 0.2 10^3/uL Normal 0-0.6 Abs Basophils 0.1 10^3/uL Normal 0-0.2 Abs Nucleated RBC 0.01 10^3/uL Normal Granulocyte % 64.1 % Normal 38-83 Lymphocyte % 23.1 % Low 25-47 Monocyte % 9.5 % High 1-9 Eosinophil % 2.2 % Normal 0-6 Basophil % 1.1 % Normal 0-2 Nucleated Red Blood Cells % 0.2 Normal CBC Auto 10/03/2016 [facility] White Blood 7.3 10^3/uL Normal 3.5-10.[address] [place] [address] [phone] Red Blood Count 5.25 10^6/uL Normal 4.0-5.4 Hemoglobin 17.5 g/dL Normal 14.0-18.0 Hematocrit 52 % Normal 42-52 Mean Corpuscular Volume 100 fL High 80-94 Mean Corpuscular Hemoglobin 33 pg High 27-31 Mean Corpuscular HGB Conc 33 g/dL Normal 31-36 Red Cell Distribution Width 13 % Normal 10.5-15 Platelet Count 238 10^3/uL Normal 150-450 Mean Platelet Volume 8 um3 Normal 7.4-10.4 Abs Neutrophils 4.2 10^3/uL Normal 1.5-7.7 Abs Lymphocytes 2.2 10^3/uL Normal 1.0-4.8 Abs Monocytes 0.6 10^3/uL Normal 0-0.8 Abs Eosinophils 0.2 10^3/uL Normal 0-0.6 Abs Basophils 0.1 10^3/uL Normal 0-0.2 Abs Nucleated RBC 0.02 10^3/uL Normal Granulocyte % 57.2 % Normal 38-83 Lymphocyte % 30.7 % Normal 25-47 Monocyte % 8.6 % Normal 1-9 Eosinophil % 2.5 % Normal 0-6 Basophil % 1.0 % Normal 0-2 Nucleated Red Blood Cells % 0.3 Normal Basic Metabolic 10/03/2016 [facility] Sodium 138 mmol/L Normal 133-145 Panel [address] [place] [address] [phone] Potassium 4.7 mmol/L Normal 3.5-5.0 Chloride 104 mmol/L Normal 101-111 Co2 Carbon Dioxide 32 mmol/L Normal 22-32 Anion Gap 2 mmol/L Normal 2-11 Glucose 82 mg/dL Normal 70-100 Blood Urea Nitrogen 9 mg/dL Normal 6-24 Creatinine 1.13 mg/dL Normal 0.67-1.17 BUN/Creatinine Ratio 8.0 Normal 8-20 Calcium 9.6 mg/dL Normal 8.6-10.3 Egfr Non- 69.0 Normal >60 Egfr 88.7 Normal >60 70 CKMB 10/03/2016 [facility] CKMB ng/mL 2.8 ng/mL Normal 0.6- 6.3 [place] [address] [phone] Laboratory test 10/03/2016 [facility] Creatine 107 U/L Normal 10-223 finding [facility] Kinase(CK) [place] [address] [phone] Troponin-I (TnI) 0.00 ng/mL Normal <0.04 71 Comp Metabolic 10/03/2016 [facility] Sodium 138 mmol/L Normal 133-145 [place] [address] [phone] Potassium 4.5 mmol/L Normal 3.5-5.0 Chloride 106 mmol/L Normal 101-111 Co2 Carbon Dioxide 28 mmol/L Normal 22-32 Anion Gap 4 mmol/L Normal 2-11 Glucose 84 mg/dL Normal 70-100 Blood Urea Nitrogen 11 mg/dL Normal 6-24 Creatinine 1.06 mg/dL Normal 0.67-1.17 BUN/Creatinine Ratio 10.4 Normal 8-20 Calcium 9.3 mg/dL Normal 8.6-10.3 Total Protein 7.6 g/dL Normal 6.4-8.9 Albumin 3.9 g/dL Normal 3.2-5.2 Globulin 3.7 g/dL Normal 2-4 Albumin/Globulin Ratio 1.1 Normal 1-3 Total Bilirubin 0.80 mg/dL Normal 0.2-1.0 Alkaline Phosphatase 63 U/L Normal 34-104 Alt 48 U/L Normal 7-52 Ast 36 U/L Normal 13-39 Egfr Non- 74.3 Normal >60 Egfr 95.5 Normal >60 72 Laboratory test 10/03/2016 [facility] Lactic Acid 1.2 mmol/L Normal 0.5-2.0 73 finding [address] [place], [place] [id number] [phone] 1 REFERENCE VALUE 12.0 - 46.0 ADDITIONAL INFORMATION This test was developed and its performance characteristics determined by [facility] in a manner consistent with CLIA requirements. This test has not been cleared or approved by the U.S. Food and Drug Administration. Test Performed by: [facility] [address] [place] [address] 2 Because ethnic data is not always readily [...] 15-29 5 Kidney failure <15 (or dialysis) 3 REFERENCE VALUE 12.0 - 46.0 ADDITIONAL INFORMATION This test was developed and its performance characteristics determined by [facility] in a manner consistent with CLIA requirements. This test has not been cleared or approved by the U.S. Food and Drug Administration. Test Performed by: [place] [address] 4 Result in log IU/mL is Undetected. ADDITIONAL INFORMATION The quantification range of this assay is 15 to 100,000,000 IU/mL (1.18 log to 8.00 log IU/mL). Testing was performed using the le HCV test ([employer] with the le [employer] System. Test Performed by: [place] [address] 5 Because ethnic data is not always [...] 5 Kidney failure <15 (or dialysis) 6 Standard intensity warfarin therapeutic range: 2.0-3.0 High intensity warfarin therapeutic range: 2.5-3.5 7 REFERENCE VALUE Cutoff: 500 8 REFERENCE VALUE Cutoff: 200 9 REFERENCE VALUE Cutoff: 100 10 REFERENCE VALUE Cutoff: 150 11 ADDITIONAL INFORMATION This report is intended for use in clinical monitoring or management of patients. It is not intended for use in employment-related testing. 12 REFERENCE VALUE Cutoff: 200 mg/L 13 Tylenol 3 14 Metabolite of codeine REFERENCE VALUE Cutoff: 100 15 Jennifer Ley, Contin; Also a minor metabolite (10%) of codeine and can be seen in low concentrations (<2,000 ng/mL) with poppy seed ingestion. 16 Metabolite of morphine REFERENCE VALUE Cutoff: 100 17 Metabolite of heroin 18 Lortab, [place], Vicodin; Also a very minor metabolite of codeine and impurity (<1%) of oxycodone. 19 Metabolite of hydrocodone 20 Metabolite of hydrocodone 21 Dilaudid, Exalgo; Also a metabolite of hydrocodone and a minor (<5%) metabolite of morphine. 22 Metabolite of hydromorphone REFERENCE VALUE Cutoff: 100 23 Endocet, Percocet, Oxycontin 24 Metabolite of oxycodone 25 Numorphan, Opana; Also a metabolite of oxycodone. 26 Metabolite of oxymorphone REFERENCE VALUE Cutoff: 100 27 Metabolite of oxymorphone 28 Actiq, Duragesic, Fentora 29 Metabolite of fentanyl 30 Demerol 31 Metabolite of meperidine 32 Narcan 33 Metabolite of naloxone REFERENCE VALUE Cutoff: 100 34 Dolophine 35 Metabolite of methadone 36 Darvon, Darvocet 37 Metabolite of propoxyphene 38 Tradol, Ultram, Ultracet 39 Metabolite of tramadol 40 Nucynta 41 Metabolite of tapentadol 42 Metabolite of tapentadol REFERENCE VALUE Cutoff: 100 43 Buprenex, Suboxone 44 Metabolite of buprenorphine 45 Metabolite of buprenorphine 46 Test detected the presence of noroxycodone (metabolite of oxycodone) only. Suspect use of oxycodone within the past three days. ADDITIONAL INFORMATION This test was developed and its performance characteristics determined by [facility] in a manner consistent with CLIA requirements. This test has not been cleared or approved by the U.S. Food and Drug Administration. Test Performed by: [facility] [address] [place] [id number] 47 advanced fibrosis FibroTest estimates liver fibrosis FibroTest Score Stage Interpretation 0.00-0.21 F0 no fibrosis 0.21-0.27 F0-F1 no fibrosis 0.27-0.31 F1 minimal fibrosis 0.31-0.48 F1-F2 minimal fibrosis 0.48-0.58 F2 moderate fibrosis 0.58-0.72 F3 advanced fibrosis 0.72-0.74 F3-F4 advanced fibrosis 0.74-1.00 F4 severe fibrosis (Cirrhosis) 48 ActiTest estimates necroinflammatory activity ActiTest Score Grade Interpretation 0.00-0.17 A0 no activity 0.17-0.29 A0-A1 no activity 0.29-0.36 A1 minimal activity 0.36-0.52 A1-A2 minimal activity 0.52-0.60 A2 significant activity 0.60-0.62 A2-A3 significant activity 0.62-1.00 A3 severe activity 49 The reliability of results is dependent on compliance with the preanalytical and analytical conditions recommended by [employer]. The tests have to be deferred for: [...] developed and its performance characteristics determined by [facility] in a manner consistent with CLIA requirements. This test has not been cleared or approved by the U.S. Food and Drug Administration. 50 Test Performed by: [facility] [address] [place] [address] 51 Negative result does not rule out HIV infection. If exposure to HIV infection occurred <14 days ago, contact the laboratory to request addition of HIV-1 RNA detection / quantification test (HIVQN). Test Performed by: [facility] [address] [place] [address] 52 Troponin-I testing on Plasma Separator Tubes (PST) has a known false positive rate of 0.20-0.40%. All positive troponins reflex immediate secondary confirmatory testing. 53 SEE RESULT BELOW Name: ADRIANO JONES : [address]: Saw Figueredo MD Acct: [id number] Unit: [id number] AGE: 53 Location: ED Re07/13/18 SEX: M Status: DEP ER SPEC: [id number] JANEL: 07/13/18-15[address] [facility] [address]: Saw Figueredo MD REQ: [id number] RECD: 07/13/18 STATUS: MAXINE JOHNSTON DR: Norma Vasquez DO _ SOURCE: URINE SPDESC: ORDERED: Urine Culture Procedure Result Reported Site Urine Culture Final 07/14/18- 1602 ML No Growth (<1,000 CFU/mL) * ML - Main Lab . END OF REPORT DEPARTMENT OF PATHOLOGY, [address] [place] [address] Romario Meier M.D. Director [facility] # [id number] 54 [facility] Severe Sepsis and Septic Shock Management [...] 5 Kidney failure <15 (or dialysis) 56 Specimen Hemolyzed. Result may not be valid. Unable to report test result due to hemolysis. 57 Troponin-I testing on Plasma Separator Tubes (PST) has a known false positive rate of 0.20-0.40%. All positive troponins reflex immediate secondary confirmatory testing. 58 Because ethnic data is not always readily [...] 15-29 5 Kidney failure <15 (or dialysis) 59 Troponin-I testing on Plasma Separator Tubes (PST) has a known false positive rate of 0.20-0.40%. All positive troponins reflex immediate secondary confirmatory testing. 60 [facility] Severe Sepsis and Septic Shock Management Bundle Measure requires all lactic acids initially measuring >2.0 mmol/L be repeated. 61 Because ethnic data is not always readily [...] 15-29 5 Kidney failure <15 (or dialysis) 62 Troponin-I testing on Plasma Separator Tubes (PST) has a known false positive rate of 0.20-0.40%. All positive troponins reflex immediate secondary confirmatory testing. 63 High reactive sample are considered positive for Hepatitis C 64 Result in log IU/mL is 6.75. ADDITIONAL INFORMATION The quantification range of this assay is 15 to 100,000,000 IU/mL (1.18 log to 8.00 log IU/mL). Testing was performed using the le HCV test ([employer] with the le [employer] System. Test Performed by: [place] [address] 65 ADDITIONAL INFORMATION This test was performed using the Rojas RealTime HCV Genotype II assay ([employer] [place], [place]). Test Performed by: [place] [address] 66 Because ethnic data is not always readily [...] 15-29 5 Kidney failure <15 (or dialysis) 67 Presumptive Positive Presumptive positive results are unconfirmed. 68 The urine specimen was tested at the listed cutoffs: Drug class test level (ng/mL) Amphetamines 500 Barbiturates 200 Benzodiazepine metabolites 200 Cocaine metabolites 150 Cannabinoids 50 Opiates 300 Pcp 25 Specimen was received without chain of custody. Results should be used for medical purposes only. 69 Comment: please draw at 1400 70 Because ethnic data is not always readily [...] 15-29 5 Kidney failure <15 (or dialysis) 71 99th percentile=0.04 ng/mL Troponin results at [facility] and [facility] are not interchangeable. 72 Because ethnic data is not always readily [...] 15-29 5 Kidney failure <15 (or dialysis) 73 [facility] Severe Sepsis and Septic Shock Management Bundle Measure requires all lactic acids initially measuring >2.0 mmol/L be repeated. Procedures Date Code Description Status 07/28/2018 45459 EKG, Interpretation Only Completed 07/28/2018 17253 EKG Tracing & Interpretation Completed 05/18/2018 12282 EKG, Interpretation Only Completed 05/15/2018 98912 EEG Recording Awake & Asleep Completed 05/15/2018 72090 Treadmill Interp/Report Only Completed 05/15/2018 52549 Stress Test Supervsn W/Out I/R Completed 05/15/2018 71376 EKG, Interpretation Only Completed 05/14/2018 77687 EKG, Interpretation Only Completed 04/30/2018 37896 EKG, Interpretation Only Completed 03/18/2018 56517 EKG, Interpretation Only Completed 03/14/2018 93235 EEG Recording In Coma Or Sleep Only Completed 09/12/2016 61156 Inject/Drain Joint/Bursa Intermediate W/O US Completed 09/20/2014 37674 EKG Tracing & Interpretation Completed Encounters Type Date Location Provider Dx Diagnosis Office Visit 11/25/2018 [facility] Internal Norma Vasquez, Z01.818 Encounter for other 11:40a Medicine - Suite DO preprocedural R examination J44.1 Chronic obstructive pulmonary disease w (acute) exacerbation S42.142D Disp fx of glenoid cav of scapula, l shldr, 7thD Office Visit 11/19/2018 10:10a [facility] Adriano Grissom B18.2 Chronic viral Infectious Mirna Covarrubias hepatitis C Diseases R06.00 Dyspnea, unspecified Office Visit 11/12/2018 3:00p [facility] Brien Damon, G40.909 Epilepsy, unsp, Neurologic SHORTAGE WORKER not intractable, Services Of [facility] without status epilepticus F10.188 Alcohol abuse with other alcohol-induced disorder Office Visit 10/30/2018 10:20a [facility] Internal Best rOdaz, Z01.810 Encounter for Medicine - MD preprocedural Suite R cardiovascular examination G40.909 Epilepsy, unsp, not intractable, without status epilepticus S42.142D Disp fx of glenoid cav of scapula, l shldr, 7thD F10.14 Alcohol abuse with alcohol-induced mood disorder B18.2 Chronic viral hepatitis C Z86.711 Personal history of pulmonary embolism Office Visit 09/25/2018 3:00p DO Not Use Care Norma S42.142D Disp fx of Connections Pedro, glenoid cav of [facility] scapula, l melissar, 7thD F10.14 Alcohol abuse with alcohol-induced mood disorder B18.2 Chronic viral hepatitis C Office Visit 07/24/2018 9:30a Orthopedic Taiwo Cunningham S42.142D Disp fx of Services Of MD Senia glenoid cav of [facility]apula [facility], 7thD Office Visit 07/22/2018 2:45p Orthopedic Jhony Cowart, M25.512 Pain in left Services Of shoulder C.M.A. S42.142A Disp fx of glenoid cavity of scapula, left shoulder, init Office Visit 07/10/2018 4:20p [facility] For Adriano Grissom B18.2 Chronic viral Infectious Mirna Covarrubias hepatitis C Diseases K74.0 Hepatic fibrosis Office Visit 06/18/2018 1:40p DO Not Use Care Best Ordaz, G90.09 Other idiopathic Connections peripheral [facility] autonomic neuropathy M54.2 Cervicalgia B18.2 Chronic viral hepatitis C I10 Essential (primary) hypertension Office Visit 06/16/2018 2:30p Neurosurgery Vassilios M54.2 Cervicalgia Services Of Maru Hathaway MD M47.892 Other spondylosis, cervical region Office Visit 05/30/2018 1:00p DO Not Use Care Best Ordaz MD M54.2 Cervicalgia Connections [facility] G89.4 Chronic pain syndrome B18.2 Chronic viral hepatitis C J44.9 Chronic obstructive pulmonary disease, unspecified I10 Essential (primary) hypertension Z86.711 Personal history of pulmonary embolism Office Visit 05/22/2018 2:40p DO Not Use Care Best Ordaz MD M54.2 Cervicalgia Connections [facility] G89.4 Chronic pain syndrome R07.9 Chest pain, unspecified B18.2 Chronic viral hepatitis C J44.9 Chronic obstructive pulmonary disease, unspecified I10 Essential (primary) hypertension Z86.711 Personal history of pulmonary embolism Office Visit 05/19/2018 10:14a [facility] Anne R07.9 Chest pain, Assoc,leidy Justin, unspecified Hospitalists SH[employer]AGE WORKER F10.239 Alcohol dependence with withdrawal, unspecified G40.909 Epilepsy, unsp, not intractable, without status epilepticus J44.9 Chronic obstructive pulmonary disease, unspecified Office Visit 05/18/2018 [facility] Magda Cormier, R07.9 Chest pain, 10:14a Assoc,leidy MCamilo. unspecified Hospitalists J44.9 Chronic obstructive pulmonary disease, unspecified E72.20 Disorder of urea cycle metabolism, unspecified R41.0 Disorientation, unspecified M54.5 Low back pain F10.10 Alcohol abuse, uncomplicated Z86.711 Personal history of pulmonary embolism Office Visit 05/17/2018 [facility] Magda Cormier, R07.9 Chest pain, 10:14a leidy Temple M.D. unspecified Hospitalists J44.9 Chronic obstructive pulmonary disease, unspecified E72.20 Disorder of urea cycle metabolism, unspecified R41.0 Disorientation, unspecified M54.5 Low back pain F10.10 Alcohol abuse, uncomplicated Z86.711 Personal history of pulmonary embolism Office Visit 05/17/2018 4:31p [facility] Feliz S. R07.89 Other chest Of Cardiac Monitor Mayen, DO FACC pain Z72.0 Tobacco use F10.230 Alcohol dependence with withdrawal, uncomplicated Office Visit 05/16/2018 [facility] R41.0 Disorientation, 10:14a Assoc,pc Senner, DO unspecified Hospitalists R07.9 Chest pain, unspecified M54.5 Low back pain F10.10 Alcohol abuse, uncomplicated Z86.711 Personal history of pulmonary embolism Office Visit 05/15/2018 10:13a [facility] Norma R07.9 Chest pain, Assoc,pc Senner, DO unspecified Hospitalists M54.5 Low back pain F10.10 Alcohol abuse, uncomplicated Z86.711 Personal history of pulmonary embolism Office Visit 05/14/2018 10:13a [facility] Norma R07.9 Chest pain, Assoc,pc Senner, DO unspecified Hospitalists F10.239 Alcohol dependence with withdrawal, unspecified J44.9 Chronic obstructive pulmonary disease, unspecified G89.4 Chronic pain syndrome B18.2 Chronic viral hepatitis C Office Visit 05/02/2018 11:40a DO Not Use Care Norma B18.2 Chronic viral Connections Senner, DO hepatitis C [facility] R22.32 Localized swelling, mass and lump, left upper limb Office Visit 04/30/2018 1:40p DO Not Use Care Norma R07.9 Chest pain, Connections Senner, DO unspecified [facility] F10.14 Alcohol abuse with alcohol-induced mood disorder M50.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, unsp cervical region B18.2 Chronic viral hepatitis C Office Visit 04/09/2018 DO Not Use Care Best Ordaz, F10.14 Alcohol abuse with 9:20a Connections alcohol-induced mood [facility] disorder I10 Essential (primary) hypertension F17.210 Nicotine dependence, cigarettes, uncomplicated J44.9 Chronic obstructive pulmonary disease, unspecified M54.2 Cervicalgia Z86.711 Personal history of pulmonary embolism F33.9 Major depressive disorder, recurrent, unspecified Office Visit 03/22/2018 12:16p [facility] Best Ordaz, F10.239 Alcohol Assoc,pc MD dependence [...] w hypoxia or hypercapnia Office Visit 03/13/2018 [facility] Nithin Dorantes J69.0 Pneumonitis due 12:14p Assoc,leidy Winkler MD to inhalation of Hospitalists food and vomit J44.9 Chronic obstructive pulmonary disease, unspecified F10.10 Alcohol abuse, uncomplicated M54.5 Low back pain I10 Essential (primary) hypertension Z86.711 Personal history of pulmonary embolism Office Visit 03/12/2018 [facility] Lottie F10.10 Alcohol abuse, 12:14p Assoc,pc Nilda, MARLY uncomplicated Hospitalists G40.509 Epileptic seiz rel to extrn causes, not ntrct, w/o stat epi R51 Headache I10 Essential (primary) hypertension Z87.09 Personal history of other diseases of the respiratory system Office Visit 10/03/2016 [facility] Internal Magdi Grissom M47.22 Other spondylosis 2:20p Medicine - [place], M.D.,FACP with radiculopathy, Suite R cervical region J01.00 Acute maxillary sinusitis, unspecified G89.4 Chronic pain syndrome F17.210 Nicotine dependence, cigarettes, uncomplicated Office Visit 09/28/2016 Neurosurgery Stew M47.22 Other spondylosis 10:00a Services Of Maru Odell M.D. with radiculopathy, cervical region Office Visit 09/26/2016 [facility] Internal Magdi Grissom M47.22 Other spondylosis 2:00p Medicine - Suite R [place], with radiculopathy, Mirna,FACP cervical region I26.99 Other pulmonary embolism without [...] encounter M54.2 Cervicalgia Office Visit 09/20/2014 1:40p [place] Filiberto Stefek, 272.4 Hyperlipidemia Other Cardiology Of Mirna, FACC, Unspec Cardiac Monitor AT [facility] 401.1 Hypertension Benign 786.50 Pain Chest Unspec Office Visit 07/07/2014 11:30a Neurosurgery Stew Odell 721.1 Spondylosis Services Of Maru MERCHANT M.D. Cervical W/ Cody Myelopathy Office Visit 03/25/2014 9:00a [place]/Yordy Matthews 780.2 Syncope & Neurologic Serv Of Mirna Wells Collapse Cardiac Monitor Office Visit 02/22/2009 11:20a DO Not Use Cardiac Monitor AT [place], 565.0 Anal Fissure Kuldip Jaramillo M.D. 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 Cervical Region 721.0 Spondylosis Cervical W/O Myelopathy 723.1 Cervicalgia 782.0 Skin Sensation Disturbance Office Visit 01/11/2009 1:00p DO Not Use Cardiac Monitor AT Ella Buchanan, 724.2 Lumbago Kuldip Bradley 723.9 Cervical Region Musculoskeletal Disorders & Symptoms Unspec Office Visit 12/08/2008 9:00a DO Not Use Cardiac Monitor Dewayne, 493.00 Asthma Extrinsic AT Kuldip Jaramillo M.D. Unspecified 314.01 Attention Deficit Disorder W/ Hyperactivity 723.9 Cervical Region Musculoskeletal Disorders & Symptoms Unspec 724.2 Lumbago Plan of Treatment Future Appointment(s):01/19/2019 10:00 am - Norma Vasquez DO at [facility] Internal Medicine - [address]/21/2019 1:30 pm - Brien Damon NP at [facility]12/03/2018 - Best Ordaz MDZ01.818 Encounter for other preprocedural examinationNew Orders:EKG, Ordered: 12/03/18B18.2 Chronic viral hepatitis CG40.909 Epilepsy, unspecified, not intractable, without status xsgnaC89.512 Pain in left ngcqsyxqL87.0 Tobacco useNew Medication:[facility] Nicotine Polacrilex 4 mg - use gum every 2 hours as needed for cravings.Nicotine Transdermal System Step 2 14 mg/24HR - use daily.J44.9 Chronic obstructive pulmonary disease, unspecifiedNew Medication:Incruse Ellipta 62.5 mcg/Inh - use 1 inhalation by mouth every day
--- OUTSIDE RECORDS SUMMARY | 2018-12-04 01:30 | XMS REPORT | Continuity of Care Document ---
:1965 External Reference #:[id number] Author Name Toma Zhao Care Team Providers Name Role Phone [facility] Primary Care Physician Unavailable Payers Date Identification Numbers Payment Provider Subscriber Effective: 2003 Policy Number: [id number] Medicare Adriano Jones PayID: [id number] [address] [place] [address] Policy Number: [id number] Medicaid Adriano Jones Group Name: [id number] [address] PayID: [id number] [place] [address] Expires: 2012 Policy Number: [id number] Medicaid Adriano Jones Group Name: 1 1 [address] PayID: [id number] [place] [address] Problems Active Problems Provider Date Cervical spondylosis with myelopathy Stew Odell M.D. Onset: 07/07/2014 Hyperlipidemia Filiberto Woodard M.D., [facility] Onset: 09/20/2014 Benign essential hypertension Filiberto Woodard M.D., [facility] Onset: 2014 H/O: pulmonary embolus Magdi Butler M.D.,[facility] Onset: 09/26/2016 Note: 2010 Chronic obstructive [facility] Onset: 2016 Tobacco user Best Ordaz [...] Inactive Problems Chest pain Filiberto Woodard M.D., [facility] Onset: 09/20/2014 Inactive: 09/26/2016 Resolved Problems Syncope [...] Third Daughter 17 First Brother due to NC () Social History Type Date Description Comments [...] (more than 10 cigarettes/day) Smoking Status Reviewed: 11/25/18 Heavy tobacco smoker (more than 10 cigarettes/day) Exercise Type/Frequency Does not exercise Allergies, Adverse Reactions, Alerts Active Allergies Reaction Severity Comments Date Penicillins Anaphylaxis Severe 12/08/2008 Asa/Caff/Butal/Cod GI irritation 12/08/2008 Tegretol Anaphylaxis Severe 09/26/2016 Ativan He states he blacks out 05/23/2018 Medications Active Medications SIG Qnty Indications Ordering Date Provider Prednisone 1 by mouth every 5tabs J44.1 Norma Vasquez, 11/25/2018 50mg Tablets day DO Azithromycin take two tabs on 6tabs J44.1 Norma Vasquez, 11/25/2018 250mg Tablets day one, and DO then one tab for four days Advair Diskus 1 puff inhaled 60units J44.1 Norma Vasquez, 11/25/2018 daily DO 250-50mcg/Dose Aerosol Triamcinolone Acetonide apply twice 45gm Normaterra Vasquez, 11/25/2018 daily to the DO 0.5% Cream affected area Levetiracetam Take 1 tab twice 60tabs G40.909 Best Ordaz MD 10/30/2018 1000mg a day Tablets Mavyret 3 tabs by mouth 84tabs Adriano Grissom 10/08/2018 100-40mg Tablets once daily - Mirna [...] by mouth twice 60tabs Norma Vasquez, 0.1mg Tablets a day DO Metoprolol Succinate ER 1 by mouth every 30tabs Norma Vasquez, day DO 50mg Tablets ER 24HR Escitalopram Oxalate 1 by mouth every 30tabs Norma Vasquez, 20mg day DO Tablets Gabapentin Take 1 Tablet By 180tabs Norma Vasquez, 600mg Tablets Mouth Three DO Times A Day And Take 3 Tablets AT Bedtime History Medications Oxycodone HCL 1 tab every 8 20tabs S42.142D Norma 09/25/2018 - 5mg Tablets hours as needed DO Pedro 10/30/2018 Prednisone take 2 tab daily 14tabs M54.2 Best Ordaz MD 05/30/2018 - 20mg Tablets for 7 days 06/18/2018 Oxycodone-Acetaminophen 1 by mouth every 90tabs G89.4 Norma 05/22/2018 - three times a day DO Pedro 09/25/2018 5-325mg Tablets as needed for pain Medrol take as directed 21tabs Best Ordaz MD 04/09/2018 - 4mg Tablets per dosepak 06/18/2018 instructions Doxycycline Hyclate twice a day by 20capzach Grissom 10/03/2016 - 100mg mouth Whiting, 10/03/2016 Capsules M.DMirlande,FACP Cefuroxime Axetil 1 by mouth twice 20tabs Magdi Grissom 10/03/2016 - 500mg a day for 10 days Whiting, 10/13/2016 Tablets Mirna,FACP Chantix Starting Month as directed 55tabs Magdi Grissom 10/03/2016 - Maximiliano Whiting, 04/08/2018 0.5mg X 11 & 1 mg X 42 M.DMirlande,FACP Tablets Losartan Potassium 1 by mouth every 30tabs Magdi Grissom 09/26/2016 - 50mg day Whiting, 04/09/2018 Tablets M.D.,FACP Doxycycline Hyclate twice a day by 14cchad Grissom 09/26/2016 - 100mg mouth Whiting, 10/03/2016 Capsules Mirna,FACP Valium take 1-2 tabs 2tabs Taiwo Cunningham 09/20/2016 - 5mg Tablets prior to mri MD Senia 04/08/2018 imaging test Percocet 1 tab by mouth 60tabs S43.52xA Kristopher 09/18/2016 - 5-325mg Tablets every 6 hours as Kymberly 04/08/2018 needed M.D. Medrol take as directed 21tabs S43.52xA Taiwo Cunningham 09/18/2016 - 4mg Tablets per dosepak MD Senia 09/26/2016 instructions Percocet 1 tab by mouth 30tabs Taiwo Cunningham 09/18/2016 - 5-325mg Tablets every 6 hours as MD Senia 09/26/2016 needed Medrol take as directed 21tabs S43.52xA Taiwo Cunningham 09/18/2016 - 4mg Tablets per dosepak MD Senia 09/26/2016 instructions Pepto-Bismol 1 table spoon po 3units 565.0 [...] - 20mg Tablets Carrie, 07/07/2014 Code b MNgoc,FACP Fentanyltransdermal 1 patch q 3 days 1un Dewayne, 12/08/2008 - 25mcg/HR Mirna Jaramillo 03/22/2014 [...] 4gm Magdi Grissom - daily as needed Whiting, 04/08/2018 20-100mcg/Act Aerosol M.DMirlande,FACP Levetiracetam 1 twice a day by 60tabs G40.909 Norma - 750mg Tablets mouth Senner, DO 10/30/2018 Vitamin B-12 daily Unknown - 5000mcg [...] 90tabs Magdi Grissom - 20mg Tablets day Whiting, 04/09/2018 M.Praveena,FACP Flovent HFA 2 puffs twice 12gm Unknown [...] Injection Vital Signs Date Vital Result Comment 11/25/2018 11:38am Height 68 inches 5'8" Weight [...] Result H/L Range Note CBC Auto Diff 11/25/2018 [facility] White Blood 7.6 10^3/uL N 3.5-10.[address] [place] [address] [phone] Red Blood Count 4.69 10^6/uL N 4.18-5.48 Hemoglobin 16.0 g/dL N 14.0-18.0 Hematocrit 47 % N 42-52 Mean Corpuscular Volume 100 fL High 80-94 Mean Corpuscular Hemoglobin 34 pg High 27-31 Mean Corpuscular HGB Conc 34 g/dL N 31-36 Red Cell Distribution Width 13 % N 10-15 Platelet Count 229 10^3/uL N 150-450 Mean Platelet Volume 7.9 fL N 7.4-10.4 Abs Neutrophils 4.8 10^3/uL N 1.5-7.7 Abs Lymphocytes 1.9 10^3/uL N 1.0-4.8 Abs Monocytes 0.7 10^3/uL N 0-0.8 Abs Eosinophils 0.2 10^3/uL N 0-0.6 Abs Basophils 0.0 10^3/uL N 0-0.2 Abs Nucleated RBC 0.0 10^3/uL Granulocyte % 62.5 % Lymphocyte % 25.4 % Monocyte % 8.8 % Eosinophil % 3.0 % Basophil % 0.3 % Nucleated Red Blood Cells % 0.2 Comp Metabolic Panel 11/25/2018 [facility] Sodium 141 mmol/L N 135-[address] [place] [address] [phone] Potassium 4.1 mmol/L N 3.5-5.0 Chloride 108 mmol/L N 101-111 Co2 Carbon Dioxide 25 mmol/L N 22-32 Anion Gap 8 mmol/L N 2-11 Glucose 91 mg/dL N 70-100 Blood Urea Nitrogen 12 mg/dL N 6-24 Creatinine 1.01 mg/dL N 0.67-1.17 BUN/Creatinine Ratio 11.9 N 8-20 Calcium 9.7 mg/dL N 8.6-10.3 Total Protein 6.9 g/dL N 6.4-8.9 Albumin 4.1 g/dL N 3.2-5.2 Globulin 2.8 g/dL N 2-4 Albumin/Globulin Ratio 1.5 N 1-3 Total Bilirubin 0.60 mg/dL N 0.2-1.0 Alkaline Phosphatase 85 U/L N 34-104 Alt 14 U/L N 7-52 Ast 17 U/L N 13-39 Egfr Non- 77.9 >60 Egfr 94.2 >60 1 Laboratory 11/04/2018 [facility] Hepatitis C Undetected Undetected [address] Rna Quant IU/[place] [address] [phone] Basic 11/04/2018 [facility] Sodium 141 mmol/L N 135-[address] [place] [address] [phone] Potassium 3.8 mmol/L N 3.5-5.0 Chloride 105 mmol/L N 101-111 Co2 Carbon Dioxide 30 mmol/L N 22-32 Anion Gap 6 mmol/L N 2-11 Glucose 75 mg/dL N 70-100 Blood Urea Nitrogen 9 mg/dL N 6-24 Creatinine 1.01 mg/dL N 0.67-1.17 BUN/Creatinine Ratio 8.9 N 8-20 Calcium 10.0 mg/dL N 8.6-10.3 Egfr Non- 77.9 >60 Egfr 94.2 >60 3 CBC Auto Diff 11/04/2018 [facility] White Blood 6.1 10^3/uL N 3.5-10.[address] [place] [address] [phone] Red Blood Count 4.64 10^6/uL N 4.18-5.48 Hemoglobin 15.7 g/dL N 14.0-18.0 Hematocrit 46 % N 42-52 Mean Corpuscular Volume 99 fL High 80-94 Mean Corpuscular Hemoglobin 34 pg High 27-31 Mean Corpuscular HGB Conc 34 g/dL N 31-36 Red Cell Distribution Width 12 % N 10-15 Platelet Count 325 10^3/uL N 150-450 Mean Platelet Volume 8.2 fL N 7.4-10.4 Abs Neutrophils 3.1 10^3/uL N 1.5-7.7 Abs Lymphocytes 2.2 10^3/uL N 1.0-4.8 Abs Monocytes 0.6 10^3/uL N 0-0.8 Abs Eosinophils 0.2 10^3/uL N 0-0.6 Abs Basophils 0.0 10^3/uL N 0-0.2 Abs Nucleated RBC 0.0 10^3/uL Granulocyte % 50.5 % Lymphocyte % 35.3 % Monocyte % 10.3 % Eosinophil % 3.4 % Basophil % 0.5 % Nucleated Red Blood Cells % 0.0 Inr/Protime 11/04/2018 [facility] Inr 1.03 N 0.82-1.[address] [place] [address] [phone] Laboratory test 11/04/2018 [facility] Partial 41.3 High 26.0- 38.[address] [address] Time PTT [phone] Liver Function 11/04/2018 [facility] Total 7.4 g/dL N 6.4-8.[address] [place] [address] [phone] Albumin 4.4 g/dL N 3.2-5.2 Globulin 3.0 g/dL N 2-4 Albumin/Globulin Ratio 1.5 N 1-3 Total Bilirubin 1.30 mg/dL High 0.2-1.0 Direct Bilirubin 0.20 mg/dL High 0.03-0.18 Indirect Bilirubin 1.1 mg/dL High 0.3-1.0 Alkaline Phosphatase 70 U/L N 34-104 Alt 20 U/L N 7-52 Ast 21 U/L N 13-39 Laboratory 11/04/2018 [facility] Levetiracetam <2.0 g/mL Abnormal 5 test finding [address] (Keppra) [place], [place] [id number] [phone] Drug Abuse 20 07/28/2018 [facility] Urine Amphetamine Negative [address] ng/mL [place], [place] [address] [phone] Urine Barbiturates Negative ng/mL 7 Urine Benzodiazepines Negative ng/mL 8 Urine Cocaine Negative ng/mL 9 Urine Phencyclidine Negative ng/mL Cutoff: 25 Urine Tetrahydrocannabinol Negative ng/mL Cutoff: 50 10 Creatinine, Urine 133.2 mg/dL Specific [place] 1.015 pH 6.0 Oxidants Negative 11 Adulterants Comment Normal Codeine, Ur Not Detected ng/mL Cutoff: 25 12 Sbikrnc-6-zypl-glucuronide, Ur Not Detected ng/mL 13 Morphine, Ur Not Detected ng/mL Cutoff: 25 14 Ixwpoplm-4-lwoa-glucuronide, U Not Detected ng/mL 15 6-monoacetylmorphine, Ur Not Detected ng/mL Cutoff: 25 16 Hydrocodone, Ur Not Detected ng/mL Cutoff: 25 17 Norhydrocodone, Ur Not Detected ng/mL Cutoff: 25 18 Dihydrocodeine, Ur Not Detected ng/mL Cutoff: 25 19 Hydromorphone, Ur Not Detected ng/mL Cutoff: 25 20 Zrxvpsqrevzgc5didypwacnkvyvnj Not Detected ng/mL 21 Oxycodone, Ur Not Detected ng/mL Cutoff: 25 22 Noroxycodone, Ur Present ng/mL Abnormal Cutoff: 25 23 Oxymorphone, Ur Not Detected ng/mL Cutoff: 25 24 Gmyfsoudvdw-1-jccw-glucuronide Not Detected ng/mL 25 Noroxymorphone, Ur Not Detected ng/mL Cutoff: 25 26 Fentanyl, Ur Not Detected ng/mL Cutoff: 2 27 Norfentanyl, Ur Not Detected ng/mL Cutoff: 2 28 Meperidine, Ur Not Detected ng/mL Cutoff: 25 29 Normeperidine, Ur Not Detected ng/mL Cutoff: 25 30 Naloxone, Ur Not Detected ng/mL Cutoff: 25 31 Jxqmcykw-9-pxuh-glucuronide, U Not Detected ng/mL 32 Methadone, Ur Not Detected ng/mL Cutoff: 25 33 Eddp, Ur Not Detected ng/mL Cutoff: 25 34 Propoxyphene, Ur Not Detected ng/mL Cutoff: 25 35 Norpropoxyphene, Ur Not Detected ng/mL Cutoff: 25 36 Tramadol, Ur Not Detected ng/mL Cutoff: 25 37 O-desmethyltramadol, Ur Not Detected ng/mL Cutoff: 25 38 Tapentadol, Ur Not Detected ng/mL Cutoff: 25 39 N-desmethyltapentadol, Ur Not Detected ng/mL Cutoff: 50 40 Jftsmetrff-fnlj-lvnsjdlwsqt, U Not Detected ng/mL 41 Buprenorphine, Ur Not Detected ng/mL Cutoff: 5 42 Norbuprenorphine, Ur Not Detected ng/mL Cutoff: 5 43 Norbuprenorphine glucuronide Not Detected ng/mL Cutoff: 20 44 Opioid Interpretation See Comment 45 HIV 1/2 Ag/AB 07/14/2018 [facility] Hiv1/2 Ag/Ab Negative Negative 46 Screen,W/Reflex,Plasma [address] Screen,w/Reflex,[place] [address] [phone] Laboratory test finding 07/14/2018 [facility] Hepatitis B Nonreacti Nonreacti [address] [place] [address] [phone] Fibro Test-Actitest, 07/14/2018 [facility] FibroTest Score 0.[address] [place] [address] [phone] FibroTest Stage F3 FibroTest Interpretation advanced fibrosi <SEE NOTE> 47 ActiTest Score 0.66 ActiTest Grade A3 ActiTest Interpretation severe activity 48 FibroTest-ActiTest Comment See Comment 49 [employer] Serial Number [id number] Apolipoprotein A1, S 168 mg/dL >=120 Skbdz-7-Jsfbhqxcupiam, S 235 mg/dL 100 - 280 Haptoglobin, S 118 mg/dL 30 - 200 Alanine Aminotransferase (Alt) 99 U/L Abnormal 7-55 Gamma Glutamyltransferase GGT 284 U/L Abnormal 8 - 61 Bilirubin, Total, S 0.9 mg/dL <=1.2 50 Urine Culture And 07/13/2018 [facility] Urine Culture SEE RESULT [address] [place] [address] [phone] Laboratory test 07/13/2018 [facility] Alcohol < 10 mg/dL N < [address] [place] [address] [phone] Urinalysis Profile 07/13/2018 [facility] Urine Color Yellow [address] [place] [address] [phone] Urine Appearance Clear Urine Specific [place] 1.014 N 1.010-1.030 Urine pH 5.0 N [...] Casts Present Abnormal Absent Laboratory test 07/13/2018 [facility] TSH (Thyroid 1.14 mcIU/mL N 0.34-5.60 finding [address] [facility] Stim Horm) [place] [address] [phone] CKMB 07/13/2018 [facility] CKMB ng/mL 5.4 ng/mL N 0.6-6.3 [address] [place] [address] [phone] Laboratory test 07/13/2018 [facility] Magnesium 1.9 mg/dL N 1.9-2.[address] [place] [address] [phone] Creatine Kinase(CK) 237 U/L High 10-223 Troponin-I (TnI) 0.00 ng/mL <0.04 52 Comp Metabolic Panel 07/13/2018 [facility] Sodium 136 mmol/L N 135-[address] [place] [address] [phone] Chloride 105 mmol/L N 101-111 Co2 Carbon [...] Egfr Non- 80.6 >60 Egfr 97.6 >60 53 Potassium TNP mmol/L 3.5-5.0 54 Anion Gap 8 mmol/L N 2-11 Ast TNP U/L 13-39 Laboratory test 07/13/2018 [facility] Potassium 4.2 mmol/L N 3.5-5.[address] [place] [address] [phone] Ast Redraw 60 U/L High 13-39 Laboratory test 07/13/2018 [facility] Troponin-I (TnI) 0.00 ng/ mL <0.[address] [place] [address] [phone] Potassium Redraw TNP mmol/L 3.5-5.0 Ast Redraw TNP U/L 13-39 CBC Auto Diff 07/13/2018 [facility] White Blood 8.6 10^3/uL N 3.5-10.[address] [place] [address] [phone] Red Blood Count 4.98 10^6/uL N 4.00-5.40 [...] Blood Cells % 0.2 Laboratory test 07/13/2018 [facility] Lactic Acid 1.8 mmol/L N 0.5-2.[address] [place] [address] [phone] B-Type Natriuretic Peptide BNP 22 pg/mL <=100 Laboratory test 05/21/2018 [facility] Magnesium 2.0 mg/dL N 1.9-2.[address] [place] [address] [phone] Comp Metabolic 05/21/2018 [facility] Sodium 141 mmol/L N 135- [address] [place] [address] [phone] Chloride 105 mmol/L N 101-111 Co2 Carbon [...] Egfr Non- 73.2 >60 Egfr 88.5 >60 57 Potassium 3.8 mmol/L N 3.5-5.0 Anion Gap 7 mmol/L N 2-11 Ast 91 U/L High 13-39 Manual Differential 05/21/2018 [facility] Immature 6 % N 0-[address] [place] [address] [phone] Neutrophil % 57 % Band % 2 % N 0-8 Lymphocytes % 22 % Monocytes % 10 % Eosinophils % 4 % Basophil % 1 % Metamyelocytes % 2 % N 0-2 Myelocytes % 2 % High 0-1 Macrocytosis 1+ CBC Auto Diff 05/21/2018 [facility] White Blood 9.5 10^3/uL N 3.5-10.[address] [place] [address] [phone] Red Blood Count 4.55 10^6/uL N 4.00-5.40 [...] 10^3/uL Nucleated Red Blood Cells % 0.1 CBC Auto Diff 05/14/2018 [facility] White Blood 6.6 10^3/uL N 3.5-10.[address] [place] [address] [phone] Red Blood Count 4.83 10^6/uL N 4.00-5.40 [...] Red Blood Cells % 0.1 Inr/Protime 05/14/2018 [facility] Inr 0.89 N 0.77-1.[address] [place] [address] [phone] Laboratory test 05/14/2018 [facility] B-Type 11 pg/mL <=[address] [place] [address] Peptide BNP [phone] Lactic Acid 1.2 mmol/L N 0.5-2.0 58 Comp Metabolic Panel 05/14/2018 [facility] Sodium 139 mmol/L N 135-[address] [place] [address] [phone] Potassium 4.2 mmol/L N 3.5-5.0 Chloride 108 [...] Egfr Non- 80.0 >60 Egfr 96.8 >60 59 Laboratory test 05/14/2018 [facility] Troponin-I (TnI) 0.00 ng/ mL <0.[address] [place] [address] [phone] Alcohol < 10 mg/dL N <10 Amylase 35 U/L N 29-103 Lipase 24 U/L N 11.0-82.0 Laboratory test 05/14/2018 [facility] Troponin-I (TnI) 0.00 ng/ mL <0.04 [address] [place], [place] [address] [phone] Hepatitis C 05/02/2018 [facility] HCV Index > 11.[address] Index [place], [place] [address] [phone] Hepatitis C Antibody High Reactive Abnormal Nonreactive 62 Laboratory 05/02/2018 [facility] Hepatitis C [id number] Abnormal Undetected 63 test finding [address] Rna Quant IU/[place] [address] [phone] Hepatitis C Genotype 3 Abnormal Undetected 64 Liver Function 05/02/2018 [facility] Total Protein 7.2 g/dL N 6.4-8.[address] [place] [address] [phone] Albumin 4.1 g/dL N 3.2-5.2 Globulin 3.1 g/dL N 2-4 Albumin/Globulin Ratio 1.3 N 1-3 Total Bilirubin 0.50 mg/dL N 0.2-1.0 Direct Bilirubin 0.10 mg/dL N 0.03-0.18 Indirect Bilirubin 0.4 mg/dL N 0.3-1.0 Alkaline Phosphatase 79 U/L N 34-104 Alt 101 U/L High 7-52 Ast 66 U/L High 13-39 Inr/Protime 01/10/2017 [facility] Inr 1.01 N 0.89-1.[address] [place] [address] [phone] Laboratory test 01/10/2017 [facility] Partial 38.5 High 26.0- 36.[address] [address] Time PTT [phone] CBC Auto Diff 01/10/2017 [facility] White Blood 8.4 10^3/uL N 3.5-10.[address] [place] [address] [phone] Red Blood Count 4.50 10^6/uL N 4.0-5.4 [...] % 0.1 N Comp Metabolic Panel 01/10/2017 [facility] Sodium 137 mmol/L N 133-[address] [place] [address] [phone] Potassium 4.1 mmol/L N 3.5-5.0 Chloride 107 [...] 88.6 N >60 Egfr 113.9 N >60 65 Laboratory test finding 01/10/2017 [facility] Lipase 11 U/L N 11.0-82.[address] [place] [address] [phone] Troponin-I (TnI) 0.00 ng/mL N <0.04 Urine Drug 12/25/2016 [facility] Amphetamine Ur None Detected N None Detect SCR ED & [address] [place] [address] [phone] Barbiturates Urine Screen Presumptive Posi <SEE NOTE> Abnormal None Detect 66 Benzodiazepine Urine Screen None Detected N None Detect Urine Cannabinoids Screen None Detected N None Detect Urine Cocaine Screen None Detected N None Detect Urine Opiates Screen None Detected N None Detect Urine Phencyclidine Screen None Detected N None Detect 67 Laboratory test 12/25/2016 [facility] Troponin-I 0.00 ng/mL N <0.04 [address] (TnI) [place] [address] [phone] Basic Metabolic 10/03/2016 [facility] Sodium 138 mmol/L N 133- [address] [place] [address] [phone] Potassium 4.7 mmol/L N 3.5-5.0 Chloride 104 mmol/L N 101-111 Co2 Carbon Dioxide 32 mmol/L N 22-32 Anion Gap 2 mmol/L N 2-11 Glucose 82 mg/dL N 70-100 Blood Urea Nitrogen 9 mg/dL N 6-24 Creatinine 1.13 mg/dL N 0.67-1.17 BUN/Creatinine Ratio 8.0 N 8-20 Calcium 9.6 mg/dL N 8.6-10.3 Egfr Non- 69.0 N >60 Egfr 88.7 N >60 69 CBC Auto Diff 10/03/2016 [facility] White Blood 7.3 10^3/uL N 3.5-10.[address] [place] [address] [phone] Red Blood Count 5.25 10^6/uL N 4.0-5.4 [...] Nucleated Red Blood Cells % 0.3 N CKMB 10/03/2016 [facility] CKMB ng/mL 2.8 ng/mL N 0.6-6.3 [address] [place] [address] [phone] Laboratory test 10/03/2016 [facility] Creatine 107 U/L N 10- 223 finding 101 [facility] Kinase(CK) [place] [address] [phone] Troponin-I (TnI) 0.00 ng/mL N <0.04 70 Comp Metabolic Panel 10/03/2016 [facility] Sodium 138 mmol/L N 133-145 [address] [place] [address] [phone] Potassium 4.5 mmol/L N 3.5-5.0 Chloride 106 [...] 74.3 N >60 Egfr 95.5 N >60 71 Laboratory test 10/03/2016 [facility] Lactic Acid 1.2 mmol/L N 0.5-2.0 [address] [place] [address] [phone] CBC Auto Diff 10/03/2016 [facility] White Blood 8.0 10^3/uL N 3.5-10.[address] [place] [address] [phone] Red Blood Count 5.00 10^6/uL N 4.0-5.4 [...] 5 Kidney failure <15 (or dialysis) 2 Result in log IU/mL is Undetected. ADDITIONAL INFORMATION The quantification range of this assay is 15 to 100,000,000 IU/mL (1.18 log to 8.00 log IU/mL). Testing was performed using the le HCV test ([employer] with the le Gousto0 System. Test Performed by: [facility] [address] [place] [address] 3 Because ethnic data is not always [...] 5 Kidney failure <15 (or dialysis) 4 Standard intensity warfarin therapeutic range: 2.0-3.0 High intensity warfarin therapeutic range: 2.5-3.5 5 REFERENCE VALUE 12.0 - 46.0 ADDITIONAL INFORMATION This test was developed and its performance characteristics determined by [facility] in a manner consistent with CLIA requirements. This test has not been cleared or approved by the U.S. Food and Drug Administration. Test Performed by: [facility] [address] [facility], [place] [address] 6 REFERENCE VALUE Cutoff: 500 7 REFERENCE VALUE Cutoff: 200 8 REFERENCE VALUE Cutoff: 100 9 REFERENCE VALUE Cutoff: 150 10 ADDITIONAL INFORMATION This report is intended for use in clinical monitoring or management of patients. It is not intended for use in employment-related testing. 11 REFERENCE VALUE Cutoff: 200 mg/L 12 Tylenol 3 13 Metabolite of codeine REFERENCE VALUE Cutoff: 100 14 Jennifer Ley, Contin; Also a minor metabolite (10%) of codeine and can be seen in low concentrations (<2,000 ng/mL) with poppy seed ingestion. 15 Metabolite of morphine REFERENCE VALUE Cutoff: 100 16 Metabolite of heroin 17 Lortab, [place], Vicodin; Also a very minor metabolite of codeine and impurity (<1%) of oxycodone. 18 Metabolite of hydrocodone 19 Metabolite of hydrocodone 20 Dilaudid, Exalgo; Also a metabolite of hydrocodone and a minor (<5%) metabolite of morphine. 21 Metabolite of hydromorphone REFERENCE VALUE Cutoff: 100 22 Endocet, Percocet, Oxycontin 23 Metabolite of oxycodone 24 Numorphan, Opana; Also a metabolite of oxycodone. 25 Metabolite of oxymorphone REFERENCE VALUE Cutoff: 100 26 Metabolite of oxymorphone 27 Actiq, Duragesic, [place] 28 Metabolite of fentanyl 29 Demerol 30 Metabolite of meperidine 31 Narcan 32 Metabolite of naloxone REFERENCE VALUE Cutoff: 100 33 Dolophine 34 Metabolite of methadone 35 Darvon, Darvocet 36 Metabolite of propoxyphene 37 Tradol, Ultram, Ultracet 38 Metabolite of tramadol 39 Nucynta 40 Metabolite of tapentadol 41 Metabolite of tapentadol REFERENCE VALUE Cutoff: 100 42 Buprenex, Suboxone 43 Metabolite of buprenorphine 44 Metabolite of buprenorphine 45 Test detected the presence of noroxycodone (metabolite of oxycodone) only. Suspect use of oxycodone within the past three days. ADDITIONAL INFORMATION This test was developed and its performance characteristics determined by [facility] in a manner consistent with CLIA requirements. This test has not been cleared or approved by the U.S. Food and Drug Administration. Test Performed by: [facility] [place] [place] [address] 46 Negative result does not rule out HIV infection. If exposure to HIV infection occurred <14 days ago, contact the laboratory to request addition of HIV-1 RNA detection / quantification test (HIVQN). Test Performed by: [facility] [place] [address] 47 advanced fibrosis FibroTest estimates liver fibrosis [...] the preanalytical and analytical conditions recommended by [employer] The tests have to be deferred for: [...] developed and its performance characteristics determined by [facility] in a manner consistent with CLIA requirements. This test has not been cleared or approved by the U.S. Food and Drug Administration. 50 Test Performed by: [address] [address] 51 SEE RESULT BELOW Name: ADRIANO JONES : [address]: Saw Figueredo MD Acct: [id number] Unit: [id number] AGE: 53 Location: ED Re07/13/18 SEX: M Status: DEP ER SPEC: [id number] JAENL: 07/13/18 [facility] DR: Saw Figueredo MD REQ: [id number] RECD: 07/13/18 STATUS: [facility] [facility] DR: Norma Vasquez DO _ SOURCE: URINE SPDESC: ORDERED: Urine Culture Procedure Result Reported Site Urine Culture Final 07/14/18- 1602 ML No Growth (<1,000 CFU/mL) * ML - Main Lab . END OF REPORT DEPARTMENT OF PATHOLOGY, [address] [place] [address] Romario Meier M.D. Director [facility] # [id number] 52 Troponin-I testing on Plasma Separator Tubes (PST) has a known false positive rate of 0.20-0.40%. All positive troponins reflex immediate secondary confirmatory testing. 53 Because ethnic data is not always readily [...] 15-29 5 Kidney failure <15 (or dialysis) 54 Specimen Hemolyzed. Result may not be valid. Unable to report test result due to hemolysis. 55 Troponin-I testing on Plasma Separator Tubes (PST) has a known false positive rate of 0.20-0.40%. All positive troponins reflex immediate secondary confirmatory testing. 56 [facility] Severe Sepsis and Septic Shock Management Bundle Measure requires all lactic acids initially measuring >2.0 mmol/L be repeated. 57 Because ethnic data is not always readily [...] 15-29 5 Kidney failure <15 (or dialysis) 58 [facility] Severe Sepsis and Septic Shock Management Bundle Measure requires all lactic acids initially measuring >2.0 mmol/L be repeated. 59 Because ethnic data is not always readily [...] 15-29 5 Kidney failure <15 (or dialysis) 60 Troponin-I testing on Plasma Separator Tubes (PST) has a known false positive rate of 0.20-0.40%. All positive troponins reflex immediate secondary confirmatory testing. 61 Troponin-I testing on Plasma Separator Tubes (PST) has a known false positive rate of 0.20-0.40%. All positive troponins reflex immediate secondary confirmatory testing. 62 High reactive sample are considered positive for Hepatitis C 63 Result in log IU/mL is 6.75. ADDITIONAL INFORMATION The quantification range of this assay is 15 to 100,000,000 IU/mL (1.18 log to 8.00 log IU/mL). Testing was performed using the le HCV test ([employer] with the le 6800 System. Test Performed by: [facility] - [address] [address] 64 ADDITIONAL INFORMATION This test was performed using the Rojas RealTime HCV Genotype II assay ([employer] [place], [place]). Test Performed by: [address] [address] 65 Because ethnic data is not always readily [...] 15-29 5 Kidney failure <15 (or dialysis) 66 Presumptive Positive Presumptive positive results are unconfirmed. 67 The urine specimen was tested at the listed cutoffs: Drug class test level (ng/mL) Amphetamines 500 Barbiturates 200 Benzodiazepine metabolites 200 Cocaine metabolites 150 Cannabinoids 50 Opiates 300 Pcp 25 Specimen was received without chain of custody. Results should be used for medical purposes only. 68 Comment: please draw at 1400 69 Because ethnic data is not always readily [...] 15-29 5 Kidney failure <15 (or dialysis) 70 99th percentile=0.04 ng/mL Troponin results at [facility] and [facility] are not interchangeable. 71 Because ethnic data is not always readily [...] 15-29 5 Kidney failure <15 (or dialysis) 72 [facility] Severe Sepsis and Septic Shock Management Bundle Measure requires all lactic acids initially measuring >2.0 mmol/L be repeated. Procedures Date Code Description Status 07/28/2018 99976 EKG, Interpretation Only Completed 07/28/2018 92432 EKG Tracing & Interpretation Completed 05/18/2018 68108 EKG, Interpretation Only Completed 05/15/2018 02939 EEG Recording Awake & Asleep Completed 05/15/2018 96287 Treadmill Interp/Report Only Completed 05/15/2018 67312 Stress Test Supervsn W/Out I/R Completed 05/15/2018 93946 EKG, Interpretation Only Completed 05/14/2018 29178 EKG, Interpretation Only Completed 04/30/2018 19358 EKG, Interpretation Only Completed 03/18/2018 24580 EKG, Interpretation Only Completed 03/14/2018 06800 EEG Recording In Coma Or Sleep Only Completed 09/12/2016 80382 Inject/Drain Joint/Bursa Intermediate W/O US Completed 09/20/2014 81422 EKG Tracing & Interpretation Completed Encounters Type Date Location Provider Dx Diagnosis Office Visit 11/19/2018 [facility] Adriano Grissom B18.2 Chronic viral 10:10a Infectious Diseases Mirna Covarrubias hepatitis C R06.00 Dyspnea, unspecified Office Visit 10/30/2018 10:20a [facility] Internal Best Ordaz, Z01.810 Encounter for Medicine - preprocedural Suite R cardiovascular examination G40.909 Epilepsy, unsp, not intractable, without status epilepticus S42.142D Disp fx of glenoid cav of scapula, l shldr, 7thD F10.14 Alcohol abuse with alcohol-induced mood disorder B18.2 Chronic viral hepatitis C Z86.711 Personal history of pulmonary embolism Office Visit 09/25/2018 3:00p DO Not Use Care Norma S42.142D Disp fx of Connections Pedro, glenoid cav of [facility] scapula, l ldr, 7thD F10.14 Alcohol abuse with alcohol-induced mood disorder B18.2 Chronic viral hepatitis C Office Visit 07/24/2018 9:30a Orthopedic Taiwo Cunningham S42.142D Disp fx of Services Of MD Senia glenoid [facility], [facility]D Office Visit 07/22/2018 2:45p Orthopedic Jhony Cowart, M25.512 Pain in left Services Of shoulder [facility] S42.142A Disp fx of glenoid cavity of scapula, left shoulder, init Office Visit 07/10/2018 4:20p [facility] For Adriano Grissom B18.2 Chronic viral Infectious Mirna Covarrubias hepatitis C Diseases K74.0 Hepatic fibrosis Office Visit 06/18/2018 1:40p DO Not Use Care Best Ordaz, G90.09 Other idiopathic Connections peripheral [facility] autonomic neuropathy M54.2 Cervicalgia B18.2 Chronic viral hepatitis C I10 Essential (primary) hypertension Office Visit 06/16/2018 2:30p Neurosurgery Vassilios M54.2 Cervicalgia Services Of Maru Hathaway MD M47.892 Other spondylosis, cervical region Office Visit 05/30/2018 1:00p DO Not Use Care Best Ordaz MD M54.2 Cervicalgia Connections [facility] G89.4 Chronic pain syndrome B18.2 Chronic viral hepatitis C J44.9 Chronic obstructive pulmonary disease, unspecified I10 Essential (primary) hypertension Z86.711 Personal history of pulmonary embolism Office Visit 05/22/2018 2:40p DO Not Use Care Best Ordaz MD M54.2 Cervicalgia Connections [facility] G89.4 Chronic pain syndrome R07.9 Chest pain, unspecified B18.2 Chronic viral hepatitis C J44.9 Chronic obstructive pulmonary disease, unspecified I10 Essential (primary) hypertension Z86.711 Personal history of pulmonary embolism Office Visit 05/19/2018 10:14a [place] Eyad Rodríguez R07.9 Chest pain, Assoc,pc Alexandre Justin, unspecified Hospitalists [employer] OFFICER F10.239 Alcohol dependence with withdrawal, unspecified G40.909 Epilepsy, unsp, not intractable, without status epilepticus J44.9 Chronic obstructive pulmonary disease, unspecified Office Visit 05/18/2018 [facility] Magda Cormier, R07.9 Chest pain, 10:14a Assoc,leidy Bradley unspecified Hospitalists J44.9 Chronic obstructive pulmonary disease, unspecified E72.20 Disorder of urea cycle metabolism, unspecified R41.0 Disorientation, unspecified M54.5 Low back pain F10.10 Alcohol abuse, uncomplicated Z86.711 Personal history of pulmonary embolism Office Visit 05/17/2018 [facility] Magda Cormier, R07.9 Chest pain, 10:14a Assleidy alegria M.D. unspecified Hospitalists J44.9 Chronic obstructive pulmonary disease, unspecified E72.20 Disorder of urea cycle metabolism, unspecified R41.0 Disorientation, unspecified M54.5 Low back pain F10.10 Alcohol abuse, uncomplicated Z86.711 Personal history of pulmonary embolism Office Visit 05/17/2018 4:31p [facility] Feliz S. R07.89 Other chest Of Wire Brush Maker Mayen, DO FACC pain Z72.0 Tobacco use F10.230 Alcohol dependence with withdrawal, uncomplicated Office Visit 05/16/2018 [facility] Norma R41.0 Disorientation, 10:14a Assoc,pc Senner, DO unspecified Hospitalists R07.9 Chest pain, unspecified M54.5 Low back pain F10.10 Alcohol abuse, uncomplicated Z86.711 Personal history of pulmonary embolism Office Visit 05/15/2018 10:13a [facility] Norma R07.9 Chest pain, Assoc,pc Senner, DO unspecified Hospitalists M54.5 Low back pain F10.10 Alcohol abuse, uncomplicated Z86.711 Personal history of pulmonary embolism Office Visit 05/14/2018 10:13a [facility] Norma R07.9 Chest pain, Assoc,pc Senner, DO unspecified Hospitalists F10.239 Alcohol dependence with withdrawal, unspecified J44.9 Chronic obstructive pulmonary disease, unspecified G89.4 Chronic pain syndrome B18.2 Chronic viral hepatitis C Office Visit 05/02/2018 11:40a DO Not Use Care Norma B18.2 Chronic viral Connections Senner, DO hepatitis C [facility] R22.32 Localized swelling, mass and lump, left upper limb Office Visit 04/30/2018 1:40p DO Not Use Care Norma R07.9 Chest pain, Connections Senner, DO unspecified [facility] F10.14 Alcohol abuse with alcohol-induced mood disorder M50.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, unsp cervical region B18.2 Chronic viral hepatitis C Office Visit 04/09/2018 DO Not Use Care Best Ordaz, F10.14 Alcohol abuse with 9:20a Connections alcohol-induced mood [facility] disorder I10 Essential (primary) hypertension F17.210 Nicotine dependence, cigarettes, uncomplicated J44.9 Chronic obstructive pulmonary disease, unspecified M54.2 Cervicalgia Z86.711 Personal history of pulmonary embolism F33.9 Major depressive disorder, recurrent, unspecified Office Visit 03/22/2018 12:16p [facility] Best Ordaz, F10.239 Alcohol Assoc,pc dependence with [...] w hypoxia or hypercapnia Office Visit 03/13/2018 [facility] Nithin Dorantes J69.0 Pneumonitis due 12:14p Assoc,leidy Winkler MD to inhalation of Hospitalists food and vomit J44.9 Chronic obstructive pulmonary disease, unspecified F10.10 Alcohol abuse, uncomplicated M54.5 Low back pain I10 Essential (primary) hypertension Z86.711 Personal history of pulmonary embolism Office Visit 03/12/2018 [facility] Lottie F10.10 Alcohol abuse, 12:14p Assoc,pc MARLY Munguia uncomplicated Hospitalists G40.509 Epileptic seiz rel to extrn causes, not ntrct, w/o stat epi R51 Headache I10 Essential (primary) hypertension Z87.09 Personal history of other diseases of the respiratory system Office Visit 10/03/2016 [facility] Internal Magdi Grissom M47.22 Other spondylosis 2:20p Violet Butler M.D.,FACP with radiculopathy, Suite R cervical region J01.00 Acute maxillary sinusitis, unspecified G89.4 Chronic pain syndrome F17.210 Nicotine dependence, cigarettes, uncomplicated Office Visit 09/28/2016 Neurosurgery Stew M47.22 Other spondylosis 10:00a Services Of Maru Odell M.D. with radiculopathy, cervical region Office Visit 09/26/2016 [facility] Internal Magdi Grissom M47.22 Other spondylosis 2:00p Medicine - Suite R Whiting, with radiculopathy, Mirna,FACP cervical region I26.99 Other [...] encounter M54.2 Cervicalgia Office Visit 09/20/2014 1:40p [facility] Filiberto Stefek, 272.4 Hyperlipidemia Other Cardiology Of Mirna, FACC, Unspec Wire Brush Maker AT [facility] 401.1 Hypertension Benign 786.50 Pain Chest Unspec Office Visit 07/07/2014 11:30a Neurosurgery Stew Odell, 721.1 Spondylosis Services Of Maru MERCHANT M.D. Cervical W/ Cody Myelopathy Office Visit 03/25/2014 9:00a Cody/Yordy Matthews 780.2 Syncope & Neurologic Serv Of Mirna Wells Collapse Wire Brush Maker Office Visit 02/22/2009 11:20a DO Not Use Wire Brush Maker AT [place], 565.0 Anal Fissure La Miradajohan Jaramillo M.D. 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 Cervical Region 721.0 Spondylosis Cervical W/O Myelopathy 723.1 Cervicalgia 782.0 Skin Sensation Disturbance Office Visit 01/11/2009 1:00p DO Not Use Wire Brush Maker AT Ella Buchanan, 724.2 Lumbago Kuldip Bradley 723.9 Cervical Region Musculoskeletal Disorders & Symptoms Unspec Office Visit 12/08/2008 9:00a DO Not Use Wire Brush Maker Dewayne, 493.00 Asthma Extrinsic AT Kuldip Jaramillo M.D. Unspecified 314.01 Attention Deficit Disorder W/ Hyperactivity 723.9 Cervical Region Musculoskeletal Disorders & Symptoms Unspec 724.2 Lumbago Plan of Treatment Future Appointment(s):01/21/2019 1:30 pm - Brien Damon NP at [place] [facility]11/25/2018 - Norma Vasquez DOZ01.810 Encounter for preprocedural cardiovascular jiyzolvszxoQ02.1 Chronic obstructive pulmonary disease with (acute) exacerbatNew Medication:Prednisone 50 mg - 1 by mouth every dayAzithromycin 250 mg - take two tabs on day one, and then one tab for four daysAdvair Diskus 250-50 mcg/Dose - 1 puff inhaled daily
--- OUTSIDE RECORDS SUMMARY | 2018-12-04 01:31 | XMS REPORT | Continuity of Care Document ---
:1965 External Reference #:[id number] Author Name Sarah Chery Care Team Providers Name Role Phone [facility] Primary Care Physician Unavailable Payers Date Identification Numbers Payment Provider Subscriber Effective: 2003 Policy Number: [id number] Medicare Adriano Jones PayID: [id number] [address] [place] [address] Policy Number: [id number] Medicaid Adriano Jones Group Name: [id number] [address] PayID: [id number] [place] [address] Expires: 2012 Policy Number: [id number] Medicaid Adriano Jones Group Name: 1 1 [address] PayID: [id number] [place] [address] Problems Active Problems Provider Date Cervical spondylosis with myelopathy Stew Odell M.D. Onset: 07/07/2014 Hyperlipidemia Filiberto Woodard M.D., [facility] Onset: 09/20/2014 Benign essential hypertension Filiberto Woodard M.D., [facility] Onset: 2014 H/O: pulmonary embolus Magdi Butler M.D.,[facility] Onset: 09/26/2016 Note: 2010 Chronic obstructive lung disease Magdi Butler M.D.,[facility] Onset: 2016 Tobacco user Best Ordaz MD [...] Problems Chest pain Filiberto Woodard M.D., [facility] Onset: 09/20/2014 Inactive: 09/26/2016 Resolved [...] Third Daughter 17 First Brother due to MA () Social History Type Date Description Comments [...] (more than 10 cigarettes/day) Smoking Status Reviewed: 11/19/18 Heavy tobacco smoker (more than 10 cigarettes/day) Exercise Type/Frequency Does not exercise Allergies, Adverse Reactions, Alerts Active Allergies Reaction Severity Comments Date Penicillins Anaphylaxis Severe 12/08/2008 Asa/Caff/Butal/Cod GI irritation 12/08/2008 Tegretol Anaphylaxis Severe 09/26/2016 Ativan He states he blacks out 05/23/2018 Medications Active Medications SIG Qnty Indications Ordering Date Provider Levetiracetam Take 1 tab 60tabs G40.909 Best Ordaz MD 10/30/2018 1000mg twice a day Tablets Mavyret 3 tabs by mouth 84tabs Adriano Grissom 10/08/2018 100-40mg Tablets once daily - Mirna Covarrubias Started 10/14/18 Disulfiram take 2 tabs at 60tabs F10.14 Norma Pedro, 09/25/2018 250mg Tablets night for two DO weeks, and then 1 tab at night Oxycodone HCL 1 tabs by mouth 60tabs Best Ordaz MD 07/22/2018 5mg Tablets every 6 hours as needed Cyclobenzaprine HCL take 5mg three 90tabs M54.2 Normaharish Vasquez, 05/30/2018 5mg times a day as DO Tablets needed. Adderall 1 by mouth 30tabs Norma Pedro, 05/22/2018 20mg Tablets every day DO Amlodipine Besylate take 1 tab each 30tabs I10 [facility] Pedro, 05/22/2018 10mg day. DO Tablets Xarelto 1 by mouth 30tabs Norma Pedro, 04/09/2018 15mg Tablets every day DO Clonidine HCL 1 by mouth 60tabs [facility] [place], 0.1mg Tablets twice a day DO Metoprolol Succinate ER 1 by mouth 30tabs [facility] every day DO 50mg Tablets ER 24HR Escitalopram Oxalate 1 by mouth 30tabs [facility] [place], 20mg every day DO Tablets Gabapentin 600mg three 180tabs [facility] [place], 600mg Tablets times a day and DO 1800 mg at at bedtime History Medications Oxycodone HCL 1 tab every [...] 20caps Magdi Grissom 10/03/2016 - 100mg mouth [place], 10/03/2016 Capsules Mirna,FACP Cefuroxime Axetil 1 by mouth twice 20tabs Magdi Grissom 10/03/2016 - 500mg a day for 10 days [place], 10/13/2016 Tablets Mirna,FACP Chantix Starting Month as directed 55tabs Magdi Grissom 10/03/2016 - Maximiliano [place], 04/08/2018 0.5mg X 11 & 1 mg X 42 M.DMirlande,FACP Tablets Losartan Potassium 1 by mouth every 30tabs Magdi Grissom 09/26/2016 - 50mg day [place], 04/09/2018 Tablets Mirna,FACP Doxycycline Hyclate twice a day by 14caps Magdi Grissom 09/26/2016 - 100mg mouth [place], 10/03/2016 Capsules Mirna,FACP Valium take 1-2 tabs 2tabs Taiwo Cunningham 09/20/2016 - 5mg Tablets prior to mri MD Senia 04/08/2018 imaging test Medrol take as directed 21tabs S43.52xA Taiwo Cunningham 09/18/2016 - 4mg Tablets per dosepaaneudy Conn MD 09/26/2016 instructions Percocet 1 tab by mouth 30tabs Taiwo Cunningham 09/18/2016 - 5-325mg Tablets every 6 hours as MD Senia 09/26/2016 needed Medrol take as directed 21tabs S43.52xA Taiwo Cunningham 09/18/2016 - 4mg Tablets per dosepaaneudy Conn MD 09/26/2016 instructions Percocet 1 tab [...] Naproxen Sodium 1 po bid prn 180tabs Dewayne 12/08/2008 - 550mg Tablets Mirna Jaramillo 03/22/2014 Adderall 1 qd 120tabs Magdi Grissom 12/08/2008 - 20mg Tablets Carrie, 07/07/2014 Code b Mirna,FACP Fentanyltransdermal 1 patch q 3 days 1un [...] 4gm Magdi Grissom - daily as needed [place], 04/08/2018 20-100mcg/Act Aerosol M.Praveena,FACP Levetiracetam 1 twice a day by 60tabs [...] 90tabs Magdi Grissom - 20mg Tablets day [place], 04/09/2018 Mirna,SILVANA Flovent HFA 2 puffs twice [...] Injection Vital Signs Date Vital Result Comment 11/19/2018 11:10am Height 68 inches 5'8" Weight [...] Test Result H/L Range Note Laboratory test [facility] Hepatitis C Undetected Undetected 1 finding [address] Rna Quant IU/[place] [address] [phone] Basic Metabolic [facility] Sodium 141 mmol/L N 135- 145 Panel [address] [place] [address] [phone] Potassium 3.8 mmol/L N 3.5-5.0 Chloride 105 mmol/L N 101-111 Co2 Carbon Dioxide 30 mmol/L N 22-32 Anion Gap 6 mmol/L N 2-11 Glucose 75 mg/dL N 70-100 Blood Urea Nitrogen 9 mg/dL N 6-24 Creatinine 1.01 mg/dL N 0.67-1.17 BUN/Creatinine Ratio 8.9 N 8-20 Calcium 10.0 mg/dL N 8.6-10.3 Egfr Non- 77.9 >60 Egfr 94.2 >60 2 CBC Auto Diff 11/04/2018 [facility] White Blood 6.1 10^3/uL N 3.5-10.[address] [place] [address] [phone] Red Blood Count 4.64 10^6/uL N 4.18-5.48 [...] Red Blood Cells % 0.0 Inr/Protime 11/04/2018 [facility] Inr 1.03 N 0.82-1.[address] [place] [address] [phone] Laboratory test 11/04/2018 [facility] Partial 41.3 High 26.0- 38.[address] [place] [address] Time PTT [phone] Liver Function 11/04/2018 [facility] Total 7.4 g/dL N 6.4-8.[address] [place] [address] [phone] Albumin 4.4 g/dL N 3.2-5.2 Globulin 3.0 g/dL N 2-4 Albumin/Globulin Ratio 1.5 N 1-3 Total Bilirubin 1.30 mg/dL High 0.2-1.0 Direct Bilirubin 0.20 mg/dL High 0.03-0.18 Indirect Bilirubin 1.1 mg/dL High 0.3-1.0 Alkaline Phosphatase 70 U/L N 34-104 Alt 20 U/L N 7-52 Ast 21 U/L N 13-39 Laboratory 11/04/2018 [facility] Levetiracetam <2.0 g/mL Abnormal 4 test finding [address] (Keppra) [place] [address] [phone] Drug Abuse 20 07/28/2018 [facility] Urine Amphetamine Negative [address] ng/[place] [address] [phone] Urine Barbiturates Negative ng/mL 6 Urine Benzodiazepines Negative ng/mL 7 Urine Cocaine Negative ng/mL 8 Urine Phencyclidine Negative ng/mL Cutoff: 25 Urine Tetrahydrocannabinol Negative ng/mL Cutoff: 50 9 Creatinine, Urine 133.2 mg/dL Specific Hessel 1.015 pH 6.0 Oxidants Negative 10 Adulterants Comment Normal Codeine, Ur Not Detected ng/mL Cutoff: 25 11 Ofmmqcc-2-wdhy-glucuronide, Ur Not Detected ng/mL 12 Morphine, Ur Not Detected ng/mL Cutoff: 25 13 Tmtypoao-9-wmso-glucuronide, U Not Detected ng/mL 14 6-monoacetylmorphine, Ur Not Detected ng/mL Cutoff: 25 15 Hydrocodone, Ur Not Detected ng/mL Cutoff: 25 16 Norhydrocodone, Ur Not Detected ng/mL Cutoff: 25 17 Dihydrocodeine, Ur Not Detected ng/mL Cutoff: 25 18 Hydromorphone, Ur Not Detected ng/mL Cutoff: 25 19 Jtihvdfndpgho6dwdtojqweqlsnwl Not Detected ng/mL 20 Oxycodone, Ur Not Detected ng/mL Cutoff: 25 21 Noroxycodone, Ur Present ng/mL Abnormal Cutoff: 25 22 Oxymorphone, Ur Not Detected ng/mL Cutoff: 25 23 Rvuojjwpyqv-7-uccf-glucuronide Not Detected ng/mL 24 Noroxymorphone, Ur Not Detected ng/mL Cutoff: 25 25 Fentanyl, Ur Not Detected ng/mL Cutoff: 2 26 Norfentanyl, Ur Not Detected ng/mL Cutoff: 2 27 Meperidine, Ur Not Detected ng/mL Cutoff: 25 28 Normeperidine, Ur Not Detected ng/mL Cutoff: 25 29 Naloxone, Ur Not Detected ng/mL Cutoff: 25 30 Nyannwzv-3-sgyz-glucuronide, U Not Detected ng/mL 31 Methadone, Ur Not Detected ng/mL Cutoff: 25 32 Eddp, Ur Not Detected ng/mL Cutoff: 25 33 Propoxyphene, Ur Not Detected ng/mL Cutoff: 25 34 Norpropoxyphene, Ur Not Detected ng/mL Cutoff: 25 35 Tramadol, Ur Not Detected ng/mL Cutoff: 25 36 O-desmethyltramadol, Ur Not Detected ng/mL Cutoff: 25 37 Tapentadol, Ur Not Detected ng/mL Cutoff: 25 38 N-desmethyltapentadol, Ur Not Detected ng/mL Cutoff: 50 39 Fttzgoybdw-bpmn-lctuvoopwrx, U Not Detected ng/mL 40 Buprenorphine, Ur Not Detected ng/mL Cutoff: 5 41 Norbuprenorphine, Ur Not Detected ng/mL Cutoff: 5 42 Norbuprenorphine glucuronide Not Detected ng/mL Cutoff: 20 43 Opioid Interpretation See Comment 44 HIV 1/2 Ag/AB 07/14/2018 [facility] Hiv1/2 Ag/Ab Negative Negative 45 Screen,W/Reflex,Plasma [address] Screen,w/Reflex,P [place], [place] [phone] Laboratory test finding 07/14/2018 [facility] Hepatitis B Nonreacti Nonreacti [address] [place] [address] [phone] Fibro Test-Actitest, 07/14/2018 [facility] FibroTest Score 0.[address] [place] [address] [phone] FibroTest Stage F3 FibroTest Interpretation advanced fibrosi <SEE NOTE> 46 ActiTest Score 0.66 ActiTest Grade A3 ActiTest Interpretation severe activity 47 FibroTest-ActiTest Comment See Comment 48 [employer] Serial Number [id number] Apolipoprotein A1, S 168 mg/dL >=120 Iicsn-0-Xsaiikmphdywu, S 235 mg/dL 100 - 280 Haptoglobin, S 118 mg/dL 30 - 200 Alanine Aminotransferase (Alt) 99 U/L Abnormal 7-55 Gamma Glutamyltransferase GGT 284 U/L Abnormal 8 - 61 Bilirubin, Total, S 0.9 mg/dL <=1.2 49 Urine Culture And 07/13/2018 [facility] Urine Culture SEE RESULT [address] [place] [address] [phone] Laboratory test 07/13/2018 [facility] Alcohol < 10 mg/dL N < 10 finding [address] [place] [address] [phone] Urinalysis Profile 07/13/2018 [facility] Urine Color Yellow [address] [place] [address] [phone] Urine Appearance Clear Urine Specific Hessel 1.014 N 1.010-1.030 Urine pH 5.0 N [...] Casts Present Abnormal Absent Laboratory test 07/13/2018 [facility] TSH (Thyroid 1.14 mcIU/mL N 0.34-5.[address] Stim [place]orm) [place] [address] [phone] CKMB 07/13/2018 [facility] CKMB ng/mL 5.4 ng/mL N 0.6-6.3 [address] [place] [address] [phone] Laboratory test 07/13/2018 [facility] Magnesium 1.9 mg/dL N 1.9-2.[address] [place] [address] [phone] Creatine Kinase(CK) 237 U/L High 10-223 Troponin-I (TnI) 0.00 ng/mL <0.04 51 Comp Metabolic Panel 07/13/2018 [facility] Sodium 136 mmol/L N 135-[address] [place] [address] [phone] Chloride 105 mmol/L N 101-111 Co2 Carbon [...] Egfr Non- 80.6 >60 Egfr 97.6 >60 52 Potassium TNP mmol/L 3.5-5.0 53 Anion Gap 8 mmol/L N 2-11 Ast TNP U/L 13-39 Laboratory test 07/13/2018 [facility] Potassium 4.2 mmol/L N 3.5-5.[address] [place] [address] [phone] Ast Redraw 60 U/L High 13-39 Laboratory test 07/13/2018 [facility] Troponin-I (TnI) 0.00 ng/ mL <0.[address] [place] [address] [phone] Potassium Redraw TNP mmol/L 3.5-5.0 Ast Redraw TNP U/L 13-39 CBC Auto Diff 07/13/2018 [facility] White Blood 8.6 10^3/uL N 3.5-10.[address] [place] [address] [phone] Red Blood Count 4.98 10^6/uL N 4.00-5.40 [...] Blood Cells % 0.2 Laboratory test 07/13/2018 [facility] Lactic Acid 1.8 mmol/L N 0.5-2.0 55 finding [address] [place] [address] [phone] B-Type Natriuretic Peptide BNP 22 pg/mL <=100 Laboratory test 05/21/2018 [facility] Magnesium 2.0 mg/dL N 1.9-2.7 finding [address] [place] [address] [phone] Comp Metabolic 05/21/2018 [facility] Sodium 141 mmol/L N 135- 145 Panel [address] [place] [address] [phone] Chloride 105 mmol/L N 101-111 Co2 Carbon [...] Egfr Non- 73.2 >60 Egfr 88.5 >60 56 Potassium 3.8 mmol/L N 3.5-5.0 Anion Gap 7 mmol/L N 2-11 Ast 91 U/L High 13-39 Manual Differential 05/21/2018 [facility] Immature 6 % N 0-[address] Granulocytes [place], [place] [id number] [phone] Neutrophil % 57 % Band % 2 % N 0-8 Lymphocytes % 22 % Monocytes % 10 % Eosinophils % 4 % Basophil % 1 % Metamyelocytes % 2 % N 0-2 Myelocytes % 2 % High 0-1 Macrocytosis 1+ CBC Auto Diff 05/21/2018 [facility] White Blood 9.5 10^3/uL N 3.5-10.[address] Count [place], [place] [id number] [phone] Red Blood Count 4.55 10^6/uL N 4.00-5.40 [...] Cells % 0.1 CBC Auto Diff 05/14/2018 [facility] White Blood 6.6 10^3/uL N 3.5-10.[address] [place] [address] [phone] Red Blood Count 4.83 10^6/uL N 4.00-5.40 [...] Red Blood Cells % 0.1 Inr/Protime 05/14/2018 [facility] Inr 0.89 N 0.77-1.[address] [place] [address] [phone] Laboratory test 05/14/2018 [facility] B-Type 11 pg/mL <=[address] [place] [address] Peptide BNP [phone] Lactic Acid 1.2 mmol/L N 0.5-2.0 57 Comp Metabolic Panel 05/14/2018 [facility] Sodium 139 mmol/L N 135-[address] [place] [address] [phone] Potassium 4.2 mmol/L N 3.5-5.0 Chloride 108 [...] Egfr Non- 80.0 >60 Egfr 96.8 >60 58 Laboratory test 05/14/2018 [facility] Troponin-I (TnI) 0.00 ng/ mL <0.04 [address] [place] [address] [phone] Alcohol < 10 mg/dL N <10 Amylase 35 U/L N 29-103 Lipase 24 U/L N 11.0-82.0 Laboratory test 05/14/2018 [facility] Troponin-I (TnI) 0.00 ng/ mL <0.04 [address] [place] [address] [phone] Hepatitis C 05/02/2018 [facility] HCV Index > 11.[address] [place] [address] [phone] Hepatitis C Antibody High Reactive Abnormal Nonreactive 61 Laboratory 05/02/2018 [facility] Hepatitis C [phone] Abnormal Undetected 62 test finding [address] Rna Quant IU/[place] [address] [phone] Hepatitis C Genotype 3 Abnormal Undetected 63 Liver Function 05/02/2018 [facility] Total Protein 7.2 g/dL N 6.4-8.[address] [place] [address] [phone] Albumin 4.1 g/dL N 3.2-5.2 Globulin 3.1 g/dL N 2-4 Albumin/Globulin Ratio 1.3 N 1-3 Total Bilirubin 0.50 mg/dL N 0.2-1.0 Direct Bilirubin 0.10 mg/dL N 0.03-0.18 Indirect Bilirubin 0.4 mg/dL N 0.3-1.0 Alkaline Phosphatase 79 U/L N 34-104 Alt 101 U/L High 7-52 Ast 66 U/L High 13-39 Inr/Protime 01/10/2017 [facility] Inr 1.01 N 0.89-1.[address] [place] [address] [phone] Laboratory test 01/10/2017 [facility] Partial 38.5 High 26.0- 36.[address] [place] [address] Time PTT [phone] CBC Auto Diff 01/10/2017 [facility] White Blood 8.4 10^3/uL N 3.5-10.[address] [place] [address] [phone] Red Blood Count 4.50 10^6/uL N 4.0-5.4 [...] % 0.1 N Comp Metabolic Panel 01/10/2017 [facility] Sodium 137 mmol/L N 133-[address] [place] [address] [phone] Potassium 4.1 mmol/L N 3.5-5.0 Chloride 107 [...] 88.6 N >60 Egfr 113.9 N >60 64 Laboratory test finding 01/10/2017 [facility] Lipase 11 U/L N 11.0-82.[address] [place] [address] [phone] Troponin-I (TnI) 0.00 ng/mL N <0.04 Urine Drug 12/25/2016 [facility] Amphetamine Ur None Detected N None Detect SCR ED & [address] [place] [address] [phone] Barbiturates Urine Screen Presumptive Posi <SEE NOTE> Abnormal None Detect 65 Benzodiazepine Urine Screen None Detected N None Detect Urine Cannabinoids Screen None Detected N None Detect Urine Cocaine Screen None Detected N None Detect Urine Opiates Screen None Detected N None Detect Urine Phencyclidine Screen None Detected N None Detect 66 Laboratory test 12/25/2016 [facility] Troponin-I 0.00 ng/mL N <0.04 [address] (TnI) [place] [address] [phone] CBC Auto Diff 10/03/2016 [facility] White Blood 8.0 N 3.5- 10.[address] Count 10^3/[place] [address] [phone] Red Blood Count 5.00 10^6/uL N 4.0-5.4 [...] Cells % 0.2 N Laboratory test 10/03/2016 [facility] Lactic Acid 1.2 mmol/L N 0.5-2.0 68 finding [address] [place] [address] [phone] Comp Metabolic 10/03/2016 [facility] Sodium 138 mmol/L N 133- 145 Panel [address] [place] [address] [phone] Potassium 4.5 mmol/L N 3.5-5.0 Chloride 106 [...] 74.3 N >60 Egfr 95.5 N >60 69 CBC Auto Diff 10/03/2016 [facility] White Blood 7.3 10^3/uL N 3.5-10.[address] [place] [address] [phone] Red Blood Count 5.25 10^6/uL N 4.0-5.4 [...] % 0.3 N Basic Metabolic Panel 10/03/2016 [facility] Sodium 138 mmol/L N 133-[address] [place] [address] [phone] Potassium 4.7 mmol/L N 3.5-5.0 Chloride 104 mmol/L N 101-111 Co2 Carbon Dioxide 32 mmol/L N 22-32 Anion Gap 2 mmol/L N 2-11 Glucose 82 mg/dL N 70-100 Blood Urea Nitrogen 9 mg/dL N 6-24 Creatinine 1.13 mg/dL N 0.67-1.17 BUN/Creatinine Ratio 8.0 N 8-20 Calcium 9.6 mg/dL N 8.6-10.3 Egfr Non- 69.0 N >60 Egfr 88.7 N >60 70 CKMB 10/03/2016 [facility] CKMB ng/mL 2.8 ng/mL N 0.6-6.[address] [place] [address] [phone] Laboratory test 10/03/2016 [facility] Creatine 107 U/L N 10- 223 finding [address] [facility] Kinase(CK) [place] [address] [phone] Troponin-I (TnI) 0.00 ng/mL N <0.04 71 1 Result in log IU/mL is Undetected. ADDITIONAL INFORMATION The quantification range of this assay is 15 to 100,000,000 IU/mL (1.18 log to 8.00 log IU/mL). Testing was performed using the le HCV test ([employer] with the le [employer] System. Test Performed by: [facility] [address] [place] [address] 2 Because ethnic data is not always [...] 5 Kidney failure <15 (or dialysis) 3 Standard intensity warfarin therapeutic range: 2.0-3.0 High intensity warfarin therapeutic range: 2.5-3.5 4 REFERENCE VALUE 12.0 - 46.0 ADDITIONAL INFORMATION This test was developed and its performance characteristics determined by [facility] in a manner consistent with CLIA requirements. This test has not been cleared or approved by the U.S. Food and Drug Administration. Test Performed by: [facility] [address] [place] [address] 5 REFERENCE VALUE Cutoff: 500 6 REFERENCE VALUE Cutoff: 200 7 REFERENCE VALUE Cutoff: 100 8 REFERENCE VALUE Cutoff: 150 9 ADDITIONAL INFORMATION This report is intended for use in clinical monitoring or management of patients. It is not intended for use in employment-related testing. 10 REFERENCE VALUE Cutoff: 200 mg/L 11 Tylenol 3 12 Metabolite of codeine REFERENCE VALUE Cutoff: 100 13 Jennifer Ley, Contin; Also a minor metabolite (10%) of codeine and can be seen in low concentrations (<2,000 ng/mL) with poppy seed ingestion. 14 Metabolite of morphine REFERENCE VALUE Cutoff: 100 15 Metabolite of heroin 16 Lortab, Jamieson, Vicodin; Also a very minor metabolite of codeine and impurity (<1%) of oxycodone. 17 Metabolite of hydrocodone 18 Metabolite of hydrocodone 19 Dilaudid, Exalgo; Also a metabolite of hydrocodone and a minor (<5%) metabolite of morphine. 20 Metabolite of hydromorphone REFERENCE VALUE Cutoff: 100 21 Endocet, Percocet, Oxycontin 22 Metabolite of oxycodone 23 Numorphan, Opana; Also a metabolite of oxycodone. 24 Metabolite of oxymorphone REFERENCE VALUE Cutoff: 100 25 Metabolite of oxymorphone 26 Actiq, Duragesic, Fentora 27 Metabolite of fentanyl 28 Demerol 29 Metabolite of meperidine 30 Narcan 31 Metabolite of naloxone REFERENCE VALUE Cutoff: 100 32 Dolophine 33 Metabolite of methadone 34 Darvon, Darvocet 35 Metabolite of propoxyphene 36 Tradol, Ultram, Ultracet 37 Metabolite of tramadol 38 Nucynta 39 Metabolite of tapentadol 40 Metabolite of tapentadol REFERENCE VALUE Cutoff: 100 41 Buprenex, Suboxone 42 Metabolite of buprenorphine 43 Metabolite of buprenorphine 44 Test detected the presence of noroxycodone (metabolite of oxycodone) only. Suspect use of oxycodone within the past three days. ADDITIONAL INFORMATION This test was developed and its performance characteristics determined by [facility] in a manner consistent with CLIA requirements. This test has not been cleared or approved by the U.S. Food and Drug Administration. Test Performed by: [facility] [place] [address] 45 Negative result does not rule out HIV infection. If exposure to HIV infection occurred <14 days ago, contact the laboratory to request addition of HIV-1 RNA detection / quantification test (HIVQN). Test Performed by: [facility] [place] [address] 46 advanced fibrosis FibroTest estimates liver fibrosis FibroTest Score Stage Interpretation 0.00-0.21 F0 no fibrosis 0.21-0.27 F0-F1 no fibrosis 0.27-0.31 F1 minimal fibrosis 0.31-0.48 F1-F2 minimal fibrosis 0.48-0.58 F2 moderate fibrosis 0.58-0.72 F3 advanced fibrosis 0.72-0.74 F3-F4 advanced fibrosis 0.74-1.00 F4 severe fibrosis (Cirrhosis) 47 ActiTest estimates necroinflammatory activity ActiTest Score Grade Interpretation 0.00-0.17 A0 no activity 0.17-0.29 A0-A1 no activity 0.29-0.36 A1 minimal activity 0.36-0.52 A1-A2 minimal activity 0.52-0.60 A2 significant activity 0.60-0.62 A2-A3 significant activity 0.62-1.00 A3 severe activity 48 The reliability of results is dependent on compliance with the preanalytical and analytical conditions recommended by [employer]. The tests have to be deferred for: [...] developed and its performance characteristics determined by [facility] in a manner consistent with CLIA requirements. This test has not been cleared or approved by the U.S. Food and Drug Administration. 49 Test Performed by: [address] [address] 50 SEE RESULT BELOW Name: ADRIANO JONES : [address]: Saw Figueredo MD Acct: [id number] Unit: [id number] AGE: 53 Location: ED Re07/13/18 SEX: M Status: DEP ER SPEC: [id number] JANEL: 07/13/[address] [facility] [address]: Saw Figueredo MD REQ: [id number] RECD: 07/13/18 STATUS: [facility] DR: Norma Vasquez DO _ SOURCE: URINE SPDESC: ORDERED: Urine Culture Procedure Result Reported Site Urine Culture Final 07/14/18- 1602 ML No Growth (<1,000 CFU/mL) * ML - Main Lab . END OF REPORT DEPARTMENT OF PATHOLOGY, [address] [place] [address] Romario Meier M.D. Director [facility] # [id number] 51 Troponin-I testing on Plasma Separator Tubes (PST) has a known false positive rate of 0.20-0.40%. All positive troponins reflex immediate secondary confirmatory testing. 52 Because ethnic data is not always [...] 5 Kidney failure <15 (or dialysis) 53 Specimen Hemolyzed. Result may not be valid. Unable to report test result due to hemolysis. 54 Troponin-I testing on Plasma Separator Tubes (PST) has a known false positive rate of 0.20-0.40%. All positive troponins reflex immediate secondary confirmatory testing. 55 [facility] Severe Sepsis and Septic Shock Management Bundle Measure requires all lactic acids initially measuring >2.0 mmol/L be repeated. 56 Because ethnic data is not always readily [...] 15-29 5 Kidney failure <15 (or dialysis) 57 [facility] Severe Sepsis and Septic Shock Management Bundle Measure requires all lactic acids initially measuring >2.0 mmol/L be repeated. 58 Because ethnic data is not always [...] troponins reflex immediate secondary confirmatory testing. 60 Troponin-I testing on Plasma Separator Tubes (PST) has a known false positive rate of 0.20-0.40%. All positive troponins reflex immediate secondary confirmatory testing. 61 High reactive sample are considered positive for Hepatitis C 62 Result in log IU/mL is 6.75. ADDITIONAL INFORMATION The quantification range of this assay is 15 to 100,000,000 IU/mL (1.18 log to 8.00 log IU/mL). Testing was performed using the le HCV test ([employer] with the le 6800 System. Test Performed by: [facility] - [address] [address] 63 ADDITIONAL INFORMATION This test was performed using the Rojas RealTime HCV Genotype II assay ([employer] [place], [place]). Test Performed by: [facility] [place][Note 3] [address], [place] [address] 64 Because ethnic data is not always [...] 5 Kidney failure <15 (or dialysis) 65 Presumptive Positive Presumptive positive results are unconfirmed. 66 The urine specimen was tested at the listed cutoffs: Drug class test level (ng/mL) Amphetamines 500 Barbiturates 200 Benzodiazepine metabolites 200 Cocaine metabolites 150 Cannabinoids 50 Opiates 300 Pcp 25 Specimen was received without chain of custody. Results should be used for medical purposes only. 67 Comment: please draw at 1400 68 [facility] Severe Sepsis and Septic Shock Management Bundle Measure requires all lactic acids initially measuring >2.0 mmol/L be repeated. 69 Because ethnic data is not always [...] 5 Kidney failure <15 (or dialysis) 70 Because ethnic data is not always [...] 71 99th percentile=0.04 ng/mL Troponin results at [facility] and [facility] are not interchangeable. Procedures Date Code Description Status 07/28/2018 78121 EKG, Interpretation Only Completed 07/28/2018 81989 EKG Tracing & Interpretation Completed 05/18/2018 08318 EKG, Interpretation Only Completed 05/15/2018 47426 EEG Recording Awake & Asleep Completed 05/15/2018 41248 Treadmill Interp/Report Only Completed 05/15/2018 71076 Stress Test Supervsn W/Out I/R Completed 05/15/2018 13137 EKG, Interpretation Only Completed 05/14/2018 49227 EKG, Interpretation Only Completed 04/30/2018 24070 EKG, Interpretation Only Completed 03/18/2018 84782 EKG, Interpretation Only Completed 03/14/2018 07763 EEG Recording In Coma Or Sleep Only Completed 09/12/2016 52337 Inject/Drain Joint/Bursa Intermediate W/O US Completed 09/20/2014 74780 EKG Tracing & Interpretation Completed Encounters Type Date Location Provider Dx Diagnosis Office Visit 10/30/2018 [facility] Internal Best Ordaz MD Z01.810 Encounter for 10:20a Medicine - Suite preprocedural R cardiovascular examination G40.909 Epilepsy, unsp, not intractable, without status epilepticus S42.142D Disp fx of glenoid cav of scapula, l shldr, 7thD F10.14 Alcohol abuse with alcohol-induced mood disorder B18.2 Chronic viral hepatitis C Z86.711 Personal history of pulmonary embolism Office Visit 09/25/2018 3:00p DO Not Use Care Norma S42.142D Disp fx of Connections Pedro, DO glenoid cav of [facility] scapula, l shldr, 7thD F10.14 Alcohol abuse with alcohol-induced mood disorder B18.2 Chronic viral hepatitis C Office Visit 07/24/2018 9:30a Orthopedic Taiwo Cunningham S42.142D Disp fx of Services Of MD Senia glenoid cav of C.M.A. scapula, l ldr, 7thD Office Visit 07/22/2018 2:45p Orthopedic Jhony Cowart, M25.512 Pain in left Services Of shoulder C.M.A. S42.142A Disp fx of glenoid cavity of scapula, left shoulder, init Office Visit 07/10/2018 4:20p [facility] For Adriano Grissom B18.2 Chronic viral Infectious Mirna Covarrubias hepatitis C Diseases K74.0 Hepatic fibrosis Office Visit 06/18/2018 1:40p DO Not Use Care Best Ordaz, G90.09 Other idiopathic Connections peripheral [facility] autonomic neuropathy M54.2 Cervicalgia B18.2 Chronic viral hepatitis C I10 Essential (primary) hypertension Office Visit 06/16/2018 2:30p Neurosurgery Vassilios M54.2 Cervicalgia Services Of Maru Hathaway MD M47.892 Other spondylosis, cervical region Office Visit 05/30/2018 1:00p DO Not Use Care Best Ordaz MD M54.2 Cervicalgia Connections [facility] G89.4 Chronic pain syndrome B18.2 Chronic viral hepatitis C J44.9 Chronic obstructive pulmonary disease, unspecified I10 Essential (primary) hypertension Z86.711 Personal history of pulmonary embolism Office Visit 05/22/2018 2:40p DO Not Use Care Best Ordaz MD M54.2 Cervicalgia Connections [facility] G89.4 Chronic pain syndrome R07.9 Chest pain, unspecified B18.2 Chronic viral hepatitis C J44.9 Chronic obstructive pulmonary disease, unspecified I10 Essential (primary) hypertension Z86.711 Personal history of pulmonary embolism Office Visit 05/19/2018 10:14a [facility] Anne R07.9 Chest pain, Assoc,leidy Justin, unspecified 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 unspecified Hospitalists J44.9 Chronic obstructive pulmonary disease, unspecified E72.20 Disorder of urea cycle metabolism, unspecified R41.0 Disorientation, unspecified M54.5 Low back pain F10.10 Alcohol abuse, uncomplicated Z86.711 Personal history of pulmonary embolism Office Visit 05/17/2018 [facility] Magda Cormier, R07.9 Chest pain, 10:14a leidy Temple M.D. unspecified Hospitalists J44.9 Chronic obstructive pulmonary disease, unspecified E72.20 Disorder of urea cycle metabolism, unspecified R41.0 Disorientation, unspecified M54.5 Low back pain F10.10 Alcohol abuse, uncomplicated Z86.711 Personal history of pulmonary embolism Office Visit 05/17/2018 4:31p [facility] Feliz S. R07.89 Other chest Of Treating And Pumping Supervisor Mayen, DO FACC pain Z72.0 Tobacco use F10.230 Alcohol dependence with withdrawal, uncomplicated Office Visit 05/16/2018 [facility] Norma R41.0 Disorientation, 10:14a Assoc,leidy Vasquez, DO unspecified Hospitalists R07.9 Chest pain, unspecified M54.5 Low back pain F10.10 Alcohol abuse, uncomplicated Z86.711 Personal history of pulmonary embolism Office Visit 05/15/2018 10:13a [facility] Norma R07.9 Chest pain, Assoc,pc Pedro, DO unspecified Hospitalists M54.5 Low back pain F10.10 Alcohol abuse, uncomplicated Z86.711 Personal history of pulmonary embolism Office Visit 05/14/2018 10:13a [facility] Norma R07.9 Chest pain, Assoc,pc Pedro, DO unspecified Hospitalists F10.239 Alcohol dependence with withdrawal, unspecified J44.9 Chronic obstructive pulmonary disease, unspecified G89.4 Chronic pain syndrome B18.2 Chronic viral hepatitis C Office Visit 05/02/2018 11:40a DO Not Use Care Norma B18.2 Chronic viral Connections Senner, DO hepatitis C [facility] R22.32 Localized swelling, mass and lump, left upper limb Office Visit 04/30/2018 1:40p DO Not Use Care Norma R07.9 Chest pain, Connections Senner, DO unspecified [facility] F10.14 Alcohol abuse with alcohol-induced mood disorder M50.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, unsp cervical region B18.2 Chronic viral hepatitis C Office Visit 04/09/2018 DO Not Use Care Best Ordaz, F10.14 Alcohol abuse with 9:20a Tory DIAZ alcohol-induced mood [facility] disorder I10 Essential (primary) hypertension F17.210 Nicotine dependence, cigarettes, uncomplicated J44.9 Chronic obstructive pulmonary disease, unspecified M54.2 Cervicalgia Z86.711 Personal history of pulmonary embolism F33.9 Major depressive disorder, recurrent, unspecified Office Visit 03/22/2018 12:16p [facility] Best Ordaz, F10.239 Alcohol Assoc,leidy DIAZ dependence with Hospitalists withdrawal, unspecified W19.xxxD Unspecified [...] w hypoxia or hypercapnia Office Visit 03/13/2018 [facility] Nithin Dorantes J69.0 Pneumonitis due 12:14p Assoc,pc MD Cathi to inhalation of Hospitalists food and vomit J44.9 Chronic obstructive pulmonary disease, unspecified F10.10 Alcohol abuse, uncomplicated M54.5 Low back pain I10 Essential (primary) hypertension Z86.711 Personal history of pulmonary embolism Office Visit 03/12/2018 [facility] Lottie F10.10 Alcohol abuse, 12:14p Assoc,pc MARLY Munguia uncomplicated Hospitalists G40.509 Epileptic seiz rel to extrn causes, not ntrct, w/o stat epi R51 Headache I10 Essential (primary) hypertension Z87.09 Personal history of other diseases of the respiratory system Office Visit 10/03/2016 [facility] Internal Magdi Grissom M47.22 [facility]FACP with radiculopathy, Suite R cervical region J01.00 Acute maxillary sinusitis, unspecified G89.4 Chronic pain syndrome F17.210 Nicotine dependence, cigarettes, uncomplicated Office Visit 09/28/2016 Neurosurgery Stew M47.22 Other spondylosis 10:00a Services Of Maru Odell M.D. with radiculopathy, cervical region Office Visit 09/26/2016 [facility] Internal Magdi Grissom M47.22 Other spondylosis 2:00p Medicine - Suite R Carrie, with radiculopathy, Mirna,FACP cervical region I26.99 Other [...] encounter M54.2 Cervicalgia Office Visit 09/20/2014 1:40p [place] Filiberto Stefek, 272.4 Hyperlipidemia Other Cardiology Of Mirna, FACC, Unspec Treating And Pumping Supervisor AT [facility] FSCAI 401.1 Hypertension Benign 786.50 Pain Chest Unspec Office Visit 07/07/2014 11:30a Neurosurgery Stew Odell, 721.1 Spondylosis Services Of Maru AT Mirna Cervical W/ Coyd Myelopathy Office Visit 03/25/2014 9:00a Cody/Yordy Matthews 780.2 Syncope & Neurologic Serv Of Mirna Wells Collapse Treating And Pumping Supervisor Office Visit 02/22/2009 11:20a DO Not Use Treating And Pumping Supervisor AT [place], 565.0 Anal Fissure Kuldip Jaramillo M.D. 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.0 Stenosis Spinal Services Of [facility] Mirna Fernández Cervical Region 721.0 Spondylosis Cervical W/O Myelopathy 723.1 Cervicalgia 782.0 Skin Sensation Disturbance Office Visit 01/11/2009 1:00p DO Not Use Treating And Pumping Supervisor AT Ella Buchanan, 724.2 Lumbago [facility] Bradley 723.9 Cervical Region Musculoskeletal Disorders & Symptoms Unspec Office Visit 12/08/2008 9:00a DO Not Use Treating And Pumping Supervisor Dewayne, 493.00 Asthma Extrinsic AT [facility] Mirna Jaramillo Unspecified 314.01 Attention Deficit Disorder W/ Hyperactivity 723.9 Cervical Region Musculoskeletal Disorders & Symptoms Unspec 724.2 Lumbago Plan of Treatment Future Appointment(s):01/21/2019 1:30 pm - Brien Damon NP at [place] [facility]11/12/2018 - Brien Damon, MARLYG40.909 Epilepsy, unspecified, not intractable, without status epileFollow up:2-3 MonthsRecommendations:Please obtain Keppra level tomorrow morning. Must be a trough level. Hold morning dose of Keppra.S42.142D Displaced fracture of glenoid cavity of scapula, left should
--- OUTSIDE RECORDS SUMMARY | 2018-12-04 01:31 | XMS REPORT | Continuity of Care Document ---
:1965 External Reference #:[id number] Author Name Nighat Hook Care Team Providers Name Role Phone [facility] Primary Care Physician Unavailable Payers Date Identification Numbers Payment Provider Subscriber Effective: 2003 Policy Number: [id number] Medicare Adriano Jones PayID: [id number] [address] [place] [address] Policy Number: [id number] Medicaid Adriano Jones Group Name: [id number] [address] PayID: [id number] [place] [address] Expires: 2012 Policy Number: [id number] Medicaid Adriano Jones Group Name: 1 1 [address] PayID: [id number] [place] [address] Problems Active Problems Provider Date Cervical spondylosis with myelopathy Stew Odell M.D. Onset: 07/07/2014 Hyperlipidemia Filiberto Woodard M.D., [facility] Onset: 09/20/2014 Benign essential hypertension Filiberto Woodard M.D., [facility] Onset: 2014 H/O: pulmonary embolus Magdi Butler M.D.,[facility] Onset: 09/26/2016 Note: 2010 Chronic obstructive lung disease Magdi Butler M.D.,[facility] Onset: 2016 Tobacco user Best Ordaz [...] Inactive Problems Chest pain Filiberto Woodard M.D., [facility] Onset: 09/20/2014 Inactive: 09/26/2016 Resolved Problems Syncope [...] Third Daughter 17 First Brother due to [place] () Social History Type Date Description Comments [...] (more than 10 cigarettes/day) Smoking Status Reviewed: 11/12/18 Heavy tobacco smoker (more than 10 cigarettes/day) [...] Besylate take 1 tab each 30tabs I10 [facility] Pedro, 05/22/2018 10mg day. DO Tablets Xarelto 1 by mouth 30tabs Norma Pedro, 04/09/2018 15mg Tablets every day DO Clonidine HCL [address] [facility], 0.1mg Tablets twice a day DO Metoprolol Succinate ER 1 by mouth 30tabs Norma [facility], every day DO 50mg Tablets ER 24HR Escitalopram Oxalate [address] [facility], 20mg every day DO Tablets Gabapentin 600mg three 180tabs [facility], 600mg Tablets times a day and DO [...] 20caps Magdi Grissom 10/03/2016 - 100mg mouth [place], 10/03/2016 Capsules Mirna,FACP Cefuroxime Axetil 1 by mouth twice 20tabs Magdi Grissom 10/03/2016 - 500mg a day for 10 days [place], 10/13/2016 Tablets Mirna,FACP Chantix Starting Month as directed 55tabs Magdi Grissom 10/03/2016 - Maximiliano [place], 04/08/2018 0.5mg X 11 & 1 mg X 42 M.DMirlande,FACP Tablets Losartan Potassium 1 by mouth every 30tabs Magdi Grissom 09/26/2016 - 50mg day [place], 04/09/2018 Tablets Mirna,FACP Doxycycline Hyclate twice a day by 14caps Magdi Grissom 09/26/2016 - 100mg mouth [place], 10/03/2016 Capsules Mirna,FACP Valium take 1-2 tabs [...] Pepto-Bismol 1 table spoon po 3units 565.0 [place]ay[place], 02/22/2009 - 524mg/30ML tid Mirna Jaramillo 03/22/2014 [...] 4gm Magdi Grissom - daily as needed [place], 04/08/2018 20-100mcg/Act Aerosol M.Praveena,FACP Levetiracetam 1 twice [...] 90tabs Magdi Grissom - 20mg Tablets day [place], 04/09/2018 Mirna,SILVANA Flovent HFA 2 puffs twice [...] Injection Vital Signs Date Vital Result Comment 11/12/2018 2:55pm Height 68 inches 5'8" Weight [...] Test Result H/L Range Note Laboratory test [facility] Hepatitis C Undetected Undetected 1 finding [address] Rna Quant IU/[place] [address] [phone] Basic Metabolic [facility] Sodium 141 mmol/L N 135- 145 Panel [address] [place] [address] [phone] Potassium 3.8 mmol/L N 3.5-5.0 Chloride 105 mmol/L N 101-111 Co2 Carbon Dioxide 30 mmol/L N 22-32 Anion Gap 6 mmol/L N 2-11 Glucose 75 mg/dL N 70-100 Blood Urea Nitrogen 9 mg/dL N 6-24 Creatinine 1.01 mg/dL N 0.67-1.17 BUN/Creatinine Ratio 8.9 N 8-20 Calcium 10.0 mg/dL N 8.6-10.3 Egfr Non- 77.9 >60 Egfr 94.2 >60 2 CBC Auto Diff 11/04/2018 [facility] White Blood 6.1 10^3/uL N 3.5-10.[address] [place] [address] [phone] Red Blood Count 4.64 10^6/uL N 4.18-5.48 [...] Red Blood Cells % 0.0 Inr/Protime 11/04/2018 [facility] Inr 1.03 N 0.82-1.[address] [place] [address] [phone] Laboratory test 11/04/2018 [facility] Partial 41.3 High 26.0- 38.[address] [place] [address] Time PTT [phone] Liver Function 11/04/2018 [facility] Total 7.4 g/dL N 6.4-8.[address] [place] [address] [phone] Albumin 4.4 g/dL N 3.2-5.2 Globulin 3.0 g/dL N 2-4 Albumin/Globulin Ratio 1.5 N 1-3 Total Bilirubin 1.30 mg/dL High 0.2-1.0 Direct Bilirubin 0.20 mg/dL High 0.03-0.18 Indirect Bilirubin 1.1 mg/dL High 0.3-1.0 Alkaline Phosphatase 70 U/L N 34-104 Alt 20 U/L N 7-52 Ast 21 U/L N 13-39 Laboratory 11/04/2018 [facility] Levetiracetam <2.0 g/mL Abnormal 4 test finding [address] (Keppra) [place] [address] [phone] Drug Abuse 20 07/28/2018 [facility] Urine Amphetamine Negative [address] ng/[place] [address] [phone] Urine Barbiturates Negative ng/mL 6 Urine Benzodiazepines Negative ng/mL 7 Urine Cocaine Negative ng/mL 8 Urine Phencyclidine Negative ng/mL Cutoff: 25 Urine Tetrahydrocannabinol Negative ng/mL Cutoff: 50 9 Creatinine, Urine 133.2 mg/dL Specific [place] 1.015 pH 6.0 Oxidants Negative 10 Adulterants Comment Normal Codeine, Ur Not Detected ng/mL Cutoff: 25 11 Hcoqoeu-0-uwep-glucuronide, Ur Not Detected ng/mL 12 Morphine, Ur Not Detected ng/mL Cutoff: 25 13 Aikaikfq-5-hixz-glucuronide, U Not Detected ng/mL 14 6-monoacetylmorphine, Ur Not Detected ng/mL Cutoff: 25 15 Hydrocodone, Ur Not Detected ng/mL Cutoff: 25 16 Norhydrocodone, Ur Not Detected ng/mL Cutoff: 25 17 Dihydrocodeine, Ur Not Detected ng/mL Cutoff: 25 18 Hydromorphone, Ur Not Detected ng/mL Cutoff: 25 19 Fszsxecsurdkm4fnvompiyasazgtm Not Detected ng/mL 20 Oxycodone, Ur Not Detected ng/mL Cutoff: 25 21 Noroxycodone, Ur Present ng/mL Abnormal Cutoff: 25 22 Oxymorphone, Ur Not Detected ng/mL Cutoff: 25 23 Nxxsqyzwoeb-8-ijzj-glucuronide Not Detected ng/mL 24 Noroxymorphone, Ur Not Detected ng/mL Cutoff: 25 25 Fentanyl, Ur Not Detected ng/mL Cutoff: 2 26 Norfentanyl, Ur Not Detected ng/mL Cutoff: 2 27 Meperidine, Ur Not Detected ng/mL Cutoff: 25 28 Normeperidine, Ur Not Detected ng/mL Cutoff: 25 29 Naloxone, Ur Not Detected ng/mL Cutoff: 25 30 Rjrzwepi-4-jqar-glucuronide, U Not Detected ng/mL 31 Methadone, Ur [...] Ur Not Detected ng/mL Cutoff: 50 39 Mxyzadsxne-vhjs-qjmzfzhvxdg, U Not Detected ng/mL 40 Buprenorphine, Ur Not Detected ng/mL Cutoff: 5 41 Norbuprenorphine, Ur Not Detected ng/mL Cutoff: 5 42 Norbuprenorphine glucuronide Not Detected ng/mL Cutoff: 20 43 Opioid Interpretation See Comment 44 HIV 1/2 Ag/AB 07/14/2018 [facility] Hiv1/2 Ag/Ab Negative Negative 45 Screen,W/Reflex,Plasma [address] Screen,w/Reflex,[place] [address] [phone] Laboratory test finding 07/14/2018 [facility] Hepatitis B Nonreacti Nonreacti [address] [place] [address] [phone] Fibro Test-Actitest, 07/14/2018 [facility] FibroTest Score 0.[address] [place] [address] [phone] FibroTest Stage F3 FibroTest Interpretation advanced fibrosi <SEE NOTE> 46 ActiTest Score 0.66 ActiTest Grade A3 ActiTest Interpretation severe activity 47 FibroTest-ActiTest Comment See Comment 48 Bio[employer] Serial Number [id number] Apolipoprotein A1, S 168 mg/dL >=120 Unsoj-2-Ivdgbzjkzolks, S 235 mg/dL 100 - 280 Haptoglobin, S 118 mg/dL 30 - 200 Alanine Aminotransferase (Alt) 99 U/L Abnormal 7-55 Gamma Glutamyltransferase GGT 284 U/L Abnormal 8 - 61 Bilirubin, Total, S 0.9 mg/dL <=1.2 49 Urine Culture And 07/13/2018 [facility] Urine Culture SEE RESULT [address] [place] [address] [phone] Laboratory test 07/13/2018 [facility] Alcohol < 10 mg/dL N < [address] [place] [address] [phone] Urinalysis Profile 07/13/2018 [facility] [place] [address] [phone] Urine Appearance Clear Urine Specific [place] 1.014 N 1.010-1.030 Urine pH 5.0 N [...] Casts Present Abnormal Absent Laboratory test 07/13/2018 [facility] TSH (Thyroid 1.14 mcIU/mL N 0.34-5.[address] Stim [place]) [place] [address] [phone] CKMB 07/13/2018 [facility] CKMB ng/mL 5.4 ng/mL N 0.6-6.[address] [place] [address] [phone] Laboratory test 07/13/2018 [facility] Magnesium 1.9 mg/dL N 1.9-2.[address] [place] [address] [phone] Creatine Kinase(CK) 237 U/L High 10-223 Troponin-I (TnI) 0.00 ng/mL <0.04 51 Comp Metabolic Panel 07/13/2018 [facility] Sodium 136 mmol/L N 135-[address] [place] [address] [phone] Chloride 105 mmol/L N 101-111 Co2 Carbon [...] Ast TNP U/L 13-39 Laboratory test 07/13/2018 [facility] Potassium 4.2 mmol/L N 3.5-5.[address] [place] [address] [phone] Ast Redraw 60 U/L High 13-39 Laboratory test 07/13/2018 [facility] Troponin-I (TnI) 0.00 ng/ mL <0.[address] [place] [address] [phone] Potassium Redraw TNP mmol/L 3.5-5.0 Ast Redraw TNP U/L 13-39 CBC Auto Diff 07/13/2018 [facility] White Blood 8.6 10^3/uL N 3.5-10.[address] [place] [address] [phone] Red Blood Count 4.98 10^6/uL N 4.00-5.40 [...] Blood Cells % 0.2 Laboratory test 07/13/2018 [facility] Lactic Acid 1.8 mmol/L N 0.5-2.0 55 finding [address] [place] [address] [phone] B-Type Natriuretic Peptide BNP 22 pg/mL <=100 Laboratory test 05/21/2018 [facility] Magnesium 2.0 mg/dL N 1.9-2.7 finding [address] [place] [address] [phone] Comp Metabolic 05/21/2018 [facility] Sodium 141 mmol/L N 135- 145 Panel 101 [place] [address] [phone] Chloride 105 mmol/L N 101-111 Co2 Carbon [...] 91 U/L High 13-39 Manual Differential 05/21/2018 [facility] Immature 6 % N 0-[address] Granulocytes [place] [id number] [phone] Neutrophil % 57 % Band % 2 % N 0-8 Lymphocytes % 22 % Monocytes % 10 % Eosinophils % 4 % Basophil % 1 % Metamyelocytes % 2 % N 0-2 Myelocytes % 2 % High 0-1 Macrocytosis 1+ CBC Auto Diff 05/21/2018 [facility] White Blood 9.5 10^3/uL N 3.5-10.[address] [place] [address] [phone] Red Blood Count 4.55 10^6/uL N 4.00-5.40 [...] Cells % 0.1 CBC Auto Diff 05/14/2018 [facility] White Blood 6.6 10^3/uL N 3.5-10.[address] [place] [address] [phone] Red Blood Count 4.83 10^6/uL N 4.00-5.40 [...] Red Blood Cells % 0.1 Inr/Protime 05/14/2018 [facility] Inr 0.89 N 0.77-1.02 [address] [place] [address] [phone] Laboratory test 05/14/2018 [facility] B-Type 11 pg/mL <=100 finding [address] [facility] [place] [address] Peptide BNP [phone] Lactic Acid 1.2 mmol/L N 0.5-2.0 57 Comp Metabolic Panel 05/14/2018 [facility] Sodium 139 mmol/L N 135-145 [address] [place] [address] [phone] Potassium 4.2 mmol/L N 3.5-5.0 Chloride 108 [...] Egfr 96.8 >60 58 Laboratory test 05/14/2018 [facility] Troponin-I (TnI) 0.00 ng/ mL <0.04 [address] [place] [address] [phone] Alcohol < 10 mg/dL N <10 Amylase 35 U/L N 29-103 Lipase 24 U/L N 11.0-82.0 Laboratory test 05/14/2018 [facility] Troponin-I (TnI) 0.00 ng/ mL <0.04 [address] [place] [address] [phone] Hepatitis C 05/02/2018 [facility] HCV Index > 11.0 Antibody [address] [place] [address] [phone] Hepatitis C Antibody High Reactive Abnormal Nonreactive 61 Laboratory 05/02/2018 [facility] Hepatitis C [id number] Abnormal Undetected [address] Rna Quant IU/[place] [address] [phone] Hepatitis C Genotype 3 Abnormal Undetected 63 Liver Function 05/02/2018 [facility] Total Protein 7.2 g/dL N 6.4-8.[address] [place] [address] [phone] Albumin 4.1 g/dL N 3.2-5.2 Globulin 3.1 g/dL N 2-4 Albumin/Globulin Ratio 1.3 N 1-3 Total Bilirubin 0.50 mg/dL N 0.2-1.0 Direct Bilirubin 0.10 mg/dL N 0.03-0.18 Indirect Bilirubin 0.4 mg/dL N 0.3-1.0 Alkaline Phosphatase 79 U/L N 34-104 Alt 101 U/L High 7-52 Ast 66 U/L High 13-39 Inr/Protime 01/10/2017 [facility] Inr 1.01 N 0.89-1.[address] [place] [address] [phone] Laboratory test 01/10/2017 [facility] Partial 38.5 High 26.0- 36.[address] [place] [address] Time PTT [phone] CBC Auto Diff 01/10/2017 [facility] White Blood 8.4 10^3/uL N 3.5-10.[address] [place] [address] [phone] Red Blood Count 4.50 10^6/uL N 4.0-5.4 [...] % 0.1 N Comp Metabolic Panel 01/10/2017 [facility] Sodium 137 mmol/L N 133-[address] [place] [address] [phone] Potassium 4.1 mmol/L N 3.5-5.0 Chloride 107 [...] N >60 64 Laboratory test finding 01/10/2017 [facility] Lipase 11 U/L N 11.0-82.[address] [place] [address] [phone] Troponin-I (TnI) 0.00 ng/mL N <0.04 Urine Drug 12/25/2016 [facility] Amphetamine Ur None Detected N None Detect SCR ED & [address] [place] [address] [phone] Barbiturates Urine Screen Presumptive Posi <SEE NOTE> Abnormal None Detect 65 Benzodiazepine Urine Screen None Detected N None Detect Urine Cannabinoids Screen None Detected N None Detect Urine Cocaine Screen None Detected N None Detect Urine Opiates Screen None Detected N None Detect Urine Phencyclidine Screen None Detected N None Detect 66 Laboratory test 12/25/2016 [facility] Troponin-I 0.00 ng/mL N <0.04 [address] (TnI) [place] [address] [phone] CBC Auto Diff 10/03/2016 [facility] White Blood 8.0 N 3.5- 10.[address] Count 10^3/[place] [address] [phone] Red Blood Count 5.00 10^6/uL N 4.0-5.4 [...] Cells % 0.2 N Laboratory test 10/03/2016 [facility] Lactic Acid 1.2 mmol/L N 0.5-2.0 68 finding [address] [place] [address] [phone] Comp Metabolic 10/03/2016 [facility] Sodium 138 mmol/L N 133- 145 Panel [address] [place] [address] [phone] Potassium 4.5 mmol/L N 3.5-5.0 Chloride 106 [...] N >60 69 CBC Auto Diff 10/03/2016 [facility] White Blood 7.3 10^3/uL N 3.5-10.[address] [place] [address] [phone] Red Blood Count 5.25 10^6/uL N 4.0-5.4 [...] % 0.3 N Basic Metabolic Panel 10/03/2016 [facility] Sodium 138 mmol/L N 133-[address] [place] [address] [phone] Potassium 4.7 mmol/L N 3.5-5.0 Chloride 104 mmol/L N 101-111 Co2 Carbon Dioxide 32 mmol/L N 22-32 Anion Gap 2 mmol/L N 2-11 Glucose 82 mg/dL N 70-100 Blood Urea Nitrogen 9 mg/dL N 6-24 Creatinine 1.13 mg/dL N 0.67-1.17 BUN/Creatinine Ratio 8.0 N 8-20 Calcium 9.6 mg/dL N 8.6-10.3 Egfr Non- 69.0 N >60 Egfr 88.7 N >60 70 CKMB 10/03/2016 [facility] CKMB ng/mL 2.8 ng/mL N 0.6-6.[address] [place] [address] [phone] Laboratory test 10/03/2016 [facility] Creatine 107 U/L N 10- [address] Kinase(CK) [place] [address] [phone] Troponin-I (TnI) 0.00 ng/mL N <0.04 71 1 Result in log IU/mL is Undetected. ADDITIONAL INFORMATION The quantification range of this assay is 15 to 100,000,000 IU/mL (1.18 log to 8.00 log IU/mL). Testing was performed using the le HCV test ([employer] with the le MarkaVIP0 System. Test Performed by: [facility] [address] [place] [address] 2 Because ethnic data is not always [...] developed and its performance characteristics determined by [facility] in a manner consistent with CLIA requirements. This test has not been cleared or approved by the U.S. Food and Drug Administration. Test Performed by: [facility] [address] [facility], [place] [address] 5 REFERENCE VALUE Cutoff: 500 6 REFERENCE [...] 100 15 Metabolite of heroin 16 Lortab, Ambrose, Vicodin; Also a very minor metabolite of [...] developed and its performance characteristics determined by [facility] in a manner consistent with CLIA requirements. This test has not been cleared or approved by the U.S. Food and Drug Administration. Test Performed by: [facility] [employer] [facility] [employer] [facility] [place] [address] 45 Negative result does not rule out HIV infection. If exposure to HIV infection occurred <14 days ago, contact the laboratory to request addition of HIV-1 RNA detection / quantification test (HIVQN). Test Performed by: [facility] [place] [address] 46 advanced fibrosis FibroTest estimates liver fibrosis [...] developed and its performance characteristics determined by [facility] in a manner consistent with CLIA requirements. This test has not been cleared or approved by the U.S. Food and Drug Administration. 49 Test Performed by: [address] [address] 50 SEE RESULT BELOW Name: ADRIANO JONES : [address]: Saw Figueredo MD Acct: [id number] Unit: [id number] AGE: 53 Location: ED Re07/13/18 SEX: M Status: DEP ER SPEC: [id number] JANEL: 07/13/18 [facility] DR: Saw Figueredo MD REQ: [id number] RECD: 07/13/18 STATUS: [place] [facility] DR: Norma Vasquez DO _ SOURCE: URINE SPDESC: ORDERED: Urine Culture Procedure Result Reported Site Urine Culture Final 07/14/18- 1602 ML No Growth (<1,000 CFU/mL) * ML - Main Lab . END OF REPORT DEPARTMENT OF PATHOLOGY, [address] [place] [address] Romario Meier M.D. Director [facility] # [id number] 51 Troponin-I testing on Plasma Separator Tubes [...] troponins reflex immediate secondary confirmatory testing. 55 [facility] Severe Sepsis and Septic Shock Management [...] 5 Kidney failure <15 (or dialysis) 57 [facility] Severe Sepsis and Septic Shock Management [...] performed using the le HCV test ([employer] with the le 6800 System. Test Performed by: [address] [address] 63 ADDITIONAL INFORMATION This test was performed using the Rojas RealTime HCV Genotype II assay ([employer] [place], [place]). Test Performed by: [address] [address] 64 Because ethnic data is not always [...] 67 Comment: please draw at 1400 68 [facility] Severe Sepsis and Septic Shock Management [...] 71 99th percentile=0.04 ng/mL Troponin results at [facility] and [facility] are not interchangeable. Procedures Date Code Description Status 07/28/2018 17223 EKG, Interpretation Only Completed 07/28/2018 36398 EKG Tracing & Interpretation Completed 05/18/2018 98932 EKG, Interpretation Only Completed 05/15/2018 17853 EEG Recording Awake & Asleep Completed 05/15/2018 10203 Treadmill Interp/Report Only Completed 05/15/2018 15118 Stress Test Supervsn W/Out I/R Completed 05/15/2018 63188 EKG, Interpretation Only Completed 05/14/2018 27563 EKG, Interpretation Only Completed 04/30/2018 77091 EKG, Interpretation Only Completed 03/18/2018 11104 EKG, Interpretation Only Completed 03/14/2018 51480 EEG Recording In Coma Or Sleep Only Completed 09/12/2016 92381 Inject/Drain Joint/Bursa Intermediate W/O US Completed 09/20/2014 36875 EKG Tracing & Interpretation Completed Encounters Type Date Location Provider Dx Diagnosis Office Visit 10/30/2018 [facility] Internal Best Ordaz MD Z01.810 Encounter for 10:20a Medicine - Suite preprocedural R cardiovascular examination G40.909 Epilepsy, unsp, not intractable, without status epilepticus S42.142D Disp fx of glenoid cav of ingrid felix, 7thD F10.14 Alcohol abuse with alcohol-induced mood disorder B18.2 Chronic viral hepatitis C Z86.711 Personal history of pulmonary embolism Office Visit 09/25/2018 3:00p DO Not Use Care Norma S42.142D Disp fx of Connections Senner, DO glenoid cav of [facility] scapula, l shldr, 7thD F10.14 Alcohol abuse with alcohol-induced mood disorder B18.2 Chronic viral hepatitis C Office Visit 07/24/2018 9:30a Orthopedic Taiwo Cunningham S42.142D Disp fx of Services Of MD Senia glenoid cav of [facility] scapula, l dustyldr, 7thD Office Visit 07/22/2018 2:45p Orthopedic Jhony Cowart, M25.512 Pain in left Services Of shoulder [facility]. S42.142A Disp fx of glenoid cavity of scapula, left shoulder, init Office Visit 07/10/2018 4:20p [facility] For Adriano Grissom B18.2 Chronic viral Infectious Mirna Covarrubias hepatitis C Diseases K74.0 Hepatic fibrosis Office Visit 06/18/2018 1:40p DO Not Use Care Best Ordaz, G90.09 Other idiopathic Connections peripheral [facility] autonomic neuropathy M54.2 Cervicalgia B18.2 Chronic viral hepatitis C I10 Essential (primary) hypertension Office Visit 06/16/2018 2:30p Neurosurgery Vassilios M54.2 Cervicalgia Services Of [facility] MD Mag M47.892 Other spondylosis, cervical region Office Visit 05/30/2018 1:00p DO Not Use Care Best Ordaz MD M54.2 Cervicalgia Connections [facility] G89.4 Chronic pain syndrome B18.2 Chronic viral hepatitis C J44.9 Chronic obstructive pulmonary disease, unspecified I10 Essential (primary) hypertension Z86.711 Personal history of pulmonary embolism Office Visit 05/22/2018 2:40p DO Not Use Care Best Ordaz MD M54.2 Cervicalgia Connections [facility] G89.4 Chronic pain syndrome R07.9 Chest pain, unspecified B18.2 Chronic viral hepatitis C J44.9 Chronic obstructive pulmonary disease, unspecified I10 Essential (primary) hypertension Z86.711 Personal history of pulmonary embolism Office Visit 05/19/2018 10:14a [facility] Anne R07.9 Chest pain, Assoc,pc [facility] D[place], unspecified Hospitalists [employer] F10.239 Alcohol dependence with withdrawal, unspecified G40.909 Epilepsy, unsp, not intractable, without status epilepticus J44.9 Chronic obstructive pulmonary disease, unspecified Office Visit 05/18/2018 [facility] Magda Cormier, R07.9 Chest pain, 10:14a leidy Temple M.D. unspecified Hospitalists J44.9 Chronic obstructive pulmonary disease, unspecified E72.20 Disorder of urea cycle metabolism, unspecified R41.0 Disorientation, unspecified M54.5 Low back pain F10.10 Alcohol abuse, uncomplicated Z86.711 Personal history of pulmonary embolism Office Visit 05/17/2018 [facility] Magda Cormier, R07.9 Chest pain, 10:14a leidy Temple M.D. unspecified Hospitalists J44.9 Chronic obstructive pulmonary disease, unspecified E72.20 Disorder of urea cycle metabolism, unspecified R41.0 Disorientation, unspecified M54.5 Low back pain F10.10 Alcohol abuse, uncomplicated Z86.711 Personal history of pulmonary embolism Office Visit 05/17/2018 4:31p [facility] Feliz S. R07.89 Other chest Of [facility], DO FACC pain Z72.0 Tobacco use F10.230 Alcohol dependence with withdrawal, uncomplicated Office Visit 05/16/[address] Hospital[facility] R41.0 Disorientation, 10:14a Assraji,leidy Vasquez, DO unspecified Hospitalists R07.9 Chest pain, unspecified M54.5 Low back pain F10.10 Alcohol abuse, uncomplicated Z86.711 Personal history of pulmonary embolism Office Visit 05/15/2018 10:13a [address] Hospitalian R07.9 Chest pain, Assoc,pc Pedro, DO unspecified Hospitalists M54.5 Low back pain F10.10 Alcohol abuse, uncomplicated Z86.711 Personal history of pulmonary embolism Office Visit 05/14/2018 10:13a [address] Hospitalian R07.9 Chest pain, Assoc,pc Pedro, DO unspecified Hospitalists F10.239 Alcohol dependence with withdrawal, unspecified J44.9 Chronic obstructive pulmonary disease, unspecified G89.4 Chronic pain syndrome B18.2 Chronic viral hepatitis C Office Visit 05/02/2018 11:40a DO Not Use Care Norma B18.2 Chronic viral Connections DO Pedro hepatitis C [facility] R22.32 Localized swelling, mass and lump, left upper limb Office Visit 04/30/2018 1:40p DO Not Use Care Norma R07.9 Chest pain, Connections Matiasner, DO unspecified Clinic-[facility] General Manager F10.14 Alcohol abuse with alcohol-induced mood disorder M50.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, unsp cervical region B18.2 Chronic viral hepatitis C Office Visit 04/09/2018 DO Not Use Care Best Ordaz, F10.14 Alcohol abuse with 9:20a Connections alcohol-induced mood Clinic-[facility] Store General Manager disorder I10 Essential (primary) hypertension F17.210 Nicotine dependence, cigarettes, uncomplicated J44.9 Chronic obstructive pulmonary disease, unspecified M54.2 Cervicalgia Z86.711 Personal history of pulmonary embolism F33.9 Major depressive disorder, recurrent, unspecified Office Visit 03/22/2018 12:16p [facility] Best Ordaz, F10.239 Alcohol Assoc,leidy DIAZ [...] 12:04p Intensivists Kayley White, F10.239 Alcohol dependence with withdrawal, unspecified J18.9 Pneumonia, unspecified organism J96.90 Respiratory failure, unsp, unsp w hypoxia or hypercapnia Office Visit 03/14/2018 12:14p Intensivists Henry Diamond F10.239 Alcohol dependence with withdrawal, unspecified J69.0 Pneumonitis due to inhalation of food and vomit J96.90 Respiratory failure, unsp, unsp w hypoxia or hypercapnia Office Visit 03/13/2018 [facility] Nithin Dorantes J69.0 Pneumonitis due 12:14p Assoc,pc MD Cathi to inhalation of Hospitalists food and vomit J44.9 Chronic obstructive pulmonary disease, unspecified F10.10 Alcohol abuse, uncomplicated M54.5 Low back pain I10 Essential (primary) hypertension Z86.711 Personal history of pulmonary embolism Office Visit 03/12/2018 [facility] Lottie F10.10 Alcohol abuse, 12:14p Assoc,pc MARLY Munguia uncomplicated Hospitalists G40.509 Epileptic seiz rel to extrn causes, not ntrct, w/o stat epi R51 Headache I10 Essential (primary) hypertension Z87.09 Personal history of other diseases of the respiratory system Office Visit 10/03/2016 [facility] Internal Magdi Grissom M47.22 Other spondylosis 2:20p Violet Butler M.D.,FACP with radiculopathy, Suite R cervical region J01.00 Acute maxillary sinusitis, unspecified G89.4 Chronic pain syndrome F17.210 Nicotine dependence, cigarettes, uncomplicated Office Visit 09/28/2016 Neurosurgery Stew M47.22 Other spondylosis 10:00a Services Of Maru Odell M.D. 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 Unspecified 314.01 Attention Deficit Disorder W/ Hyperactivity 723.9 Cervical Region Musculoskeletal Disorders & Symptoms Unspec 724.2 Lumbago Plan of Treatment Future Appointment(s):01/21/2019 1:30 pm - Brien Damon NP at [facility]11/12/2018 - Brien Damon, MARLYG40.909 Epilepsy, unspecified, not intractable, without status epileFollow up:2-3 [id number] Displaced fracture of glenoid cavity of scapula, left should
== END 2018-12-03 22:40 | disposition home or self-care (01) ==
LOC: ED 19:11
DX: S00.83XA Contusion of other part of head, initial encounter (principal); S00.81XA Abrasion of other part of head, initial encounter; S06.9X9A Unspecified intracranial injury with loss of consciousness of unspecified duration, initial encounter; H91.93 Unspecified hearing loss, bilateral; M79.642 Pain in left hand; Y09 Assault by unspecified means; Y92.9 Unspecified place or not applicable; M89.44 Other hypertrophic osteoarthropathy, hand; M50.323 Other cervical disc degeneration at C6-C7 level; K02.9 Dental caries, unspecified; K04.7 Periapical abscess without sinus; I10 Essential (primary) hypertension; Z86.711 Personal history of pulmonary embolism; Z79.01 Long term (current) use of anticoagulants; J44.9 Chronic obstructive pulmonary disease, unspecified; F41.9 Anxiety disorder, unspecified; F32.9 Major depressive disorder, single episode, unspecified; Z88.0 Allergy status to penicillin; Z88.8 Allergy status to other drugs, medicaments and biological substances; Z88.6 Allergy status to analgesic agent; Z91.030 Bee allergy status; F17.210 Nicotine dependence, cigarettes, uncomplicated
CPT/HCPCS: 70450; 70486; 72125; 96374; 96375; 99285; A9270-GY; J2270; J2765

== ENCOUNTER 2018-12-04 12:02 | Emergency (ER) | payer MEDICARE, MEDICAID ==
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
[2018-12-04 13:06] VITALS: BP 148/96
== END 2018-12-04 13:34 | disposition home or self-care (01) ==
LOC: UCEAST 12:02
DX: S09.21XA Traumatic rupture of right ear drum, initial encounter (principal); S66.115A Strain of flexor muscle, fascia and tendon of left ring finger at wrist and hand level, initial encounter; S09.90XA Unspecified injury of head, initial encounter; Y04.0XXA Assault by unarmed brawl or fight, initial encounter; Y92.9 Unspecified place or not applicable; I10 Essential (primary) hypertension; J44.9 Chronic obstructive pulmonary disease, unspecified; F17.210 Nicotine dependence, cigarettes, uncomplicated; Z79.01 Long term (current) use of anticoagulants; Z88.0 Allergy status to penicillin
CPT/HCPCS: 73140; 99213; G0463

== ENCOUNTER 2019-01-16 17:03 | Emergency (ER) | payer MEDICARE, MEDICAID ==
--- OUTSIDE RECORDS SUMMARY | 2019-01-16 17:15 | XMS REPORT | Continuity of Care Document ---
:1965 External Reference #:[id number] Author Name Best Ordaz MD (transmitted by agent of provider Irma Raphael) Address [address] [place] [id number] Care Team Providers Name Role Phone Ella Buchanan MD - Internal Care Team Information [facility] - Care Team Information [facility] Best Ordaz MD - Hospitalist Care Team Information [facility] [phone] Guille Bynum MD - Orthopaedic Care Team Information [facility] Surgery Problems Active Problems Provider Date Cervical spondylosis with myelopathy Stew Odell M.D. Onset: 07/07/2014 Hyperlipidemia Filiberto Woodard M.D., [facility] Onset: 09/20/2014 Benign essential hypertension Filiberto Woodard M.D., [facility] Onset: 2014 H/O: pulmonary embolus Magdi Butler M.D.,[facility] Onset: 09/26/2016 Note: 2010 Chronic obstructive lung disease Magdi Butler M.D.,[facility] Onset: 2016 Tobacco user Best Ordaz [...] examination Epilepsy Best Ordaz MD Onset: 10/30/2018 Traumatic rupture of right ear drum, Best Ordaz MD Onset: 12/12/2018 subsequent encounter Chronic obstructive pulmonary disease Best Ordaz MD Onset: 12/12/2018 with (acute) exacerbation Nondisplaced fracture of middle Best Ordaz MD Onset: 12/12/2018 phalanx of left ring finger, subsequent encounter for fracture with routine healing Social History Type Date Description Comments Sex Unknown Tobacco Use Start: Unknown Current Cigarette Smoker 1 Pack Daily ETOH Use Denies alcohol use Tobacco Use Start: Unknown Patient is a current smoker, smokes every day Recreational Drug Use 09/26/2016 Denies Drug Use Tobacco Use Start: Unknown Heavy tobacco smoker (more than 10 cigarettes/day) Smoking Status Reviewed: 12/12/18 Heavy tobacco smoker (more than 10 cigarettes/day) Exercise Type/Frequency Does not exercise Allergies, Adverse Reactions, Alerts Active Allergies Reaction Severity Comments Date Penicillins Anaphylaxis Severe 12/08/2008 Asa/Caff/Butal/Cod GI irritation 12/08/2008 Tegretol Anaphylaxis Severe 09/26/2016 Ativan He states he blacks out 05/23/2018 Medications Active Medications SIG Qnty Indications Ordering Date Provider Azithromycin take 2 tabs on 6tabs J44.1 Best Ordaz MD 12/12/2018 250mg first day then 1 Tablets tab for next 4 days. Prednisone take 2 tab daily 12tabs J44.1 Best Ordaz MD 12/12/2018 20mg Tablets for 4 days then 1 tab for 4 days. Nicotrol use every 2 hours 168units Z72.0 Best Ordaz MD 12/12/2018 10mg Inhaler as needed for nicotine cravings. [facility] Nicotine use gum every 2 110units Z72.0 Best Ordaz MD 12/03/2018 Polacrilex hours as needed 4mg Gum for cravings. Nicotine Transdermal use daily. 28units Z72.0 Best Ordaz MD 12/03/2018 System Step 2 14mg/24HR Patches 24HR Incruse Ellipta use 1 inhalation 30units J44.9 Best Ordaz MD 12/03/2018 by mouth every 62.5mcg/Inh Aerosol day Flovent HFA 2 puffs every 4-6 24gm Best Ordaz MD 12/03/2018 110mcg/Act hours as needed Aerosol Furosemide 1 by mouth every 10tabs R60.9 Best Ordaz MD 12/03/2018 20mg Tablets day for 4 days then stop. Can take as needed daily if swelling returns or weight goes up more than 5 lbs in one week Advair Diskus 1 puff inhaled 60units J44.1 [...] Oxycodone HCL 1 tabs by mouth 60tabs Norma Vasquez, 07/22/2018 5mg Tablets every 6 hours as DO needed Cyclobenzaprine HCL take 5mg three 90tabs [...] HCL 1 by mouth twice 60tabs [facility] 0.[facility] a day DO Tablets Metoprolol Succinate 1 by mouth every 30tabs [facility], ER day DO 50mg Tablets ER 24HR Escitalopram Oxalate 1 by mouth every 30tabs [facility], 20mg day DO Tablets Gabapentin take 1 tablet by 180tabs [facility], 600mg Tablets mouth three times DO a day and take 3 tablets at bedtime History Medications Prednisone 1 by mouth 5tabs J44.1 Norma Vasquez, 11/25/2018 - 50mg Tablets every day DO 12/02/2018 Azithromycin take two tabs 6tabs J44.1 [facility], 11/25/2018 - 250mg on day one, and DO 12/02/2018 Tablets then one tab for four days Oxycodone HCL 1 tab every 8 20tabs S42.142D [facility], 09/25/2018 - 5mg hours as needed DO 10/30/2018 Tablets Medications Administered in Office Medication SIG Qnty Indications Ordering Provider Date Depomedrol 40MG Taiwo Conn MD 09/12/2016 Injection Immunizations Description No Information Available Vital Signs Date Vital Result Comment 12/12/2018 11:14am Height 68 inches 5'8" Weight 204.50 lb Heart Rate 85 /min BP Systolic 152 mmHg 126/88 BP Diastolic 102 mmHg 126/88 Body Temperature 97.1 F O2 % BldC Oximetry 95 % BMI (Body Mass Index) 31.1 kg/m2 12/03/2018 8:29am Weight 202.00 lb Heart Rate 68 /min BP Systolic 130 mmHg BP Diastolic 89 mmHg Respiratory Rate 18 /min Body Temperature 97.3 F O2 % BldC Oximetry 96 % Results Test Date Facility Test Result H/L Range Note Laboratory test [facility] Levetiracetam <pending> finding [address] ([facility]) [place] [address] [phone] CBC Auto Diff [facility] White Blood Count 7.6 Normal 3.5-10.[address] 10^3/[place] [address] [phone] Red Blood Count 4.69 10^6/uL Normal 4.18-5.48 [...] Blood Cells % 0.2 Comp Metabolic 11/25/2018 [facility] Sodium 141 mmol/L Normal 135-[address] [place], [place] [id number] [phone] Potassium 4.1 mmol/L Normal 3.5-5.0 Chloride 108 [...] 77.9 >60 Egfr 94.2 >60 1 Laboratory 11/25/2018 [facility] Levetiracetam 19.6 g/mL 2 test finding [address] ([facility]) [place] [address] [phone] Laboratory 11/04/2018 [facility] Hepatitis C Rna Undetected Undetected [address] Quant IU/[place] [address] [phone] Basic 11/04/2018 [facility] Sodium 141 mmol/L Normal 135-[address] [place] [address] [phone] Potassium 3.8 mmol/L Normal 3.5-5.0 Chloride 105 mmol/L Normal 101-111 Co2 Carbon Dioxide 30 mmol/L Normal 22-32 Anion Gap 6 mmol/L Normal 2-11 Glucose 75 mg/dL Normal 70-100 Blood Urea Nitrogen 9 mg/dL Normal 6-24 Creatinine 1.01 mg/dL Normal 0.67-1.17 BUN/Creatinine Ratio 8.9 Normal 8-20 Calcium 10.0 mg/dL Normal 8.6-10.3 Egfr Non- 77.9 >60 Egfr 94.2 >60 4 CBC Auto 11/04/2018 [facility] White Blood 6.1 10^3/uL Normal 3.5-10.[address] [place] [address] [phone] Red Blood Count 4.64 10^6/uL Normal 4.18-5.48 [...] Red Blood Cells % 0.0 Inr/Protime 11/04/2018 [facility] Inr 1.03 Normal 0.82-1.[address] [place] [address] [phone] Laboratory test 11/04/2018 [facility] Partial 41.3 High 26.0- 38.[address] [place] [address] Time PTT [phone] Liver Function 11/04/2018 [facility] Total 7.4 g/dL Normal 6.4 -8.[address] [place] [address] [phone] Albumin 4.4 g/dL Normal 3.2-5.2 Globulin 3.0 g/dL Normal 2-4 Albumin/Globulin Ratio 1.5 Normal 1-3 Total Bilirubin 1.30 mg/dL High 0.2-1.0 Direct Bilirubin 0.20 mg/dL High 0.03-0.18 Indirect Bilirubin 1.1 mg/dL High 0.3-1.0 Alkaline Phosphatase 70 U/L Normal 34-104 Alt 20 U/L Normal 7-52 Ast 21 U/L Normal 13-39 Laboratory 11/04/2018 [facility] Levetiracetam <2.0 g/mL Abnormal 6 test finding [address] ([facility]) [place] [address] [phone] Drug Abuse 20 07/28/2018 [facility] Urine Amphetamine Negative [address] ng/[place] [address] [phone] Urine Barbiturates Negative ng/mL 8 Urine Benzodiazepines Negative ng/mL 9 Urine Cocaine Negative ng/mL 10 Urine Phencyclidine Negative ng/mL Cutoff: 25 Urine Tetrahydrocannabinol Negative ng/mL Cutoff: 50 11 Creatinine, Urine 133.2 mg/dL Specific [place] 1.015 pH 6.0 Oxidants Negative 12 Adulterants Comment Normal Codeine, Ur Not Detected ng/mL Cutoff: 25 13 Lektzam-6-sguy-glucuronide, Ur Not Detected ng/mL 14 Morphine, Ur Not Detected ng/mL Cutoff: 25 15 Ytcfoaos-9-fixh-glucuronide, U Not Detected ng/mL 16 6-monoacetylmorphine, Ur Not Detected ng/mL Cutoff: 25 17 Hydrocodone, Ur Not Detected ng/mL Cutoff: 25 18 Norhydrocodone, Ur Not Detected ng/mL Cutoff: 25 19 Dihydrocodeine, Ur Not Detected ng/mL Cutoff: 25 20 Hydromorphone, Ur Not Detected ng/mL Cutoff: 25 21 Jzzzipqftgjkt9pseviklwejytsew Not Detected ng/mL 22 Oxycodone, Ur Not Detected ng/mL Cutoff: 25 23 Noroxycodone, Ur Present ng/mL Abnormal Cutoff: 25 24 Oxymorphone, Ur Not Detected ng/mL Cutoff: 25 25 Tdkifltcxnl-8-kbcl-glucuronide Not Detected ng/mL 26 Noroxymorphone, Ur Not Detected ng/mL Cutoff: 25 27 Fentanyl, Ur Not Detected ng/mL Cutoff: 2 28 Norfentanyl, Ur Not Detected ng/mL Cutoff: 2 29 Meperidine, Ur Not Detected ng/mL Cutoff: 25 30 Normeperidine, Ur Not Detected ng/mL Cutoff: 25 31 Naloxone, Ur Not Detected ng/mL Cutoff: 25 32 Tgumbeax-7-vrwh-glucuronide, U Not Detected ng/mL 33 Methadone, Ur [...] Ur Not Detected ng/mL Cutoff: 50 41 Zwgvwhfgsm-xgka-rrsvoftfsyl, U Not Detected ng/mL 42 Buprenorphine, Ur Not Detected ng/mL Cutoff: 5 43 Norbuprenorphine, Ur Not Detected ng/mL Cutoff: 5 44 Norbuprenorphine glucuronide Not Detected ng/mL Cutoff: 20 45 Opioid Interpretation See Comment 46 Laboratory 07/14/2018 [facility] Hepatitis B Nonreactive Nonreactive test finding [address] [place] [address] [phone] HIV 1/2 Ag/AB 07/14/2018 [facility] Hiv1/2 Ag/Ab Negative Negative 47 Screen,W/Refle 101 Screen,w/Ref x,[place] [address] dara,P [phone] Fibro 07/14/2018 [facility] FibroTest 0.58 Test-Actitest, 101 [place] [address] [phone] FibroTest Stage F3 FibroTest Interpretation advanced fibrosi <SEE NOTE> 48 ActiTest Score 0.66 ActiTest Grade A3 ActiTest Interpretation severe activity 49 FibroTest-ActiTest Comment See Comment 50 [employer] Serial Number [id number] Apolipoprotein A1, S 168 mg/dL >=120 Gzarn-7-Veucxbzgjwsun, S 235 mg/dL 100 - 280 Haptoglobin, S 118 mg/dL 30 - 200 Alanine Aminotransferase (Alt) 99 U/L Abnormal 7-55 Gamma Glutamyltransferase GGT 284 U/L Abnormal 8 - 61 Bilirubin, Total, S 0.9 mg/dL <=1.2 51 Laboratory test 07/13/2018 [facility] Potassium 4.2 mmol/L Normal 3.5-5.0 finding [address] [place] [address] [phone] Ast Redraw 60 U/L High 13-39 Laboratory test 07/13/2018 [facility] Troponin-I (TnI) 0.00 ng/ mL <0.04 52 finding 101 [place] [address] [phone] Potassium Redraw TNP mmol/L 3.5-5.0 Ast Redraw TNP U/L 13-39 CBC Auto 07/13/2018 [facility] White Blood 8.6 10^3/uL Normal 3.5-10.8 Diff [address] [place] [address] [phone] Red Blood Count 4.98 10^6/uL Normal 4.00-5.40 [...] Blood Cells % 0.2 Laboratory test 07/13/2018 [facility] Lactic Acid 1.8 mmol/L Normal 0.5-2.0 53 finding 101 [place] [address] [phone] B-Type Natriuretic Peptide BNP 22 pg/mL <=100 Comp Metabolic 07/13/2018 [facility] Sodium 136 mmol/L Normal 135-145 Panel 101 [place] [address] [phone] Chloride 105 mmol/L Normal 101-111 Co2 Carbon [...] Egfr Non- 80.6 >60 Egfr 97.6 >60 54 Potassium TNP mmol/L 3.5-5.0 55 Anion Gap 8 mmol/L Normal 2-11 Ast TNP U/L 13-39 Laboratory test 07/13/2018 [facility] Magnesium 1.9 mg/dL Normal 1.9-2.[address] [place] [address] [phone] Creatine Kinase(CK) 237 U/L High 10-223 Troponin-I (TnI) 0.00 ng/mL <0.04 56 CKMB 07/13/2018 [facility] CKMB 5.4 ng/mL Normal 0.6-6.[address] ng/[place] [address] [phone] Laboratory test 07/13/2018 [facility] TSH 1.14 Normal 0.34- 5.[address] (Thyroid mcIU/[place] [address] Stim Kolf) [phone] Urinalysis 07/13/2018 [facility] Urine Yellow Profile [address] [place] [address] [phone] Urine Appearance Clear Urine Specific [place] 1.014 Normal 1.010-1.030 Urine pH 5.0 Normal [...] Casts Present Abnormal Absent Laboratory test 07/13/2018 [facility] Alcohol < 10 mg/dL Normal <[address] [place] [address] [phone] Urine Culture And 07/13/2018 [facility] Urine SEE RESULT [address] [place] [address] [phone] 1 Because ethnic data is not always [...] 5 Kidney failure <15 (or dialysis) 2 REFERENCE VALUE 12.0 - 46.0 ADDITIONAL INFORMATION This test was developed and its performance characteristics determined by [facility] in a manner consistent with CLIA requirements. This test has not been cleared or approved by the U.S. Food and Drug Administration. Test Performed by: [facility] [place] [address] 3 Result in log IU/mL is Undetected. ADDITIONAL INFORMATION The quantification range of this assay is 15 to 100,000,000 IU/mL (1.18 log to 8.00 log IU/mL). Testing was performed using the le HCV test ([employer] with the le 6800 System. Test Performed by: [facility] [place] [address] 4 Because ethnic data is not always [...] 5 Kidney failure <15 (or dialysis) 5 Standard intensity warfarin therapeutic range: 2.0-3.0 High intensity warfarin therapeutic range: 2.5-3.5 6 REFERENCE VALUE 12.0 - 46.0 ADDITIONAL INFORMATION This test was developed and its performance characteristics determined by [facility] in a manner consistent with CLIA requirements. This test has not been cleared or approved by the U.S. Food and Drug Administration. Test Performed by: [facility] [employer] [address] [place] [address] 7 REFERENCE VALUE Cutoff: 500 8 REFERENCE [...] REFERENCE VALUE Cutoff: 100 15 Jennifer Ley, MS Contin; Also a minor metabolite (10%) of codeine and can be seen in low concentrations (<2,000 ng/mL) with poppy seed ingestion. 16 Metabolite of morphine REFERENCE VALUE Cutoff: 100 17 Metabolite of heroin 18 Lortab, [place], Vicodin; Also a very minor metabolite of [...] developed and its performance characteristics determined by [facility] in a manner consistent with CLIA requirements. This test has not been cleared or approved by the U.S. Food and Drug Administration. Test Performed by: [facility] [place] [address] 47 Negative result does not rule out HIV infection. If exposure to HIV infection occurred <14 days ago, contact the laboratory to request addition of HIV-1 RNA detection / quantification test (HIVQN). Test Performed by: [facility] [place] [address] 48 advanced fibrosis FibroTest estimates liver fibrosis FibroTest Score Stage Interpretation 0.00-0.21 F0 no fibrosis 0.21-0.27 F0-F1 no fibrosis 0.27-0.31 F1 minimal fibrosis 0.31-0.48 F1-F2 minimal fibrosis 0.48-0.58 F2 moderate fibrosis 0.58-0.72 F3 advanced fibrosis 0.72-0.74 F3-F4 advanced fibrosis 0.74-1.00 F4 severe fibrosis (Cirrhosis) 49 ActiTest estimates necroinflammatory activity ActiTest Score Grade Interpretation 0.00-0.17 A0 no activity 0.17-0.29 A0-A1 no activity 0.29-0.36 A1 minimal activity 0.36-0.52 A1-A2 minimal activity 0.52-0.60 A2 significant activity 0.60-0.62 A2-A3 significant activity 0.62-1.00 A3 severe activity 50 The reliability of results is dependent on compliance with the preanalytical and analytical conditions recommended by [employer]. The tests have to be deferred for: [...] developed and its performance characteristics determined by [facility] in a manner consistent with CLIA requirements. This test has not been cleared or approved by the U.S. Food and Drug Administration. 51 Test Performed by: [address] [address] 52 Troponin-I testing on Plasma Separator Tubes (PST) has a known false positive rate of 0.20-0.40%. All positive troponins reflex immediate secondary confirmatory testing. 53 [facility] Severe Sepsis and Septic Shock Management Bundle Measure requires all lactic acids initially measuring >2.0 mmol/L be repeated. 54 Because ethnic data is not always readily [...] 15-29 5 Kidney failure <15 (or dialysis) 55 Specimen Hemolyzed. Result may not be valid. Unable to report test result due to hemolysis. 56 Troponin-I testing on Plasma Separator Tubes (PST) has a known false positive rate of 0.20-0.40%. All positive troponins reflex immediate secondary confirmatory testing. 57 SEE RESULT BELOW Name: ADRIANO JONES : [address]: Saw Figueredo MD Acct: [id number] Unit: [id number] AGE: 53 Location: ED Re07/13/18 SEX: M Status: DEP ER SPEC: [id number] JANEL: 07/13/[address] [facility] [address]: aSw Figueredo MD REQ: [id number] RECD: 07/13/18 STATUS: [facility] DR: Norma Vasquez DO _ SOURCE: URINE SPDESC: ORDERED: Urine Culture Procedure Result Reported Site Urine Culture Final 07/14/18- 1602 ML No Growth (<1,000 CFU/mL) * ML - Main Lab . END OF REPORT DEPARTMENT OF PATHOLOGY, [address] [place] [address] Romario Meier M.D. Director [facility] # [id number] Procedures Date Code Description Status 12/03/2018 65462 EKG Tracing & Interpretation Completed 07/28/2018 01592 EKG, Interpretation Only Completed 07/28/2018 38271 EKG Tracing & Interpretation Completed Medical Devices Description No Information Available Encounters Type Date Location Provider Dx Diagnosis Office Visit 12/12/2018 [employer] [facility] Internal Best Ordaz MD S09.21xD Traumatic rupture 11:00a Medicine - Suite of right ear drum, R subsequent encounter J44.1 Chronic obstructive pulmonary disease w (acute) exacerbation Z72.0 Tobacco use S62.655D Nondisp fx of middle phalanx of left ring finger, 7thD F10.14 Alcohol abuse with alcohol-induced mood disorder G40.909 Epilepsy, unsp, not intractable, without status epilepticus S42.142D Disp fx of glenoid cav of scapula, l shldr, 7thD Office Visit 12/03/2018 8:20a [facility] Internal Best Ordaz, Z01.818 Encounter for other Medicine - MD preprocedural Suite R examination S42.142D Disp fx of glenoid cav of scapula, l shldr, 7thD B18.2 Chronic viral hepatitis C G40.909 Epilepsy, unsp, not intractable, without status epilepticus J44.9 Chronic obstructive pulmonary disease, unspecified F17.210 Nicotine dependence, cigarettes, uncomplicated R60.9 Edema, unspecified R06.02 Shortness of breath Office Visit 11/25/2018 11:40a [facility] Internal Norma Z01.818 Encounter for other Medicine - DO Pedro preprocedural Suite R examination J44.1 Chronic obstructive pulmonary disease w (acute) exacerbation S42.142D Disp fx of glenoid cav of scapula, l shldr, 7thD Office Visit 11/19/2018 10:10a [facility] Bacilio Grissom B18.2 Chronic viral Infectious Mirna Covarrubias hepatitis C Diseases R06.00 Dyspnea, unspecified Office Visit 11/12/2018 3:00p [place] Brien Daomn, G40.909 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, 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, 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, 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 Of [facility] without status epilepticus F10.188 Alcohol abuse with other alcohol-induced disorder Office Visit 10/30/2018 10:20a [facility] Internal Best Ordaz, Z01.810 Encounter for Medicine - MD preprocedural Suite R cardiovascular examination G40.909 Epilepsy, unsp, not intractable, without status epilepticus S42.142D Disp fx of glenoid cav of scapula, l shldr, 7thD F10.14 Alcohol abuse with alcohol-induced mood disorder B18.2 Chronic viral hepatitis C Z86.711 Personal history of pulmonary embolism Office Visit 09/25/2018 3:00p DO Not Use Care Norma S42.142D Disp fx of Connections DO Pedro glenoid cav of [facility] isidro l melissar, 7thD F10.14 Alcohol abuse with alcohol-induced mood disorder B18.2 Chronic viral hepatitis C Office Visit 07/24/2018 9:30a Orthopedic Taiwo Cunningham S42.142D Disp fx of Services Of MD Senia glenoid cav of [facility], 7thD Office Visit 07/22/2018 2:45p Orthopedic Jhony Cowart, M25.512 Pain in left Services Of shoulder [facility] S42.142A Disp fx of glenoid cavity of scapula, left shoulder, init Office Visit 07/10/2018 4:20p [facility] For Adriano Grissom B18.2 Chronic viral Infectious Mirna Covarrubias hepatitis C Diseases K74.0 Hepatic fibrosis Assessments Date Code Description Provider 12/12/2018 S09.21xD Traumatic rupture of right ear drum, Best Ordaz MD subsequent encounter 12/12/2018 J44.1 Chronic obstructive pulmonary disease Best Ordaz MD with (acute) exacerbation 12/12/2018 Z72.0 Tobacco use Best Ordaz MD 12/12/2018 S62.655D Nondisplaced fracture of middle phalanx Best Ordaz MD of left ring finger, subsequent encounter for fracture with routine healing 12/12/2018 F10.14 Alcohol abuse with alcohol-induced mood Best Ordaz MD disorder 12/12/2018 G40.909 Epilepsy, unspecified, not intractable, Best Ordaz MD without status epile 12/12/2018 S42.142D Displaced fracture of glenoid cavity of Best Ordaz MD scapula, left should 12/03/2018 Z01.818 Encounter for other preprocedural Best Ordaz MD examination 12/03/2018 S42.142D Displaced fracture of glenoid cavity of Best Ordaz MD scapula, left shoulder, subsequent encounter for fracture with routine healing 12/03/2018 B18.2 Chronic viral hepatitis C Best Ordaz MD 12/03/2018 G40.909 Epilepsy, unspecified, not intractable, Best Ordaz MD without status epile 12/03/2018 J44.9 Chronic obstructive pulmonary disease, Best Ordaz MD unspecified 12/03/2018 F17.210 Nicotine dependence, cigarettes, Best Ordaz MD uncomplicated 12/03/2018 R60.9 Edema, unspecified Best Ordaz MD 12/03/2018 R06.02 Shortness of breath Best Ordaz MD 11/25/2018 Z01.818 Encounter for other preprocedural Norma Vasquez DO examination 11/25/2018 J44.1 Chronic obstructive pulmonary disease Norma Vasquez DO with (acute) exacerbat 11/25/2018 S42.142D Displaced fracture of glenoid cavity of Norma Vasquez DO scapula, left should 11/19/2018 B18.2 Chronic viral hepatitis C Adriano Covarrubias M.D. 11/19/2018 R06.00 Dyspnea, unspecified Adriano Covarrubias M.D. 11/12/2018 G40.909 Epilepsy, unspecified, not intractable, Brien Damon NP without status epile 11/12/2018 F10.188 Alcohol abuse with other Brien Damon NP alcohol-induced disorder 10/30/2018 Z01.810 Encounter for preprocedural Best Ordaz MD cardiovascular examination 10/30/2018 G40.909 Epilepsy, unspecified, not intractable, Best Ordaz MD without status epile 10/30/2018 S42.142D Displaced fracture of glenoid cavity of Best Ordaz MD scapula, left should 10/30/2018 F10.14 Alcohol abuse with alcohol-induced mood Best Ordaz MD disorder 10/30/2018 B18.2 Chronic viral hepatitis C Best Ordaz MD 10/30/2018 Z86.711 Personal history of pulmonary embolism Best Ordaz MD 09/25/2018 S42.142D Displaced fracture of glenoid cavity of Norma Vasquez DO scapula, left should 09/25/2018 F10.14 Alcohol abuse with alcohol-induced mood Norma Vasquez DO disorder 09/25/2018 B18.2 Chronic viral hepatitis C Norma Vasquez DO 07/28/2018 Z01.810 Encounter for preprocedural Best Ordaz MD cardiovascular examination 07/28/2018 S42.142D Displaced fracture of glenoid cavity of Best Ordaz MD scapula, left should 07/28/2018 M25.512 Pain in left shoulder Best Ordaz MD 07/28/2018 M54.2 Cervicalgia Best Ordaz MD 07/28/2018 I10 Essential (primary) hypertension Best Ordaz MD 07/28/2018 Z86.711 Personal history of pulmonary embolism Best Ordaz MD 07/28/2018 B18.2 Chronic viral hepatitis C Best Ordaz MD 07/24/2018 S42.142D Displaced fracture of glenoid cavity of Taiwo Conn MD scapula, left should 07/22/2018 M25.512 Pain in left shoulder Jhony Cowart MD 07/22/2018 S42.142A Disp fx of glenoid cavity of scapula, Jhony Cowart MD left shoulder, init 07/10/2018 B18.2 Chronic viral hepatitis C Adriano Covarrubias M.D. 07/10/2018 K74.0 Hepatic fibrosis Adriano Covarrubias M.D. Plan of Treatment Future Appointment(s):12/30/2018 1:30 pm - Nathan Hernandez MD at [facility]01/09/2019 11:00 am - Best Ordaz MD at [facility] Internal Medicine - [address]/19/2019 10:00 am - Norma Vasquez DO at [facility] Internal Medicine - [address]/21/2019 1:30 pm - Brien Damon NP at [place] [facility]12/12/2018 - CHATA Krause09.21xD Traumatic rupture of right ear drum, subsequent encounterReferral:Maxwell Hernandez MD, OtolaryngologyFollow up:4 vslnhL06.1 Chronic obstructive pulmonary disease with (acute) exacerbationNew Medication:Azithromycin 250 mg - take 2 tabs on first day then 1 tab for next 4 days.Prednisone 20 mg - take 2 tab daily for 4 days then 1 tab for 4 days.Z72.0 Tobacco useNew Medication:Nicotrol 10 mg - use every 2 hours as needed for nicotine cravings.Comments:will try nicotine inhaler in addition to the patch. This is critical for you to breath better and ultimately get his surgery.S62.655D Nondisplaced fracture of middle phalanx of left ring finger, subsequent encounter for fracture with routine healingComments:Questionable fracture (and/or ligament damage on left 4th finger). He has been discharged from [facility] in past and may need to go to [place] for further evaluation.Referral:Guille Bynum MD, Surgery,OrthopedicWaters, MD Nathan , Surgery,Hand OrthopedicFollow up:With Dr. Bynum of Orthopedics.F10.14 Alcohol abuse with alcohol-induced mood spfzcfroR75.909 Epilepsy, unspecified, not intractable, without status epileComments:Will contact Neurology to see if they have cleared him for his surgery.S42.142D Displaced fracture of glenoid cavity of scapula, left should Functional Status Description No Information Available Mental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
== END 2019-01-16 17:55 | disposition left against medical advice (07) ==
LOC: UCCORT 17:03
DX: S69.92XA Unspecified injury of left wrist, hand and finger(s), initial encounter (principal); X58.XXXA Exposure to other specified factors, initial encounter; Y92.9 Unspecified place or not applicable; Z53.21 Procedure and treatment not carried out due to patient leaving prior to being seen by health care provider

== ENCOUNTER 2019-03-08 12:45 | Emergency (ER) | payer MEDICARE, MEDICAID ==
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
[2019-03-08 13:43] VITALS: BP 186/96
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
== END 2019-03-08 14:48 | disposition home or self-care (01) ==
LOC: UCCORT 12:45
DX: M79.89 Other specified soft tissue disorders (principal); M25.512 Pain in left shoulder; I10 Essential (primary) hypertension; F17.290 Nicotine dependence, other tobacco product, uncomplicated; J45.909 Unspecified asthma, uncomplicated; Z88.0 Allergy status to penicillin; Z88.6 Allergy status to analgesic agent; Z91.09 Other allergy status, other than to drugs and biological substances; Z88.8 Allergy status to other drugs, medicaments and biological substances
CPT/HCPCS: 99212; G0463

== ENCOUNTER 2019-06-09 09:57 | Emergency (ER) | payer MEDICARE, MEDICAID ==
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
== END 2019-06-09 10:10 | disposition left against medical advice (07) ==
LOC: UCEAST 09:57
DX: Z53.21 Procedure and treatment not carried out due to patient leaving prior to being seen by health care provider (principal)

== ENCOUNTER 2019-06-09 12:55 | Emergency (ER) | payer MEDICARE, MEDICAID ==
[2019-06-09 13:27] LABS: Hematocrit 49 % (42-52); Hemoglobin 17.3 g/dL (14.0-18.0); Mean Corpuscular HGB Conc 35 g/dL (31-36); Mean Corpuscular Hemoglobin 35 pg (27-31); Mean Corpuscular Volume 98 fL (80-94); Mean Platelet Volume 8.3 fL (7.4-10.4); Platelet Count 326 10^3/uL (150-450); Red Blood Count 4.99 10^6 /uL (4.18-5.48); Red Cell Distribution Width 13 % (10-15); White Blood Count 10.4 10^3/uL (3.5-10.8)
[2019-06-09 13:38] LABS: ABS Basophils 0.1 10^3/ul (0-0.2); ABS Eosinophils 0.1 10^3/ul (0-0.6); ABS Lymphocytes 1.2 10^3/ul (1.0-4.8); ABS Monocytes 0.7 10^3/ul (0-0.8); ABS Neutrophils 8.4 10^3/ul (1.5-7.7); Eosinophil % 0.7 %; Lymphocyte % 11.4 %
[2019-06-09 13:43] LABS: ALT 83 U/L (7-52); Albumin 4.7 g/dL (3.2-5.2); Albumin/Globulin Ratio 1.4 (1-3); Alkaline Phosphatase 89 U/L (34-104); BUN/Creatinine Ratio 20.2 (8-20); Blood Urea Nitrogen 24 mg/dL (6-24); CO2 Carbon Dioxide 32 mmol/L (22-32); Calcium 9.7 mg/dL (8.6-10.3); Chloride 106 mmol/L (101-111); EGFR Non-African American 64.4 (>60); Globulin 3.4 g/dL (2-4); Glucose 104 mg/dL (70-100); Sodium 142 mmol/L (135-145); Total Protein 8.1 g/dL (6.4-8.9)
[2019-06-09 14:11] LABS: Anion Gap 4 mmol/L (2-11)
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
[2019-06-09] MEDS ORDERED: NS 0.9% 1000 ML** 1,000 ML IV ONE (17:10)
[2019-06-09] MEDS ORDERED: Ondansetron INJ* 2 MG/ML VIAL IV ONE (17:10)
[2019-06-09] MEDS ORDERED: Morphine 4 MG/ML VIAL (1 ml) 4 MG/ML VIAL IV ONE (17:11)
[2019-06-09] MEDS ORDERED: Iohexol 300* (CONTRAST) 10 ML SDV IV ONE (17:16)
[2019-06-09] MEDS ORDERED: metroNIDAZOLE TAB* 250 MG PO ONE (18:08)
[2019-06-09] MEDS ORDERED: Ciprofloxacin TAB* 500 MG PO ONE (18:08)
[2019-06-09] MEDS ORDERED: Ondansetron ODT TAB* 4 MG PO ONE (18:14)
[2019-06-09] MEDS ORDERED: Sulfamethox/Trimethoprim DS 800/160* TAB PO ONE (18:14)
[2019-06-09 18:21] VITALS: BP 170/116
[2019-06-09 18:47] LABS: Potassium Redraw 4.9 mmol/L (3.5-5.0)
== END 2019-06-09 18:22 | disposition home or self-care (01) ==
LOC: ED 12:55
DX: K52.9 Noninfective gastroenteritis and colitis, unspecified (principal); R10.12 Left upper quadrant pain; R10.32 Left lower quadrant pain; F10.10 Alcohol abuse, uncomplicated; I10 Essential (primary) hypertension; J44.9 Chronic obstructive pulmonary disease, unspecified; Z86.711 Personal history of pulmonary embolism; Z79.01 Long term (current) use of anticoagulants; F41.9 Anxiety disorder, unspecified; F32.9 Major depressive disorder, single episode, unspecified; Z90.49 Acquired absence of other specified parts of digestive tract; Z88.0 Allergy status to penicillin; Z88.8 Allergy status to other drugs, medicaments and biological substances; Z88.6 Allergy status to analgesic agent; Z91.030 Bee allergy status; F17.290 Nicotine dependence, other tobacco product, uncomplicated
CPT/HCPCS: 36415; 74177; 80053; 83690; 85025; 85730; 96374; 96375; 99283; A9270-GY; J2270; J2405; Q9967

== ENCOUNTER 2019-07-15 17:52 | Emergency (ER) | payer MEDICARE, MEDICAID ==
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
== END 2019-07-15 19:25 | disposition left against medical advice (07) ==
LOC: UCEAST 17:52
DX: Z53.21 Procedure and treatment not carried out due to patient leaving prior to being seen by health care provider (principal)